=== PATIENT | female | born 1955 | race Caucasian/White ===

== ENCOUNTER → 2024-03-02 | Outpatient (CLI) | payer MEDICARE, BC, SELFPAY ==
--- NOTE | 2024-03-02 07:31 | US_ITS ---
STUDY: ABDOMINAL ULTRASOUND - RIGHT UPPER QUADRANT REASON FOR VISIT: Female, 68 years old elevated liver enzymes TECHNIQUE: Ultrasound evaluation of the right upper quadrant was performed with real-time and static marcus-scale imaging. TECHNICAL QUALITY: Adequate. COMPARISON: None. FINDINGS: Liver: The liver measures 13.8 cm. There is increased echogenicity consistent with fatty infiltration. The bile ducts are within normal limits. There is hepatic color flow. The direction of portal flow is hepatopetal. There is no demonstrated mass lesion. Gallbladder: Normal distended gallbladder. The gallbladder wall measures 3 mm. There is a negative sonographic Chavira''s sign. There is no pericholecystic fluid. There are no gallstones. Common Bile Duct (C.B.D.): The common bile duct measures 3 mm. Pancreas: Normal size of the head, body and tail of the pancreas. There is normal echogenicity of the pancreas. There is no demonstrated pancreatic mass or cyst. Right Kidney: Normal size of the right kidney. The right kidney measures 12 cm x 4.1 cm x 4.5 cm. Normal renal cortex. The right cortex measures 1.3 cm. There is no demonstrated renal mass or cyst. There is no right hydronephrosis. US/Liver IMPRESSION: Fatty infiltration of the liver. Electronically Signed: Rigo Lara MD at 10:12 EDT ,
[2024-03-02 08:54] LABS: Vitamin D,25 Hydroxy 75.2 ng/mL
[2024-03-02 09:04] LABS: ALB/GLOB Ratio 1.1 RATIO (0.9-2.4); AST(SGOT) 67 U/L (15-37); Alanine Aminotransfer ALT/SGPT 172 U/L (13-56); Albumin, Serum 3.8 g/dL (3.2-5.0); Alkaline Phosphatase 66 U/L (45-117); Anion Gap 0 (5-15); BUN 16 mg/dL (7-18); BUN/Creat Ratio 22.8 RATIO (10-20); Calcium,Total 9.1 mg/dL (8.5-10.1); Chloride 106 mmol/L (98-107); Cholesterol 256 mg/dL (200); EST Glomerular Filtration Rate 88 mL/min (>60); Est Glom Filt Rate - Afr Amer 107 mL/min (>60); Globulin 3.4 g/dL (2.2-4.2); Glucose 90 mg/dL (74-106); High Density Lipoprotein 77 mg/dL; Potassium 4.1 mmol/L (3.5-5.1); Protein, Total 7.2 g/dL (6.4-8.2); Sodium Level 139 mmol/L (136-145); Triglycerides 89 mg/dL; Very Low Density Lipoprotein 18 mg/dL (5-40)
[2024-03-03 14:09] LABS: Anti-Mitochondrial AB <20.0 Units (0.0-20.0)
== END | disposition home or self-care (01) ==
PROVIDERS: PCP Internal Medicine; Referring Provider Internal Medicine; Visit Provider Internal Medicine
DX: R74.8 Abnormal levels of other serum enzymes (principal); E78.2 Mixed hyperlipidemia; E55.9 Vitamin D deficiency, unspecified
CPT/HCPCS: 36415; 76705; 80053; 80061; 82306; 83516

== ENCOUNTER → 2024-04-22 | Outpatient (CLI) | payer MEDICARE, BC, SELFPAY ==
[2024-04-22 13:52] LABS: ALB/GLOB Ratio 1.1 RATIO (0.9-2.4); AST(SGOT) 36 U/L (15-37); Alanine Aminotransfer ALT/SGPT 65 U/L (13-56); Albumin, Serum 3.6 g/dL (3.2-5.0); Alkaline Phosphatase 70 U/L (45-117); Anion Gap 8 (5-15); BUN 15 mg/dL (7-18); BUN/Creat Ratio 23.1 RATIO (10-20); Calcium,Total 9.2 mg/dL (8.5-10.1); Chloride 107 mmol/L (98-107); Cholesterol 186 mg/dL (200); Creatinine, Serum 0.65 mg/dL (0.55-1.02); EST Glomerular Filtration Rate 97 mL/min (>60); Est Glom Filt Rate - Afr Amer 117 mL/min (>60); Globulin 3.2 g/dL (2.2-4.2); Glucose 90 mg/dL (74-106); High Density Lipoprotein 82 mg/dL; Potassium 3.9 mmol/L (3.5-5.1); Protein, Total 6.8 g/dL (6.4-8.2); Sodium Level 140 mmol/L (136-145); Triglycerides 103 mg/dL; Very Low Density Lipoprotein 21 mg/dL (5-40)
== END | disposition home or self-care (01) ==
LOC: BIMLAB 09:19
PROVIDERS: PCP Internal Medicine; Referring Provider Internal Medicine; Visit Provider Internal Medicine
DX: R74.8 Abnormal levels of other serum enzymes (principal); E78.2 Mixed hyperlipidemia
CPT/HCPCS: 36415; 80053; 80061

== ENCOUNTER → 2025-01-06 | Outpatient (CLI) | payer MEDICARE, SELFPAY ==
[2025-01-06 12:54] LABS: Cholesterol 172 mg/dL (200); High Density Lipoprotein 82 mg/dL; Triglycerides 81 mg/dL; Very Low Density Lipoprotein 16 mg/dL (5-40)
[2025-01-06 14:29] LABS: Vitamin D,25 Hydroxy 59.1 ng/mL
== END | disposition home or self-care (01) ==
LOC: BIMLAB 09:11
PROVIDERS: PCP Internal Medicine; Referring Provider Internal Medicine; Visit Provider Internal Medicine
DX: M85.80 Other specified disorders of bone density and structure, unspecified site (principal); E78.2 Mixed hyperlipidemia
CPT/HCPCS: 36415; 80061; 82306

== ENCOUNTER 2025-02-25 06:50 | Day surgery (SDC) | payer MEDICARE, SELFPAY ==
[2025-02-25] VITALS (8 sets, daily range): BP systolic 99–132; BP diastolic 60–79; PULSE 61–77; RESP 12–20; TEMP 35.9–37.3; O2SAT 96–98; BMI 29.9
--- NOTE | 2025-02-25 07:10 | PCM.PRE.AN2 ---
ASA Classification* ASA Classification ASA Classification: 2 Assessment & Plan Anesthesia* Anesthesia Assessment Anesthesia Assessment: Discussed sedation and/or anesthesia options, risks, benefits, and alternatives with patient/parents/legal guardian/POA. Questions invited. The patient/parents/legal guardian/POA seems to understand and agrees to proceed with anesthesia plan. Reviewed the physical assessment, medical history, allergy history and patient home medications list prior to surgery/procedure/anesthetic and documented any changes. Performed airway and anesthesia risk assessments. Anesthesia Type Anesthesia Type: MAC Anesthesia Focused Assessment* Airway Assessment Mouth opens: >3 cm Mallampati Score: II Focused Labs Anesthesia Preop lab: CBC WBC 4.5 k/mm3 (4.4-11.0) 04/05/13 09:50 04/05/13 RBC 4.57 M/mm3 (4.2-5.4) 04/05/13 09:50 04/05/13 Hgb 13.3 g/dl (12.0-15.0) 04/05/13 09:50 04/05/13 Hct 40.2 % (37-47) 04/05/13 09:50 04/05/13 Plt Count 278 K/mm3 (150-450) 04/05/13 09:50 04/05/13 CHEMISTRY Potassium 3.9 mmol/L (3.5-5.1) 04/22/24 09:21 04/22/24 Sodium 140 mmol/L (136-145) 04/22/24 09:21 04/22/24 BUN 15 mg/dL (7-18) 04/22/24 09:21 04/22/24 Creatinine 0.65 mg/dL (0.55-1.02) 04/22/24 09:21 04/22/24 Glucose 90 mg/dL (74-106) 04/22/24 09:21 04/22/24 COAG Pre-Assessment Diagnosis/Proposed Procedure Planned Operative Procedure(s): COLOSCOPY Anesthesia History 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 When Was Last Pacemaker Check QUESTION #4 FULL TEXT: You/Your Family Experience fever (hyperthermia) with Anesthesia Last Oral Intake Last Oral intake: Last Oral Intake NPO since Meds taken in AM with sips of water? 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 Has anyone observed you stop No 02/21/25 12:17 breathing during sleep? STOP Results Negative 02/21/25 12:17 QUESTION #5 FULL TEXT : Do you snore loudly (louder than talking or can be heard through closed doors)? 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 Specify any problems Hx of Preganancy in last 3 No 02/21/25 12:17 Months Nurse Filling Out Transfusion VCHRISTIN 02/21/25 12:17 & Questions: Date: 02/21/25 02/21/25 12:17 Time: 12:20 02/21/25 12:17 Patient unable to answer at this time (ie. 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: /Reproductive Hx- furnace and wash equipment operator Hx Now No 02/21/25 12:17 Gestational Age (in weeks): EDC: Hx Hx Para Hx Section SAB No 02/21/25 12:17 [facility] Medical History Wears glasses Post-menopausal History of steroid therapy Non-smoker High cholesterol Osteopenia Osteoarthritis Arthritis Home Medications ?Medication ?Instructions ?Recorded ?Last Taken ?Type cholecalciferol (vitamin D3) 50 50 mcg PO DAILY 10/22/23 02/23/25 History mcg (2,000 unit) capsule vitamin B complex (B 1 tab PO DAILY 10/22/23 02/23/25 History Complex-Vitamin B12 tablet) Turmeric Curcumin 1 tab PO DAILY 02/26/24 02/16/25 History atorvastatin 10 mg tablet (Lipitor) 10 mg PO QHS #90 tabs 11/17/24 02/23/25 Rx duloxetine 20 mg capsule,delayed 20 mg PO DAILY #90 caps 12/09/24 02/23/25 Rx release meloxicam 15 mg tablet 15 mg PO QDAY PRN joint pain #90 12/30/24 Unknown Rx tabs calcium carbonate 500 mg PO QDAY 01/06/25 02/23/25 History gabapentin 100 mg capsule 100 mg PO DAILY #30 caps 02/06/25 02/23/25 Rx ferrous sulfate 325 mg (65 mg 325 mg PO QDAY 02/14/25 02/20/25 History iron) tablet (FeroSul) benzonatate 100 mg capsule 100 mg PO PRN 02/21/25 Unknown History Allergy/AdvReac Type Severity Reaction Status Date / Time Sulfa (Sulfonamide AdvReac Mild Hives Verified 02/25/25 07:08 Antibiotics) Family History Father Heart disease, Onset Age: 70 Cancer lung Mother Arthritis Hypertension Cancer liposarcoma Brother AICD (automatic cardioverter/defibrillator) present Uncle Sudden cardiac arrest, Onset Age: 70 Surgical History Hx of dilation and curettage Hx of vein stripping Status post ablation of incompetent vein using laser H/O section Social History household members: spouse current occupational status: employed 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
--- NOTE | 2025-02-25 07:51 | PCM.HP.BLA ---
History and Physical Date of Admission: 02/25/25 Intake Vital Signs 01/06/2508:20 02/15/2508:27 Height 5 ft 4 in 5 ft 4 in Weight: 180 lb 6 oz 182 lb BMI 30.9 31.2 BP 138/82 H 131/86 H Blood Pressure Location Lt brachial Rt brachial Position Sitting Respiration 16 16 Pulse 67 Pulse Source Monitor Temp 97.3 F L Temp Source Temporal Pulse Oximetry (%) 96 Oxygen Delivery Method room air Intake Visit Reasons: POSITIVE COLOGUARD Chief Complaint: positive cologuard Unhairing Inspector Required: No Is patient in pain?: No Allergies Sulfa (Sulfonamide Antibiotics) Adverse Reaction (Mild, Verified 02/14/25 08:27) Hives Medications ?Medication ?Instructions ?Recorded ?Confirmed ?Type cholecalciferol (vitamin D3) 50 50 mcg PO DAILY 10/22/23 02/14/25 History mcg (2,000 unit) capsule vitamin B complex (B 1 tab PO DAILY 10/22/23 02/14/25 History Complex-Vitamin B12 tablet) Turmeric Curcumin PO 02/26/24 02/14/25 History atorvastatin 10 mg tablet (Lipitor) 10 mg PO QHS #90 tabs 11/17/24 02/14/25 Rx duloxetine 20 mg capsule,delayed 20 mg PO DAILY #90 caps 12/09/24 02/14/25 Rx release meloxicam 15 mg tablet 15 mg PO QDAY PRN joint pain #90 12/30/24 02/14/25 Rx tabs calcium carbonate 500 mg PO QDAY 01/06/25 02/14/25 History gabapentin 100 mg capsule 100 mg PO DAILY #30 caps 02/06/25 02/14/25 Rx ferrous sulfate 325 mg (65 mg 325 mg PO QDAY 02/14/25 02/14/25 History iron) tablet (FeroSul) Have you fallen in the past year?: No PFSH Medical History High cholesterol Osteopenia Osteoarthritis Arthritis Surgical History Status post ablation of incompetent vein using laser H/O section Family History Father Heart disease, Onset Age: 70 Cancer lungMother Arthritis Hypertension Cancer liposarcomaBrother AICD (automatic cardioverter/defibrillator) presentUncle Sudden cardiac arrest, Onset Age: 70 Social History household members: spouse current occupational status: employed 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 She reports she had a Cologuard a few years ago and it was negative. She has never had a colonoscopy. She denies any abdominal pain or blood in stool. She does not have family history of colon cancer. ROS General General: No weight change, appetite, fatigue, colon cancer, breast cancer or weakness HEENT HEENT: No difficulty swallowing, eye injury, eye surgery, swollen glands or hoarseness Endo Endocrine: No thyroid disease, diabetes mellitus, thyroid cancer, Hair loss, heat intolerance or cold intolerance Skin Skin: No rash or changing moles Breast Breast: No left breast lump, right breast lump, nipple discharge, breast pain, abnormal mammogram, abnormal US or breast enlargement Musc Musculoskeletal: Yes arthritis; No back problems, rheumatoid arthritis, gout or joint pain Cardio Cardiovascular: No murmur, pacemaker, heart disease, atrial fibrillation, high blood pressure, heart attack, heart stent, palpitations, shortness of breath with exertion or chest pain Psych Psychiatric: No depression, anxiety or hearing voices Resp Respiratory: No shortness of breath, No sleep apnea, No cough, No COPD, No asthma, No emphysema and No wheezing Gastro Gastrointestinal: No abdominal pain, No nausea or vomiting, No diarrhea, No constipation, No blood in stool, No acid reflux, No hemorrhoids, No ulcers, No gallbladder problem and No black,tarry stools Estuardo Hematologic: No blood thinners, No blood disorders, No bleeding, No anemia and No blood clots Neuro Neurologic: No system reviewed and no additional complaints, except as documented, No as per HPI, No abnormal gait, No abnormal hearing, No abnormal movements, No abnormal speech, No behavioral changes, No burning sensations, No confusion, No convulsions, No disequilibrium, No dizziness, No localized weakness, No frequent falls, No headache(s), No lack of coordination, No loss of vision, No memory loss, No numbness, No other visual disturbances, No radicular pain, No restless legs, No sensory deficit, No syncope, No tingling, No tremor(s), No weakness and No other Exam Const General: cooperative Orientation: alert and oriented x3 HENMT Head: normal to inspection Neck Neck: normal visual inspection and full ROM Chest Chest palpation & inspection: normal inspection of the chest Resp Effort & Inspection: normal respiratory effort Auscultation: clear to auscultation bilaterally Cardio Rate: regular rate Rhythm: regular rhythm GI Inspection: non-distended Palpation: soft and nontender Skin General: no rashes or lesions noted Neuro General: patient alert and patient oriented x3 Extrem General: full ROM Psych Appearance: grossly normal Mental Status: mental status grossly normal Assessment and Plan Assessment and Plan (1) Positive colorectal cancer screening using Cologuard test: Status: Acute Plan: I explained endoscopy in detail to the patient. I explained the risks including but not limited to stroke or heart attack with anesthesia, perforation of the GI tract, bleeding, infection. I explained that any of these could necessitate further emergency surgery. The patient understands and all questions were answered sufficiently. The patient wishes to proceed with procedure. Patient will hold her turmeric for 5 days Eris Oakley MD Pager: [facility] [address] [place] [address], [address] [place] [address] Office: I have examined the patient and the H&P has been reviewed. There are no clinical changes since date of exam.
--- NOTE | 2025-02-25 08:25 | OP.COLON_ITS ---
Patient Name: Veronica Alacntara Procedure Date: 02/25/2025 7:58 AM Date of : 1955 Age: 69 Procedure: Colonoscopy Indications: Positive Cologuard test Providers: Eris Oakley MD Referring MD: Paula Johnson Md Medicines: Propofol per Anesthesia Patient Profile: This is a 69 year old female. Refer to note in patient chart for documentation of history and physical. Last Colonoscopy: 10 years ago. Complications: No immediate complications. Procedure: Pre-Anesthesia Assessment: - Prior to the procedure, a History and Physical was performed, and patient medications and allergies were reviewed. The patient's tolerance of previous anesthesia was also reviewed. The risks and benefits of the procedure and the sedation options and risks were discussed with the patient. All questions were answered, and informed consent was obtained. Prior Anticoagulants: The patient has taken no anticoagulant or antiplatelet agents. After reviewing the risks and benefits, the patient was deemed in satisfactory condition to undergo the procedure. After I obtained informed consent, the scope was passed under direct vision. Throughout the procedure, the patient's blood pressure, pulse, and oxygen saturations were monitored continuously. The Colonoscope was introduced through the anus and advanced to the cecum, identified by appendiceal orifice and ileocecal valve. The colonoscopy was performed without difficulty. The patient tolerated the procedure well. The quality of the bowel preparation was good. The ileocecal valve, appendiceal orifice, and rectum were photographed. Scope In: 8:08:28 AM Scope Withdrawal Time 0 hours 5 minutes 47 seconds Scope Out: 8:21:47 AM Total Procedure Duration Time 0 hours 13 minutes 19 seconds Findings: The entire examined colon appeared normal on direct and retroflexion views. Impression: - The entire examined colon is normal on direct and retroflexion views. - No specimens collected. Recommendation: - Discharge patient to home. - Resume previous diet. - Continue present medications. - Repeat colonoscopy is not recommended due to current age (66 years or older) for screening purposes. Procedure Code(s): --- Professional --- 40580, Colonoscopy, flexible; diagnostic, including collection of specimen(s) by brushing or washing, when performed (separate procedure) Diagnosis Code(s): --- Professional --- R19.5, Other fecal abnormalities CPT copyright 2021 [employer]. All rights reserved. The codes documented in this report are preliminary and upon process technician review may be revised to meet current compliance requirements. Eris Oakley MD 02/25/2025 8:24:30 AM This report has been signed electronically. Number of Addenda: 0 Note Initiated On: 02/25/2025 7:58 AM
--- NOTE | 2025-02-25 08:25 | OP.CCLET_ITS ---
02/25/2025 Paula Johnson Md Re : Colonoscopy procedure for Veronica Alcantara Dear Elizabeth This procedure was performed on Tuesday, February 25, 2025. My impressions and recommendations are as follows: Impressions : - The entire examined colon is normal on direct and retroflexion views. - No specimens collected. Recommendations : - Discharge patient to home. - Resume previous diet. - Continue present medications. - Repeat colonoscopy is not recommended due to current age (66 years or older) for screening purposes. My findings are described in the full procedure note, which is enclosed. If I can be of further assistance, please feel free to contact me at Doctor phone number(s): , Work: . Sincerely, Eris Oakley MD 02/25/2025 8:24:30 AM This report has been signed electronically.
--- NOTE | 2025-02-25 08:29 | PCM.POST.ANE ---
Anesthesia: Postop Eval I Current Vital Signs Temperature: 97.1 F Pulse Rate: 61 Blood Pressure: 117/63 Respiratory Rate: 16 Pulse Ox: 97 Oxygen Delivery Method: Room Air Assessment Airway patent: Yes Spontaneous unlabored respirations: Yes Mental status: Asleep nausea: No Vomiting: No Anesthesia Complication: Yes Anesthesia Complication Comment:: vagal sensitive, tx with glyco, then ephedrine Fluid Hydration Crystalloid volume administer (ml): 40 Total IV fluid infused: 40 Progress Note Anesthesia document: Postop Eval 1 completed: Yes
--- NOTE | 2025-02-25 11:09 | PCM.POSTANE2 ---
Anesthesia Postop Eval I Sum Postop Eval Completion status Anesthesia document: Postop Eval 1 completed: Yes Anesthesia Postop Eval I Summary Anesthesia Postop Eval I Summary: Anesthesia Postop Eval I: Assessment Summary Airway patent Yes 02/25/25 08:31 [email or web address] Spontaneous unlabored Yes 02/25/25 08:31 [email or web address] respirations Mental status Asleep 02/25/25 08:31 [email or web address] nausea No 02/25/25 08:31 [email or web address] Vomiting No 02/25/25 08:31 [email or web address] Anesthesia Postop Eval I: Fluid Summary Crystalloid volume administer 40 02/25/25 08:31 [email or web address] (ml) Colloids volume administered ( ml) Blood Product volume administered (ml) Total IV fluid infused 40 02/25/25 08:31 [email or web address] Anesthesia Postop Eval I: Summary Notes Anesthesia Complication Yes 02/25/25 08:31 [email or web address] Anesthesia Complication vagal sensitive, 02/25/25 08:31 [email or web address] Comment: tx with glyco, then ephedrine Post-operative progress note Anesthesia: Postop Eval II Evaluation Mental status: Awake Pain Level: 0 nausea: No Vomiting: No
== END 2025-02-25 09:10 | disposition home or self-care (01) ==
LOC: EN 06:51 → AC 06:52
PROVIDERS: PCP Internal Medicine; Referring Provider Internal Medicine; Visit Provider Surgery
PROC: 0DJD8ZZ Inspection of Lower Intestinal Tract, Via Natural or Artificial Opening Endoscopic (ICD-10-PCS; CPT 45378; principal; 2025-02-25 07:55)
DX: R19.5 Other fecal abnormalities (principal); E78.00 Pure hypercholesterolemia, unspecified
CPT/HCPCS: 45378; A4216; J2405

== ENCOUNTER → 2025-05-25 | Outpatient (CLI) | payer MEDICARE, SELFPAY ==
[2025-05-25 12:13] LABS: Hematocrit 40.9 % (37-47); Hemoglobin 13.4 g/dL (12.0-15.0); Immature Granulocytes Count 0.010 X10^3/uL (0.0-0.0); Mean Corp Hgb Conc 32.8 g/dL (32-36); Mean Corpuscular Volume 91.9 fL (81-99); Mean Platelet Vol. 10.2 fl (6.2-12.0); NRBC Flagged by Analyzer 0 % (0-5); Platelet Count 248 K/mm3 (150-450); RBC Distribution Width CV 12.9 % (11.6-14.6); RBC Distribution Width SD 43.1 fl (35.1-43.9); Red Blood Count 4.45 M/mm3 (4.2-5.4); White Blood Count 4.6 K/mm3 (4.4-11.0)
[2025-05-25 12:33] LABS: AST(SGOT) 25 U/L (<=31); Alanine Aminotransfer ALT/SGPT 24 U/L (<=34); Albumin, Serum 4.0 g/dL (3.4-4.8); Alkaline Phosphatase 89 U/L (35-104); Anion Gap 11 (5-15); BUN 14 mg/dL (4-19); BUN/Creat Ratio 22.5 RATIO (10-20); CRP 10.90 mg/L (0.0-3.0); Calcium,Total 9.3 mg/dL (7.6-11.0); Carbon Dioxide 25.7 mmol/L (21.0-32.0); Chloride 104 mmol/L (98-108); Globulin 2.8 g/dL (2.2-4.2); Glucose 93 mg/dL (70-99); Potassium 4.1 mmol/L (3.3-5.1)
== END | disposition home or self-care (01) ==
LOC: LABSPEC 11:32 → PAVLAB 11:34
PROVIDERS: PCP Internal Medicine; Referring Provider Internal Medicine Rheumatology; Visit Provider Internal Medicine Rheumatology
DX: K76.0 Fatty (change of) liver, not elsewhere classified (principal); R06.89 Other abnormalities of breathing; M54.17 Radiculopathy, lumbosacral region; G56.02 Carpal tunnel syndrome, left upper limb; M46.1 Sacroiliitis, not elsewhere classified; M47.816 Spondylosis without myelopathy or radiculopathy, lumbar region; M19.041 Primary osteoarthritis, right hand; M19.042 Primary osteoarthritis, left hand; M19.071 Primary osteoarthritis, right ankle and foot; M19.072 Primary osteoarthritis, left ankle and foot; M48.062 Spinal stenosis, lumbar region with neurogenic claudication; M51.26 Other intervertebral disc displacement, lumbar region; Z79.1 Long term (current) use of non-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-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 (NSAID); Z87.2 Personal history of diseases of the skin and subcutaneous tissue; Z87.39 Personal history of other diseases of the musculoskeletal system and connective tissue
CPT/HCPCS: 36415; 80053; 85025; 85652; 86140

== ENCOUNTER → 2025-06-13 | Outpatient (CLI) | payer MEDICARE, SELFPAY ==
--- NOTE | 2025-06-13 13:00 | CT_ITS ---
PROCEDURE: CHEST WITHOUT CONTRAST 06/13/2025 REASON FOR EXAM: ENDOBRONCHIAL LESION IN RLL TECHNIQUE: Chest CT without contrast. Coronal and Sagittal reconstruction series were provided. One or more dose reduction techniques were used (e.g., Automated exposure control, adjustment of the mA and/or kV according to patient size, use of iterative reconstruction technique RADIATION DOSE SUMMARY: CTDlvol: 9.47 mGy DLP: 333.79 mGycm COMPARISON: 05/04/2025 FINDINGS: Lung windows show the lungs to be normally expanded. There is a noncalcified 4 mm nodule in the right middle lobe on axial image 50. There is a 3 mm noncalcified nodule in the left lower lobe on axial image 85. Chronic interstitial changes noted in the lower lung sotelo, no organized infiltrate or effusion. Soft tissue windows show a low-density nodules within the thyroid. Dedicated thyroid ultrasound may be of benefit for further evaluation. There are scattered subcentimeter in short axis dimension axillary and mediastinal lymph nodes likely reactive. The thoracic aorta tapers normally. No calcified coronary vessels are noted. Limited cuts of the upper abdomen do not show a suspicious abnormality Bony structures show degenerative change CT/Chest without Contrast IMPRESSION: Coronary artery calcification (CAC) is is absent No acute pulmonary process, there are subcentimeter noncalcified nodules in the right middle lobe and left lower lobe. Six-month follow-up recommended to assess stability Thyroid nodules, consider dedicated thyroid ultrasound for further evaluation Reading Location: [id number]
== END | disposition home or self-care (01) ==
LOC: CT 12:58
PROVIDERS: PCP Internal Medicine; Referring Provider Internal Medicine Critical Care Medicine; Visit Provider Internal Medicine Critical Care Medicine
DX: R91.8 Other nonspecific abnormal finding of lung field (principal)
CPT/HCPCS: 71250

== ENCOUNTER → 2025-06-22 | Outpatient (CLI) | payer MEDICARE, SELFPAY ==
[2025-06-22 09:20] LABS: Mucous, Urine 0 SEEN /hpf (<or=2+); Red Blood Cells-Urine 0 SEEN /hpf (0-5)
[2025-06-22 12:39] LABS: Color, Urine Yellow (Yellow); Glucose, Dipstick Normal (Normal); Ketone-Dipstick Negative (Negative); Leukocyte Esterase-Dipstick Negative /ul (Negative); Nitrite-Dipstick Negative (Negative); Occult Blood-Urine Negative /ul (Negative); Protein-Dipstick Negative (Negative); Specific Gravity, Urine 1.015 (1.002-1.030); Urine Bilirubin Dipstick Negative (Negative)
[2025-06-22 12:58] LABS: Squamous Epithelial Cells - UA 0-5 SEEN /hpf (5-10)
== END | disposition home or self-care (01) ==
LOC: LABSPEC 09:03
PROVIDERS: PCP Internal Medicine; Visit Provider Internal Medicine
DX: R33.9 Retention of urine, unspecified (principal)
CPT/HCPCS: 81001

== ENCOUNTER → 2025-06-27 | Outpatient (CLI) | payer MEDICARE, SELFPAY | END | disposition home or self-care (01) | PROVIDERS: PCP Internal Medicine; Referring Provider Internal Medicine; Visit Provider Internal Medicine | DX: E04.1 Nontoxic single thyroid nodule (principal); R33.9 Retention of urine, unspecified | CPT/HCPCS: 51798; 76536 ==

== ENCOUNTER → 2025-07-19 | Outpatient (CLI) | payer MEDICARE, SELFPAY ==
--- OUTSIDE RECORDS SUMMARY | 2025-07-19 18:22 | XMS RPT_ITS | CCD ---
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 Flavio Johnson Primary Care Provider Dr. Flavio Johnson Attending Provider [phone] Dr. Flavio Johnson Referring Provider JOSE LUIS HAYDEN Attending Unavailable ELIZABETH, FLAVIO MIKE Primary Care Unavailable JACKELYN, JOSE LUIS STANTON Referring Unavailable JOSE LUIS HAYDEN Admitting Unavailable ELIZABETH, FLAVIO MIKE Primary Care Unavailable JOSE LUIS HAYDEN Attending Unavailable ELIZABETH, FLAVIO MIKE Primary Care Unavailable ELIZABETH, FLAVIO MIKE Primary Care Unavailable JOSE LUIS HAYDEN Attending Unavailable ELIZABETH, FLAVIO MIKE Primary Care Unavailable JOSE LUIS HAYDEN Attending Unavailable ELIZABETH, FLAVIO MIKE Primary Care Unavailable JACKELYNJOSE LUIS Attending Unavailable ELIZABETH, FLAVIO MIKE Primary Care Unavailable JACKELYN, JOSE LUIS SABRY Referring Unavailable JACKELYN, JOSE LUIS SABRY Admitting Unavailable FLAVIO JOHNSON Primary Care Unavailable JACKELYN, JOSE LUIS SABRY Attending Unavailable JACKELYN, JOSE LUIS SANDERSRY Attending Unavailable FLAVIO JOHNSON Primary Care Unavailable Flavio Johnson MD Primary Care Provider [phone] Elizabeth BALLESTEROS, Flavio Mckeon Primary Care Provider JACKELYN, JOSE LUIS S Referring Unavailable BAMBI, ALFA Mock Primary Care Unavailable JACKELYN, JOSE LUIS S Referring Unavailable CANDELARIA, ALFA L Primary Care Unavailable JACKELYN, JOSE LUIS S Referring Unavailable CANDELARIA, ALFA L Primary Care Unavailable JACKELYN, JOSE LUIS S Referring Unavailable CANDELARIA, ALFA L Primary Care Unavailable JACKELYN, JOSE LUIS S Referring Unavailable CANDELARIA, ALFA L Primary Care Unavailable JACKELYN, JOSE LUIS S Referring Unavailable CANDELARIA, AFLA L Primary Care Unavailable JACKELYN, JOSE LUIS S Referring Unavailable BAMBI, ALFA Mock Primary Care Unavailable JACKELYN, JOSE LUIS S Referring Unavailable CANDELARIA, ALFA Mock Primary Care Unavailable JACKELYN, JOSE LUIS S Referring Unavailable CANDELARIA, ALFA Mock Primary Care Unavailable FLAVIO JOHNSON Primary Care Unavailable VINCE DÍAZ Attending Unavailable Elizabeth BALLESTEROS, Dr. Mitchell Primary Care Provider [phone] Elizabeth BALLESTEROS, Dr. Mitchell Attending Provider Dr. Flavio Johnson MD Referring Provider Dr. Eris Oakley MD Attending Provider Dr. Eris Oakley MD Other Provider [phone] ANKIT STANTON Attending Unavailvikas e FLAVIO JOHNSON Primary Care Unavailable ANKIT STANTON Attending Unavailvikas e SELF Referring Unavailable FLAVIO JOHNSON Primary Care Unavailable Dr. Flavio Johnson MD Primary Care Provider [phone] Dr. Flavio Johnson MD Referring Provider Dr. Flavio Johnson MD Attending Provider Dr. Alfa Holden MD Attending Provider Dr. Alfa Holden MD Referring Provider Dr. Schuyler Butler DO Attending Provider Dr. Alfa Holden MD Attending Provider Dr. Alfa Holden MD Referring Provider Elizabeth BALLESTEROS, Flavio Primary Care Provider [phone] SHELLEY VIRAMONTES JR, ALFA Attending Unavaila ble SELF, SELF Referring Unavailable ELIZABETH, FLAVIO Primary Care Unavailable STAINBROOK JR JR, ALFA Attending Unavaila ble SELF, SELF Referring Unavailable ELIZABETH, FLAVIO Primary Care Unavailable STAINBROOK JR , ALFA Attending Unavaila ble ELIZABETH, FLAVIO Primary Care Unavailable STAINBROOK JR , ALFA Referring Unavaila ble STAINBROOK JR JR, ALFA Attending Unavaila ble SELF, SELF Referring Unavailable ELIZABETH, FLAVIO Primary Care Unavailable Elizabeth BALLESTEROS, Dr. Mitchell Primary Care Provider [phone] Dr. Flavio Johnson MD Referring Provider Dr. Eris Oakley MD Attending Provider Dr. Schuyler Butler DO Referring Provider Dr. Flavio Johnson MD Primary Care Provider [phone] Dr. Flavio Johnson MD Referring Provider Elizabeth, Flavio Primary Care Unavailable Elizabeth, Flavio Referring Unavailable Eris Oakley Attending Unavailable Elizabeth, Flavio Referring Unavailable Slovan, Flavio Attending Unavailable Slovan, Flavio Primary Care Unavailable Elizabeth, Flavio Primary Care Unavailable Schuyler Butler Referring Unavailable Schuyler Butler Attending Unavailable Slovan, Flavio Attending Unavailable Elizabeth, Flavio Primary Care Unavailable Slovan, Flavio Referring Unavailable Slovan, Flavio Referring Unavailable Slovan, Flavio Primary Care Unavailable Eris Oakley Attending Unavailable Eris Oakley Consulting Unavailable Slovan, Flavio Referring Unavailable Elizabeth, Flavio Attending Unavailable Slovan, Flavio Primary Care Unavailable Elizabeth, Flavio Referring Unavailable Schuyler Butler Attending Unavailable Elizabeth, Flavio Primary Care Unavailable Slovan, Flavio Attending Unavailable Slovan, Flavio Referring Unavailable Slovan, Flavio Primary Care Unavailable Slovan, Flavio Referring Unavailable Schuyler Butler Attending Unavailable Elizabeth, Flavio Primary Care Unavailable Slovan, Flavio Attending Unavailable Slovan, Flavio Primary Care Unavailable Slovan, Flavio Referring Unavailable Slovan, Flavio Attending Unavailable Slovan, Flavio Primary Care Unavailable Slovan, Flavio Referring Unavailable Stainkarlene Viramontes., Alfa Zuniga Referring Unavaila ble Slovan, Flavio Primary Care Unavailable Shelley Viramontes., Alfa Zuniga Attending Unavaila ble Schuyler Butler Attending Unavailable Slovan, Flavio Primary Care Unavailable Brown, Schuyler Referring Unavailable Elizabeth, Flavio Attending Unavailable Elizabeth, Flavio Primary Care Unavailable Elizabeth, Flavio Referring Unavailable Elizabeth, Flavio Attending Unavailable Elizabeth, Flavio Primary Care Unavailable Elizabeth, Flavio Primary Care Unavailable Elizabeth, Flavio Referring Unavailable Eris Oakley Attending Unavailable Allergies Allergy Classification Reported Allergen(s) Allergy Type Date of Onset Reaction(s) Facility Sulfonamides (antibiotic) (8 sources) Sulfonamides (Antibiotic) Drug Allergy 7 [facility] (20 sources) Sulfonamides (Antibiotic); Translations: [SULFA (SULFONAMIDE ANTIBIOTICS)] Propensity to adverse reactions to drug 7 [facility] (5 sources) Sulfonamides (Antibiotic) Propensity to adverse reactions to drug 7 [facility] (5 sources) Sulfonamides (Antibiotic) Propensity to adverse reactions to drug 7 [facility] (1 source) ALLERGIES NOT ON FILE; Translations: [ALLERGIES NOT ON FILE] Propensity to adverse reactions (disorder) [facility] 2 Repository Medications Current Medications Medication Drug Class(es) Dates Sig (Normalized) Sig (Original) [id number] 200 actuat albuterol 0.09 mg/actuat metered dose inhaler (3 sources) beta2-Adrenergic Agonist Start: 06-22-2025 Albuterol Sulfate 90 mcg/actuation HFA aerosol inhaler Active 2 NMA INHALATION Q4H as needed for shortness of breath or wheezing 8.5 3 June 22, 2025 12:00am administer with spacer benzonatate 100 mg oral capsule (10 sources) Non-narcotic Antitussive Start: 02-18-2025 Benzonatate 100 mg capsule Active 100 mg PO NEEDED February 21, 2025 12:00am calcium carbonate 1250 mg oral tablet (16 sources) Start: 01-06-2025 take 1 tablet by mouth once daily Calcium Carbonate 500 mg calcium (1,250 mg) tablet Active 500 mg PO daily January 06, 2025 1:00am calcium carbonat e (CALCIUM 500 ORAL) Take by mouth . Active calcium carbonat e (CALCIUM 500 ORAL) Take by mouth . 0 Active cholecalciferol 0.05 mg oral capsule (20 sources) Vitamin D Start: 10-22-2023 take 1 capsule by mouth once daily Cholecalciferol (Vitamin D3) 50 mcg (2,000 unit) capsule Active 50 ug PO DAILY October 22, 2023 1:00am Elastic Bandages & Supports (Wrist Splint/Elastic Left XL) Misc (18 sources) Start: 02-23-2021 Elastic Bandag es & Supports (Wrist Splint/Elastic Left XL) Misc Indications: Dorsalgia , Paresthesias in left hand , Carpal tunnel syndrome of left wrist , Paresthesia of right foot , Disorder of bone and cartilage , Abnormal reflexes of lower extremity , Osteoarthritis of right sacroiliac joint , Lumbar degenerative disc disease , Osteoarthritis of lumbar spine, unspecified spinal osteoarthritis complication status , Bilateral wrist pain , Bilateral hand pain , Osteoarthritis of both hands, unspecified osteoarthritis type , Weakness of both hands , Osteoarthritis of both feet, unspecified osteoarthritis type , Psoriasis , Fatigue, unspecified type , [facility] current use of non-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-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 (NSAID) , History of osteoarthritis , History of psoriatic arthritis , History of psoriasis , Long-term use of high-risk medication , Long-term use of Plaquenil , History of fibromyalgia , Chronic bilateral low back pain with left-sided sciatica , Disc disorder , Spinal stenosis of lumbar region with neurogenic claudication , Lumbar radiculopathy , Spondylolisthesis of lumbar region , Psoriatic arthritis , Chronic midline low back pain with left-sided sciatica , Chronic bilateral low back pain with right-sided sciatica , Ankylosing spondylitis, unspecified site of spine , Chronic bilateral low back pain without sciatica Left wrist splint for CTS 1 Each 02/23/2021 Active Start: 02-23-2021 Elastic Bandag es & Supports (Wrist Splint/Elastic Left XL[place] [facility] [place]: Dorsalgia , Paresthesias in left hand , Carpal tunnel syndrome of left wrist , Paresthesia of right foot , Disorder of bone and cartilage , Abnormal reflexes of lower extremity , Osteoarthritis of right sacroiliac joint , Lumbar degenerative disc disease , Osteoarthritis of lumbar spine, unspecified spinal osteoarthritis complication status , Bilateral wrist pain , Bilateral hand pain , Osteoarthritis of both hands, unspecified osteoarthritis type , Weakness of both hands , Osteoarthritis of both feet, unspecified osteoarthritis type , Psoriasis , Fatigue, unspecified type , [facility] current use of non-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-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 (NSAID) , History of osteoarthritis , History of psoriatic arthritis , History of psoriasis , Long-term use of high-risk medication , Long-term use of Plaquenil , History of fibromyalgia , Chronic bilateral low back pain with left-sided sciatica , Disc disorder , Spinal stenosis of lumbar region with neurogenic claudication , Lumbar radiculopathy , Spondylolisthesis of lumbar region , Psoriatic arthritis , Chronic midline low back pain with left-sided sciatica , Chronic bilateral low back pain with right-sided sciatica , Ankylosing spondylitis, unspecified site of spine , Chronic bilateral low back pain without sciatica Le (more content not included)... ferrous sulfate 325 mg oral tablet (19 sources) Start: 02-14-2025 take 1 tablet by mouth once daily Ferrous Sulfate (Ferosul) 325 mg (65 mg iron) tablet Active 325 mg PO daily February 14, 2025 12:00am ibuprofen 200 mg oral capsule (4 sources) Nonsteroidal Anti-inflammatory Drug End: 02-23-2021 Ibuprofen 200 mg cap Take by mouth. Active Comment on above: Take by mouth. Turmeric Curcumin (10 sources) Start: 02-26-2024 Turmeric Curcumin Active 1 {tbl} PO DAILY February 26, 2024 12:00am Start: 02-26-2024 Turmeric Curcu min Active PO February 26, 2024 12:00am Vitamin B Complex (B Complex-Vitamin B12) tablet (10 sources) Start: 10-22-2023 Vitamin B Comp wilda (B Complex-Vitamin B12) tablet Active 1 {tbl} PO DAILY October 22, 2023 1:00am Start: 10-22-2023 take 1 tablet by low th once daily Vitamin B Complex (B Complex-Vitamin B12) tablet Active 1 TABLET PO DAILY October 22, 2023 1:00am vitamin b12 0.1 mg oral tabl et (10 sources) Vitamin B12 cyanocobalamin ( VITAMIN B-12) 100 mcg tab Take 100 mcg by mouth. Active Completed/Discontinued Medications Medication Drug Class(es) Dates Sig (Normalized) Sig (Original) atorvastatin 10 mg oral tablet (20 sources) HMG-CoA Reductase Inhibitor Start: 03-02-2024 End: 03-16-2025 take 1 tablet by mouth at bedtime Atorvastatin (Lipitor) 10 mg tablet Discontinued 10 mg PO AT BEDTIME 90 November 17, 2024 7:13pm March 16, 2025 2:06pm azithromycin 250 mg oral tablet (10 sources) Macrolide Antimicrobial Start: 02-21-2025 End: 02-25-2025 take 1 tablet by mouth once daily Azithromycin 250 mg tablet Discontinued 250 mg PO DAILY February 21, 2025 12:00am February 25, 2025 7:09am Start: 02-18-2025 azithromycin ( Zithromax Z-Jose G) 250 mg tablet Indications: Acute bronchitis, unspecified organism Take 2 tablets by mouth at once on day 1, then 1 tablet once a day on days 2-5. Take with a meal. 6 tablet 02/18/2025 Active Bupivacaine (2 sources) Amide Local Anesthetic Start: 10-20-2023 End: 10-20-2023 BUPivacaine HCl (MARCAINE) 0.5 % (5 mg/mL) injection 1 mL Collinsonia Root (10 sources) Start: 02-26-2024 End: 01-06-2025 Collinsonia Root Discontinued PO February 26, 2024 12:00am January 06, 2025 9:33am Start: 02-26-2024 Collinsonia Ro ot Active PO February 26, 2024 12:00am DULoxetine 20 mg delayed release oral capsule (20 sources) Serotonin and Norepinephrine Reuptake Inhibitor Start: 10-22-2023 End: 12-22-2023 take 1 mg by mouth once daily Duloxetine Discontinued MG PO DAILY December 22, 2023 9:32am December 22, 2023 1:21pm Start: 08-31-2020 End: 03-16-2025 take 1 capsule by mouth once daily Duloxetine 20 mg capsule,delayed release(DR/EC) Discontinued 20 mg PO DAILY 90 0 December 09, 2024 11:03am March 16, 2025 2:06pm gabapentin 100 mg oral capsule (20 sources) Anti-epileptic Agent Start: 10-22-2023 End: 10-22-2023 Gabapentin Discontinued MG PO October 22, 2023 1:00am October 22, 2023 3:04pm Start: 04-30-2021 End: 06-21-2025 take 1 capsule by mouth once daily Gabapentin 100 mg capsule Discontinued 100 mg PO DAILY 30 0 May 11, 2025 4:37pm June 21, 2025 1:34pm Gadobenate (1 source) Start: 04-11-2021 End: 04-11-2021 Gadobenate Dimeglumine (MULTIHANCE) 15 mL hydroxychloroquine sulfate 200 mg oral tablet (20 sources) Antimalarial, Antirheumatic Agent Start: 10-22-2023 End: 04-22-2024 Hydroxychloroquine 200 mg tablet Discontinued mg PO October 22, 2023 1:00am April 22, 2024 8:51am Start: 10-22-2023 Hydroxychloroq uine Active MG PO October 22, 2023 1:00am Start: 05-08-2018 End: 08-29-2023 hydroxychloroquine (PLAQUENI L) 200 mg tablet 05/08/2018 Active Start: 07-07-2015 End: 06-04-2024 take 1 tablet by mouth every other day hydroxychloroquine (PLAQUENIL) 200 mg tablet Take 200 mg by mouth every other day. 07/07/2015 Active Comment on above: Take 200 mg by mouth every other day. meloxicam 15 mg oral tablet (20 sources) Nonsteroidal Anti-inflammatory Drug Start: 10-22-2023 Meloxicam Active MG PO October 22, 2023 1:00am Start: 04-17-2018 End: 12-30-2024 take 1 tablet by mouth once daily as needed for pain Meloxicam 15 mg tablet Discontinued 15 mg PO daily as needed for joint pain 90 0 October 25, 2024 4:07pm December 30, 2024 1:53pm MELOXICAM ORAL T bart by mouth. Active MELOXICAM ORAL T bart by mouth. 0 Active End: 05-23-2021 MELOXICAM PO Indications: Do rsalgia , Paresthesias in left hand , Carpal tunnel syndrome of left wrist , Paresthesia of right foot , Disorder of bone and cartilage , Abnormal reflexes of lower extremity , Osteoarthritis of right sacroiliac joint , Lumbar degenerative disc disease , Osteoarthritis of lumbar spine, unspecified spinal osteoarthritis complication status , Bilateral wrist pain , Bilateral hand pain , Osteoarthritis of both hands, unspecified osteoarthritis type , Weakness of both hands , Osteoarthritis of both feet, unspecified osteoarthritis type , Psoriasis , Fatigue, unspecified type , [facility] current use of non-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-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 (NSAID) , History of osteoarthritis , History of psoriatic arthritis , History of psoriasis , Long-term use of high-risk medication , Long-term use of Plaquenil , History of fibromyalgia , Chronic bilateral low back pain with left-sided sciatica , Disc disorder , Spinal stenosis of lumbar region with neurogenic claudication , Lumbar radiculopathy , Spondylolisthesis of lumbar region , Psoriatic arthritis Take by mouth as needed. 0 05/23/2021 Discontinued MELOXICAM PO Ind ications: Dorsalgia , Paresthesias in left hand , Carpal tunnel syndrome of left wrist , Paresthesia of right foot , Disorder of bone and cartilage , Abnormal reflexes of lower extremity , Osteoarthritis of right sacroiliac joint , Lumbar degenerative disc disease , Osteoarthritis of lumbar spine, unspecified spinal osteoarthritis complication status , Bilateral wrist pain , Bilateral hand pain , Osteoarthritis of both hands, unspecified osteoarthritis type , Weakness of both hands , Osteoarthritis of both feet, unspecified osteoarthritis type , Psoriasis , Fatigue, unspecified type , 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 0 Active Comment on above: Take by mouth. predniSONE 10 mg oral tablet (19 sources) Start: 02-21-2025 End: 02-25-2025 Prednisone 10 mg tablet Discontinued 10 mg PO .DOSE PACK February 21, 2025 12:00am February 25, 2025 7:10am Start: 02-18-2025 take 6 tablets by mo uth once daily, then take 5 tablets by mouth once daily, then take 4 tablets by mouth once daily, then take 3 tablets by mouth once daily, then take 2 tablets by mouth once daily, then take 1 tablet by mouth once daily predniSONE (Deltasone) 10 mg tablet Indications: Acute bronchitis, unspecified organism Take 6 tabs PO daily x1 day, then take 5 tabs daily x1 day, then take 4 tabs daily x1 day, then take 3 tabs daily x1 day, then take 2 tabs daily x1 day, then take 1 tab daily x1 day. Take with a meal. 21 tablet 02/18/2025 Active Start: 09-06-2024 End: 01-06-2025 take 1 tablet by mouth once daily Prednisone 20 mg tablet Discontinued 20 mg PO daily 5 0 September 06, 2024 12:00am January 06, 2025 9:33am traMADol hydrochloride 50 mg oral tablet (17 sources) Opioid Agonist End: 12-08-2024 traMADol 50 MG tablet Indications: Dorsalgia , Paresthesias in left hand , Carpal tunnel syndrome of left wrist , Paresthesia of right foot , Disorder of bone and cartilage , Abnormal reflexes of lower extremity , Osteoarthritis of right sacroiliac joint , Lumbar degenerative disc disease , Osteoarthritis of lumbar spine, unspecified spinal osteoarthritis complication status , Bilateral wrist pain , Bilateral hand pain , Osteoarthritis of both hands, unspecified osteoarthritis type , Weakness of both hands , Osteoarthritis of both feet, unspecified osteoarthritis type , Psoriasis , Fatigue, unspecified type , [facility] current use of non-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-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 (NSAID) , History of osteoarthritis , History of psoriatic arthritis , History of psoriasis , Long-term use of high-risk medication , Long-term use of Plaquenil , History of fibromyalgia , Chronic bilateral low back pain with left-sided sciatica , Disc disorder , Spinal stenosis of lumbar region with neurogenic claudication , Lumbar radiculopathy , Spondylolisthesis of lumbar region , Psoriatic arthritis Take 1 tablet by mouth as needed. 12/08/2024 Discontinued 1 ml triamcinolone acetonide 40 mg/ml injection (2 sources) Corticosteroid Start: 10-20-2023 End: 10-20-2023 triamcinolone acetonide (KENALOG-40) injection 40 mg tropicamide 10 mg/ml ophthalmic solution (2 sources) Anticholinergic Start: 10-11-2024 End: 10-11-2024 tropicamide 1 % 1 Drop (MYDRIACYL) Start: 10-11-2024 End: 10-11-2024 1 Drop, BOTH EYES, ONCE, 1 d ose, On 10/11/24 at 1030, FOR THE EYE Problems Active Problems Problem Classification Problem Date Documented Date Episodic/Chronic Acute bronchitis (3 sources) Acute bronchitis; Translations: [Acute bronchitis, unspecified] Onset: 02-19-20 25 02-18-2025 Episodic Cataract (5 sources) Bilateral senile combined form cataracts of eyes; Translations: [Combined forms of age-related cataract, bilateral] Onset: 08-08-20 16 09-25-2023 Chronic Disorders of lipid metabolism (16 sources) Hypercholesterolemia; Translations: [Pure hypercholesterolemia, unspecified] Onset: 06-22-20 25 02-14-2025 Chronic Genitourinary symptoms and ill-defined conditions (7 sources) Genuine stress incontinence; Translations: [Stress incontinence (female) (male)] Onset: 06-22-20 25 01-06-2025 Chronic Genitourinary symptoms and ill-defined conditions (6 sources) Incomplete emptying of bladder; Translations: [Retention of urine, unspecified] Onset: 06-30-20 25 06-22-2025 Episodic Hepatitis (6 sources) Nonalcoholic steatohepatitis; Translations: [Nonalcoholic steatohepatitis (BHATIA)] Onset: 03-05-20 24 03-05-2024 Chronic Inflammation; infection of eye (except that caused by tuberculosis or sexually transmitteddisease) (3 sources) Keratoconjunctivitis sicca; Translations: [Keratoconjunctivitis sicca, not specified as Sjogren's, bilateral] Onset: 09-07-20 19 09-07-2019 Chronic Mycoses (12 sources) Onychomycosis; Translations: [Tinea unguium] 11-12-2023 Episodic Osteoarthritis (20 sources) Primary osteoarthritis, right ankle and foot; Translations: [Primary osteoarthritis, right hand] Onset: 02-24-20 21 02-23-2021 Chronic Osteoarthritis (2 sources) Osteoarthritis of right sacroiliac joint; Translations: [Osteoarthritis of right sacroiliac joint] Onset: 02-24-20 21 02-23-2021 Other acquired deformities (2 sources) Equinus contracture of the ankle; Translations: [Contracture, unspecified ankle] 06-15-2024 Chronic Other acquired deformities (2 sources) Contracture, unspecified ankle; Translations: [Contracture, unspecified ankle] Onset: 06-15-20 Chronic Other acquired deformities (9 sources) Lumbar spondylolisthesis; Translations: [Spondylolisthesis, lumbar region] Episodic Other acquired deformities (1 source) Lumbar spondylolisthesis; Translations: [Spondylolisthesis of lumbar region] Other aftercare (20 sources) Patient encounter status; Translations: [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 (current) use of non-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-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 (NSAID)] Onset: 02-24-20 Episodic Other aftercare (4 sources) 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-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-inflammatory drug; Translations: [[facility] (current) use of non-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-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 (NSAID)] Onset: 02-24-2012-08-2024 Episodic Other aftercare (8 sources) Post-discharge follow-up; Translations: [Encounter for follow-up examination after completed treatment for conditions other than malignant neoplasm] 05-11-2025 Episodic Other bone disease and musculoskeletal deformities (2 sources) Disorder of skeletal system; Translations: [Disorder of bone and cartilage] Onset: 02-24-2002-23-2021 Chronic Other bone disease and musculoskeletal deformities (6 sources) Osteopenia; Translations: [Other specified disorders of bone density and structure, unspecified site] 01-06-2025 Episodic Other bone disease and musculoskeletal deformities (1 source) Other specified disorders of bone density and structure, unspecified site; Translations: [Other specified disorders of bone density and structure, unspecified site] Onset: 06-22-20 Episodic Other connective tissue disease (20 sources) H/O: osteoarthritis; Translations: [Personal history of other diseases of the musculoskeletal system and connective tissue] Onset: 02-24-20 21 02-23-2021 Episodic Other connective tissue disease (20 sources) H/O: arthritis; Translations: [Personal history of diseases of the skin and subcutaneous tissue] Onset: 02-24-20 21 02-23-2021 Episodic Other connective tissue disease (20 sources) H/O: musculoskeletal disease; Translations: [Personal history of other diseases of the musculoskeletal system and connective tissue] Onset: 02-24-2002-23-2021 Episodic Other connective tissue disease (5 sources) Paresis of lower extremity; Translations: [Other musculoskeletal symptoms referable to limbs] Episodic Other connective tissue disease (2 sources) Pain in right foot; Translations: [Pain in right foot] 10-22-2023 Episodic Other connective tissue disease (3 sources) Heel pain; Translations: [Pain in right foot] 06-06-2024 Episodic Other connective tissue disease (2 sources) Plantar fasciitis of right foot; Translations: [Plantar fascial fibromatosis] 06-15-2024 Episodic Other connective tissue disease (2 sources) Pain of bilateral hands; Translations: [Bilateral hand pain] Onset: 02-24-2002-23-2021 Other connective tissue disease (2 sources) Bilateral hand weakness; Translations: [Weakness of both hands] Onset: 02-24-2002-23-2021 Other eye disorders (5 sources) Bilateral vitreous floaters; Translations: [Other vitreous opacities, bilateral] Onset: 08-26-2009-25-2023 Chronic Other eye disorders (1 source) Dry eyes; Translations: [Dry eye syndrome of bilateral lacrimal glands] 02-28-2025 Episodic Other gastrointestinal disorders (13 sources) Stool DNA-based colorectal cancer screening positive; Translations: [Other fecal abnormalities] 02-14-2025 Episodic Other gastrointestinal disorders (7 sources) Difficulty swallowing pills; Translations: [Dysphagia, unspecified] 05-11-2025 Episodic Other liver diseases (8 sources) Steatosis of liver; Translations: [Fatty (change of) liver, not elsewhere classified] Onset: 03-05-2003-05-2024 Chronic Other liver diseases (3 sources) Fatty (change of) liver, not elsewhere classified; Translations: [Fatty (change of) liver, not elsewhere classified] Onset: 03-05-20 Chronic Other lower respiratory disease (20 sources) Lung mass; Translations: [Other nonspecific abnormal finding of lung field] Episodic Other lower respiratory disease (1 source) Wheezing; Translations: [Wheezing] Onset: 07-10-20 Episodic Other lower respiratory disease (1 source) Other nonspecific abnormal finding of lung field; Translations: [Other nonspecific abnormal finding of lung field] Onset: 06-22-20 25 Episodic Other nervous system disorders (20 sources) Carpal tunnel syndrome of left wrist; Translations: [Carpal tunnel syndrome, left upper limb] Onset: 02-24-20 Chronic Other nervous system disorders (2 sources) Carpal tunnel syndrome, left upper limb; Translations: [Carpal tunnel syndrome, left upper limb] Onset: 02-24-20 Chronic Other nervous system disorders (2 sources) Carpal tunnel syndrome of left wrist; Translations: [Carpal tunnel syndrome of left wrist] Onset: 02-24-20 21 02-23-2021 Other non-traumatic joint disorders (7 sources) Bilateral hand joint stiffness; Translations: [Stiffness of joint, not elsewhere classified, other specified sites] Episodic Other non-traumatic joint disorders (2 sources) Bilateral wrist pain; Translations: [Bilateral wrist pain] Onset: 02-24-2002-23-2021 Other nutritional; endocrine; and metabolic disorders (14 sources) Obese class I; Translations: [Obesity, unspecified] Onset: 01-24-2001-23-2022 Chronic Other screening for suspected conditions (not mental disorders or infectious disease) (4 sources) CT of chest abnormal; Translations: [Abnormal findings on diagnostic imaging of other specified body structures] 06-22-2025 Chronic Rheumatoid arthritis and related disease (5 sources) Ankylosing spondylitis; Translations: [Ankylosing spondylitis of unspecified sites in spine] Chronic Spondylosis; intervertebral disc disorders; other back problems (20 sources) Degeneration of lumbar intervertebral disc; Translations: [Lumbar spondylosis] Onset: 02-24-2002-23-2021 Chronic Thyroid disorders (7 sources) Thyroid nodule; Translations: [Nontoxic single thyroid nodule] Onset: 06-23-20 25 06-22-2025 Chronic Unclassified (2 sources) H/O: high risk medication; Translations: [Long-term use of high-risk medication] Onset: 02-24-20 21 02-23-2021 Unclassified (2 sources) Drug therapy finding; Translations: [Long-term use of Plaquenil] Onset: 02-24-20 21 02-23-2021 Unclassified (2 sources) Patient encounter status; Translations: [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 (NSAID)] Onset: 02-24-20 21 02-23-2021 Unclassified (2 sources) Nail Care Onset: 05-24-20 24 Unclassified (15 sources) R91.8 - Other nonspecific abnormal finding of lung field Unclassified (1 source) Obesity, class 1; Translations: [Obesity, class 1] Onset: 06-22-20 25 Past or Other Problems Problem Classification Problem Date Documented Da te Episodic/Chronic Blindness and vision defects (12 sources) Bilateral hyperopia of eyes; Translations: [Hypermetropia, bilateral] Onset: 07-19-2015 09-25-2023 Episodic Malaise and fatigue (20 sources) Fatigue; Translations: [Other fatigue] Onset: 02-23-2021 02-23-2021 Episodic Other aftercare (20 sources) Drug therapy finding; Translations: [Other retirement (current) drug therapy] Onset: 08-08-2016 Resolved: 06-04-2024 Episodic Other aftercare (20 sources) H/O: high risk medication; Translations: [Other intermediate designer (current) drug therapy] Onset: 02-23-2021 Resolved: 06-04-2024 Episodic Other aftercare (2 sources) 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 (current) use of non-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-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 (NSAID); Translations: [MCFP (current) use of non-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-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 (nsaid)] Onset: 02-23-2021 Episodic Other bone disease and musculoskeletal deformities (20 sources) Disorder of skeletal system; Translations: [Disorder of bone, unspecified] Onset: 02-23-2021 Episodic Other connective tissue disease (20 sources) Bilateral hand weakness; Translations: [Other musculoskeletal symptoms referable to limbs] Onset: 02-23-2021 Episodic Other connective tissue disease (20 sources) Pain of bilateral hands; Translations: [Pain in right hand] Onset: 02-23-2021 Episodic Other connective tissue disease (4 sources) Plantar fascial fibromatosis; Translations: [Plantar fascial fibromatosis] Onset: 06-15-2024 Episodic Other connective tissue disease (2 sources) Pain in right foot; Translations: [Pain in right foot] Onset: 05-24-2024 Episodic Other connective tissue disease (1 source) Plantar fascial fibromatosis; Translations: [Plantar fascial fibromatosis] Onset: 06-24-2024 06-24-2024 Episodic Other connective tissue disease (2 sources) Personal history of other diseases of the musculoskeletal system and connective tissue; Translations: [Personal history of other diseases of the musculoskeletal system and connective tissue] Onset: 02-23-2021 Episodic Other eye disorders (2 sources) Conjunctival concretion; Translations: [Conjunctival concretions, left eye] Onset: 08-26-2017 Resolved: 09-01-2018 09-01-2018 Episodic Other gastrointestinal disorders (1 source) Other fecal abnormalities; Translations: [Other fecal abnormalities] Onset: 03-03-2025 Episodic Other inflammatory condition of skin (20 sources) Psoriatic arthritis; Translations: [Arthropathic psoriasis, unspecified] Onset: 02-23-2021 Resolved: 06-04-2024 02-23-2021 Chronic Other inflammatory condition of skin (20 sources) Psoriasis; Translations: [Psoriasis, unspecified] Onset: 02-23-2021 Resolved: 06-04-2024 02-23-2021 Chronic Other lower respiratory disease (9 sources) Hypercapnia; Translations: [Other abnormalities of breathing] Onset: 08-29-2023 Resolved: 06-06-2025 08-29-2023 Episodic Other lower respiratory disease (2 sources) Other abnormalities of breathing; Translations: [Other abnormalities of breathing] Onset: 08-29-2023 Episodic Other nervous system disorders (20 sources) Paresthesia of hand ; Translations: [Paresthesia of skin] Onset: 02-23-2021 02-23-2021 Episodic Other nervous system disorders (20 sources) Paresthesia of foot ; Translations: [Paresthesia of skin] Onset: 02-23-2021 02-23-2021 Episodic Other nervous system disorders (20 sources) Abnormal reflex; Translations: [Abnormal reflex] Onset: 02-23-2021 02-23-2021 Episodic Other non-traumatic joint disorders (20 sources) Bilateral wrist pain; Translations: [Pain in right wrist] Onset: 02-23-2021 Episodic Other screening for suspected conditions (not mental disorders or infectious disease) (20 sources) Elevated C-reactive protein; Translations: [Elevated C-reactive protein (CRP)] Onset: 09-24-2021 Resolved: 12-08-2024 Episodic Other skin disorders (20 sources) Personal history of diseases of the skin and subcutaneous tissue; Translations: [H/O: psoriasis] Onset: 02-23-2021 02-23-2021 Episodic Spondylosis; intervertebral disc disorders; other back problems (20 sources) Chronic low back pain; Translations: [Spinal stenosis of lumbar region] Onset: 02-23-2021 02-23-2021 Episodic Superficial injury; contusion (5 sources) Contusion of heel; Translations: [Contusion of right foot, initial encounter] Onset: 06-15-2024 06-06-2024 Episodic Unclassified (1 source) Onset: 06-24-2024 06-24-2024 Results Test Name Value Interpretation Reference Range Facility Post Void Residual Bladderon 06-27-2025 Post Void Residual Bladder [facility] Services [address] [place] [address] Post Void Residual Bladder MR#: [id number] Acct: [id number] Name: BOONE ESPINOZA Rep #: [id number] : 1955 F 70 From: Rigo fowler MD PCP: Dr. Flavio Johnson MD Status: REG CLI Study: Post Void Residual Bladder Date of Exam: 06/27 Exam# [id number] Ordering Dr: Flavio Johnson MD PROCEDURE: POST VOID RESIDUAL BLADDER 06/27/2025 REASON FOR EXAM: INCOMPLETE EMPTYING TECHNIQUE: POST VOID RESIDUAL BLADDER COMPARISON: None FINDINGS: Right ureteral jet: Visualized Left ureteral jet: Visualized Bladder prevoid: 95 mL Bladder empty: 21 mL Bladder wall thickness: 3 mm. No bladder mass or calculi seen. US/Post Void Residual Bladder IMPRESSION: Small postvoid residual. Reading Location: [facility] CC: Dr. Flavio Johnson MD Implementation Director: Signed Normal [facility] Thyroidon 06-27-2025 Thyroid [facility] Services [address] [place] [address] Thyroid MR#: [id number] Acct: [id number] Name: ALEXISBOONE SOTOE Rep #: [id number] : 1955 F 70 From: Rigo fowler MD PCP: Dr. Flavio Johnson MD Status: REG CLI Study: Thyroid Date of Exam: 06/27/25 Exam# [id number] Ordering Dr: Flavio Johnson MD PROCEDURE: THYROID 06/27/2025 REASON FOR EXAM: THYROID NODULE TECHNIQUE: THYROID COMPARISON: Prior CT scan of the chest dated May 04, 2025. FINDINGS: Right thyroid lobe size: 3.2 cm x 1.2 cm 1.4 cm Left thyroid lobe size: 3.5 cm x 2 cm x 1.9 cm Isthmus: 0.2 cm Background parenchymal echotexture is homogeneous. Nodules: . Lobe: Left, Location: Mid to lower, Size: 2.2 cm x 1.6 cm x1.2 cm, Stability: N/A Composition: Solid or almost completely solid (+2) Echogenicity: Hypoechoic (+2) Margin: Smooth (+0) Shape: Wider than tall (+0) Echogenic Foci: None (+0) TI-RADS: 4 US/Thyroid IMPRESSION: There is a dominant 2.2 cm x 1.6 cm 1.2 cm hypoechoic solid nodule in the mid lower aspect of the left lobe of the thyroid as described. Biopsy recommended. RECOMMENDATION: Based on most suspicious nodule. Nodule size = largest diameter Only evaluate nodule if =>5 mm. Growth > 20% in 2 dimensions = worsening. Follow up to 4 nodules. Recommend biopsy for no more than 2 nodules. Reading Location: [place] [address] CC: Dr. Flavio Johnson MD Implementation Director: Signed Normal [facility] Bilirubin Test strip Ql (U)O rdered By: Flavio Johnson on 06-22-2025 Bilirubin Ql (U) Negative Negative [facility] Ketones Test strip Ql (U)Ord ered By: Flavio Johnson on 06-22-2025 Ketones Ql (U) Negative Negative [facility] Microscopic analysis of urin e for red blood cells (RBC)Ordered By: Flavio Johnson on 06-22-2025 Microscopic analysis of urine for red blood cells (RBC) 0 SEEN /hpf 0-[address] [facility] Mucus LM Ql (Urine sed)Order ed By: Flavio Johnson on 06-22-2025 Mucus Ql (Urine sed) 0 SEEN /hpf [facility] Nitrite Test strip Ql (U)Ord ered By: Flavio Johnson on 06-22-2025 Nitrite Ql (U) Negative Negative [facility] Protein Test strip Ql (U)Ord ered By: Flavio Johnson on 06-22-2025 Protein Ql (U) Negative Negative [facility] Pulmonary Visit Reporton Pulmonary Visit Report [facility] [place] [address] [place] [address] OFFICE VISIT Date of Service: 06/22/25 MR#: [id number] Acct: [id number] Name: BOONE ESPINOZA Rep #: [id number] : 1955 Provider: Dr. Schuyler Butler DO Age/Sex: 70/F Location: [facility] Status: Signed Assessment and Plan Assessment and Plan (1) Abnormal chest CT: Status: Chronic Plan: The patient presented today for a follow-up regarding the CT imaging that was completed in April 2025 in [place] following an aspiration event which demonstrated a density in the right lower lobe bronchus, which could have certainly been a foreign body related to her pill aspiration event. Follow-up CT scan was then completed in May 2025 and demonstrated no such endobronchial density. The lungs are well-inflated without any atelectasis. There was incidental note made of 2 subcentimeter pulmonary nodules, the largest of which was approximately 4 mm in size. In light of the patient's risk profile, based upon Fleischner Society recommendations, no further imaging of the chest is recommended. The patient did report the presence of intermittent wheezing and cough today, which was not previously reported. I did offer to complete pulmonary function studies, which the patient currently declined. I am going to provide her with an albuterol rescue inhaler to be utilized as needed to gauge her symptom response. She was advised that if her symptoms persist she should contact our office for reevaluation, at which time we will proceed with obtaining PFTs. Medications: New albuterol sulfate 90 mcg/actuation administer with spacer 2 puffs inhalation Q4H PRN 8.5 grams 3RF shortness of breath or wheezing HPI HPI Comments Details: The patient is a 70-year-old female who presents to the clinic today for a routine scheduled follow- up office visit. If you recall, the patient was initially referred to our office in May 2025 for the evaluation of a possible endobronchial lesion. The patient reported that during a recent vacation in [place] in April 2025 she experienced an acute aspiration event while attempting to take her morning medications. She reported that she took a handful of pills as is her morning routine but felt as if they got stuck and subsequently developed an acute cough. The cough persisted and she was therefore evaluated in a local emergency department the following day. As part of her workup, CT imaging was obtained which revealed a radiopaque foreign body in the esophagus along with a density in the right lower lobe bronchus. The patient is a lifelong non-smoker. She has never experienced any previous aspiration events. The patient has never been diagnosed with any asthma or pulmonary related conditions. She ultimately underwent a repeat CT chest without contrast in May 2025 which demonstrated 2 subcentimeter pulmonary nodules, the largest of which was approximately 4 mm in the right middle lobe. There was no evidence of any endobronchial lesions. The lungs were well-inflated without atelectasis. Today, the patient reported the presence of an occasional cough and intermittent wheezing. This was never previously reported at her last office visit. She reported that her wheezing tends to be most pronounced with forceful exhalation when she is doing strenuous physical exertion. She does not utilize any inhalers at the present time. Intake Vital Signs 05/25/25 07:18 06/22/25 06:43 06/22/25 08:25 06/22/25 10:13 Height 5 ft 4 in 5 ft 4 in 5 ft 4 in 5 ft 3 in Weight: 178 lb BMI 31.5 BP 130/81 H Blood Pressure Location Lt femoral Position Sitting Respiration 18 Pulse 48 L Pulse Source Monitor Temp 98 F Temperature Source Temporal Artery Pulse Oximetry (%) 99 Oxygen Delivery Method room air Intake Visit Reasons: 1 M FU Communications Engineering Technician Required: No DME Vendor: N/a Accompanied by: Is patient in pain?: No Allergies Sulfa (Sulfonamide Antibiotics) Adverse Reaction (Mild, Verified 06/22/25 10:12) Hives Medications ???Medication ???Instructions ???Recorded ???Confirmed ???Type cholecalciferol (vitamin D3) 50 50 mcg PO DAILY 10/22/23 06/22/25 History mcg (2,000 unit) capsule vitamin B complex (B 1 tab PO DAILY 10/22/23 06/22/25 H istory Complex-Vitamin B12 tablet) Turmeric Curcumin 1 tab PO DAILY 02/26/24 06/22/25 H istory meloxicam 15 mg tablet 15 mg PO QDAY PRN joint pain #90 0 12/30/24 06/22/25 Rx tabs calcium carbonate 500 mg PO QDAY 01/06/25 06/22/25 H istory ferrous sulfate 325 mg (65 mg 325 mg PO QDAY 02/14/25 06/22/25 H istory iron) tablet (FeroSul) benzonatate 100 mg capsule 100 mg PO PRN 02/21/25 06/22/25 Hi story atorvastatin 10 mg tablet (Lipitor) 10 mg PO QHS #90 tabs 03/16/25 (more content not included)... Normal [facility] Squamous epithelial cells de tection in urine sediment by light microscopyOrdered By: Flavio Johnson on 06-22-2025 Epithelial cells.squamous LM Ql (Urine sed) 0-5 SEEN /hpf 5-[address] [facility] Urinalysis, Completeon 06-22 EPI,SQUAMOUS 0-5 SEEN Normal -[address] [facility] Comment on above: Order Comment: CHARLI CTOR TO SPECIFY Performed By: #### L [id number] #### [facility] [address] [place], [place], [id number] WBC 0-5 SEEN Normal 0-[address] [facility] Comment on above: Order Comment: CHARLI CTOR TO SPECIFY Performed By: #### L [id number] #### [facility] [address] [place], [address] BACTERIA 0 SEEN Normal None Seen [facility] Comment on above: Order Comment: CHARLI CTOR TO SPECIFY Performed By: #### L [id number] #### [facility] [address] [place], [address] Mucus Ql (Urine sed) 0 SEEN Normal [facility] Comment on above: Order Comment: CHARLI CTOR TO SPECIFY Performed By: #### L [id number] #### [facility] [address] [place], [address] RBC 0 SEEN Normal 0-[address] [facility] Comment on above: Order Comment: CHARLI CTOR TO SPECIFY Performed By: #### L [id number] #### [facility] [address] [place], [address] Urine clarityOrdered By: Stewart Johnson on 06-22-2025 Clarity (U) Clear Clear [facility] Urine color determinationOrd ered By: Flavio Johnson on 06-22-2025 Color (U) Yellow Yellow [facility] Urine glucose detectionOrder ed By: Flavio Johnson on 06-22-2025 Glucose Ql (U) Normal mg/dl Normal [facility] Urine leukocyte esterase det ection by dipstickOrdered By: Flavio Johnson on 06-22-2025 Leukocyte esterase Test strip Ql (U) Negative Negative [facility] Urine pHOrdered By: Flavio mcgrath on 06-22-2025 pH (U) 6.5 [pH] 5.0 - 8.[address] [facility] Urine sediment bacteria coun t by microscopy (number/high power field)Ordered By: Flavio Johnson on 06-22-2025 Bacteria LM.HPF (Urine sed) [#/Area] 0 /[HPF] None Seen [facility] Urine specific gravity measu rementOrdered By: Flavio Johnson on 06-22-2025 Specific gravity (U) [Rel density] 1.015 1.002-1.[address] [facility] Urine urobilinogen measureme ntOrdered By: Flavio Johnson on 06-22-2025 Urobilinogen Ql (U) Normal mg/dl Normal [facility] White blood cell countOrdere d By: Flavio Johnson on 08-06-2025 White blood cell count 0-5 SEEN /hpf 0-[address] [facility] Internal Medicine Office Vis iton 06-21-2025 Internal Medicine Office Visit [facility] [address] [place], [place] [address] OFFICE VISIT Date of Service: 06/22/25 MR#: [id number] Acct: [id number] Name: BOONE ESPINOZA Rep #: [id number] : 1955 Provider: Dr. Flavio daniels MD Age/Sex: 70/F Location: [facility] Status: Signed Intake Vital Signs 01/06/25 08:20 05/04/25 13:44 06/22/25 06:43 06/22/25 08:25 Height 5 ft 4 in 5 ft 4 in 5 ft 4 in 5 ft 4 in Weight: 179 lb 2 oz BMI 30.7 BP 132/78 H Blood Pressure Location Lt brachial Position Sitting Respiration 16 Pulse 69 Pulse Source Monitor Temp 97.1 F L Temp Source Temporal Pulse Oximetry (%) 95 Oxygen Delivery Method room air Intake Visit Reasons: 6 M FU Chief Complaint: fu Communications Engineering Technician Required: No Accompanied by: Self Is patient in pain?: No Allergies Sulfa (Sulfonamide Antibiotics) Adverse Reaction (Mild, Verified 06/22/25 08:19) Hives Medications ???Medication ???Instructions ???Recorded ???Confirmed ???Type cholecalciferol (vitamin D3) 50 50 mcg PO DAILY 10/22/23 06/22/25 History mcg (2,000 unit) capsule vitamin B complex (B 1 tab PO DAILY 10/22/23 06/22/25 H istory Complex-Vitamin B12 tablet) Turmeric Curcumin 1 tab PO DAILY 02/26/24 06/22/25 H istory meloxicam 15 mg tablet 15 mg PO QDAY PRN joint pain #90 0 12/30/24 06/22/25 Rx tabs calcium carbonate 500 mg PO QDAY 01/06/25 06/22/25 H istory ferrous sulfate 325 mg (65 mg 325 mg PO QDAY 02/14/25 06/22/25 H istory iron) tablet (FeroSul) benzonatate 100 mg capsule 100 mg PO PRN 02/21/25 06/22/25 Hi story atorvastatin 10 mg tablet (Lipitor) 10 mg PO QHS #90 tabs 03/16/25 06/22/25 Rx duloxetine 20 mg capsule,delayed 20 mg PO DAILY #90 caps 03/16/25 0 06/22/25 Rx release gabapentin 100 mg capsule 100 mg PO DAILY #30 caps 06/21/25 06/22/25 Rx Have you fallen in the past year?: No PFSH Medical History Positive colorectal cancer screening using Cologuard test Wears glasses Post-menopausal History of steroid therapy Non-smoker High cholesterol Osteopenia Osteoarthritis Arthritis Surgical History Hx of dilation and curettage Hx of vein stripping Status post ablation of incompetent vein using laser H/O section Family History Father Heart disease, Onset Age: 70 Cancer lung Mother Arthritis Hypertension Cancer liposarcoma Brother AICD (automatic cardioverter/defibrill ator) present Uncle Sudden cardiac arrest, Onset Age: 70 Sister Pulmonary hypertension Social History household members: spouse current occupational status: employed 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 She is up to date on her routine blood work and screening. She isn't due for any immunizations. She doesn't smoke and does not need refills. She is eating healthy and staying active. The patient follows with rheumatology for her arthritis. She was diagnosed with fibromyalgia and saw them in May. She will see them again in 3 months due to her elevated CRP levels. She has been on cymbalta, gabapentin and PRN meloxicam for her pain. She has also been following a chiropractor. She denies any pain currently. She does still wear her orthotics regularly for her feet. She still wears a wrist brace at night, which helps. She hasn't noticed any problems with the cholesterol medication and has been taking it as prescribed without problems. Since she was last seen, she did see pulmonology for the lung mass. A repeat scan was completed which showed some nodules without other findings. She reports that she has a follow up with him scheduled for later today to discuss the findings and next steps. She hasn't had any further problems with swallowing. She does continue to have a cough, which is unchanged. She reports she hasn't taken any more tessalon perles, however, stating she hasn't felt that she has needed them. She reports she is still having some trouble with urinary incontinence. She did try the kegel exercises, but admits that she hasn't done them very often. She would like to try increasing her frequency before trying something else. She was just recently treated for a UTI through [facility]. She reports she was having fatigue, but no specific urinary symptoms. Sh (more content not included)... Normal [facility] Chest without Contraston Chest without Contrast [facility] Imaging Services [address], [place] [address] Chest without Contrast MR#: [id number] Acct: [id number] Name: BOONE ESPINOZA Rep #: [id number] : [id number] F 70 From: Vincent Centeno MD PCP: Dr. Flavio Johnson MD Status: [facility] Study: Chest without Contrast Date of Exam: 06/13/25 Exam# [id number] Ordering Dr: Schuyler Butler DO PROCEDURE: CHEST WITHOUT CONTRAST 06/13/2025 REASON FOR EXAM: ENDOBRONCHIAL LESION IN RLL TECHNIQUE: Chest CT without contrast. Coronal and Sagittal reconstruction series were provided. One or more dose reduction techniques were used (e.g., Automated exposure control, adjustment of the mA and/or kV according to patient size, use of iterative reconstruction technique RADIATION DOSE SUMMARY: CTDlvol: 9.47 mGy DLP: 333.79 mGycm COMPARISON: 05/04/2025 FINDINGS: Lung windows show the lungs to be normally expanded. There is a noncalcified 4 mm nodule in the right middle lobe on axial image 50. There is a 3 mm noncalcified nodule in the left lower lobe on axial image 85. Chronic interstitial changes noted in the lower lung sotelo, no organized infiltrate or effusion. Soft tissue windows show a low-density nodules within the thyroid. Dedicated thyroid ultrasound may be of benefit for further evaluation. There are scattered subcentimeter in short axis dimension axillary and mediastinal lymph nodes likely reactive. The thoracic aorta tapers normally. No calcified coronary vessels are noted. Limited cuts of the upper abdomen do not show a suspicious abnormality Bony structures show degenerative change CT/Chest without Contrast IMPRESSION: Coronary artery calcification (CAC) is is absent No acute pulmonary process, there are subcentimeter noncalcified nodules in the right middle lobe and left lower lobe. Six-month follow-up recommended to assess stability Thyroid nodules, consider dedicated thyroid ultrasound for further evaluation Reading Location: [id number] CC: Dr. Flavio Johnson MD; Dr. Schuyler Butler DO Implementation Director: Signed Normal [facility] Absolute lymphocyte countOrd ered By: Alfa Holden on 05-25-2025 Lymphocytes Auto (Unsp spec) [#/Vol] 0.70 10*3/uL Low 0.83-4.[address] [facility] Absolute neutrophil countOrd ered By: Alfa Holden on 05-25-2025 Neutrophils (Bld) [#/Vol] 3.3 10*3/uL 2.0-7.[address] [facility] Anion gap in Serum or Plasma Ordered By: Alfa Holden on 05-25-2025 Anion gap [Moles/Vol] 11 mmol/L 5-15 [facility] Automated lymphocyte count a s percentage of total leukocytesOrdered By: Alfa Holden on 05-25-2025 Lymphocytes/100 WBC Auto (Unsp spec) 15.2 % Low 19-[address] [facility] BUN/creatinine ratioOrdered By: Alfa Holden on 05-25-2025 Urea nitrogen/Creatinine [Mass ratio] 22.5 mg/mg High 10-[address] [facility] Basophil percentageOrdered B y: Alfa Holden on 05-25-2025 Basophils/100 WBC (Bld) 0.4 % 0-1 [facility] Bilirubin, totalOrdered By: Alfa Holden on 05-25-2025 Bilirubin [Mass/Vol] 0.35 mg/dL 0.00-1.30 [facility] CBC W/Diff, Automatedon Absolute Lymph 0.70 X10 3/uL Low 0.83-4.[address] [facility] Comment on above: Performed By: #### L 501.6710, L100.0100, L500.4050, L101.9900 #### [facility] Laboratory [address] [place], [address] Absolute Neut 3.3 X10 3/uL Normal 2.0-7.[address] [facility] Comment on above: Performed By: #### L 501.6710, L100.0100, L500.4050, L101.9900 #### [facility] [address] [place], [address] Basophils/100 WBC (Bld) 0.4 % Normal 0-1 [facility] Comment on above: Performed By: #### L 501.6710, L100.0100, L500.4050, L101.9900 #### [facility] [address] [place], [address] Eosinophils/100 WBC (Bld) 2.6 % Normal 0-[address] [facility] Comment on above: Performed By: #### L 501.6710, L100.0100, L500.4050, L101.9900 #### [facility] [address] [place], [address] Erythrocyte distribution width (RBC) [Ratio] 12.9 % Normal 11.6-14.[address] [facility] Comment on above: Performed By: #### L 501.6710, L100.0100, L500.4050, L101.9900 #### [facility] [address] [place], [address] Hematocrit (Bld) [Volume fraction] 40.9 % Normal 37-[address] [facility] Comment on above: Performed By: #### L 501.6710, L100.0100, L500.4050, L101.9900 #### [facility] [address] [place], [address] Hemoglobin (Bld) [Mass/Vol] 13.4 g/dL Normal 12.0-15.[address] [facility] Comment on above: Performed By: #### L 501.6710, L100.0100, L500.4050, L101.9900 #### [facility] [address] [place], [address] IG% 0.200 Normal 0.0-0.[address] [facility] Comment on above: Result Comment: IG% - Immature Granulocytes (promyelocytes, myelocytes and metamyelocytes) > 1% indicates that a LEFT SHIFT is Present. Performed By: #### L 501.6710, L100.0100, L500.4050, L101.9900 #### [facility] [address] [place], [address] Lymphocytes/100 WBC (Bld) 15.2 % Low 19-[address] [facility] Comment on above: Performed By: #### L 501.6710, L100.0100, L500.4050, L101.9900 #### [facility] [address] [place], [address] MCH (RBC) [Entitic mass] 30.1 pg Normal 27.0-32.[address] [facility] Comment on above: Performed By: #### L 501.6710, L100.0100, L500.4050, L101.9900 #### [facility] [address] [place], [address] MCHC (RBC) [Mass/Vol] 32.8 g/dL Normal 32-36 [facility] Comment on above: Performed By: #### L 501.6710, L100.0100, L500.4050, L101.9900 #### [facility] [address] [place], [address] MCV (RBC) [Entitic vol] 91.9 fL Normal 81-99 [facility] Comment on above: Performed By: #### L 501.6710, L100.0100, L500.4050, L101.9900 #### [facility] [address] [place], [address] Monocytes/100 WBC (Bld) 11.0 % High 0-10 [facility] Comment on above: Performed By: #### L 501.6710, L100.0100, L500.4050, L101.9900 #### [facility] [address] [place], [address] Neutrophils/100 WBC (Bld) 70.6 % High 47-[address] [facility] Comment on above: Performed By: #### L 501.6710, L100.0100, L500.4050, L101.9900 #### [facility] [address] [place], [address] Nucleated RBC (Bld) [#/Vol] 0 10*3/uL Normal 0-[address] [facility] Comment on above: Performed By: #### L 501.6710, L100.0100, L500.4050, L101.9900 #### [facility] [address] [place], [address] Platelet mean volume (Bld) [Entitic vol] 10.2 fL Normal 6.2-12.[address] [facility] Comment on above: Performed By: #### L 501.6710, L100.0100, L500.4050, L101.9900 #### [facility] [address] [place], [address] Platelets (Bld) [#/Vol] 248 10*3/uL Normal 150-[address] [facility] Comment on above: Performed By: #### L 501.6710, L100.0100, L500.4050, L101.9900 #### [facility] [address] [place], [address] RBC (Bld) [#/Vol] 4.45 10*6/uL Normal 4.2-5.4 [facility] Comment on above: Performed By: #### L 501.6710, L100.0100, L500.4050, L101.9900 #### [facility] [address] [place], [address] RDW SD 43.1 fl Normal 35.1-43.[address] [facility] Comment on above: Performed By: #### L 501.6710, L100.0100, L500.4050, L101.9900 #### [facility] [address] [place], [address] WBC (Bld) [#/Vol] 4.6 10*3/uL Normal 4.4-11.0 [facility] Comment on above: Performed By: #### L 501.6710, L100.0100, L500.4050, L101.9900 #### [facility] [address] [place], [address] CRPon 05-25-2025 C-REACTIVE PROT 10.90 mg/L High 0.0-3.[address] [facility] Comment on above: Performed By: #### L 501.6710, L100.0100, L500.4050, L101.9900 #### [facility] [address] [place], [address] Carbon dioxide, total [Moles /volume] in Central venous bloodOrdered By: Alfa Holden on 05-25-2025 CO2 [Moles/Vol] 25.7 mmol/L 21.0-32.[address] [facility] Chloride assayOrdered By: Prem Holden on 05-25-2025 Chloride [Moles/Vol] 104 mmol/L 98-108 [facility] Metabolic Prof ilon 05-25-2025 Albumin [Mass/Vol] 4.0 g/dL Normal 3.4-4.8 [facility] Comment on above: Performed By: #### L 501.6710, L100.0100, L500.4050, L101.9900 #### [facility] [address] [place], [address] Albumin/Globulin [Mass ratio] 1.4 {ratio} Normal 0.9-2.[address] [facility] Comment on above: Performed By: #### L 501.6710, L100.0100, L500.4050, L101.9900 #### [facility] [address] [place], [address] ALK PHOS 89 U/L Normal 35-[address] [facility] Comment on above: Performed By: #### L 501.6710, L100.0100, L500.4050, L101.9900 #### [facility] [address] [place], [address] ALT [Catalytic activity/Vol] 24 U/L Normal <=[address] [facility] Comment on above: Performed By: #### L 501.6710, L100.0100, L500.4050, L101.9900 #### [facility] [address] [place], [address] AST [Catalytic activity/Vol] 25 U/L Normal <=[address] [facility] Comment on above: Performed By: #### L 501.6710, L100.0100, L500.4050, L101.9900 #### [facility] [address] [place], [address] Bilirubin [Mass/Vol] 0.35 mg/dL Normal 0.00-1.30 [facility] Comment on above: Performed By: #### L 501.6710, L100.0100, L500.4050, L101.9900 #### [facility] [address] [place], [address] BUN/CRE 22.5 RATIO High 10-[address] [facility] Comment on above: Performed By: #### L 501.6710, L100.0100, L500.4050, L101.9900 #### [facility] [address] [place], [address] Calcium [Mass/Vol] 9.3 mg/dL Normal 7.6-11.0 [facility] Comment on above: Performed By: #### L 501.6710, L100.0100, L500.4050, L101.9900 #### [facility] [address] [place], [address] Chloride [Moles/Vol] 104 mmol/L Normal 98-108 [facility] Comment on above: Performed By: #### L 501.6710, L100.0100, L500.4050, L101.9900 #### [facility] [address] [place], [address] CO2 [Moles/Vol] 25.7 mmol/L Normal 21.0-32.[address] [facility] Comment on above: Performed By: #### L 501.6710, L100.0100, L500.4050, L101.9900 #### [facility] [address] [place], [address] Creatinine [Mass/Vol] 0.64 mg/dL Low 0.70-1.20 [facility] Comment on above: Performed By: #### L 501.6710, L100.0100, L500.4050, L101.9900 #### [facility] [address] [place], [address] GAP 11 Normal 5-[address] [facility] Comment on above: Performed By: #### L 501.6710, L100.0100, L500.4050, L101.9900 #### [facility] [address] [place], [address] GFR/1.73 sq M.predicted among non-blacks MDRD (S/P/Bld) [Vol rate/Area] 96 mL/min/{1.73_m2} Normal >[address] [facility] Comment on above: Result Comment: mL/m in/1.73m2 CKD-EPI Creatinine Equation (2020) Performed By: #### L 501.6710, L100.0100, L500.4050, L101.9900 #### [facility] [address] [place], [address] Globulin (S) [Mass/Vol] 2.8 g/dL Normal 2.2-4.2 [facility] Comment on above: Performed By: #### L 501.6710, L100.0100, L500.4050, L101.9900 #### [facility] [address] [place], [address] Glucose [Mass/Vol] 93 mg/dL Normal 70-99 [facility] Comment on above: Performed By: #### L 501.6710, L100.0100, L500.4050, L101.9900 #### [facility] [address] [place], [address] Potassium [Moles/Vol] 4.1 mmol/L Normal 3.3-5.1 [facility] Comment on above: Performed By: #### L 501.6710, L100.0100, L500.4050, L101.9900 #### [facility] [address] [place], [address] Sodium [Moles/Vol] 141 mmol/L Normal 133-145 [facility] Comment on above: Performed By: #### L 501.6710, L100.0100, L500.4050, L101.9900 #### [facility] [address] [place], [address] T PROT 6.9 g/dL Normal 5.9-8.[address] [facility] Comment on above: Performed By: #### L 501.6710, L100.0100, L500.4050, L101.9900 #### [facility] [address] [place], [address] Urea nitrogen [Mass/Vol] 14 mg/dL Normal 4-[address] [facility] Comment on above: Performed By: #### L 501.6710, L100.0100, L500.4050, L101.9900 #### [facility] [address] [place], [address] Eosinophil percentageOrdered By: Alfa Holden on 05-25-2025 Eosinophils/100 WBC (Bld) 2.6 % 0-[address] [facility] Erythrocyte Sed Rateon 05-25 SED RATE 7 mm/hr Normal 0-[address] [facility] Comment on above: Performed By: #### L 501.6710, L100.0100, L500.4050, L101.9900 #### [facility] [address] [place], [address] Erythrocyte distribution wid th ratioOrdered By: Alfa Holden on 05-25-2025 Erythrocyte distribution width (RBC) [Ratio] 12.9 % 11.6-14.[address] [facility] Erythrocyte distribution wid th standard deviationOrdered By: Alfa Holden on 05-25-2025 Erythrocyte distribution width (RBC) [Ratio] 43.1 fl 35.1-43.[address] [facility] Erythrocyte sedimentation ra teOrdered By: Alfa Holden on 05-25-2025 ESR (Bld) [Velocity] 7 mm/h 0-30 [facility] Glomerular filtration rate ( GFR) estimation/1.73 sq m using serum, plasma, or whole bOrdered By: Alfa Holden on 05-25-2025 GFR/1.73 sq M.predicted among non-blacks MDRD (S/P/Bld) [Vol rate/Area] 96 mL/min/{1.73_m2} >[address] [facility] Comment on above: mL/min/1.73m2 CKD-EP I Creatinine Equation (2020) Hematocrit Auto (Bld) [Volum e fraction]Ordered By: Alfa Holden on 05-25-2025 Hematocrit (Bld) [Volume fraction] 40.9 % 37-[address] [facility] Hemoglobin measurementOrdere d By: Alfa Holden on 05-25-2025 Hemoglobin (Bld) [Mass/Vol] 13.4 g/dL 12.0-15.[address] [facility] Immature granulocytes/100 WB C Auto (Bld)Ordered By: Alfa Holden on 05-25-2025 Immature granulocytes/100 WBC (Bld) 0.200 % 0.0-0.[address] [facility] Comment on above: IG% - Immature Granu locytes (promyelocytes, myelocytes and metamyelocytes) > 1% indicates that a LEFT SHIFT is Present. Laboratory - Chemistry and C hemistry - challengeOrdered By: Alfa Holden on 05-25-2025 AST [Catalytic activity/Vol] 25 U/L <[address] [facility] MCV (mean corpuscular volume ) determinationOrdered By: Alfa Holden on 05-25-2025 MCV (RBC) [Entitic vol] 91.9 fL 81-99 [facility] Mean corpuscular hemoglobin (MCH) determinationOrdered By: Alfa Holden on 05-25-2025 MCH (RBC) [Entitic mass] 30.1 pg 27.0-32.[address] [facility] Mean corpuscular hemoglobin concentration (MCHC) determinationOrdered By: Alfa Holden on 05-25-2025 MCHC (RBC) [Mass/Vol] 32.8 g/dL 32-36 [facility] Mean platelet volume determi nationOrdered By: Alfa Holden on 05-25-2025 Platelet mean volume (Bld) [Entitic vol] 10.2 fL 6.2-12.[address] [facility] Monocyte percentageOrdered B y: Alfa Holden on 05-25-2025 Monocytes/100 WBC (Bld) 11.0 % High 0-10 [facility] Neutrophil percentageOrdered By: Alfa Holden on 05-25-2025 Neutrophils/100 WBC (Bld) 70.6 % High 47-[address] [facility] Nucleated red blood cell per centageOrdered By: Alfa Holden on 05-25-2025 Nucleated RBC/100 WBC (Bld) [Ratio] 0 % 0-[address] [facility] Platelet countOrdered By: Prem Holden on 05-25-2025 Platelets (Bld) [#/Vol] 248 10*3/uL 150-[address] [facility] Potassium measurement (mass/ volume)Ordered By: Alfa Holden on 05-25-2025 Potassium (Unsp spec) [Mass/Vol] 4.1 mmol/L 3.3-5.[address] [facility] Pulmonary Visit Reporton Pulmonary Visit Report [facility] [address] [place] [address] OFFICE VISIT Date of Service: 05/25/25 MR#: [id number] Acct: [id number] Name: BOONE ESPINOZA Rep #: [id number] : 1955 Provider: Dr. Schuyler Butler DO Age/Sex: 70/F Location: [facility] Status: Signed Assessment and Plan Assessment and Plan (1) Endobronchial mass: Status: Acute Plan: The patient was evaluated in a local emergency department while vacationing in [place] in April 2025 after experiencing an acute aspiration event while attempting to take her daily outpatient medications. CT imaging of the chest demonstrated a density in the right lower lobe bronchus, which based on the patient's history, could certainly be concerning for a retained pill fragment. The patient is currently asymptomatic from a respiratory perspective without any fevers or chills. At this time, I would recommend obtaining a follow-up noncontrasted chest CT to evaluate for resolution of this lesion. If the density persists, we will proceed with diagnostic bronchoscopy. The patient is in agreement. Orders: Orders Chest without Contrast Today R91.8 - Other nonspecific abnormal finding of lung field Plan Details Follow Up: 1 Month HPI HPI Comments Details: The patient is a 70-year-old female who presents to the clinic today in referral for the evaluation of a lung mass. The patient reported that during a recent vacation in [place] in April 2025 she experienced an acute aspiration event while attempting to take her morning medications. She reported that she took a handful of pills as is her morning routine but felt as if they got stuck and subsequently developed an acute cough. The cough persisted and she was therefore evaluated in a local emergency department the following day. As part of her workup, CT imaging was obtained which revealed a radiopaque foreign body in the esophagus along with a density in the right lower lobe bronchus. The patient is a lifelong non-smoker. She has never experienced any previous aspiration events. She denies any dysphagia or odynophagia. She currently denies any shortness of breath, chest tightness or wheezing. 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 She denies any fevers, chills or night sweats. Intake Vital Signs 05/11/25 08:02 05/25/25 07:18 Height 5 ft 4 in 5 ft 4 in Weight: 177 lb BMI 30.4 BP 131/83 H Blood Pressure Location Lt brachial Position Sitting Respiration 18 Pulse 73 Pulse Source Monitor Temp 97.7 F L Temperature Source Temporal Artery Pulse Oximetry (%) 97 Oxygen Delivery Method room air Intake Visit Reasons: Lung Mass Chief Complaint: positive cologuard Communications Engineering Technician Required: No Accompanied by: Allergies Sulfa (Sulfonamide Antibiotics) Adverse Reaction (Mild, Verified 05/25/25 11:00) Hives Medications ???Medication ???Instructions ???Recorded ???Confirmed ???Type cholecalciferol (vitamin D3) 50 50 mcg PO DAILY 10/22/23 05/25/25 History mcg (2,000 unit) capsule vitamin B complex (B 1 tab PO DAILY 10/22/23 05/25/25 H istory Complex-Vitamin B12 tablet) Turmeric Curcumin 1 tab PO DAILY 02/26/24 05/25/25 H istory meloxicam 15 mg tablet 15 mg PO QDAY PRN joint pain #90 0 12/30/24 05/25/25 Rx tabs calcium carbonate 500 mg PO QDAY 01/06/25 05/25/25 H istory ferrous sulfate 325 mg (65 mg 325 mg PO QDAY 02/14/25 05/25/25 H istory iron) tablet (FeroSul) benzonatate 100 mg capsule 100 mg PO PRN 02/21/25 05/25/25 Hi story atorvastatin 10 mg tablet (Lipitor) 10 mg PO QHS #90 tabs 03/16/25 05/25/25 Rx duloxetine 20 mg capsule,delayed 20 mg PO DAILY #90 caps 03/16/25 0 05/25/25 Rx release gabapentin 100 mg capsule 100 mg PO DAILY #30 caps 05/11/25 05/25/25 Rx Have you fallen in the past year?: Yes PFSH Medical History Positive colorectal cancer screening using Cologuard test Wears glasses Post-menopausal History of steroid therapy Non-smoker High cholesterol Osteopenia Osteoarthritis Arthritis Surgical History Hx of dilation and curettage Hx of vein stripping Status post ablation of incompetent vein using laser H/O section Family History Father Heart disease, Onset Age: 70 Cancer lung Mother Arthritis Hypertension Cancer liposarcoma Brother AICD (automatic cardioverter/defibrill ator) present Uncle Sudden cardiac arrest, Onset Age: 70 Sister Pulmonary hypertension Social History household members: spouse current occupationa (more content not included)... Normal [facility] RBC Auto (Bld) [#/Vol]Ordere d By: Alfa Holden on 05-25-2025 RBC (Bld) [#/Vol] 4.45 10*6/uL 4.2-5.4 [facility] Serum creatinine measurement (mass/volume)Ordered By: Alfa Holden on 05-25-2025 Creatinine [Mass/Vol] 0.64 mg/dL Low 0.70-1.20 [facility] Serum globulin measurementOr dered By: Alfa Holden on 05-25-2025 Globulin (S) [Mass/Vol] 2.8 g/dL 2.2-4.2 [facility] Serum glucose measurement (m ass/volume)Ordered By: Alfa Holden on 05-25-2025 Glucose [Mass/Vol] 93 mg/dL 70-99 [facility] Serum or plasma C reactive p rotein measurement (mass/volume)Ordered By: Alfa Holden on 05-25-2025 CRP [Mass/Vol] 10.90 mg/L High 0.0-3.[address] [facility] Serum or plasma alanine pisano otransferase (ALT) measurementOrdered By: Alfa Holden on 05-25-2025 ALT [Catalytic activity/Vol] 24 U/L <[address] [facility] Serum or plasma albumin teresita urement (mass/volume)Ordered By: Alfa Holden on 05-25-2025 Albumin [Mass/Vol] 4.0 g/dL 3.4-4.8 [facility] Serum or plasma albumin/glob ulin mass ratioOrdered By: Alfa Holden on 05-25-2025 Albumin/Globulin [Mass ratio] 1.4 {ratio} 0.9-2.[address] [facility] Serum or plasma alkaline fabiano sphatase measurementOrdered By: Alfa Holden on 05-25-2025 ALP [Catalytic activity/Vol] 89 U/L 35-[address] [facility] Serum or plasma calcium teresita urement (mass/volume)Ordered By: Alfa Holden on 05-25-2025 Calcium [Mass/Vol] 9.3 mg/dL 7.6-11.0 [facility] Serum or plasma urea nitroge n measurement (mass/volume)Ordered By: Alfa Holden on 05-25-2025 Urea nitrogen [Mass/Vol] 14 mg/dL 4-[address] [facility] Sodium levelOrdered By: Jad Holden on 05-25-2025 Sodium [Moles/Vol] 141 mmol/L 133-145 [facility] Total proteinOrdered By: Garrison Holden on 05-25-2025 Protein [Mass/Vol] 6.9 g/dL 5.9-8.4 [facility] White blood cell (WBC) count Ordered By: Alfa Holden on 05-25-2025 WBC (Bld) [#/Vol] 4.6 10*3/uL 4.4-11.0 [facility] Internal Medicine Office Vis anderson 05-10-2025 Internal Medicine Office Visit [facility] [address] [place] [address] OFFICE VISIT Date of Service: 05/11/25 MR#: [id number] Acct: [id number] Name: BOONE ESPINOZA Rep #: [id number] : 1955 Provider: Dr. Flavio daniels MD Age/Sex: 70/F Location: [facility] Status: Signed Intake Vital Signs 02/25/25 07:15 05/04/25 13:44 05/11/25 08:02 Height 5 ft 4 in 5 ft 4 in 5 ft 4 in Weight: 176 lb BMI 30.2 BP 122/78 H Blood Pressure Location Lt brachial Position Sitting Respiration 16 Pulse 69 Pulse Source Monitor Temp 987.2 F H Temp Source Temporal Pulse Oximetry (%) 96 Oxygen Delivery Method room air Intake Visit Reasons: HOSP FU-PT BRINGING RECORDS-PULMONOLOGY REFERRAL Communications Engineering Technician Required: No Accompanied by: Is patient in pain?: No Allergies Sulfa (Sulfonamide Antibiotics) Adverse Reaction (Mild, Verified 05/11/25 07:53) Hives Medications ???Medication ???Instructions ???Recorded ???Confirmed ???Type cholecalciferol (vitamin D3) 50 50 mcg PO DAILY 10/22/23 05/11/25 History mcg (2,000 unit) capsule vitamin B complex (B 1 tab PO DAILY 10/22/23 05/11/25 H istory Complex-Vitamin B12 tablet) Turmeric Curcumin 1 tab PO DAILY 02/26/24 05/11/25 H istory meloxicam 15 mg tablet 15 mg PO QDAY PRN joint pain #90 0 12/30/24 05/11/25 Rx tabs calcium carbonate 500 mg PO QDAY 01/06/25 05/11/25 H istory ferrous sulfate 325 mg (65 mg 325 mg PO QDAY 02/14/25 05/11/25 H istory iron) tablet (FeroSul) benzonatate 100 mg capsule 100 mg PO PRN 02/21/25 05/11/25 Hi story atorvastatin 10 mg tablet (Lipitor) 10 mg PO QHS #90 tabs 03/16/25 05/11/25 Rx duloxetine 20 mg capsule,delayed 20 mg PO DAILY #90 caps 03/16/25 0 05/11/25 Rx release gabapentin 100 mg capsule 100 mg PO DAILY #30 caps 04/19/25 05/11/25 Rx Have you fallen in the past year?: Yes (05/06/25 No injury, uneven ground.) Nurse's Note: Pt states on 05/03/25 while she was in [place], she took pills and felt like 1 got stuck and had been coughing went to an ER the following day on 05/04/25. Chest CT done and incidentally found a lung lesion in R lower lobe. No foregin body found, pt was sent home w/ benzonate and states that helps w/ the cough, she has always denied SOB,including today and denies the stuck feeling in throat. Was advised to f/u w/ pcp and pulmnology. Pt has records w/ her today. [facility] Medical History Positive colorectal cancer screening using Cologuard test Wears glasses Post-menopausal History of steroid therapy Non-smoker High cholesterol Osteopenia Osteoarthritis Arthritis Surgical History Hx of dilation and curettage Hx of vein stripping Status post ablation of incompetent vein using laser H/O section Family History Father Heart disease, Onset Age: 70 Cancer lung Mother Arthritis Hypertension Cancer liposarcoma Brother AICD (automatic cardioverter/defibrill ator) present Uncle Sudden cardiac arrest, Onset Age: 70 Social History household members: spouse current occupational status: employed 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 The patient reports she was down in [place] for vacation/her son's graduation. On 05/03, she was taking her medication (she takes them all at once) when it felt like they got stuck in her throat. She tried drinking some water which didn't help. She states she also developed a dry cough which was not calming down and was causing rib pain. She also reports it felt that she could taste her medication. She reports the following morning, since she still wasn't feeling better, she went to the ED. While in the ED, she underwent a CT neck which didn't show any obvious foreign body, however, it showed an incidental lung mass in her right lower lobe for which she was instructed to follow up as an outpatient. She reports she was prescribed tessalon perles for her cough which did seem to help. She has been home since Friday and states overall she is feeling better. Her cough has since resolved. She admits to feeling more tired recently, but questions if that is jet lag. She denies any appetite changes, shortness of breath, weight loss. ROS Const Constitutiona (more content not included)... Normal [facility] Colonoscopy Reporton 025 Colonoscopy Report [facility] Medical Records Department [address] [place] [address] Colonoscopy Report MR#: [id number] Acct: [id number] Name: BOONE ESPINOZA Rep #: [id number] : 1955 69 From: Eris Oakley MD PCP: Dr. Flavio Johnson MD Status:[facility] Patient Name: Boone Espinoza Procedure Date: 02/25/2025 7:58 AM Date of : 1955 Age: 69 Procedure: Colonoscopy Indications: Positive Cologuard test Providers: Eris Oakley MD Referring MD: Flavio Johnson Md Medicines: Propofol per Anesthesia Patient Profile: This is a 69 year old female. Refer to note in patient chart for documentation of history and physical. Last Colonoscopy: 10 years ago. Complications: No immediate complications. Procedure: Pre-Anesthesia Assessment: - Prior to the procedure, a History and Physical was performed, and patient medications and allergies were reviewed. The patient's tolerance of previous anesthesia was also reviewed. The risks and benefits of the procedure and the sedation options and risks were discussed with the patient. All questions were answered, and informed consent was obtained. Prior Anticoagulants: The patient has taken no anticoagulant or antiplatelet agents. After reviewing the risks and benefits, the patient was deemed in satisfactory condition to undergo the procedure. After I obtained informed consent, the scope was passed under direct vision. Throughout the procedure, the patient's blood pressure, pulse, and oxygen saturations were monitored continuously. The Colonoscope was introduced through the anus and advanced to the cecum, identified by appendiceal orifice and ileocecal valve. The colonoscopy was performed without difficulty. The patient tolerated the procedure well. The quality of the bowel preparation was good. The ileocecal valve, appendiceal orifice, and rectum were photographed. Scope In: 8:08:28 AM Scope Withdrawal Time 0 hours 5 minutes 47 seconds Scope Out: 8:21:47 AM Total Procedure Duration Time 0 hours 13 minutes 19 seconds Findings: The entire examined colon appeared normal on direct and retroflexion views. Impression: - The entire examined colon is normal on direct and retroflexion views. - No specimens collected. Recommendation: - Discharge patient to home. - Resume previous diet. - Continue present medications. - Repeat colonoscopy is not recommended due to current age (66 years or older) for screening purposes. Procedure Code(s): --- Professional --- 05629, Colonoscopy, flexible; diagnostic, including collection of specimen(s) by brushing or washing, when performed (separate procedure) Diagnosis Code(s): --- Professional --- R19.5, Other fecal abnormalities CPT copyright 2021 [employer]. All rights reserved. The codes documented in this report are preliminary and upon supervisor bottle machines review may be revised to meet current compliance requirements. Eris Oakley MD 02/25/2025 8:24:30 AM This report has been signed electronically. Number of Addenda: 0 Note Initiated On: 02/25/2025 7:58 AM 02/25/25 0824 Date Eris Oakley MD Cosigner Signature: Date (if indicated) CC: Dr. Flavio Johnson MD; Dr. Eris Oakley MD Date Dictated: 02/25/25 0758 Date Transcribed: Implementation Director: Signed [facility] MR/POSTOP.ANEon 02-25-2025 MR/POSTOP.[facility] Medical Records Department [address] [place] [address] Anesthesia Postop Eval I 02/25/2529 MR#: [id number] Acct: [id number] Name: BOONE ESPINOZA Rep #: [id number] : 1955 69 From: Mick Hicks PCP: Dr. Flavio Johnson MD Status:REG [facility] Y Race: C Location: [facility] Anesthesia: Postop Eval I Current Vital Signs Temperature: 97.1 F Pulse Rate: 61 Blood Pressure: 117/63 Respiratory Rate: 16 Pulse Ox: 97 Oxygen Delivery Method: Room Air Assessment Airway patent: Yes Spontaneous unlabored respirations: Yes Mental status: Asleep nausea: No Vomiting: No Anesthesia Complication: Yes Anesthesia Complication Comment:: vagal sensitive, tx with glyco, then ephedrine Fluid Hydration Crystalloid volume administer (ml): 40 Total IV fluid infused: 40 Progress Note Anesthesia document: Postop Eval 1 completed: Yes 02/25/25830 Date Mick Jane Signature: Date CC: Signed [facility] MR/[id number] 02-25-2025 MR/POSTOPAN2 [facility] Medical Records Department [address] [place] [address] Anesthesia Postop Eval II 02/25/25 1109 MR#: [id number] Acct: [id number] Name: BOONE ESPINOZA Rep #: [id number] : 1955 69 From: Leo Cruz MD PCP: Dr. Flavio Johnson MD Status:DEP [facility] Y Race: C Location: EN Anesthesia Postop Eval I Sum Postop Eval Completion status Anesthesia document: Postop Eval 1 completed: Yes Anesthesia Postop Eval I Summary Anesthesia Postop Eval I Summary: Anesthesia Postop Eval I: Assessment Summary Airway patent Yes 02/25/25 08:31 [email or web address] Spontaneous unlabored Yes 02/25/25 08:31 [email or web address] respirations Mental status Asleep 02/25/25 08:31 [email or web address] nausea No 02/25/25 08:31 [email or web address] Vomiting No 02/25/25 08:31 [email or web address] Anesthesia Postop Eval I: Fluid Summary Crystalloid volume administer 40 02/25/25 08:31 [email or web address] (ml) Colloids volume administered ( ml) Blood Product volume administered (ml) Total IV fluid infused 40 02/25/25 08:31 [email or web address] Anesthesia Postop Eval I: Summary Notes Anesthesia Complication Yes 02/25/25 08:31 [email or web address] Anesthesia Complication vagal sensitive, 02/25/25 08:31 [email or web address] Comment: tx with glyco, then ephedrine Post-operative progress note Anesthesia: Postop Eval II Evaluation Mental status: Awake Pain Level: 0 nausea: No Vomiting: No 02/25/25 1110 Date Leo Cruz MD Cosigner Signature: Date CC: Signed Normal [facility] Surgery Visit Reporton 02-14 Surgery Visit Report [facility] [place] [address] [address] [place] [address] OFFICE VISIT Date of Service: 02/14/25 MR#: [id number] Acct: [id number] Name: BOONE ESPINOZA Rep #: [id number] : 1955 Provider: Dr. Eris ashley MD Age/Sex: 69/F Location: [facility] Status: Signed Intake Vital Signs 01/06/25 08:20 02/14/25 08:27 Height 5 ft 4 in 5 ft 4 in Weight: 180 lb 6 oz 182 lb BMI 30.9 31.2 BP 138/82 H 131/86 H Blood Pressure Location Lt brachial Rt brachial Position Sitting Respiration 16 16 Pulse 67 Pulse Source Monitor Temp 97.3 F L Temp Source Temporal Pulse Oximetry (%) 96 Oxygen Delivery Method room air Intake Visit Reasons: POSITIVE COLOGUARD Chief Complaint: positive cologuard Communications Engineering Technician Required: No Is patient in pain?: No Allergies Sulfa (Sulfonamide Antibiotics) Adverse Reaction (Mild, Verified 02/14/25 08:27) Hives Medications ???Medication ???Instructions ???Recorded ???Confirmed ???Type cholecalciferol (vitamin D3) 50 50 mcg PO DAILY 10/22/23 02/14/25 History mcg (2,000 unit) capsule vitamin B complex (B 1 tab PO DAILY 10/22/23 02/14/25 H istory Complex-Vitamin B12 tablet) Turmeric Curcumin PO 02/26/24 02/14/25 History atorvastatin 10 mg tablet (Lipitor) 10 mg PO QHS #90 tabs 11/17/24 02/14/25 Rx duloxetine 20 mg capsule,delayed 20 mg PO DAILY #90 caps 12/09/24 0 02/14/25 Rx release meloxicam 15 mg tablet 15 mg PO QDAY PRN joint pain #90 0 12/30/24 02/14/25 Rx tabs calcium carbonate 500 mg PO QDAY 01/06/25 02/14/25 H istory gabapentin 100 mg capsule 100 mg PO DAILY #30 caps 02/06/25 02/14/25 Rx ferrous sulfate 325 mg (65 mg 325 mg PO QDAY 02/14/25 02/14/25 H istory iron) tablet (FeroSul) Have you fallen in the past year?: No PFSH Medical History High cholesterol Osteopenia Osteoarthritis Arthritis Surgical History Status post ablation of incompetent vein using laser H/O section Family History Father Heart disease, Onset Age: 70 Cancer lung Mother Arthritis Hypertension Cancer liposarcoma Brother AICD (automatic cardioverter/defibrill ator) present Uncle Sudden cardiac arrest, Onset Age: 70 Social History household members: spouse current occupational status: employed 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 She reports she had a Cologuard a few years ago and it was negative. She has never had a colonoscopy. She denies any abdominal pain or blood in stool. She does not have family history of colon cancer. ROS General General: No weight change, appetite, fatigue, colon cancer, breast cancer or weakness HEENT HEENT: No difficulty swallowing, eye injury, eye surgery, swollen glands or hoarseness Endo Endocrine: No thyroid disease, diabetes mellitus, thyroid cancer, Hair loss, heat intolerance or cold intolerance Skin Skin: No rash or changing moles Breast Breast: No left breast lump, right breast lump, nipple discharge, breast pain, abnormal mammogram, abnormal US or breast enlargement Musc Musculoskeletal: Yes arthritis; No back problems, rheumatoid arthritis, gout or joint pain Cardio Cardiovascular: No murmur, pacemaker, heart disease, atrial fibrillation, high blood pressure, heart attack, heart stent, palpitations, shortness of breath with exertion or chest pain Psych Psychiatric: No depression, anxiety or hearing voices Resp Respiratory: No shortness of breath, No sleep apnea, No cough, No COPD, No asthma, No emphysema and No wheezing Gastro Gastrointestinal: No abdominal pain, No nausea or vomiting, No diarrhea, No constipation, No blood in stool, No acid reflux, No hemorrhoids, No ulcers, No gallbladder problem and No black,tarry stools Estuardo Hematologic: No blood thinners, No blood disorders, No bleeding, No anemia and No blood clots Neuro Neurologic: No system reviewed and no additional complaints, except as documented, No as per HPI, No abnormal gait, No abnormal hearing, No abnormal movements, No abnormal speech, No behavioral changes, No burning sensations, No confusion, No convulsions, No disequilibrium, No dizziness, No localized weakness, No frequent falls, No headache(s), No lack of coordination, No loss of vision, No memory loss, No n (more content not included)... Normal [facility] [id number] DOrdered By: Marino Johnson on 01-06-2025 Vitamin D 25-Hydroxy 59.1 ng/mL [facility] Comment on above: Vitamin D 25(OH) Sta tus Range Deficiency <20 ng/mL (50nmol/L) Insufficiency 20 - 30 ng/mL (50 - 75 nmol/L) Sufficiency 30 - 100 ng/mL (75 - 250 nmol/L) Toxicity >100 ng/mL (>250 nmol/L) High density lipoprotein (HD L) measurementOrdered By: Flavio Johnson on 01-06-2025 Cholesterol in HDL [Mass/Vol] 82 mg/dL >[address] [facility] Comment on above: The drugs N-Acetylcy steine and Metamizole may falsely depress this assay. Reference Range HDL <40 mg/dL Low HDL Cholesterol HDL >or= 60 mg/dL High HDL Cholesterol Lipid Profileon 01-06-2025 Cholesterol [Mass/Vol] 172 mg/dL Normal 200 [facility] Comment on above: Result Comment: <200 mg/dL Desirable 200-240 mg/dL Borderline >240 mg/dL High Risk Performed By: #### L 506.1000, L500.4100 #### [facility] [address] [place], [place], [id number] Cholesterol in HDL [Mass/Vol] 82 mg/dL Normal [facility] Comment on above: Result Comment: The drugs N-Acetylcysteine and Metamizole may falsely depress this assay. Reference Range HDL <40 mg/dL Low HDL Cholesterol HDL >or= 60 mg/dL High HDL Cholesterol Performed By: #### L 506.1000, L500.4100 #### [facility] [address] [place], [address] Cholesterol in LDL [Mass/Vol] 74 mg/dL Normal 0-[address] [facility] Comment on above: Performed By: #### L 506.1000, L500.4100 #### [facility] [address] [place], [address] Cholesterol in VLDL [Mass/Vol] 16 mg/dL Normal 5-[address] [facility] Comment on above: Performed By: #### L 506.1000, L500.4100 #### [facility] [address] [place], [address] Triglyceride [Mass/Vol] 81 mg/dL Normal [facility] Comment on above: Result Comment: The drugs N-Acetylcysteine and Metamizole may falsely depress this assay. Serum Triglycerides Reference Interval Normal <150 mg/dL Borderline high 150 - 199 mg/dL High 200 - 499 mg/dL Very High > or = 500 mg/dL Performed By: #### L 506.1000, L500.4100 #### [facility] [address] [place], [address] Low density lipoprotein (LDL ) cholesterol measurementOrdered By: Flavio Johnson on 01-06-2025 Cholesterol in LDL [Mass/Vol] 74 mg/dL 0-[address] [facility] Serum or plasma cholesterol measurement (mass/volume)Ordered By: Flavio Johnson on 01-06-2025 Cholesterol [Mass/Vol] 172 mg/dL <200 [facility] Comment on above: <200 mg/dL Desirable 200-240 mg/dL Borderline >240 mg/dL High Risk Triglycerides measurementOrd ered By: Flavio Johnson on 01-06-2025 Triglyceride [Mass/Vol] 81 mg/dL <199 [facility] Comment on above: The drugs N-Acetylcy steine and Metamizole may falsely depress this assay.Serum Triglycerides Reference Interval Normal <150 mg/dL Borderline high 150 - 199 mg/dL High 200 - 499 mg/dL Very High > or = 500 mg/dL Very low density lipoprotein (VLDL) cholesterol measurementOrdered By: Flavio Johnson on 01-06-2025 VLDL Cholesterol 16 mg/dL 5-[address] [facility] Vitamin D,25 Hydroxyon 01-06 Vitamin D 25-OH 59.1 ng/mL Normal [facility] Comment on above: Result Comment: Jhoana min D 25(OH) Status Range Deficiency <20 ng/mL (50nmol/L) Insufficiency 20 - 30 ng/mL (50 - 75 nmol/L) Sufficiency 30 - 100 ng/mL (75 - 250 nmol/L) Toxicity >100 ng/mL (>250 nmol/L) Performed By: #### L 506.1000, L500.4100 #### [facility] [address] [place], [address] Internal Medicine Office Vis iton 01-05-2025 Internal Medicine Office Visit [facility] [address] [place] [address] [place] [address] OFFICE VISIT Date of Service: 01/06/25 MR#: [id number] Acct: [id number] Name: BOONE ESPINOZA Rep #: [id number] : 1955 Provider: Dr. Flavio daniels MD Age/Sex: 69/F Location: [facility] Status: Signed Intake Vital Signs 09/06/24 09:07 01/06/25 08:20 Height 5 ft 4 in 5 ft 4 in Weight: 180 lb 6 oz BMI 30.9 BP 138/82 H Blood Pressure Location Lt brachial Position Sitting Respiration 16 Pulse 67 Pulse Source Monitor Temp 97.3 F L Temp Source Temporal Pulse Oximetry (%) 96 Oxygen Delivery Method room air Intake Visit Reasons: medicare wellness Chief Complaint: wellness Communications Engineering Technician Required: No Accompanied by: Self Is patient in pain?: No Allergies Sulfa (Sulfonamide Antibiotics) Adverse Reaction (Mild, Verified 01/06/25 08:13) Hives Medications ???Medication ???Instructions ???Recorded ???Confirmed ???Type cholecalciferol (vitamin D3) 50 50 mcg PO DAILY 10/22/23 01/06/25 History mcg (2,000 unit) capsule vitamin B complex (B 1 tab PO DAILY 10/22/23 01/06/25 H istory Complex-Vitamin B12 tablet) Turmeric Curcumin PO 02/26/24 01/06/25 History atorvastatin 10 mg tablet (Lipitor) 10 mg PO QHS #90 tabs 11/17/24 01/06/25 Rx duloxetine 20 mg capsule,delayed 20 mg PO DAILY #90 caps 12/09/24 0 01/06/25 Rx release gabapentin 100 mg capsule 100 mg PO DAILY #30 caps 12/30/24 01/06/25 Rx meloxicam 15 mg tablet 15 mg PO QDAY PRN joint pain #90 0 12/30/24 01/06/25 Rx tabs calcium carbonate 500 mg PO QDAY 01/06/25 01/06/25 H istory Have you fallen in the past year?: No PFSH Medical History Osteopenia Osteoarthritis Arthritis Surgical History (Updated 01/06/25 @ 08:[address] Flavio Johnson MD) Status post ablation of incompetent vein using laser H/O section Family History (Updated 01/06/25 @ 08:[address] 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 She is due for a few routine labs. She is due for some screening. She has a mammogram ordered through her OBGYN. She isn't due for any immunizations. She doesn't smoke and does not need refills. The patient follows with rheumatology for her arthritis and sees them every 4-6 months. She was diagnosed with fibromyalgia. She has been on cymbalta, gabapentin and PRN meloxicam for her pain. She reports she takes the meloxicam once every 10 days on average. She has also been following a chiropractor. She reports she has been feeling great recently. She denies any pain currently. She also reports her feet and wrist have been doing better with seeing the chiropractor as well. She hasn't seen her natural resources extension educator recently and does still wear her orthotics regularly. She still wears a wrist brace at night. She hasn't noticed any problems with the cholesterol medication and has been taking it as prescribed without problems. Medications reviewed: Yes Boone likes to exercises by walking. She does try to use her treadmill most days. They watch their diet for sodium, low fat, and low cholesterol most of the time. List of current specialists seen: Rheumatology, Chiropractor End of life planning discussed including patient's advanced directive wishes: Discussed. I am willing to follow Boone's advanced directives PHQ-2/Depression screen They in the past two weeks denies having felt down, depressed, hopeless or with little interest or pleasure in doing things. Functional Ability/Safety Screen 1. Was the patient's time up and go test unsteady or longer than 30 seconds? No 2. Does the patient need help with the phone, transportation, shopping, prepared meals, housework, laundry, medications or managing money? No 3. Does your home have rugs in the hallway, lack of grab bars in the bathroom, lack of handrails on the stairs or have poor lighting? Yes, patient has rugs Hearing evaluation: Normal ROS Const Constitutional: No body ache, excessive sweating, fatigue, fever(s), frequent falls, (more content not included)... Normal [facility] C REACTIVE PROTEINon 025 CRP [Mass/Vol] mg/L Normal 0-10 [facility] Comment on above: Performed By: #### E SR, CREACT, CMPF, ACBC #### Testing performed at [facility] [facility] [address] [place] [address] CBCon 11-25-2024 ABSOLUTE BAS 0.0 10*3/uL Normal 0.0-0.2 [facility] Comment on above: Performed By: #### E SR, CREACT, CMPF, ACBC #### Testing performed at [address] [address] ABSOLUTE EOS 0.1 10*3/uL Normal 0.0-0.7 [facility] Comment on above: Performed By: #### E SR, CREACT, CMPF, ACBC #### Testing performed at [address] [address] ABSOLUTE NEUTROPHIL COUNT 3.8 10*3/uL Normal 1.4-6.5 [facility] Comment on above: Performed By: #### E SR, CREACT, CMPF, ACBC #### Testing performed at [address] [address] Basophils/100 WBC (Bld) 0.5 % Normal 0.0-2.0 [facility] [place] Comment on above: Performed By: #### E SR, CREACT, CMPF, ACBC #### Testing performed at [address] [place] [address] DTYPE AUTO DIFF Normal [facility] Comment on above: Performed By: #### E SR, CREACT, CMPF, ACBC #### Testing performed at [address] [address] Eosinophils/100 WBC (Bld) 1.4 % Normal 0.0-11.0 [facility] Comment on above: Performed By: #### E SR, CREACT, CMPF, ACBC #### Testing performed at [address] [address] Lymphocytes (Bld) [#/Vol] 1.3 10*3/uL Normal 1.2-3.4 [facility] Comment on above: Performed By: #### E SR, CREACT, CMPF, ACBC #### Testing performed at [address] [address] Lymphocytes/100 WBC (Bld) 22.9 % Normal 20.0-55.0 [facility] Comment on above: Performed By: #### E SR, CREACT, CMPF, ACBC #### Testing performed at [address] [address] Monocytes (Bld) [#/Vol] 0.6 10*3/uL Normal 0.0-0.7 [facility] Comment on above: Performed By: #### E SR, CREACT, CMPF, ACBC #### Testing performed at [address] [address] Monocytes/100 WBC (Bld) 9.7 % Normal 0.0-10.0 [facility] [place] Comment on above: Performed By: #### E SR, CREACT, CMPF, ACBC #### Testing performed at [address] [address] Neutrophils/100 WBC (Bld) 65.5 % Normal 37.0-75.0 [facility] Comment on above: Performed By: #### E SR, CREACT, CMPF, ACBC #### Testing performed at [address] [address] Erythrocyte distribution width (RBC) [Ratio] 13.5 % Normal 11.5-14.5 [facility] Comment on above: Performed By: #### E SR, CREACT, CMPF, ACBC #### Testing performed at [address] [address] Hematocrit (Bld) [Volume fraction] 44.8 % Normal 36.0-48.0 [facility] Comment on above: Performed By: #### E SR, CREACT, CMPF, ACBC #### Testing performed at [address] [address] Hemoglobin (Bld) [Mass/Vol] 14.6 g/dL Normal 12.0-16.0 [facility] Comment on above: Performed By: #### E SR, CREACT, CMPF, ACBC #### Testing performed at [address] [address] MCH (RBC) [Entitic mass] 29.7 pg Normal 26.0-35.0 [facility] Comment on above: Performed By: #### E SR, CREACT, CMPF, ACBC #### Testing performed at [address] [address] MCHC (RBC) [Mass/Vol] 32.7 g/dL Normal 27.0-37.0 [facility] Comment on above: Performed By: #### E SR, CREACT, CMPF, ACBC #### Testing performed at [address] [address] MCV (RBC) [Entitic vol] 90.9 fL Normal 80.0-100.0 [facility] Comment on above: Performed By: #### E SR, CREACT, CMPF, ACBC #### Testing performed at [address] [address] Platelet mean volume (Bld) [Entitic vol] 9.1 fL Normal 7.4-11.0 [facility] Comment on above: Performed By: #### E SR, CREACT, CMPF, ACBC #### Testing performed at [address] [address] Platelets (Bld) [#/Vol] 259 10*3/uL Normal 130-400 [facility] Comment on above: Performed By: #### E SR, CREACT, CMPF, ACBC #### Testing performed at [address] [address] RBC (Bld) [#/Vol] 4.92 10*6/uL Normal 4.0-5.4 [facility] Comment on above: Performed By: #### E SR, CREACT, CMPF, ACBC #### Testing performed at [address] [address] WBC (Bld) [#/Vol] 5.9 10*3/uL Normal 3.6-11.0 [facility] Comment on above: Performed By: #### E SR, CREACT, CMPF, ACBC #### Testing performed at [address] [address] CMP FASTINGon 11-25-2024 A:G RATIO 1.7 RATIO Normal [facility] Comment on above: Performed By: #### E SR, CREACT, CMPF, ACBC #### Testing performed at [address] [address] ALBUMIN 4.8 G/dl Normal 3.5-5.0 [facility] Comment on above: Performed By: #### E SR, CREACT, CMPF, ACBC #### Testing performed at [address] [address] ALP [Catalytic activity/Vol] 102 U/L Normal 38-126 [facility] Comment on above: Performed By: #### E SR, CREACT, CMPF, ACBC #### Testing performed at [address] [address] ALT [Catalytic activity/Vol] 28 U/L Normal <35 [facility] Comment on above: Performed By: #### E SR, CREACT, CMPF, ACBC #### Testing performed at [address] [address] AST [Catalytic activity/Vol] 32 U/L Normal 14-36 [facility] Comment on above: Performed By: #### E SR, CREACT, CMPF, ACBC #### Testing performed at [address] [address] Bilirubin [Mass/Vol] 0.7 mg/dL Normal 0.2-1.3 [facility] Comment on above: Performed By: #### E SR, CREACT, CMPF, ACBC #### Testing performed at [address] [address] Calcium [Mass/Vol] 9.7 mg/dL Normal 8.4-10.2 [facility] Comment on above: Performed By: #### E SR, CREACT, CMPF, ACBC #### Testing performed at [address] [address] Chloride [Moles/Vol] 99 mmol/L Normal 98-107 [facility] Comment on above: Result Comment: Beba knutson note: Triglyceride levels of 600mg/dL or higher may positively bias chloride results by approximately 2.1 mmol Performed By: #### E SR, CREACT, CMPF, ACBC #### Testing performed at [address] [address] CO2 [Moles/Vol] 33 mmol/L High 22-30 [facility] Comment on above: Performed By: #### E SR, CREACT, CMPF, ACBC #### Testing performed at [address] [address] Creatinine [Mass/Vol] 0.60 mg/dL Low 0.70-1.20 [facility] Comment on above: Performed By: #### E SR, CREACT, CMPF, ACBC #### Testing performed at [address] [address] EST. GFR, 128 ml/min/1.73sq.m [facility] Comment on above: Performed By: #### E SR, CREACT, CMPF, ACBC #### Testing performed at [address] [address] EST. GFR,Non 106 ml/min/1.73sq.m [facility] Comment on above: Performed By: #### E SR, CREACT, CMPF, ACBC #### Testing performed at [address] [address] GFR Information Average GFR for 60-6 9 years old = 85. Normal [facility] Comment on above: Result Comment: [employer] vanessa Kidney disease, GFR = <60. Kidney failure, GFR = <15. The GFR estimate is not adjusted for extreme body surface area or acute process, nor has it been validated for women or ethnic groups other than and . Performed By: #### E SR, CREACT, CMPF, ACBC #### Testing performed at [address] [address] Glucose [Mass/Vol] 70 mg/dL Normal 70-100 [facility] Comment on above: Result Comment: NORMAL <100 mg/dL PREDIABETES 101-126 mg/dL DIABETES 126 mg/dL or higher Performed By: #### E SR, CREACT, CMPF, ACBC #### Testing performed at [address] [address] Potassium [Moles/Vol] 4.1 mmol/L Normal 3.5-5.1 [facility] Comment on above: Performed By: #### E SR, CREACT, CMPF, ACBC #### Testing performed at [address] [address] Protein [Mass/Vol] 7.6 g/dL Normal 6.3-8.2 [facility] Comment on above: Performed By: #### E SR, CREACT, CMPF, ACBC #### Testing performed at [address] [address] Sodium [Moles/Vol] 141 mmol/L Normal 137-145 [facility] Comment on above: Performed By: #### E SR, CREACT, CMPF, ACBC #### Testing performed at [address] [address] Urea nitrogen [Mass/Vol] 17 mg/dL Normal 7-20 [facility] Comment on above: Performed By: #### E SR, CREACT, CMPF, ACBC #### Testing performed at [address] [address] ESRon 11-25-2024 ESR (Bld) [Velocity] 6 mm/h Normal 0-30 [facility] Comment on above: Performed By: #### E SR, CREACT, CMPF, ACBC #### Testing performed at [address] [address] OCT MACULA CIRRUS OU (BOTH E YES)on 10-11-2024 [facility] Radiology Study observation (narrative) [facility] VISUAL FIELD 10-2 OU (BOTH E YES)on 10-11-2024 [facility] Radiology Study observation (narrative) [facility] Internal Medicine Office Vis iton 09-02-2024 Internal Medicine Office Visit [facility] [address] [place] [id number] OFFICE VISIT Date of Service: 09/06/24 MR#: [id number] Acct: [id number] Name: BOONE ESPINOZA Rep #: [id number] : 1955 Provider: Dr. 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 Accompanied by: Self Is patient in pain?: No Allergies Sulfa (Sulfonamide Antibiotics) Adverse Reaction (Mild, Verified 09/06/24 09:04) Hives Medications ???Medication ???Instructions ???Recorded ???Confirmed ???Type cholecalciferol (vitamin D3) 50 50 mcg PO DAILY 10/22/23 09/06/24 History mcg (2,000 unit) capsule vitamin B complex (B 1 tab PO DAILY 10/22/23 09/06/24 History Complex-Vitamin B12 tablet) Collinsonia Root PO 02/26/24 09/06/24 History Turmeric Curcumin PO 02/26/24 09/06/24 History atorvastatin 10 mg tablet (Lipitor) 10 mg PO QHS #90 tabs 04/22/24 09/06/24 Rx gabapentin 100 mg capsule 100 mg PO DAILY #30 caps 08/13/24 09/06/24 Rx duloxetine 20 mg capsule,delayed 20 mg PO DAILY #90 caps 08/25/24 09/06/24 Rx release meloxicam 15 mg tablet mg PO PRN 09/06/24 09/06/24 History prednisone 20 mg tablet 20 mg PO QDAY #5 tabs 09/06/24 09/06/24 Rx Have you fallen in the past year?: No PFSH Medical History Osteopenia Osteoarthritis Arthritis Surgical History Status post ablation of incompetent vein using laser H/O section Family History Father Heart disease, Onset Age: 70 Mother Arthritis Hypertension Cancer liposarcoma Brother AICD (automatic cardioverter/defibrill ator) present Uncle Sudden cardiac arrest, Onset Age: 70 Social History household members: spouse current occupational status: employed 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 She is up to date on her routine blood work. She reports she will get her mammogram done in [place]. She does plan on getting her flu shot. She doesn't smoke and does not need refills. She reports she is eating healthy and staying active with walking. The patient follows with rheumatology for her arthritis and sees them every 4-6 months. She was diagnosed with fibromyalgia. She has been on cymbalta, gabapentin and PRN meloxicam for her pain. She reports she takes the meloxicam around once every 3-4 weeks. She reports since she was last seen, her plaquenil was stopped altogether. She reports she has been doing fine without it. She has a follow up in the next few months. She reports she has been feeling a little more achy recently. She rates her pain 3/10 currently. She reports her feet have been about the same. She does continue to follow with podiatry and uses her orthotics regularly. She hasn't noticed any problems with the cholesterol medication and has been taking it as prescribed without problems. The patient has concerns about left wrist pain. She reports it is always sore, but seems to be more tender than usual over the last few days. She reports she hasn't had any falls or injuries. She doesn't feel she has been doing any heavy lifting or anything to have irritated it. She hasn't noticed any swelling, bruising or redness. She reports her ROM is intact, but it hurts to move it side to side or twisting to open something. She denies any numbness/tingling into her hands. She does feel that her hand is a little more weak than usual and she does note trouble grasping things. She denies dropping anything, however. She hasn't tried taking or doing anything for her symptoms. She describes the pain as a dull/aching pain, rating it 5/10 currently. She reports the pain is constant, but certain activities make it feel worse. She does have a wrist brace which she wears every night. ROS Const Constitutional: Positive for fatigue; No body ache, chills, excessive sweating, fever(s), frequent falls, headach (more content not included)... Normal [facility] XR FOOT RIGHT 3+ VIEWS (ERLINDA CLARKE)on 05-24-2024 XR FOOT RIGHT 3+ VIEWS (STANDARD) No acute fracture dislocations noted. Joint spaces are within normal limits. Small posterior calcaneal enthesophyte noted Dictated by: JOSE LUIS HAYDEN on [place] Jun 06, 2024 4:59:45 PM EDT Transcribed by: JOSE LUIS HAYDEN on [place] Jun 06, 2024 4:59:45 PM EDT Finalized by: JOSE LUIS HAYDEN on [place] Jun 06, 2024 4:59:[address] [facility] Comment on above: Order Comment: Injur y/Trauma or Illness?:Illness/Other How long have you had these symptoms (acute/chronic)?:Chronic Reason for exam?:pain History of cancer?:u Surgeries, chemotherapy, or radiation?:u Type of Exam?:Initial Additional signs and symptoms?:no Basophil percentageOrdered B y: Flaviohira Johnson on 03-02-2024 Bilirubin [Mass/Vol] 0.50 mg/dL 0.20-1.00 [facility] Comment on above: For patients on eltr ombopag therapy, use of Dimension [place] TBIL is not recommended. Chloride [Moles/Vol] 106 mmol/L 98-107 [facility] Cholesterol [Mass/Vol] 256 mg/dL <200 [facility] Comment on above: <200 mg/dL Desirable 200-240 mg/dL Borderline >240 mg/dL High Risk Glucose [Mass/Vol] 90 mg/dL 74-106 [facility] Potassium [Moles/Vol] 4.1 mmol/L 3.5-5.1 [facility] Protein [Mass/Vol] 7.2 g/dL 6.4-8.2 [facility] Sodium [Moles/Vol] 139 mmol/L 136-145 [facility] Triglyceride [Mass/Vol] 89 mg/dL <199 [facility] Comment on above: The drugs N-Acetylcy steine and Metamizole may falsely depress this assay.Serum Triglycerides Reference Interval Normal <150 mg/dL Borderline high 150 - 199 mg/dL High 200 - 499 mg/dL Very High > or = 500 mg/dL Laboratory - Chemistry and C hemistry - challengeOrdered By: Flavio Johnson on 03-02-2024 Albumin/Globulin [Mass ratio] 1.1 {ratio} 0.9-2.[address] [facility] ALP [Catalytic activity/Vol] 66 U/L 45-[address] [facility] ALT [Catalytic activity/Vol] 172 U/L 13-[address] [facility] Cholesterol in HDL [Mass/Vol] 77 mg/dL >[address] [facility] Comment on above: The drugs N-Acetylcy steine and Metamizole may falsely depress this assay. Reference Range HDL <40 mg/dL Low HDL Cholesterol HDL >or= 60 mg/dL High HDL Cholesterol Cholesterol in LDL [Mass/Vol] 161 mg/dL 0-[address] [facility] CO2 [Moles/Vol] 33.0 mmol/L 21.0-32.[address] [facility] Globulin (S) [Mass/Vol] 3.4 g/dL 2.2-4.2 [facility] Urea nitrogen/Creatinine [Mass ratio] 22.8 mg/mg 10-[address] [facility] No Panel InformationOrdered By: Flavio Johnson on 03-02-2024 Estimated GFR (MDRD) Amer 107 mL/min >[address] [facility] Comment on above: GFR Calc Estimated GFR (MDRD) Non-Af Amer 88 mL/min >[address] [facility] Comment on above: Non- GFR Calc Vitamin D 25-Hydroxy 75.2 ng/mL [facility] Comment on above: Vitamin D 25(OH) Sta tus Range Deficiency <20 ng/mL (50nmol/L) Insufficiency 20 - 30 ng/mL (50 - 75 nmol/L) Sufficiency 30 - 100 ng/mL (75 - 250 nmol/L) Toxicity >100 ng/mL (>250 nmol/L) VLDL Cholesterol 18 mg/dL 5-[address] [facility] Serum mitochondria antibody detectionOrdered By: Flavio Johnson on 03-02-2024 Mitochondria Ab Ql (S) <20.0 Units 0.0-20.0 [facility] Comment on above: Negative 0.0 - 20.0 Equivocal 20.1 - 24.9 Positive >24.9Mitochondrial (M2) Antibodies are found in 90-96% ofpatients with primary biliary cirrhosis.Performed at: - [facility] [id number] [place], [place] [id number] Director: Sebastián Marroquin PhD, Phone: [phone] Serum or plasma calcium teresita urement (mass/volume)Ordered By: Flavio Johnson on 03-02-2024 Calcium [Mass/Vol] 9.1 mg/dL 8.5-10.1 [facility] Serum or plasma creatinine m easurement (mass/volume)Ordered By: Flavio Johnson on 03-02-2024 Creatinine [Mass/Vol] 0.70 mg/dL 0.55-1.02 [facility] Comment on above: The validity of the calculated GFR & GFRAA in patients over 70 years has not been determined. Clinical correlation is essential. Serum or plasma urea nitroge n measurement (mass/volume)Ordered By: Flavio Johnson on 03-02-2024 Urea nitrogen [Mass/Vol] 16 mg/dL 7-[address] [facility] Thin prep Papanicolaou smear with manual screeningOrdered By: Flavio Johnson on 03-02-2024 Thin prep Papanicolaou smear with manual screening 3.8 g/dL 3.2-5.[address] [facility] Thin prep Papanicolaou smear with manual screening 67 U/L 15-[address] [facility] Thin prep Papanicolaou smear with manual screening 0 5-[address] [facility] XR FOOT RIGHT 3+ VIEWS (ERLINDA DARAraceli)on 10-20-2023 XR FOOT RIGHT 3+ VIEWS (STANDARD) No acute fractures or dislocations noted. Degenerative arthritic changes across the midfoot joints especially at the third tarsometatarsal joint. Generalized osteopenia Dictated by: JOSE LUIS HAYDEN on FriOct 23, 2023 6:28:19 AM EST Transcribed by: JOSE LUIS HAYDEN on FriOct 23, 2023 6:28:19 AM EST Finalized by: JOSE LUIS HAYDEN on FriOct 23, 2023 6:28:[address] [facility] Comment on above: Order Comment: Injur y/Trauma or Illness?:Illness/Other How long have you had these symptoms (acute/chronic)?:Chronic Reason for exam?:pain History of cancer?:u Surgeries, chemotherapy, or radiation?:u Type of Exam?:Initial Additional signs and symptoms?:no PT Progress Noteon 1 PT Progress Note Therapy Diagnosis Assessed Weakness of both hips (729.89) (R29.898) Spondylolisthesis of lumbar region (738.4) (M43.16) Low back pain (724.2) (M54.5) Plan Goals: Goals set and discussed today. Pt will demo and report compliance with HEP in order to augment POC goals and progression toward independence with symptom management for better outcomes once D/C from POC. Pt will demo improved Lumbar AROM to WFL into all restricted ranges without pain for improved ease with functional activities, mobility, and transfers for progression toward independence with ADL?s AND IADL?s. , by week 2, goal partially met Activity Limitation: Pt will be able to tolerate sitting for work duties for full work shift with decreased c/o pain by >/= 50% for imrpoved tolerance to PLOF>, by week 6, goal met Motor Function/Control/Learn ing: Pt will demonstrate improved motor control with TrA and Hip ABD for improved proximal stability and proper body mechanics with all transfers and bed mobility to decrease flare ups., by week 6, goal met Strength: Pt will demo improved MMT by >/= 1 point on 0-5 point scale in BLE's for improved strength and stability, and improved ease with transfers, lifting/carrying, and proper mechanics with ADL?s AND IADL?s. , by week 6, goal met LOGAN, Pt will report subjective improvement with score on LOGAN improved by >/= 5 points for return to PLOF, improved QOL, and improved ease with ADL?s AND IADL?s. , by week 6, goal met Planned interventions include: aquatic therapy, cryotherapy, dry needling, education/instruction, electrical stimulation, gait training, home program, hot pack, kinesiotaping, manual therapy, neuromuscular re-education, self care/home management, therapeutic exercises, ultrasound and IASTMCUPPING . No Joint Mobs Lumbar spine. Frequency and duration: No further visits planned. 2xweek x 3 weeks then 1xweek x 3 weeks total of 10 visits POC. Potential to achieve rehab goals is good Pt being placed on hold for 30 days at this time and is going to attempt independence with HEP. If pt does not elect to resume PT within 30 days, this will serve as his D/C. Refer back in future if necessary. Progress with POC, as tolerated. Assessment Pt confirmed via and Full Name. Pt reassessed this date by supervising PT with improvements noted in Lumbar AROM as well as improved MMT in BLE's. Pt tolerated all manual therapy well this date with only minor myofascial restriction this date. Pt reported good understanding of all edu and updates to HEP made this date and is appropriate to attempt independence with HEP and symptom management at this time. Adult Risk Screening There are no spiritual/cultural practices/values/needs that are important to know Initial Fall Risk Screening: BOONE has not fallen in the last 6 months. BOONE does not have a fear of falling. She does not need assistance with sitting, standing or walking. Does not need assistance walking in her home. She does not need assistance in an unfamiliar setting. The patient is not using an assistive device. Fall Risk Screening: Patient is identified as a fall risk. Care Plan: Low Risk: Environmental for all patients and low risk patients: Offer assistance as needed or requested, keep environment free of obstacles, keep floor clean and dry, keep room lighting, wheelchair brakes on, bed/ stretcher locked and in low position if applicable, non-slip footwear if applicable, walker/cane available if needed, side rails up if applicable and pre-emptive toileting. Pain Scale: On a scale of 0 to 10, the patient rates the pain at 0. The pain makes it hard for the patient to do these things: walking. Insurance Insurance reviewed Visit number: 9 Authorization not required after evaluation POC: 07/29 Medicare/[place] [employer] (no prior PT 2020) Supervising PT: Noreen Ozuna PT, DPT, Cert DN PT Dx: M54.5; M43.16; R29.898 Onset Date: 2019 Medicare Certification Period: Beginnin2020 Endin2020 Subjective Patient reports:. Pt notes she has been able to sleep on her side better since her eval. Pt notes she has been mostly pain free. Pt notes she ordered a theracane and notes she has been using it some. Home program performing as directed: Yes. Precautions: Fall Risk: low OA. Objective Ortho LOGAN: 22%-->0% Lumbar AROM: no radicular symptoms initially Flex: 75% tightness -->90% Ext: 50% -->75% R Rotation: 90%-->100% L Rotation: 90% -->100% R Sidebend: 90%-->100% L Sidebend: 90% -->100% MMT: (RLE/LLE) Hip Flex: 4-/4- -->4+/4+ Hip Ext: grossly 3+/3+--> 4/4 Hip ABD: 4-/3+-->4/4 Knee Flex: 4/4-->5/5 Knee Ext: 4/4-->5/5 Ankle DF: 4/4-->5/5 Great Toe Ext: 4/4-->5/5 Palpation: restriction and tenderness in B/L hip flexors, Glutes, AND QL-->mild restriction throughout B/L QL, Glutes, IT band. Joint Mobility: deferred due to MRI finding CPA: R UPA: L UPA: . Treatment Time in clinic started at 09: (more content not included)... Normal [facility] Therapy Re-eval Noteon 07-16 Therapy Re-eval Note Therapy Diagnosis Assessed 1. Weakness of both hips (729.89) (R29.898) 2. Spondylolisthesis of lumbar region (738.4) (M43.16) 3. Low back pain (724.2) (M54.5) Plan Goals: Goals set and discussed today. Pt will demo and report compliance with HEP in order to augment POC goals and progression toward independence with symptom management for better outcomes once D/C from POC. Pt will demo improved Lumbar AROM to WFL into all restricted ranges without pain for improved ease with functional activities, mobility, and transfers for progression toward independence with ADL?s AND IADL?s. , by week 2, goal partially met Activity Limitation: Pt will be able to tolerate sitting for work duties for full work shift with decreased c/o pain by >/= 50% for imrpoved tolerance to PLOF>, by week 6, goal met Motor Function/Control/Learn ing: Pt will demonstrate improved motor control with TrA and Hip ABD for improved proximal stability and proper body mechanics with all transfers and bed mobility to decrease flare ups., by week 6, goal met Strength: Pt will demo improved MMT by >/= 1 point on 0-5 point scale in BLE's for improved strength and stability, and improved ease with transfers, lifting/carrying, and proper mechanics with ADL?s AND IADL?s. , by week 6, goal met LOGAN, Pt will report subjective improvement with score on LOGAN improved by >/= 5 points for return to PLOF, improved QOL, and improved ease with ADL?s AND IADL?s. , by week 6, goal met Planned interventions include: aquatic therapy, cryotherapy, dry needling, education/instruction, electrical stimulation, gait training, home program, hot pack, kinesiotaping, manual therapy, neuromuscular re-education, self care/home management, therapeutic exercises, ultrasound and IASTMCUPPING . No Joint Mobs Lumbar spine. Frequency and duration: No further visits planned. 2xweek x 3 weeks then 1xweek x 3 weeks total of 10 visits POC. Potential to achieve rehab goals is good Pt being placed on hold for 30 days at this time and is going to attempt independence with HEP. If pt does not elect to resume PT within 30 days, this will serve as his D/C. Refer back in future if necessary. Progress with POC, as tolerated. Assessment Pt confirmed via and Full Name. Pt reassessed this date by supervising PT with improvements noted in Lumbar AROM as well as improved MMT in BLE's. Pt tolerated all manual therapy well this date with only minor myofascial restriction this date. Pt reported good understanding of all edu and updates to HEP made this date and is appropriate to attempt independence with HEP and symptom management at this time. Adult Risk Screening There are no spiritual/cultural practices/values/needs that are important to know Initial Fall Risk Screening: BOONE has not fallen in the last 6 months. BOONE does not have a fear of falling. She does not need assistance with sitting, standing or walking. Does not need assistance walking in her home. She does not need assistance in an unfamiliar setting. The patient is not using an assistive device. Fall Risk Screening: Patient is identified as a fall risk. Care Plan: Low Risk: Environmental for all patients and low risk patients: Offer assistance as needed or requested, keep environment free of obstacles, keep floor clean and dry, keep room lighting, wheelchair brakes on, bed/ stretcher locked and in low position if applicable, non-slip footwear if applicable, walker/cane available if needed, side rails up if applicable and pre-emptive toileting. Pain Scale: On a scale of 0 to 10, the patient rates the pain at 0. The pain makes it hard for the patient to do these things: walking. Insurance Insurance reviewed Visit number: 9 Authorization not required after evaluation POC: 07/29 Medicare/[employer] (no prior PT 2020) Supervising PT: Noreen Ozuna PT, DPT, Cert DN PT Dx: M54.5; M43.16; R29.898 Onset Date: 2019 Medicare Certification Period: Beginnin2020 Endin2020 Subjective Patient reports:. Pt notes she has been able to sleep on her side better since her eval. Pt notes she has been mostly pain free. Pt notes she ordered a theracane and notes she has been using it some. Home program performing as directed: Yes. Precautions: Fall Risk: low OA. Objective Ortho LOGAN: 22%-->0% Lumbar AROM: no radicular symptoms initially Flex: 75% tightness -->90% Ext: 50% -->75% R Rotation: 90%-->100% L Rotation: 90% -->100% R Sidebend: 90%-->100% L Sidebend: 90% -->100% MMT: (RLE/LLE) Hip Flex: 4-/4- -->4+/4+ Hip Ext: grossly 3+/3+--> 4/4 Hip ABD: 4-/3+-->4/4 Knee Flex: /4-->5/5 Knee Ext: 4/4-->5/5 Ankle DF: /-->5/5 Great Toe Ext: /-->5/5 Palpation: restriction and tenderness in B/L hip flexors, Glutes, AND QL-->mild restriction throughout B/L QL, Glutes, IT band. Joint Mobility: deferred due to MRI finding CPA: R UPA: L UPA: . Treatment Time in clinic start (more content not included)... Normal [facility] PT Progress Noteon 1 PT Progress Note Therapy Diagnosis Assessed Low back pain (724.2) (M54.5) Spondylolisthesis of lumbar region (738.4) (M43.16) Weakness of both hips (729.89) (R29.898) Plan Goals: Goals set and discussed today. Pt will demo and report compliance with HEP in order to augment POC goals and progression toward independence with symptom management for better outcomes once D/C from POC. Pt will demo improved Lumbar AROM to WFL into all restricted ranges without pain for improved ease with functional activities, mobility, and transfers for progression toward independence with ADL?s AND IADL?s. , by week 2 Activity Limitation: Pt will be able to tolerate sitting for work duties for full work shift with decreased c/o pain by >/= 50% for imrpoved tolerance to PLOF>, by week 6 Motor Function/Control/Learn ing: Pt will demonstrate improved motor control with TrA and Hip ABD for improved proximal stability and proper body mechanics with all transfers and bed mobility to decrease flare ups., by week 6 Strength: Pt will demo improved MMT by >/= 1 point on 0-5 point scale in BLE's for improved strength and stability, and improved ease with transfers, lifting/carrying, and proper mechanics with ADL?s AND IADL?s. , by week 6 LOGAN, Pt will report subjective improvement with score on LOGAN improved by >/= 5 points for return to PLOF, improved QOL, and improved ease with ADL?s AND IADL?s. , by week 6 Planned interventions include: aquatic therapy, cryotherapy, dry needling, education/instruction, electrical stimulation, gait training, home program, hot pack, kinesiotaping, manual therapy, neuromuscular re-education, self care/home management, therapeutic exercises, ultrasound and IASTMCUPPING . No Joint Mobs Lumbar spine. Frequency and duration:. 2xweek x 3 weeks then 1xweek x 3 weeks total of 10 visits POC. Potential to achieve rehab goals is good Will have re-evaluation next visit with PT. Progress with POC, as tolerated. Assessment Patient was able to complete all PRE's/DLS this date with no increased pain. Cues for correct technique with with standing donkey kicks and fire hydrants. Improved ability to complete transfers with decreased overall guarding. Adult Risk Screening There are no spiritual/cultural practices/values/needs that are important to know Initial Fall Risk Screening: BOONE has not fallen in the last 6 months. BOONE does not have a fear of falling. She does not need assistance with sitting, standing or walking. Does not need assistance walking in her home. She does not need assistance in an unfamiliar setting. The patient is not using an assistive device. Fall Risk Screening: Patient is identified as a fall risk. Care Plan: Low Risk: Environmental for all patients and low risk patients: Offer assistance as needed or requested, keep environment free of obstacles, keep floor clean and dry, keep room lighting, wheelchair brakes on, bed/ stretcher locked and in low position if applicable, non-slip footwear if applicable, walker/cane available if needed, side rails up if applicable and pre-emptive toileting. Pain Scale: On a scale of 0 to 10, the patient rates the pain at 0. The pain makes it hard for the patient to do these things: walking. Insurance Insurance reviewed Visit number: 8 Authorization not required after evaluation POC: 05/28 Medicare/[employer] (no prior PT 2020) Supervising PT: Noreen Ozuna PT, DPT, Cert DN PT Dx: M54.5; M43.16; R29.898 Onset Date: 2019 Medicare Certification Period: Beginnin2020 Endin2020 Subjective Patient reports:. Patient reports that she is not having any pain currently 0/10. States that she was put on prednisone and just ended it d/t pain in her hands. States that she is not sure if that has contributed to her symptoms decreasing. States that she has been doing HEP. Patient identified by name and date of . Home program performing as directed: Yes. Precautions: Fall Risk: low OA. Treatment Time in clinic started at 09:15 Time in clinic ended at 09:57 Total time in clinic is 43 minutes. Total timed code time is 43 minutes. Therapeutic exercise (39847): timed minutes 41, units 3 . NuStep 5? Step ups x10 B 6? step Standing hip abd 2 x 10 Standing hip ext 2 x 10 (P) Standing hip flex 2 x 10 Squat with UE support 2 x 10 Standing fire hydrant 2 x10 (P reps) Standing donkey kick 2 x 10 (P reps) S/L clam shell green 2 x 10 S/L hip abd/flexext x10 (N) Hooklying january w/TrA and alt UE swings 2 x10 (P UE?s) Hooklying hip add w/TrA 2 x 10 5? hold Glute squeezes 2 x 10 Bridge /january 2 x 10 Not this date d/c to HEP LTR 2 x 10 (N) Seated HS stretch 10 x 10? (P to supine) QL stretch 3 x 30? B Glute Stretch 3 x 30? supine hip flex stretch 3 x 30? IT band stretch with strap 3 x 15? Hooklying hip abd w/TrA Red t-band 2 x 10 Theracane instruction for HEP Reviewed. Manual Therapy (36430):. STM to B/L hip flexors, Q (more content not included)... Normal [facility] PT Progress Noteon 1 PT Progress Note Therapy Diagnosis Assessed Low back pain (724.2) (M54.5) Spondylolisthesis of lumbar region (738.4) (M43.16) Weakness of both hips (729.89) (R29.898) Plan Goals: Goals set and discussed today. Pt will demo and report compliance with HEP in order to augment POC goals and progression toward independence with symptom management for better outcomes once D/C from POC. Pt will demo improved Lumbar AROM to WFL into all restricted ranges without pain for improved ease with functional activities, mobility, and transfers for progression toward independence with ADL?s AND IADL?s. , by week 2 Activity Limitation: Pt will be able to tolerate sitting for work duties for full work shift with decreased c/o pain by >/= 50% for imrpoved tolerance to PLOF>, by week 6 Motor Function/Control/Learn ing: Pt will demonstrate improved motor control with TrA and Hip ABD for improved proximal stability and proper body mechanics with all transfers and bed mobility to decrease flare ups., by week 6 Strength: Pt will demo improved MMT by >/= 1 point on 0-5 point scale in BLE's for improved strength and stability, and improved ease with transfers, lifting/carrying, and proper mechanics with ADL?s AND IADL?s. , by week 6 LOGAN, Pt will report subjective improvement with score on LOGAN improved by >/= 5 points for return to PLOF, improved QOL, and improved ease with ADL?s AND IADL?s. , by week 6 Planned interventions include: aquatic therapy, cryotherapy, dry needling, education/instruction, electrical stimulation, gait training, home program, hot pack, kinesiotaping, manual therapy, neuromuscular re-education, self care/home management, therapeutic exercises, ultrasound and IASTMCUPPING . No Joint Mobs Lumbar spine. Frequency and duration:. 2xweek x 3 weeks then 1xweek x 3 weeks total of 10 visits POC. Potential to achieve rehab goals is good Will continue to progress STW/strength and ROM as able. Progress with POC, as tolerated. Assessment Patient identified by name and date of . Patient was able to progress with core, glut, and hip strength with additional exercises, she required cues to maintain proper posture and TrA. She demonstrated tension in L glut that responded with minimal STW at end of session. Adult Risk Screening There are no spiritual/cultural practices/values/needs that are important to know Initial Fall Risk Screening: BOONE has not fallen in the last 6 months. BOONE does not have a fear of falling. She does not need assistance with sitting, standing or walking. Does not need assistance walking in her home. She does not need assistance in an unfamiliar setting. The patient is not using an assistive device. Fall Risk Screening: Patient is identified as a fall risk. Care Plan: Low Risk: Environmental for all patients and low risk patients: Offer assistance as needed or requested, keep environment free of obstacles, keep floor clean and dry, keep room lighting, wheelchair brakes on, bed/ stretcher locked and in low position if applicable, non-slip footwear if applicable, walker/cane available if needed, side rails up if applicable and pre-emptive toileting. Pain Scale: On a scale of 0 to 10, the patient rates the pain at 0. The pain makes it hard for the patient to do these things: walking. Insurance Insurance reviewed Visit number: 7 Authorization not required after evaluation POC: 05/28 Medicare/[employer] (no prior PT 2020) Supervising PT: Noreen Ozuna PT, DPT, Cert DN PT Dx: M54.5; M43.16; R29.898 Onset Date: 2019 Medicare Certification Period: Beginnin2020 Endin2020 Subjective Patient reports:. She reported she has been able to use her Theracane since last session on her LE's. She reported she could not remember the last time she experienced Sx, She stated I feel a lot better since I started coming to therapy. She reported she was able to tolerate riding in the car on vacation w/o increased Sx, she reported the year prior she could not tolerate riding. SHe reported 0/10 pain after treatment. Home program performing as directed: Yes. Precautions: Fall Risk: low OA. Treatment Time in clinic started at 09:15 Time in clinic ended at 10:02 Total time in clinic is 47 minutes. Total timed code time is 40 minutes. Therapeutic exercise (15794): timed minutes 40, units 2 . Theracane instruction for HEP Reviewed NuStep 5? Step ups x10 B 6? (N) Standing hip abd 2 x 10 (N) Standing hip ext x 10 (N) Standing hip flex 2 x 10 (N) Squat with UE support 2 x 10 (N) Standing fire hydrant x10 (N) Standing donkey kick x 10 (N) S/L clam shell green 2 x 10 (N) S/L hip abd/flexext x10 (N) Hooklying march w/TrA and alt UE swings 2 x10 (P UE?s) Hooklying hip add w/TrA 2 x 10 5? hold Glute squeezes 2 x 10 Bridge w/january 4 x 5 (P w/januarying) Not this date d/c to HEP LTR 2 x 10 (N) Seated HS stretch 10 x 10? (P to supine) QL stretch 3 x 30? B Glute Stretch 3 x (more content not included)... Normal [facility] PT Progress Note No report was sent [facility] PT Progress Noteon 1 PT Progress Note Therapy Diagnosis Assessed Low back pain (724.2) (M54.5) Spondylolisthesis of lumbar region (738.4) (M43.16) Weakness of both hips (729.89) (R29.898) Plan Goals: Goals set and discussed today. Pt will demo and report compliance with HEP in order to augment POC goals and progression toward independence with symptom management for better outcomes once D/C from POC. Pt will demo improved Lumbar AROM to WFL into all restricted ranges without pain for improved ease with functional activities, mobility, and transfers for progression toward independence with ADL?s AND IADL?s. , by week 2 Activity Limitation: Pt will be able to tolerate sitting for work duties for full work shift with decreased c/o pain by >/= 50% for imrpoved tolerance to PLOF>, by week 6 Motor Function/Control/Learn ing: Pt will demonstrate improved motor control with TrA and Hip ABD for improved proximal stability and proper body mechanics with all transfers and bed mobility to decrease flare ups., by week 6 Strength: Pt will demo improved MMT by >/= 1 point on 0-5 point scale in BLE's for improved strength and stability, and improved ease with transfers, lifting/carrying, and proper mechanics with ADL?s AND IADL?s. , by week 6 LOGAN, Pt will report subjective improvement with score on LOGAN improved by >/= 5 points for return to PLOF, improved QOL, and improved ease with ADL?s AND IADL?s. , by week 6 Planned interventions include: aquatic therapy, cryotherapy, dry needling, education/instruction, electrical stimulation, gait training, home program, hot pack, kinesiotaping, manual therapy, neuromuscular re-education, self care/home management, therapeutic exercises, ultrasound and IASTMCUPPING . No Joint Mobs Lumbar spine. Frequency and duration:. 2xweek x 3 weeks then 1xweek x 3 weeks total of 10 visits POC. Potential to achieve rehab goals is good Will continue to progress STW/strength and ROM as able. Progress with POC, as tolerated. Assessment Instructed patient on how to use the theracane since she has one at home now. Tightness continues in glutes and ITB with STW this date. Response to treatment: decreased pain. Adult Risk Screening There are no spiritual/cultural practices/values/needs that are important to know Initial Fall Risk Screening: BOONE has not fallen in the last 6 months. BOONE does not have a fear of falling. She does not need assistance with sitting, standing or walking. Does not need assistance walking in her home. She does not need assistance in an unfamiliar setting. The patient is not using an assistive device. Fall Risk Screening: Patient is identified as a fall risk. Care Plan: Low Risk: Environmental for all patients and low risk patients: Offer assistance as needed or requested, keep environment free of obstacles, keep floor clean and dry, keep room lighting, wheelchair brakes on, bed/ stretcher locked and in low position if applicable, non-slip footwear if applicable, walker/cane available if needed, side rails up if applicable and pre-emptive toileting. Pain Scale: On a scale of 0 to 10, the patient rates the pain at 0. Please identify location of pain: B lateral knee pain. Pain Quality: aching. The pain makes it hard for the patient to do these things: walking. Insurance Insurance reviewed Visit number: 6 Authorization not required after evaluation POC: 01/26 Medicare/[employer] [employer] (no prior PT 2020) Supervising PT: Noreen Ozuna PT, DPT, Cert DN PT Dx: M54.5; M43.16; R29.898 Onset Date: 2019 Medicare Certification Period: Beginnin2020 Endin2020 Subjective Patient reports:. Patient reports that hip and LB is 0/10. Has theracane at home but has questions on how to use it correctly. Patient identified by name and date of . Home program performing as directed: Yes. Precautions: Fall Risk: low OA. Treatment Time in clinic started at 5:00 Time in clinic ended at 5:41 Total time in clinic is 41 minutes. Total timed code time is 40 minutes. Therapeutic exercise (12897): timed minutes 30, units 2 . Theracane instruction for HEP (N) NuStep 5? LTR 2 x 10 (N) Seated HS stretch 10 x 10? (P to supine) QL stretch 3 x 30? B Glute Stretch 3 x 30? supine hip flex stretch 3 x 30? IT band stretch with strap 3 x 15? Hooklying march w/TrA 2 x10 Hooklying hip abd w/TrA Red t-band 2 x 10 Hooklying hip add w/TrA 2 x 10 3? hold Glute squeezes 2 x 10 (N) Bridge 2 x 10 . Manual Therapy (19408): timed minutes 10, units 1 . STM to B/L hip flexors, QL, and Glutes 10' Passive Hip Flexor Stretch 2 x 10 Cupping to IT band static and dynamic . Provided today: education . 06/06/21 HEP provided and reviewed [id number], she demonstrated good understanding. 'Scores and Scales' Signatures Electronically signed by : Tomasa Shields, [employer]; Jun 29 2021 5:50PM EST (Author) Electronically signed by : Noreen Ozuna, PT; Jul 02 2021 1:02PM EST Normal [facility] PT Progress Noteon PT Progress Note Therapy Diagnosis Assessed Low back pain (724.2) (M54.5) Spondylolisthesis of lumbar region (738.4) (M43.16) Weakness of both hips (729.89) (R29.898) Plan Goals: Goals set and discussed today. Pt will demo and report compliance with HEP in order to augment POC goals and progression toward independence with symptom management for better outcomes once D/C from POC. Pt will demo improved Lumbar AROM to WFL into all restricted ranges without pain for improved ease with functional activities, mobility, and transfers for progression toward independence with ADL?s AND IADL?s. , by week 2 Activity Limitation: Pt will be able to tolerate sitting for work duties for full work shift with decreased c/o pain by >/= 50% for imrpoved tolerance to PLOF>, by week 6 Motor Function/Control/Learn ing: Pt will demonstrate improved motor control with TrA and Hip ABD for improved proximal stability and proper body mechanics with all transfers and bed mobility to decrease flare ups., by week 6 Strength: Pt will demo improved MMT by >/= 1 point on 0-5 point scale in BLE's for improved strength and stability, and improved ease with transfers, lifting/carrying, and proper mechanics with ADL?s AND IADL?s. , by week 6 LOGAN, Pt will report subjective improvement with score on LOGAN improved by >/= 5 points for return to PLOF, improved QOL, and improved ease with ADL?s AND IADL?s. , by week 6 Planned interventions include: aquatic therapy, cryotherapy, dry needling, education/instruction, electrical stimulation, gait training, home program, hot pack, kinesiotaping, manual therapy, neuromuscular re-education, self care/home management, therapeutic exercises, ultrasound and IASTMCUPPING . No Joint Mobs Lumbar spine. Frequency and duration:. 2xweek x 3 weeks then 1xweek x 3 weeks total of 10 visits POC. Potential to achieve rehab goals is good Progress with ROM and strengthening with STW as needed for increased ease in stair ambulation. Progress with POC, as tolerated. Assessment Completed cupping this date avoiding bruises. Tightness with hip flexor stretches. Guards with transfers. Adult Risk Screening There are no spiritual/cultural practices/values/needs that are important to know Initial Fall Risk Screening: BOONE has not fallen in the last 6 months. BOONE does not have a fear of falling. She does not need assistance with sitting, standing or walking. Does not need assistance walking in her home. She does not need assistance in an unfamiliar setting. The patient is not using an assistive device. Fall Risk Screening: Patient is identified as a fall risk. Care Plan: Low Risk: Environmental for all patients and low risk patients: Offer assistance as needed or requested, keep environment free of obstacles, keep floor clean and dry, keep room lighting, wheelchair brakes on, bed/ stretcher locked and in low position if applicable, non-slip footwear if applicable, walker/cane available if needed, side rails up if applicable and pre-emptive toileting. Pain Scale: On a scale of 0 to 10, the patient rates the pain at 0. Please identify location of pain: B lateral knee pain. Pain Quality: aching. The pain makes it hard for the patient to do these things: walking. Insurance Insurance reviewed Visit number: 5 Authorization not required after evaluation POC: 01/26 Medicare/[employer] (no prior PT 2020) Supervising PT: Noreen Ozuna PT, DPT, Cert DN PT Dx: M54.5; M43.16; R29.898 Onset Date: 2019 Medicare Certification Period: Beginnin2020 Endin2020 Subjective Patient reports:. Patient reports that her legs are feeling better. States that she tried the rolling pin but it hurt her wrists and she ordered a theracane. Patient identified by name and date of . Home program performing as directed: Yes. Precautions: Fall Risk: low OA. Treatment Time in clinic started at 4:15 Time in clinic ended at 5:00 Total time in clinic is 45 minutes. Total timed code time is 42 minutes. Therapeutic exercise (12395): timed minutes 30, units 2 . NuStep 5? Seated HS stretch 10 x 10? (P to supine) QL stretch 3 x 30? B Glute Stretch 3 x 30? supine hip flex stretch 3 x 30? IT band stretch with strap 3 x 15? Hooklying march w/TrA 2 x10 (P reps) Hooklying hip abd w/TrA Red t-band 2 x 10 Hooklying hip add w/TrA 2 x 10 3? hold Bridge 2 x 10 . Manual Therapy (59309): timed minutes 12, units 1 . STM to B/L hip flexors, QL, and Glutes 10' Passive Hip Flexor Stretch 2 x 10 Cupping to IT band static and dynamic . Provided today: education . 06/06/21 HEP provided and reviewed TQNQWVEH, she demonstrated good understanding. 'Scores and Scales' Signatures Electronically signed by : Tomasa Shields ROLLED SEAT TRIMMER; Jun 18 2021 5:08PM EST (Author) Electronically signed by : Noreen Ozuna, PT; Jun 19 2021 6:31PM EST Normal [facility] PT Progress Noteon PT Progress Note Therapy Diagnosis Assessed Low back pain (724.2) (M54.5) Spondylolisthesis of lumbar region (738.4) (M43.16) Weakness of both hips (729.89) (R29.898) Plan Goals: Goals set and discussed today. Pt will demo and report compliance with HEP in order to augment POC goals and progression toward independence with symptom management for better outcomes once D/C from POC. Pt will demo improved Lumbar AROM to WFL into all restricted ranges without pain for improved ease with functional activities, mobility, and transfers for progression toward independence with ADL?s AND IADL?s. , by week 2 Activity Limitation: Pt will be able to tolerate sitting for work duties for full work shift with decreased c/o pain by >/= 50% for imrpoved tolerance to PLOF>, by week 6 Motor Function/Control/Learn ing: Pt will demonstrate improved motor control with TrA and Hip ABD for improved proximal stability and proper body mechanics with all transfers and bed mobility to decrease flare ups., by week 6 Strength: Pt will demo improved MMT by >/= 1 point on 0-5 point scale in BLE's for improved strength and stability, and improved ease with transfers, lifting/carrying, and proper mechanics with ADL?s AND IADL?s. , by week 6 LOGAN, Pt will report subjective improvement with score on LOGAN improved by >/= 5 points for return to PLOF, improved QOL, and improved ease with ADL?s AND IADL?s. , by week 6 Planned interventions include: aquatic therapy, cryotherapy, dry needling, education/instruction, electrical stimulation, gait training, home program, hot pack, kinesiotaping, manual therapy, neuromuscular re-education, self care/home management, therapeutic exercises, ultrasound and IASTMCUPPING . No Joint Mobs Lumbar spine. Frequency and duration:. 2xweek x 3 weeks then 1xweek x 3 weeks total of 10 visits POC. Potential to achieve rehab goals is good Progress with ROM and strengthening with STW as needed for increased ease in stair ambulation. Progress with POC, as tolerated. Assessment Did not use cups this date for cupping d/t bruises. Did complete gentle STW along lumbar/ITB/and piriformis regions. Tenderness along B piriformis. Adult Risk Screening There are no spiritual/cultural practices/values/needs that are important to know Initial Fall Risk Screening: BOONE has not fallen in the last 6 months. BOONE does not have a fear of falling. She does not need assistance with sitting, standing or walking. Does not need assistance walking in her home. She does not need assistance in an unfamiliar setting. The patient is not using an assistive device. Fall Risk Screening: Patient is identified as a fall risk. Care Plan: Low Risk: Environmental for all patients and low risk patients: Offer assistance as needed or requested, keep environment free of obstacles, keep floor clean and dry, keep room lighting, wheelchair brakes on, bed/ stretcher locked and in low position if applicable, non-slip footwear if applicable, walker/cane available if needed, side rails up if applicable and pre-emptive toileting. Pain Scale: On a scale of 0 to 10, the patient rates the pain at 0. Please identify location of pain: B lateral knee pain. Pain Quality: aching. The pain makes it hard for the patient to do these things: walking. Insurance Insurance reviewed Visit number: 4 Authorization not required after evaluation POC: 01/26 Medicare/[place] [employer] (no prior PT 2020) Supervising PT: Noreen Ozuna PT, DPT, Cert DN PT Dx: M54.5; M43.16; R29.898 Onset Date: 2019 Medicare Certification Period: Beginnin2020 Endin2020 Subjective Patient reports:. Patient reports that she is not having any pain currently. States that she will get pain along both hips and thighs. States that L is a little worse than the R. States that there was some bruising after cupping last visit. Patient identified by name and date of . Home program performing as directed: Yes. Precautions: Fall Risk: low OA. Treatment Time in clinic started at 8:30 Time in clinic ended at 9:15 Total time in clinic is 45 minutes. Total timed code time is 42 minutes. Therapeutic exercise (80674): timed minutes 30, units 2 . NuStep 5? Seated HS stretch 10 x 10? (P to supine) QL stretch 3 x 30? B Glute Stretch 3 x 30? supine hip flex stretch 3 x 30? IT band stretch with strap 3 x 15? (P time ) Hooklying march w/TrA 2 x10 (P reps) Hooklying hip abd w/TrA Red t-band 2 x 10 Hooklying hip add w/TrA 2 x 10 3? hold Bridge 2 x 10 . Manual Therapy (09833): timed minutes 12, units 1 . STM to B/L hip flexors, QL, and Glutes 10' Passive Hip Flexor Stretch 2 x 10 (N) Cupping to IT band static and dynamic (not this date d/t bruising) . Provided today: education . 06/06/21 HEP provided and reviewed TQNQWVEH, she demonstrated good understanding. 'Scores and Scales' Signatures Electronically signed by : Tomasa Shields PTA; Jun 15 2021 11:24AM EST (Auth (more content not included)... Normal [facility] PT Progress Noteon 1 PT Progress Note Therapy Diagnosis Assessed Low back pain (724.2) (M54.5) Spondylolisthesis of lumbar region (738.4) (M43.16) Weakness of both hips (729.89) (R29.898) Plan Goals: Goals set and discussed today. Pt will demo and report compliance with HEP in order to augment POC goals and progression toward independence with symptom management for better outcomes once D/C from POC. Pt will demo improved Lumbar AROM to WFL into all restricted ranges without pain for improved ease with functional activities, mobility, and transfers for progression toward independence with ADL?s AND IADL?s. , by week 2 Activity Limitation: Pt will be able to tolerate sitting for work duties for full work shift with decreased c/o pain by >/= 50% for imrpoved tolerance to PLOF>, by week 6 Motor Function/Control/Learn ing: Pt will demonstrate improved motor control with TrA and Hip ABD for improved proximal stability and proper body mechanics with all transfers and bed mobility to decrease flare ups., by week 6 Strength: Pt will demo improved MMT by >/= 1 point on 0-5 point scale in BLE's for improved strength and stability, and improved ease with transfers, lifting/carrying, and proper mechanics with ADL?s AND IADL?s. , by week 6 LOGAN, Pt will report subjective improvement with score on LOGAN improved by >/= 5 points for return to PLOF, improved QOL, and improved ease with ADL?s AND IADL?s. , by week 6 Planned interventions include: aquatic therapy, cryotherapy, dry needling, education/instruction, electrical stimulation, gait training, home program, hot pack, kinesiotaping, manual therapy, neuromuscular re-education, self care/home management, therapeutic exercises, ultrasound and IASTMCUPPING . No Joint Mobs Lumbar spine. Frequency and duration:. 2xweek x 3 weeks then 1xweek x 3 weeks total of 10 visits POC. Potential to achieve rehab goals is good Progress with ROM and strengthening with STW as needed for increased ease in stair ambulation. Progress with POC, as tolerated. Assessment Patient identified by name and date of . Patient was presented with palpable tensin in IT band added cupping this date, she demonstrated good tolerance. SHe was able to progress with core strengthening with verbal cues to maintain TrA. Adult Risk Screening There are no spiritual/cultural practices/values/needs that are important to know Initial Fall Risk Screening: BOONE has not fallen in the last 6 months. BOONE does not have a fear of falling. She does not need assistance with sitting, standing or walking. Does not need assistance walking in her home. She does not need assistance in an unfamiliar setting. The patient is not using an assistive device. Fall Risk Screening: Patient is identified as a fall risk. Care Plan: Low Risk: Environmental for all patients and low risk patients: Offer assistance as needed or requested, keep environment free of obstacles, keep floor clean and dry, keep room lighting, wheelchair brakes on, bed/ stretcher locked and in low position if applicable, non-slip footwear if applicable, walker/cane available if needed, side rails up if applicable and pre-emptive toileting. Pain Scale: On a scale of 0 to 10, the patient rates the pain at 0. Please identify location of pain: B lateral knee pain. Pain Quality: aching. The pain makes it hard for the patient to do these things: walking. Insurance Insurance reviewed Visit number: 3 Authorization not required after evaluation POC: 01/26 Medicare/[employer] [employer] (no prior PT 2020) Supervising PT: Noreen Ozuna PT, DPT, Terence DN PT Dx: M54.5; M43.16; R29.898 Onset Date: 2019 Medicare Certification Period: Beginnin2020 Endin2020 Subjective Patient reports:. She reported she has experienced increased knee pain thigh pain the past two days, she took pain meds the evening prior to treatment. Patient reported 0/10 pain after treatment. Home program performing as directed: Yes. Precautions: Fall Risk: low OA. Treatment Time in clinic started at 10:00 Time in clinic ended at 10:45 Total time in clinic is 45 minutes. Total timed code time is 42 minutes. Therapeutic exercise (23073): timed minutes 30, units 2 . NuStep 5? Seated HS stretch 10 x 10? QL stretch 3 x 30? B Glute Stretch 3 x 30? Hip flex stretch 3 x 30? (N) IT band stretch with strap 4 x 10? Hooklying march w/TrA x10 Hooklying hip abd w/TrA Red t-band 2 x 10 Hooklying hip add w/TrA 2 x 10 3? hold Bridge 2 x 10 (N) . Manual Therapy (16122): timed minutes 12, units 1 . STM to B/L hip flexors, QL, and Glutes Passive Hip Flexor Stretch (N). Cupping to IT band static and dynamic . Provided today: education . 06/06/21 HEP provided and reviewed TQNQWVEH, she demonstrated good understanding. 'Scores and Scales' Signatures Electronically signed by : Celena Khoury, ROLLED SEAT TRIMMER; Jun 13 2021 12:58PM EST (Author) Electronically signed by : Noreen Ozuna, PT; Jun 15 2021 9:40AM (more content not included)... Normal [facility] PT Progress Noteon PT Progress Note Therapy Diagnosis Assessed Low back pain (724.2) (M54.5) Spondylolisthesis of lumbar region (738.4) (M43.16) Weakness of both hips (729.89) (R29.898) Plan Goals: Goals set and discussed today. Pt will demo and report compliance with HEP in order to augment POC goals and progression toward independence with symptom management for better outcomes once D/C from POC. Pt will demo improved Lumbar AROM to WFL into all restricted ranges without pain for improved ease with functional activities, mobility, and transfers for progression toward independence with ADL?s AND IADL?s. , by week 2 Activity Limitation: Pt will be able to tolerate sitting for work duties for full work shift with decreased c/o pain by >/= 50% for imrpoved tolerance to PLOF>, by week 6 Motor Function/Control/Learn ing: Pt will demonstrate improved motor control with TrA and Hip ABD for improved proximal stability and proper body mechanics with all transfers and bed mobility to decrease flare ups., by week 6 Strength: Pt will demo improved MMT by >/= 1 point on 0-5 point scale in BLE's for improved strength and stability, and improved ease with transfers, lifting/carrying, and proper mechanics with ADL?s AND IADL?s. , by week 6 LOGAN, Pt will report subjective improvement with score on LOGAN improved by >/= 5 points for return to PLOF, improved QOL, and improved ease with ADL?s AND IADL?s. , by week 6 Planned interventions include: aquatic therapy, cryotherapy, dry needling, education/instruction, electrical stimulation, gait training, home program, hot pack, kinesiotaping, manual therapy, neuromuscular re-education, self care/home management, therapeutic exercises, ultrasound and IASTMCUPPING . No Joint Mobs Lumbar spine. Frequency and duration:. 2xweek x 3 weeks then 1xweek x 3 weeks total of 10 visits POC. Potential to achieve rehab goals is good Progress with ROM and strengthening with STW as needed for increased ease in stair ambulation. Progress with POC, as tolerated. Assessment Patient identified by name and date of . Patient presented with palpable tension and adhesions in gluts, hip flex and IT band. She demonstrated good tolerate to treatment with reduction of Sx after. She was able to obtain fair TrA with cues to decrease with breath holding. Adult Risk Screening There are no spiritual/cultural practices/values/needs that are important to know Initial Fall Risk Screening: BOONE has not fallen in the last 6 months. BOONE does not have a fear of falling. She does not need assistance with sitting, standing or walking. Does not need assistance walking in her home. She does not need assistance in an unfamiliar setting. The patient is not using an assistive device. Fall Risk Screening: Patient is identified as a fall risk. Care Plan: Low Risk: Environmental for all patients and low risk patients: Offer assistance as needed or requested, keep environment free of obstacles, keep floor clean and dry, keep room lighting, wheelchair brakes on, bed/ stretcher locked and in low position if applicable, non-slip footwear if applicable, walker/cane available if needed, side rails up if applicable and pre-emptive toileting. Pain Scale: On a scale of 0 to 10, the patient rates the pain at 0. Please identify location of pain: B lateral knee pain. Pain Quality: aching. The pain makes it hard for the patient to do these things: walking. Insurance Insurance reviewed Visit number: 2 Authorization not required after evaluation POC: 12/29 Medicare/[employer] (no prior PT 2020) Supervising PT: Noreen Ozuna PT, DPT, Cert DN PT Dx: M54.5; M43.16; R29.898 Onset Date: 2019 Medicare Certification Period: Beginnin2020 Endin2020 Subjective Patient reports:. She reported 0/10 pain after treatment. Home program performing as directed: Yes. Precautions: Fall Risk: low OA. Treatment Time in clinic started at 07:47 Time in clinic ended at 08:30 Total time in clinic is 43 minutes. Total timed code time is 41 minutes. Therapeutic exercise (95339): timed minutes . NuStep 5? (N) Seated HS stretch 10 x 10? (N) QL stretch 3 x 30? B (N) Glute Stretch 3 x 30? (N) IT band stretch with strap 10 x 10? (N) Hooklying hip abd w/TrA 2 x 10 (N) Hooklying hip add w/TrA 2 x 10 3? hold (N) . Manual Therapy (76381): timed minutes 12, units 1 . STM to B/L hip flexors, QL, and Glutes Passive Hip Flexor Stretch (N). Provided today: education . 06/06/21 HEP provided and reviewed TQNQWVEH, she demonstrated good understanding. 'Scores and Scales' Signatures Electronically signed by : Celena Khoury, ROLLED SEAT TRIMMER; Jun 06 2021 8:47AM EST (Author) Electronically signed by : Noreen Ozuna, PT; Jun 15 2021 9:39AM EST Normal Touchworks PT Initial Evaluationon 05-17 PT Initial Evaluation Therapy Diagnosis Assessed Low back pain (724.2) (M54.5) Spondylolisthesis of lumbar region (738.4) (M43.16) Weakness of both hips (729.89) (R29.898) Plan of Care Goals: Goals set and discussed today. Pt will demo and report compliance with HEP in order to augment POC goals and progression toward independence with symptom management for better outcomes once D/C from POC. Pt will demo improved Lumbar AROM to WFL into all restricted ranges without pain for improved ease with functional activities, mobility, and transfers for progression toward independence with ADL?s AND IADL?s. , by week 2 Activity Limitation: Pt will be able to tolerate sitting for work duties for full work shift with decreased c/o pain by >/= 50% for imrpoved tolerance to PLOF>, by week 6 Motor Function/Control/Learn ing: Pt will demonstrate improved motor control with TrA and Hip ABD for improved proximal stability and proper body mechanics with all transfers and bed mobility to decrease flare ups., by week 6 Strength: Pt will demo improved MMT by >/= 1 point on 0-5 point scale in BLE's for improved strength and stability, and improved ease with transfers, lifting/carrying, and proper mechanics with ADL?s AND IADL?s. , by week 6 LOGAN, Pt will report subjective improvement with score on LOGAN improved by >/= 5 points for return to PLOF, improved QOL, and improved ease with ADL?s AND IADL?s. , by week 6 Planned interventions include: aquatic therapy, cryotherapy, dry needling, education/instruction, electrical stimulation, gait training, home program, hot pack, kinesiotaping, manual therapy, neuromuscular re-education, self care/home management, therapeutic exercises, ultrasound and IASTMCUPPING . No Joint Mobs Lumbar spine. Frequency and duration:. 2xweek x 3 weeks then 1xweek x 3 weeks total of 10 visits POC. Potential to achieve rehab goals is good Plan of care was developed with input and agreement by the patient. Assessment Ms. ESPINOZA presents with signs and symptoms consistent with Spondylolisthesis of Lumbar region and Lumbago and demonstrates impairments/limitation s in lumbar AROM, decreased proximal stability with significant weakness at core and pelvis musculature causing significant functional weakness as well. Pt presents with myofascial restriction and trigger points throughout musculature as well, which responded well to brief STM performed this date and pt voicing good understanding to all edu including self-release techniques. HO given for HEP. They would benefit from skilled Physical Therapy with combination of manual therapy techniques to decrease myofascial and joint restrictions, as well as progression of exercises for ROM, flexibility, strength, core stabilization, and glute retraining, and body mechanics education throughout POC to progress towards independence with ADL?s/IADL?s and return to PLOF. Clinical Presentation: Evolving with changing characteristics. Level of Complexity: low Problem List: activity limitations, ADLs/IADLs/self care skills, balance, decreased functional level, fall risk, flexibility, gait/locomotion, motor function/control/tone, pain, participation restrictions, posture, range of motion/joint mobility, strength and transfers. Reason For Visit Initial Evaluation . Low Back Pain AND Spondylolithesis of Lumbar Region. Referred by: Sandoval Singh MD Adult Risk Screening There are no spiritual/cultural practices/values/needs that are important to know Initial Fall Risk Screening: BOONE has not fallen in the last 6 months. BOONE does not have a fear of falling. She does not need assistance with sitting, standing or walking. Does not need assistance walking in her home. She does not need assistance in an unfamiliar setting. The patient is not using an assistive device. Fall Risk Screening: Patient is identified as a fall risk. Care Plan: Low Risk: Environmental for all patients and low risk patients: Offer assistance as needed or requested, keep environment free of obstacles, keep floor clean and dry, keep room lighting, wheelchair brakes on, bed/ stretcher locked and in low position if applicable, non-slip footwear if applicable, walker/cane available if needed, side rails up if applicable and pre-emptive toileting. Pain Scale: On a scale of 0 to 10, the patient rates the pain at 0. Please identify location of pain: lower back. Pain Quality: aching, dull and tightness. The pain makes it hard for the patient to do these things: walking. Insurance Insurance reviewed Visit number: 1 Authorization not required after evaluation POC: 11/28 Medicare/[employer] [employer] (no prior PT 2020) Supervising PT: Noreen Ozuna PT, DPT, Cert DN PT Dx: M54.5; M43.16; R29.898 Onset Date: 2019 Medicare Certification Period: Beginnin2020 Endin2020 Subjective Current Episode of Functional Impairment and/or Pain Date of onset: May 2020 Mechanism of Injury:. Pt is a 66 year female presenting to (more content not included)... Normal [employer] XR SPINE LUMBAR W BENDINGOrd ered By: Sandoval Singh on 05-04-2021 IMPRESSION: 1. Grade 1 degenerative anterolisthesis L4 on L5. 2. Multilevel spinal degenerative changes. 3. No acute osseous abnormality. No convincing evidence of instability. [facility] EXAM: XR SPINE LUMBA R W BENDING HISTORY: Low Back Pain COMPARISON: No prior lumbar spine series. TECHNIQUE: 5 views of lumbar spine including upright lateral flexion and extension. FINDINGS: Hypertrophic facet osteoarthritis is present predominantly at L4/L5 and L5-S1. There is approximately 6 mm of grade 1 anterolisthesis L4 on L5 on the neutral projection. This also measures about 6 mm with flexion and extension. The vertebral bodies are otherwise normally aligned. There is moderate intervertebral space narrowing L4-L5. [id number]-[id number] narrowing L3-L4 and L5-S1. Mild degenerative endplate spondylosis. Pedicles are intact. No osseous destructive lesion is visible. [facility] User, Interfaces - 05/04/2021 1:53 PM EDT EXAM: XR SPINE LUMBAR W BENDING HISTORY: Low Back Pain COMPARISON: No prior lumbar spine series. TECHNIQUE: 5 views of lumbar spine including upright lateral flexion and extension. FINDINGS: Hypertrophic facet osteoarthritis is present predominantly at L4/L5 and L5-S1. There is approximately 6 mm of grade 1 anterolisthesis L4 on L5 on the neutral projection. This also measures about 6 mm with flexion and extension. The vertebral bodies are otherwise normally aligned. There is moderate intervertebral space narrowing L4-L5. [id number]-pt-[id number] narrowing L3-L4 and L5-S1. Mild degenerative endplate spondylosis. Pedicles are intact. No osseous destructive lesion is visible. IMPRESSION IMPRESSION: 1. Grade 1 degenerative anterolisthesis L4 on L5. 2. Multilevel spinal degenerative changes. 3. No acute osseous abnormality. No convincing evidence of instability. [facility] MRI SPINE LUMBAR WITH AND WI THOUT CONTRASTOrdered By: Alfa Holden on 04-12-2021 IMPRESSION: 1. Moderate degenerative disc disease. No significant central canal stenosis. 2. Grade 1 degenerative anterolisthesis at L4-L5 and L5-S1. Neural foraminal stenosis most pronounced on the right at L5-S1 (mild to moderate stenosis). 3. Small right paracentral protrusion at T12-L1 slightly narrows right lateral recess. 4. No compression fracture. No abnormal osseous or intraspinal enhancement identified. 2 [facility] EXAM: MRI SPINE LUMB AR WITH AND WITHOUT CONTRAST HISTORY: Low back pain. Pain radiates into the lower extremities, intermittently. COMPARISON: None. TECHNIQUE: Multiplanar multisequence of the lumbar spine was performed with and without contrast. This included sagittal T2, sagittal T1, sagittal STIR, axial T2 and axial T1 imaging. Additional postcontrast axial and sagittal T1 imaging. FINDINGS: No compression fracture is seen. Grade 1 degenerative anterolisthesis noted at L4-L5 and L5-S1, each measuring 4 mm. Moderate disc space narrowing and endplate spur most pronounced at L4-L5. Intraosseous hemangioma noted at T12 measuring 10 mm and at L3 measuring 12 mm. No suspicious marrow infiltrating mass identified. The imaged lower thoracic spinal cord and conus appear unremarkable. No abnormal intraspinal enhancement identified. Intra-abdominal soft tissues appear unremarkable. No paraspinal or presacral mass is identified. T12-L1: Right paracentral protrusion slightly narrows the right lateral recess. No significant central canal or neural foraminal stenosis. L1-L2: Minimal disc bulge and spondylitic ridging indents the anterior thecal sac without significant central canal stenosis. Mild bilateral neural foraminal stenosis. L2-L3: Minimal disc bulge is seen without significant central canal stenosis. Mild bilateral neural foraminal stenosis. Mild to moderate facet disease. L3-L4: Disc bulge indents the thecal sac without significant central canal stenosis. There is mild right and bezp-rn-xmggrwrh left neural foraminal stenosis. Moderate facet disease. L4-L5: Grade 1 degenerative anterolisthesis with spondylitic ridging indents the anterior thecal sac without significant central canal stenosis. There is mild bilateral neural foraminal stenosis. Advanced facet disease. L5-S1: Grade 1 degenerative anterolisthesis with uncovering of posterior disc margin associated bulge indents the anterior thecal sac without significant central canal stenosis. There is mild to moderate right and mild left neural foraminal stenosis. Advanced facet disease. [employer] User, Interfaces - 04/12/2021 8:19 AM EDT EXAM: MRI SPINE LUMBAR WITH AND WITHOUT CONTRAST HISTORY: Low back pain. Pain radiates into the lower extremities, intermittently. COMPARISON: None. TECHNIQUE: Multiplanar multisequence of the lumbar spine was performed with and without contrast. This included sagittal T2, sagittal T1, sagittal STIR, axial T2 and axial T1 imaging. Additional postcontrast axial and sagittal T1 imaging. FINDINGS: No compression fracture is seen. Grade 1 degenerative anterolisthesis noted at L4-L5 and L5-S1, each measuring 4 mm. Moderate disc space narrowing and endplate spur most pronounced at L4-L5. Intraosseous hemangioma noted at T12 measuring 10 mm and at L3 measuring 12 mm. No suspicious marrow infiltrating mass identified. The imaged lower thoracic spinal cord and conus appear unremarkable. No abnormal intraspinal enhancement identified. Intra-abdominal soft tissues appear unremarkable. No paraspinal or presacral mass is identified. T12-L1: Right paracentral protrusion slightly narrows the right lateral recess. No significant central canal or neural foraminal stenosis. L1-L2: Minimal disc bulge and spondylitic ridging indents the anterior thecal sac without significant central canal stenosis. Mild bilateral neural foraminal stenosis. L2-L3: Minimal disc bulge is seen without significant central canal stenosis. Mild bilateral neural foraminal stenosis. Mild to moderate facet disease. L3-L4: Disc bulge indents the thecal sac without significant central canal stenosis. There is mild right and fxfa-nc-wipiqlzb left neural foraminal stenosis. Moderate facet disease. L4-L5: Grade 1 degenerative anterolisthesis with spondylitic ridging indents the anterior thecal sac without significant central canal stenosis. There is mild bilateral neural foraminal stenosis. Advanced facet disease. L5-S1: Grade 1 degenerative anterolisthesis with uncovering of posterior disc margin associated bulge indents the anterior thecal sac without significant central canal stenosis. There is mild to moderate right and mild left neural foraminal stenosis. Advanced facet disease. IMPRESSION IMPRESSION: 1. Moderate degenerative disc disease. No significant central canal stenosis. 2. Grade 1 degenerative anterolisthesis at L4-L5 and L5-S1. Neural foraminal stenosis most pronounced on the right at L5-S1 (mild to moderate stenosis). 3. Small right paracentral protrusion at T12-L1 slightly narrows right lateral recess. 4. No compression fracture. No abnormal osseous or intraspinal enhancement identified. 2 [facility] OT Progress Noteon 1 OT Progress Note Therapy Diagnosis Assessed Stiffness of joints of both hands (719.58) (M25.641,M25.642) Weakness of both hands (729.89) (R29.898) Plan Goals: Goals set and discussed today. LTG: Pt will demonstrate improved functional independence at home by a decreased DASH score by 15% to decrease family burden. 04/12/21: MET 22% LTG: Pt will demo improved BUE yarn salvager strength by 10# for improved sustained grasp on objects during IADLS/ADLs/work tasks. 04/12/21: partially met L >13#, R >2# LTG: Pt will demo improved ZAMAN R D3 (PIP+DIP) by 15' for greater ability to make a full grasp on objects at home. 04/12/21: not met 88' ZAAMN (>2') STG: Pt will demonstrate good carryover of HEP for ROM, strengthening, coordination, AE, home office ergonomics/set up, and joint protection techniques in order to improve functional independence at home/work with decreased pain/stiffness. 04/12/21: MET good followthrough STG: Pt will demo improved AROM of R D3 DIP joint by 10' to improve ability to grasp smaller objects in her fist without dropping. 04/12/21: not met same as eval STG: Pt will demo improved R in-hand manipulation skills by ability to complete p<>f trans of 5 small objects with no more than 1 drop to improve FMC. 04/12/21: MET able to complete with 1 drop Motor Function/Control/Tone: Discharge patient:. Assessment Patient has attended 6/6 sessions in her POC and has made good progress towards her goals. See goals section for progress made towards specific goals. Patient has gained further functional independence at home with improving the DASH score by 14%, decreasing overall burden on family and friends. Patient has demonstrated good compliance with her HEP for strengthening to improve L yarn salvager by 13# and R yarn salvager by 2#. Pt was provided with increased putty resistance and ed to focus on R yarn salvager since that is her dominant hand for greater improvements in the future. Pt demo limited improvement with overall ROM progress in her fingers however she reports that they are not painful, just stiff especially in the monring and evening. SHe reports doing PROM in the AM/PM to decrease stiffness. SHe also reports using paraffin at home has helped decrease overall pain/stiffness. She is not expressing any other concerns as they relate to functional indep at home d/t hand pain/stiffness. She is agreeable and approrpaite for dc this date. Patient was able to complete today's treatment with some difficulty. Adult Risk Screening There are no spiritual/cultural practices/values/needs that are important to know Initial Fall Risk Screening: BOONE has not fallen in the last 6 months. BOONE does not have a fear of falling. She does not need assistance with sitting, standing or walking. Does not need assistance walking in her home. She does not need assistance in an unfamiliar setting. The patient is not using an assistive device. Pain Scale: On a scale of 0 to 10, the patient rates the pain at 0. Please identify location of pain: B hand stiffness. Insurance Insurance reviewed Visit number: 6 Medicare primary 04/22 POC 6 - INS Onset Date: 2020 Medicare Certification Period: Beginnin2020 Endin2020 Subjective Patient reports:. No pain reported today. She has been using her paraffin but it can get too hot. SHe reports compliance with putty and sponge x2/day. She is not reporting any issues with daily activities at home and feels that she can maintain her exercises at home and be dc from therapy. She is requesting increased putty resistance. Home program performing as directed: Yes. Fall Risk: none Treatment Time in clinic started at 0946 Time in clinic ended at 1545 Total time in clinic is 45 minutes. Total timed code time is 43 minutes. Modalities: timed minutes 5 . 7296-2409 Paraffin to B hands/wrists x 6 dips. Therapeutic exercise (29512): timed minutes 25 . 8915-3111 PROM to B hands/digits with paraffin donned R/L KEVIN R D2/3 PIP/DIP joint measurements for ZAMAN pt ed on continuation of putty exercises and provided with upgraded putty resistance to medium green pt ed to focus on strengthening of R hand vs L d/t less gains with dominant hand pt ed to continue to use paraffin with stretching and resistance as maintenance program to continue with indep at home. 'Scores and Scales' Signatures Electronically signed by : DENICE Merritt/Emili; Apr 12 2021 10:21AM EST (Author) [facility] [employer] Therapy Re-eval Noteon 04-12 Therapy Re-eval Note Therapy Diagnosis Assessed Stiffness of joints of both hands (719.58) (M25.641,M25.642) Weakness of both hands (729.89) (R29.898) Plan Goals: Goals set and discussed today. LTG: Pt will demonstrate improved functional independence at home by a decreased DASH score by 15% to decrease family burden. 04/12/21: MET 22% LTG: Pt will demo improved BUE yarn salvager strength by 10# for improved sustained grasp on objects during IADLS/ADLs/work tasks. 04/12/21: partially met L >13#, R >2# LTG: Pt will demo improved ZAMAN R D3 (PIP+DIP) by 15' for greater ability to make a full grasp on objects at home. 04/12/21: not met 88' ZAMAN (>2') STG: Pt will demonstrate good carryover of HEP for ROM, strengthening, coordination, AE, home office ergonomics/set up, and joint protection techniques in order to improve functional independence at home/work with decreased pain/stiffness. 04/12/21: MET good followthrough STG: Pt will demo improved AROM of R D3 DIP joint by 10' to improve ability to grasp smaller objects in her fist without dropping. 04/12/21: not met same as eval STG: Pt will demo improved R in-hand manipulation skills by ability to complete p<>f trans of 5 small objects with no more than 1 drop to improve FMC. 04/12/21: MET able to complete with 1 drop Motor Function/Control/Tone: Discharge patient:. Assessment Patient has attended 6/6 sessions in her POC and has made good progress towards her goals. See goals section for progress made towards specific goals. Patient has gained further functional independence at home with improving the DASH score by 14%, decreasing overall burden on family and friends. Patient has demonstrated good compliance with her HEP for strengthening to improve L yarn salvager by 13# and R yarn salvager by 2#. Pt was provided with increased putty resistance and ed to focus on R yarn salvager since that is her dominant hand for greater improvements in the future. Pt demo limited improvement with overall ROM progress in her fingers however she reports that they are not painful, just stiff especially in the monring and evening. SHe reports doing PROM in the AM/PM to decrease stiffness. SHe also reports using paraffin at home has helped decrease overall pain/stiffness. She is not expressing any other concerns as they relate to functional indep at home d/t hand pain/stiffness. She is agreeable and approrpaite for dc this date. Patient was able to complete today's treatment with some difficulty. Adult Risk Screening There are no spiritual/cultural practices/values/needs that are important to know Initial Fall Risk Screening: BOONE has not fallen in the last 6 months. BOONE does not have a fear of falling. She does not need assistance with sitting, standing or walking. Does not need assistance walking in her home. She does not need assistance in an unfamiliar setting. The patient is not using an assistive device. Pain Scale: On a scale of 0 to 10, the patient rates the pain at 0. Please identify location of pain: B hand stiffness. Insurance Insurance reviewed Visit number: 6 Medicare primary 04/22 POC 6 - INS Onset Date: 2020 Medicare Certification Period: Beginnin2020 Endin2020 Subjective Patient reports:. No pain reported today. She has been using her paraffin but it can get too hot. SHe reports compliance with putty and sponge x2/day. She is not reporting any issues with daily activities at home and feels that she can maintain her exercises at home and be dc from therapy. She is requesting increased putty resistance. Home program performing as directed: Yes. Fall Risk: none Treatment Time in clinic started at 0946 Time in clinic ended at 1545 Total time in clinic is 45 minutes. Total timed code time is 43 minutes. Modalities: timed minutes 5 . [id number] Paraffin to B hands/wrists x 6 dips. Therapeutic exercise (16826): timed minutes 25 . 0831-7607 PROM to B hands/digits with paraffin donned R/L KEVIN R D2/3 PIP/DIP joint measurements for ZAMAN pt ed on continuation of putty exercises and provided with upgraded putty resistance to medium green pt ed to focus on strengthening of R hand vs L d/t less gains with dominant hand pt ed to continue to use paraffin with stretching and resistance as maintenance program to continue with indep at home. 'Scores and Scales' Signatures Electronically signed by : Daphne Cabrera OTR/Emili; Apr 12 2021 10:21AM EST (Author) [facility] [employer] No Panel InformationOrdered By: Alfa Holden on 04-11-2021 IMPRESSION: Left wri st study demonstrates degenerative changes as described. Right wrist study demonstrates degenerative changes as noted. Left hand study demonstrates degenerative changes as described. Right hand study demonstrates degenerative changes as noted. Followup as needed. [employer] [facility] EXAM: XR WRIST LEFT 3 VIEWS, XR HAND RIGHT 3+ VIEWS, XR HAND LEFT 3+ VIEWS, XR WRIST RIGHT 3 VIEWS HISTORY: wrist pain Hand pain. COMPARISON: None. TECHNIQUE: 3 views of the left hand were obtained. FINDINGS: Mild radiocarpal joint space narrowing. Moderate degenerative change about the joint spaces between the navicular and trapezium and navicular and trapezoid. Moderate degenerative changes at the first metacarpocarpal joint. No definite acute fracture or dislocation. Soft tissues are grossly within normal limits. TECHNIQUE: 3 views of the right wrist were obtained. FINDINGS: Mild radiocarpal joint space narrowing. Mild degenerative change about the joint space between the navicular and trapezium. Mild to moderate degenerative changes at the first metacarpocarpal joint with degenerative subchondral cystic changes at the base of the first metacarpal. No definite acute fracture or dislocation. Soft tissues are grossly within normal limits. TECHNIQUE: 3 views of the left hand were obtained. FINDINGS: Moderate to marked degenerative changes about the PIP joint of the ring finger. Moderate degenerative changes about the PIP joints of the index and middle fingers. Mdhv-dt-yxixvhmp degenerative changes about the PIP joint of the little finger. Ijoc-gl-mczpdzns degenerative changes about the DIP joint of the index finger. Mild degenerative changes about the DIP joints of the middle through little fingers. Mild to moderate degenerative changes about the interphalangeal joint of the thumb. Icjy-ej-ttjbgbvz degenerative changes about the first metacarpophalangeal joint with mild changes about the remainder of the metacarpophalangeal joints. Moderate degenerative changes at the first metacarpocarpal joint. Moderate degenerative changes about the joint space between the navicular and trapezium and navicular and trapezoid. Mild soft tissue swelling about the fingers. TECHNIQUE: 3 views of the right hand were obtained. FINDINGS: Moderate to marked degenerative changes about the PIP joints of the middle and ring fingers with moderate changes at the PIP joint of the index finger. Xhcl-ac-xmgfbgxy degenerative changes about the DIP joints from the necks through little fingers. Moderate degenerative change about the interphalangeal joint of the thumb. Mild degenerative changes about the metacarpophalangeal joints. Mild to moderate degenerative changes about the first metacarpocarpal joint. Degenerative subchondral cystic changes at the base of the first metacarpal. No definite acute fracture or dislocation. Mild soft tissue swelling about the fingers. [employer] User, Interfaces - 04/11/2021 4:09 PM EDT EXAM: XR WRIST LEFT 3 VIEWS, XR HAND RIGHT 3+ VIEWS, XR HAND LEFT 3+ VIEWS, XR WRIST RIGHT 3 VIEWS HISTORY: wrist pain Hand pain. COMPARISON: None. TECHNIQUE: 3 views of the left hand were obtained. FINDINGS: Mild radiocarpal joint space narrowing. Moderate degenerative change about the joint spaces between the navicular and trapezium and navicular and trapezoid. Moderate degenerative changes at the first metacarpocarpal joint. No definite acute fracture or dislocation. Soft tissues are grossly within normal limits. TECHNIQUE: 3 views of the right wrist were obtained. FINDINGS: Mild radiocarpal joint space narrowing. Mild degenerative change about the joint space between the navicular and trapezium. Mild to moderate degenerative changes at the first metacarpocarpal joint with degenerative subchondral cystic changes at the base of the first metacarpal. No definite acute fracture or dislocation. Soft tissues are grossly within normal limits. TECHNIQUE: 3 views of the left hand were obtained. FINDINGS: Moderate to marked degenerative changes about the PIP joint of the ring finger. Moderate degenerative changes about the PIP joints of the index and middle fingers. Gllw-ac-ivlazavr degenerative changes about the PIP joint of the little finger. Eeol-dx-itjkuiua degenerative changes about the DIP joint of the index finger. Mild degenerative changes about the DIP joints of the middle through little fingers. Mild to moderate degenerative changes about the interphalangeal joint of the thumb. Vqni-co-umorquyb degenerative changes about the first metacarpophalangeal joint with mild changes about the remainder of the metacarpophalangeal joints. Moderate degenerative changes at the first metacarpocarpal joint. Moderate degenerative changes about the joint space between the navicular and trapezium and navicular and trapezoid. Mild soft tissue swelling about the fingers. TECHNIQUE: 3 views of the right hand were obtained. FINDINGS: Moderate to marked degenerative changes about the PIP joints of the middle and ring fingers with moderate changes at the PIP joint of the index finger. Qhov-jh-hpggjhgr degenerative changes about the DIP joints from the necks through little fingers. Moderate degenerative change about the interphalangeal joint of the thumb. Mild degenerative changes about the metacarpophalangeal joints. Mild to moderate degenerative changes about the first metacarpocarpal joint. Degenerative subchondral cystic changes at the base of the first metacarpal. No definite acute fracture or dislocation. Mild soft tissue swelling about the fingers. IMPRESSION IMPRESSION: Left wrist study demonstrates degenerative changes as described. Right wrist study demonstrates degenerative changes as noted. Left hand study demonstrates degenerative changes as described. Right hand study demonstrates degenerative changes as noted. Followup as needed. [facility] OT Progress Noteon 1 OT Progress Note Therapy Diagnosis Assessed Arthritis of both hands (716.94) (M19.041,M19.042) Plan Goals: Goals set and discussed today. LTG: Pt will demonstrate improved functional independence at home by a decreased DASH score by 15% to decrease family burden. 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 LTG: Pt will demo improved ZAMAN R D3 (PIP+DIP) by 15' for greater ability to make a full grasp on objects at home. STG: Pt will demonstrate good carryover of HEP for ROM, strengthening, coordination, AE, home office ergonomics/set up, and joint protection techniques in order to improve functional independence at home/work with decreased pain/stiffness. STG: Pt will demo improved AROM of R D3 DIP joint by 10' to improve ability to grasp smaller objects in her fist without dropping. STG: Pt will demo improved R in-hand manipulation skills by ability to complete p<>f trans of 5 small objects with no more than 1 drop to improve FMC. Motor Function/Control/Tone: Intervention plan include: paraffin , education/instruction , home program , IADLs, manual therapy , therapeutic activities and therapeutic exercises . PROM digits with paraffin donned pt ed on chair yoga, home office ergonomics, nutrition+arthritis, other necessary AE for arthritis. Frequency and duration: 2 time(s) a week, for 3 weeks, for 6 visits. Potential to achieve rehab goals is good. Assessment Patient completed most activities today with ease, states she felt really flexible after PROM in paraffin. During fiber picker sticks game patient dropped sticks several times d/t decreased FMC. Patient was able to complete today's treatment with some difficulty. Adult Risk Screening There are no spiritual/cultural practices/values/needs that are important to know Initial Fall Risk Screening: BOONE has not fallen in the last 6 months. BOONE does not have a fear of falling. She does not need assistance with sitting, standing or walking. Does not need assistance walking in her home. She does not need assistance in an unfamiliar setting. The patient is not using an assistive device. Pain Scale: On a scale of 0 to 10, the patient rates the pain at 0. Please identify location of pain: B hand stiffness. Insurance Insurance reviewed Visit number: 5 Medicare primary 5/ ins Onset Date: 2020 Medicare Certification Period: Beginnin2020 Endin2020 Subjective Patient reports:. No pain reported today, patient states she uses T-putty on her way to therapy to loosen up. Treatment Time in clinic started at 1500 Time in clinic ended at 1545 Total time in clinic is 45 minutes. Total timed code time is 43 minutes. Modalities: timed minutes 5 . [id number] Paraffin to B hands/wrists x 6 dips. Manual Therapy (06514): timed minutes 10 . 6035-8968 PROM R wrist flex/ext w/ paraffin donned STM to BUE. Therapeutic exercise (42823): timed minutes 28 . 2115-8262 -BUE cici twists 10# flexbar 2x10 hold for 5 seconds -BUE 10# flexbar U shape 2x10 hold for 5 seconds -BUE 10# flexbar [place] shape 2x10 hold for 5 seconds -BUE 10# flexbar RD/UD 2x10 hold for 5 seconds both directions -BUE fiber picker sticks game for FMC using D1/D2 -BUE using clothes pin to fiber picker mini pegs and place into<>remove from pegboard x20. 'Scores and Scales' Signatures Electronically signed by : KHUSHBOO Mari/Emili; Apr 10 2021 3:35PM EST (Author) Electronically signed by : DENICE Merritt/Emili; Apr 17 2021 10:22AM EST (Author) [facility] [employer] OT Progress Noteon 1 OT Progress Note No report was sent [facility] [employer] OT Progress Noteon 1 OT Progress Note Therapy Diagnosis Assessed Arthritis of both hands (716.94) (M19.041,M19.042) Plan Goals: Goals set and discussed today. LTG: Pt will demonstrate improved functional independence at home by a decreased DASH score by 15% to decrease family burden. 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 LTG: Pt will demo improved ZAMAN R D3 (PIP+DIP) by 15' for greater ability to make a full grasp on objects at home. STG: Pt will demonstrate good carryover of HEP for ROM, strengthening, coordination, AE, home office ergonomics/set up, and joint protection techniques in order to improve functional independence at home/work with decreased pain/stiffness. STG: Pt will demo improved AROM of R D3 DIP joint by 10' to improve ability to grasp smaller objects in her fist without dropping. STG: Pt will demo improved R in-hand manipulation skills by ability to complete p<>f trans of 5 small objects with no more than 1 drop to improve FMC. Motor Function/Control/Tone: Intervention plan include: paraffin , education/instruction , home program , IADLs, manual therapy , therapeutic activities and therapeutic exercises . PROM digits with paraffin donned pt ed on chair yoga, home office ergonomics, nutrition+arthritis, other necessary AE for arthritis. Frequency and duration: 2 time(s) a week, for 3 weeks, for 6 visits. Potential to achieve rehab goals is good. Assessment Patient did very well w/ all activity's today, stated she felt pretty good after the Paraffin and stretching. Received soft turquoise T-putty this date with handout educated on buying T-putty tools online for home use. Patient was able to complete today's treatment with some difficulty. Adult Risk Screening There are no spiritual/cultural practices/values/needs that are important to know Initial Fall Risk Screening: BOONE has not fallen in the last 6 months. BOONE does not have a fear of falling. She does not need assistance with sitting, standing or walking. Does not need assistance walking in her home. She does not need assistance in an unfamiliar setting. The patient is not using an assistive device. Pain Scale: On a scale of 0 to 10, the patient rates the pain at 0. Please identify location of pain: B hand stiffness. Insurance Insurance reviewed Visit number: 4 Medicare primary Onset Date: 2020 Medicare Certification Period: Beginnin2020 Endin2020 Subjective Patient reports:. Patient reports no pain today just stiffness in the left hand. Treatment Time in clinic started at 1430 Time in clinic ended at 1515 Total time in clinic is 43 minutes. Total timed code time is 42 minutes. Modalities: timed minutes 5 . 8199-9599 Paraffin to B hands/wrists x 6 dips. Manual Therapy (44376): timed minutes 10 . 0996-9475 PROM R wrist flex/ext w/ paraffin donned STM to BUE. Therapeutic exercise (44141): timed minutes 34 . 1277-1097 -BUE w/ 3# DB over wedge flex/ext 2x10 both directions -BUE mass grasp on power web 2x10 -BUE placing 11# Chip clips on lateral pinch vertical and tip pinch horizontal bar 2x5 -Education on T-putty exercises, tip pinch, putty squeezes, digit extension, using jar lid putty tool RD/UD BUE 2x5 each direction . 'Scores and Scales' Note Body R KEVIN: 34 L KEVIN: 23 R palmar: 5 L palmar: 5 R lateral: 7 L lateral: 7 R MMT: -wrist flexion: 5 -wrist extension: 5 -forearm supination: 4+ -forearm pronation: 4+ L MMT: -wrist flexion: 5 -wrist extension: 5 -forearm supination: 4+ -forearm pronation: 4+ R wrist AROM: -wrist flexion: 60 -wrist extension: 52 -forearm supination: WFL -forearm pronation: WFL -ulnar deviation: 30 -radial deviation: 25 L wrist AROM: -wrist flexion: 65 -wrist extension: 60 -forearm supination: WFL -forearm pronation: WFL -ulnar deviation: 25 -radial deviation: 20 R9HPT: 24 L9HPT: 25 p<>f trans: R hand multiple drops, compensations to avoid true translation and palmar pinch, slowed movements, increased fatigue R AROM PIP/DIP: D2: -, -16 D3: -3272, -4 D4: -34, - D5: -, -6 L AROM PIP/DIP: D2: -, -18 D3: -, -2 D4: -, 050 D5: -, - R ZAMAN: D2: 82 (-8) D3: 86 (-26) D4: 86 (-16) D5: 100 (-4) L ZAMAN: D2: 90 D3: 112 D4: 102 D5: 104 QuickDASH: 36% . Signatures Electronically signed by : KHUSHBOO Mari/Emili; Apr 03 2021 3:27PM EST (Author) Electronically signed by : DENICE Merritt/Emili; Apr 17 2021 10:19AM EST (Author) Normal Touchworks OT Progress Noteon OT Progress Note Therapy Diagnosis Assessed Arthritis of both hands (716.94) (M19.041,M19.042) Plan Goals: Goals set and discussed today. LTG: Pt will demonstrate improved functional independence at home by a decreased DASH score by 15% to decrease family burden. 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 LTG: Pt will demo improved ZAMAN R D3 (PIP+DIP) by 15' for greater ability to make a full grasp on objects at home. STG: Pt will demonstrate good carryover of HEP for ROM, strengthening, coordination, AE, home office ergonomics/set up, and joint protection techniques in order to improve functional independence at home/work with decreased pain/stiffness. STG: Pt will demo improved AROM of R D3 DIP joint by 10' to improve ability to grasp smaller objects in her fist without dropping. STG: Pt will demo improved R in-hand manipulation skills by ability to complete p<>f trans of 5 small objects with no more than 1 drop to improve FMC. Motor Function/Control/Tone: Intervention plan include: paraffin , education/instruction , home program , IADLs, manual therapy , therapeutic activities and therapeutic exercises . PROM digits with paraffin donned pt ed on chair yoga, home office ergonomics, nutrition+arthritis, other necessary AE for arthritis. Frequency and duration: 2 time(s) a week, for 3 weeks, for 6 visits. Potential to achieve rehab goals is good. Assessment Patient had difficulty w/ L hand when doing RD/UD d/t fatigue and needed to take several breaks. Patient has trouble keeping RD2 off of RD3 when grasping objects.Needed extended time when placing chip clips on vertical bar w/ LUE d/t fatigue. Patient educated on joint protection and foods for arthritis and received hand outs. Patient was able to complete today's treatment with some difficulty. Adult Risk Screening There are no spiritual/cultural practices/values/needs that are important to know Initial Fall Risk Screening: BOONE has not fallen in the last 6 months. BOONE does not have a fear of falling. She does not need assistance with sitting, standing or walking. Does not need assistance walking in her home. She does not need assistance in an unfamiliar setting. The patient is not using an assistive device. Pain Scale: On a scale of 0 to 10, the patient rates the pain at 0. Please identify location of pain: B hand stiffness. Insurance Insurance reviewed Visit number: 3 Medicare primary Onset Date: 2020 Medicare Certification Period: Beginnin2020 Endin2020 Subjective Patient reports:. 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 Treatment Time in clinic started at 1430 Time in clinic ended at 1515 Total time in clinic is 43 minutes. Total timed code time is 42 minutes. Modalities: timed minutes 5 . 9985-7272 Paraffin to B hands/wrists x 6 dips. Manual Therapy (27652): timed minutes 10 . 5918-7125 PROM R wrist flex/ext w/ paraffin donned STM to BUE. Therapeutic exercise (08668): timed minutes 25 . 4079-6057 -10 # flex bar U shape 2 x15 hold for 5 seconds -10# flex bar rainbow shape 2x15 hold for 5 seconds -10# fex bar RD/UD 2x15 hold for 5 seconds -BUE mass grasp on power web 2x10 -BUE FMC activity of picking up pennies at edge of table w/ composite fist grasp transferring martin from palm to D1/D2 to place in container to increase FMC and wrist extension x20 -BUE placing 8# Chip clips on lateral pinch vertical and tip pinch horizontal bar 2x5 . 'Scores and Scales' Note Body R KEVIN: 34 L KEVIN: 23 R palmar: 5 L palmar: 5 R lateral: 7 L lateral: 7 R MMT: -wrist flexion: 5 -wrist extension: 5 -forearm supination: 4+ -forearm pronation: 4+ L MMT: -wrist flexion: 5 -wrist extension: 5 -forearm supination: 4+ -forearm pronation: 4+ R wrist AROM: -wrist flexion: 60 -wrist extension: 52 -forearm supination: WFL -forearm pronation: WFL -ulnar deviation: 30 -radial deviation: 25 L wrist AROM: -wrist flexion: 65 -wrist extension: 60 -forearm supination: WFL -forearm pronation: WFL -ulnar deviation: 25 -radial deviation: 20 R9HPT: 24 L9HPT: 25 p<>f trans: R hand multiple drops, compensations to avoid true translation and palmar pinch, slowed movements, increased fatigue R AROM PIP/DIP: D2: -, - D3: -32, - D4: -, - D5: -, - L AROM PIP/DIP: D2: -, - D3: -, - D4: -, 050 D5: -, - R ZAMAN: D2: 82 (-8) D3: 86 (-26) D4: 86 (-16) D5: 100 (-4) L ZAMAN: D2: 90 D3: 112 D4: 102 D5: 104 QuickDASH: 36% . Signatures Electronically signed by : KHUSHBOO Mari/Emili; Mar 29 2021 3:03PM EST (Author) Electronically signed by : DENICE Merritt/Emili; Apr 02 2021 11:47AM EST (Auth (more content not included)... Normal [facility] OT Progress Noteon 1 OT Progress Note Therapy Diagnosis Assessed Arthritis of both hands (716.94) (M19.041,M19.042) Plan Goals: Goals set and discussed today. LTG: Pt will demonstrate improved functional independence at home by a decreased DASH score by 15% to decrease family burden. 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 LTG: Pt will demo improved ZAMAN R D3 (PIP+DIP) by 15' for greater ability to make a full grasp on objects at home. STG: Pt will demonstrate good carryover of HEP for ROM, strengthening, coordination, AE, home office ergonomics/set up, and joint protection techniques in order to improve functional independence at home/work with decreased pain/stiffness. STG: Pt will demo improved AROM of R D3 DIP joint by 10' to improve ability to grasp smaller objects in her fist without dropping. STG: Pt will demo improved R in-hand manipulation skills by ability to complete p<>f trans of 5 small objects with no more than 1 drop to improve FMC. Motor Function/Control/Tone: Intervention plan include: paraffin , education/instruction , home program , IADLs, manual therapy , therapeutic activities and therapeutic exercises . PROM digits with paraffin donned pt ed on chair yoga, home office ergonomics, nutrition+arthritis, other necessary AE for arthritis. Frequency and duration: 2 time(s) a week, for 3 weeks, for 6 visits. Potential to achieve rehab goals is good. Assessment Extended time needed when using hand helping w/ L hand to stack block towers stated her L hand gets tired quicker than the R. When transferring mini pegs from palm to D1/D2 patient dropped pegs 3/5 trials with R hand and dropped at least 1 peg 5/5 trials w/ L hand. sup/pro w/ wood dowel patient dropped dowel 2x w/ R Hand and 5x w/ L hand. Patient was able to complete today's treatment with some difficulty. Reason For Visit Initial Evaluation, Evaluation and Treatment. Adult Risk Screening There are no spiritual/cultural practices/values/needs that are important to know Initial Fall Risk Screening: BOONE has not fallen in the last 6 months. BOONE does not have a fear of falling. She does not need assistance with sitting, standing or walking. Does not need assistance walking in her home. She does not need assistance in an unfamiliar setting. The patient is not using an assistive device. Pain Scale: On a scale of 0 to 10, the patient rates the pain at 0. Please identify location of pain: B hand stiffness. Insurance Insurance reviewed Visit number: 2 Medicare primary Onset Date: 2020 Medicare Certification Period: Beginnin2020 Endin2020 Subjective Patient reports:. Patient states no pain today and feels that the paraffin has really helped and recently purchased her own unit for home. Treatment Time in clinic started at 1447 Time in clinic ended at 1530 Total time in clinic is 43 minutes. Total timed code time is 42 minutes. Modalities: timed minutes 5 . 2577-2304 Paraffin to B hands/wrists x 6 dips. Manual Therapy (49672): timed minutes 10 . 9596-2054 PROM R wrist flex/ext w/ paraffin donned STM to BUE. Therapeutic exercise (35246): timed minutes 27 . 1881-5340 -10 # flex bar U shape 2 x10 -10# flex bar rainbow shape 2x10 -10 # flex bar cici twists 2x10 -BUE over wedge flex/ext 3# DB 2x10 -Sup/Pro using short handle Neonatal Nurse Practitioner 10# resistance w/ large dowel harvinder x2 round trips B hands -Hand helper 15#?s to stack<>unstack 1inch blocks into tower x4 B hands -BUE picking up 5 mini pegs w/ D1/D2 one at a time, transferring to palm -and back to D1/D2 to place in mini peg board . 'Scores and Scales' Note Body R KEVIN: 34 L KEVIN: 23 R palmar: 5 L palmar: 5 R lateral: 7 L lateral: 7 R MMT: -wrist flexion: 5 -wrist extension: 5 -forearm supination: 4+ -forearm pronation: 4+ L MMT: -wrist flexion: 5 -wrist extension: 5 -forearm supination: 4+ -forearm pronation: 4+ R wrist AROM: -wrist flexion: 60 -wrist extension: 52 -forearm supination: WFL -forearm pronation: WFL -ulnar deviation: 30 -radial deviation: 25 L wrist AROM: -wrist flexion: 65 -wrist extension: 60 -forearm supination: WFL -forearm pronation: WFL -ulnar deviation: 25 -radial deviation: 20 R9HPT: 24 L9HPT: 25 p<>f trans: R hand multiple drops, compensations to avoid true translation and palmar pinch, slowed movements, increased fatigue R AROM PIP/DIP: D2: -, - D3: -32, - D4: -, - D5: -, - L AROM PIP/DIP: D2: -, - D3: -, - D4: -, 0 D5: -, -4/54 R ZAMAN: D2: 82 (-8) D3: 86 (-26) D4: 86 (-16) D5: 100 (-4) L ZAMAN: D2: 90 D3: 112 D4: 102 D5: 104 QuickDASH: 36% . Signatures Electronically signed by : KHUSHBOO Mari/Emili; Mar 27 2021 3:29PM EST (Author) Electronically signed by : DENICE Merritt/Emili; Apr 02 2021 11:4 (more content not included)... 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 LTG: Pt will demonstrate improved functional independence at home by a decreased DASH score by 15% to decrease family burden. 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 LTG: Pt will demo improved ZAMAN R D3 (PIP+DIP) by 15' for greater ability to make a full grasp on objects at home. STG: Pt will demonstrate good carryover of HEP for ROM, strengthening, coordination, AE, home office ergonomics/set up, and joint protection techniques in order to improve functional independence at home/work with decreased pain/stiffness. STG: Pt will demo improved AROM of R D3 DIP joint by 10' to improve ability to grasp smaller objects in her fist without dropping. STG: Pt will demo improved R in-hand manipulation skills by ability to complete p<>f trans of 5 small objects with no more than 1 drop to improve FMC. Motor Function/Control/Tone: Intervention plan include: paraffin , education/instruction , home program , IADLs, manual therapy , therapeutic activities and therapeutic exercises . PROM digits with paraffin donned pt ed on chair yoga, home office ergonomics, nutrition+arthritis, other necessary AE for arthritis. Frequency and duration: 2 time(s) a week, for 3 weeks, for 6 visits. Potential to achieve rehab goals is good. Plan of care was developed with input and agreement by the patient. Assessment Pt was evaluated today for B hand weakness and stiffness as a result of arthritis, primarily across PIP joints in B hands. She demo limited pain however severe stiffness that prevents her from making a full fist with B hands. 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 Pt has been provided with education on home paraffin unit following demonstrating in the clinic if she wishes to pursue this option for pain/stiffness management. She was ed on joint protection techniques as well as light hand strengthening to begin performing at home. Pt would benefit from regular outpatient OT x2/week for 3 weeks in order to improve AROM/PROM, strengthening, coordination, and activity tolerance to improve functional independence in ADLs/IADLs/work tasks. Level of Complexity: low Problems To Be Addressed: decreased IADL performance, decreased play/leisure performance, decreased work, decreased motor skills, decreased knowledge of HEP, pain, decreased ROM/joint mobility and decreased strength. Reason For Visit Initial Evaluation, Evaluation and Treatment. Orthotic Eval R KEVIN: 34 L KEVIN: 23 R palmar: 5 L palmar: 5 R lateral: 7 L lateral: 7 R MMT: -wrist flexion: 5 -wrist extension: 5 -forearm supination: 4+ -forearm pronation: 4+ L MMT: -wrist flexion: 5 -wrist extension: 5 -forearm supination: 4+ -forearm pronation: 4+ R wrist AROM: -wrist flexion: 60 -wrist extension: 52 -forearm supination: WFL -forearm pronation: WFL -ulnar deviation: 30 -radial deviation: 25 L wrist AROM: -wrist flexion: 65 -wrist extension: 60 -forearm supination: WFL -forearm pronation: WFL -ulnar deviation: 25 -radial deviation: 20 R9HPT: 24 L9HPT: 25 p<>f trans: R hand multiple drops, compensations to avoid true translation and palmar pinch, slowed movements, increased fatigue R AROM PIP/DIP: D2: -, - D3: -32, - D4: -34, - D5: -, - L AROM PIP/DIP: D2: -, - D3: -, - D4: -20, 0/50 D5: -, -4 R ZAMAN: D2: 82 (-8) D3: 86 (-26) D4: 86 (-16) D5: 100 (-4) L ZAMAN: D2: 90 D3: 112 D4: 102 D5: 104 QuickDASH: 36% . Adult Risk Screening There are no spiritual/cultural practices/values/needs that are important to know Initial Fall Risk Screening: BOONE has not fallen in the last 6 months. BOONE does not have a fear of falling. She does not need assistance with sitting, standing or walking. Does not need assistance walking in her home. She does not need assistance in an unfamiliar setting. The patient is not using an assistive device. Pain Scale: On a scale of 0 to 10, the patient rates the pain at 0. Please identify location of pain: B hand stiffness. Insurance Insurance reviewed Visit number: 1 Medicare primary Onset Date: 2020 Medicare Certification Period: Beginnin2020 Endin2020 Subjective Current Episode of Functional Impairment and Pain: Date of onset: 02/23/21 Patient reports: Pt presenting with arthritis in B hands also in back. Doesn't usually have pain, mostly stiffness across B PIP joints and occasionally in B thumbs. Very mild CTS in L wrist but nothing sarah (more content not included)... Normal [facility] CBC AND DIFFERENTIALon 10-24 Basophils (Bld) [#/Vol] 0.00 10*3/uL Normal 0.00 - 0.1 0 [facility] Comment on above: Performed By: #### C BCDF #### [address] [address] Basophils/100 WBC (Bld) 0.7 % Normal 0.0 - 2.0 [facility] Comment on above: Performed By: #### C BCDF #### [address] [address] Eosinophils (Bld) [#/Vol] 0.10 10*3/uL Normal 0.00 - 0.70 [facility] Comment on above: Performed By: #### C BCDF #### [address] [address] Eosinophils/100 WBC (Bld) 1.1 % Normal 0.0 - 6.0 [facility] Comment on above: Performed By: #### C BCDF #### [address] [address] Erythrocyte distribution width (RBC) [Ratio] 13.2 % Normal 11.5 - 14.5 [facility] Comment on above: Performed By: #### C BCDF #### [address] [address] Hematocrit (Bld) [Volume fraction] 42.7 % Normal 36.0 - 46.0 [facility] Comment on above: Performed By: #### C BCDF #### [address] [address] Hemoglobin (Bld) [Mass/Vol] 14.3 g/dL Normal 12.0 - 16.0 [facility] Comment on above: Performed By: #### C BCDF #### [address] [address] Lymphocytes (Bld) [#/Vol] 1.20 10*3/uL Normal 1.20 - 4.80 [facility] Comment on above: Performed By: #### C BCDF #### [address] [address] Lymphocytes/100 WBC (Bld) 24.6 % Normal 13.0 - 44.0 [facility] Comment on above: Performed By: #### C BCDF #### [address] [address] MCHC (RBC) [Mass/Vol] 33.5 g/dL Normal 32.0 - 36.0 [facility] Comment on above: Performed By: #### C BCDF #### [address] [address] MCV (RBC) [Entitic vol] 92 fL Normal 80 - 100 [facility] Comment on above: Performed By: #### C BCDF #### [address] [address] Monocytes (Bld) [#/Vol] 0.40 10*3/uL Normal 0.10 - 1.0 0 [facility] Comment on above: Performed By: #### C BCDF #### [address] [address] Monocytes/100 WBC (Bld) 8.8 % Normal 2.0 - 10.0 [facility] Comment on above: Performed By: #### C BCDF #### [address] [address] Neutrophils (Bld) [#/Vol] 3.20 10*3/uL Normal 1.20 - 7.70 [facility] Comment on above: Result Comment: Perc ent differential counts (%) should be interpreted in the context of the absolute cell counts (cells/L). Performed By: #### C BCDF #### [address] [address] Neutrophils/100 WBC (Bld) 64.8 % Normal 40.0 - 80.0 [facility] Comment on above: Performed By: #### C BCDF #### [address] [address] NUCLEATED RBC 0.2 /100 WBC Normal [facility] Comment on above: Performed By: #### C BCDF #### [address] [address] Platelets (Bld) [#/Vol] 244 10*3/uL Normal 150 - 450 [facility] Comment on above: Performed By: #### C BCDF #### [address] [address] RBC 4.64 x10E12/L Normal 4.00 - 5.20 [facility] Comment on above: Performed By: #### C BCDF #### [address] [address] WBC (Bld) [#/Vol] 4.9 10*3/uL Normal 4.4 - 11.3 [facility] Comment on above: Performed By: #### C BCDF #### [address] [address] COMPREHENSIVE PANELon 2019 Albumin [Mass/Vol] 4.2 g/dL Normal 3.4 - 5.0 [facility] Comment on above: Performed By: #### C MP #### [address] [address] ALP [Catalytic activity/Vol] 66 U/L Normal 33 - 136 [facility] Comment on above: Performed By: #### C MP #### [address] [address] ALT [Catalytic activity/Vol] 20 U/L Normal 7 - 45 [facility] Comment on above: Result Comment: Lauren ents treated with Sulfasalazine may generate falsely decreased results for ALT. Performed By: #### C MP #### [address] [address] Anion gap [Moles/Vol] 8 mmol/L Low 10 - 20 [facility] Comment on above: Performed By: #### C MP #### [address] [address] AST [Catalytic activity/Vol] 21 U/L Normal 9 - 39 [facility] Comment on above: Performed By: #### C MP #### [address] [address] Bilirubin [Mass/Vol] 0.6 mg/dL Normal 0.0 - 1.2 [facility] Comment on above: Performed By: #### C MP #### [address] [address] Calcium [Mass/Vol] 9.0 mg/dL Normal 8.6 - 10.3 [facility] Comment on above: Performed By: #### C MP #### [address] [address] Chloride [Moles/Vol] 103 mmol/L Normal 98 - 107 [facility] Comment on above: Performed By: #### C MP #### [address] [address] Creatinine [Mass/Vol] 0.67 mg/dL Normal 0.50 - 1.05 [facility] Comment on above: Performed By: #### C MP #### [address] [address] GFR- AM. >60 Normal >60 [facility] Comment on above: Result Comment: CALC ULATIONS OF ESTIMATED GFR ARE PERFORMED USING THE MDRD STUDY EQUATION FOR THE IDMS-TRACEABLE CREATININE METHODS. CLIN CHEM 2007;53:766-72 Performed By: #### C MP #### [address] [address] GFR-NON AM. >60 Normal >60 [facility] Comment on above: Performed By: #### C MP #### [address] [address] Glucose [Mass/Vol] 90 mg/dL Normal 74 - 99 [facility] Comment on above: Performed By: #### C MP #### [address] [address] HCO3 (Bld) [Moles/Vol] 32 mmol/L Normal 21 - 32 [facility] Comment on above: Performed By: #### C MP #### [address] [address] Potassium [Moles/Vol] 4.2 mmol/L Normal 3.5 - 5.3 [facility] Comment on above: Performed By: #### C MP #### [address] [address] Protein [Mass/Vol] 6.5 g/dL Normal 6.4 - 8.2 [facility] Comment on above: Performed By: #### C MP #### [address] [address] Sodium [Moles/Vol] 139 mmol/L Normal 136 - 145 [facility] Comment on above: Performed By: #### C MP #### [address] [address] Urea nitrogen [Mass/Vol] 16 mg/dL Normal 6 - 23 [facility] Comment on above: Performed By: #### C MP #### [address] [address] Auto Diffon 07-05-2019 Basophils (Bld) [#/Vol] 0.0 E3/mcL Normal 0.0-0.[address] [facility] Comment on above: Order Comment: Order Added by Discern Expert. Performed By: #### 2 [id number] #### SONAM RemHemo [address] [place] [address] Basophils/100 WBC (Bld) 0.6 % Normal 0.0-2.[address] [facility] Comment on above: Order Comment: Order Added by Discern Expert. Performed By: #### 2 [id number] #### SONAM RemHemo [address] [place] [address] Eos Absolute 0.1 E3/mcL Normal 0.0-0.7 [facility] Comment on above: Order Comment: Order Added by Discern Expert. Performed By: #### 2 [id number] #### SONAM RemHemo [address] [place] [address] Eosinophils/100 WBC (Bld) 1.7 % Normal 0.0-11.0 [facility] Comment on above: Order Comment: Order Added by Discern Expert. Performed By: #### 2 [id number] #### SONAM RemHemo [address] [place] [address] Lymphocytes (Bld) [#/Vol] 1.0 E3/mcL Low 1.2-3.4 [facility] Comment on above: Order Comment: Order Added by Discern Expert. Performed By: #### 2 [id number] #### SONAM RemHemo [address] [place] [address] Lymphocytes/100 WBC (Bld) 29.5 % Normal 20.0-55.0 [facility] Comment on above: Order Comment: Order Added by Discern Expert. Performed By: #### 2 [id number] #### SONAM RemHemo [address] [place] [address] [place] Absolute 0.3 E3/mcL Normal 0.0-0.7 [facility] Comment on above: Order Comment: Order Added by Discern Expert. Performed By: #### 2 [id number] #### SONAM RemHemo [address] [place] [address] Monocytes/100 WBC (Bld) 9.2 % Normal 0.0-10.[address] [facility] Comment on above: Order Comment: Order Added by Discern Expert. Performed By: #### 2 [id number] #### SONAM HernandezHemo [address] [place] [id number] Neutro Absolute 2.1 E3/mcL Normal 1.4-6.5 [facility] Comment on above: Order Comment: Order Added by Discern Expert. Performed By: #### 2 [id number] #### SONAM HernandezHemo [address] [address] [place], [place] [id number] Neutro Auto 59.0 % Normal 37.0-75.0 [facility] Comment on above: Order Comment: Order Added by Discern Expert. Performed By: #### 2 [id number] #### SONAM Lockwoodo [address] [place], [place] [id number] CBC w/ Auto Diffon 9 Erythrocyte distribution width (RBC) [Ratio] 13.3 % Normal 11.5-14.5 [facility] Comment on above: Performed By: #### 2 [id number] #### SONAM Lockwoodo [address] [place], [place] [id number] Hematocrit (Bld) [Volume fraction] 40.6 % Normal 36.0-48.0 [facility] Comment on above: Performed By: #### 2 [id number] #### SONAM Lockwoodo [address] [place] [address] Hemoglobin (Bld) [Mass/Vol] 13.5 g/dL Normal 12.0-16.0 [facility] Comment on above: Performed By: #### 2 [id number] #### SONAM HernandezHemo [employer] [place] [id number] MCH (RBC) [Entitic mass] 30.6 pg Normal 27.0-31.0 [facility] Comment on above: Performed By: #### 2 [id number] #### SONAM HernandezHemo [employer] [place] [id number] MCHC (RBC) [Mass/Vol] 33.4 g/dL Normal 33.0-37.0 [facility] Comment on above: Performed By: #### 2 [id number] #### SONAM HernandezHemo [address] [place], [place] [id number] MCV (RBC) [Entitic vol] 91.7 fL Normal 78.0-100.[address] [facility] Comment on above: Performed By: #### 2 [id number] #### SONAM HernandezHemo [address] [place] [address]146 Platelet mean volume (Bld) [Entitic vol] 8.9 fL Normal 7.4-11.0 [facility] Comment on above: Performed By: #### 2 [id number] #### SONAM HernandezHemo [address] [place] [address] Platelets (Bld) [#/Vol] 217 E3/mcL Normal 130-[address] [facility] Comment on above: Performed By: #### 2 [id number] #### [facility] [address] [place] [address]250 RBC (Bld) [#/Vol] 4.42 E6/mcL Normal 3.90-5.40 [facility] Comment on above: Performed By: #### 2 157703 #### SONAM HernandezHemo [address] [place] [address] 99774 WBC (Bld) [#/Vol] 3.5 E3/mcL Low 3.6-11.0 [facility] Comment on above: Performed By: #### 2 279429 #### SONAM HernandezHemo [address] [place] [address] 89184 CMPon 07-05-2019 Albumin [Mass/Vol] 4.1 g/dL Normal 3.4-5.0 [facility] Comment on above: Performed By: #### 2 [id number] #### SONAM DinnDinnlink [address] [place] [address]9465 Albumin/Globulin [Mass ratio] 1.9 {ratio} Normal 1.1-1.9 [facility] Comment on above: Performed By: #### 2 [id number] #### SONAM DinnDinn[address] [address] Alk Phos 54 Int._Unit/L Normal 33-136 [facility] Comment on above: Performed By: #### 2 [id number] #### SONAM DinnDinn[address] [address] ALT [Catalytic activity/Vol] 16 Int._Unit/L Normal 7-45 [facility] Comment on above: Performed By: #### 2 [id number] #### [facility] [employer] [address] [place] [address] Anion gap [Moles/Vol] 8 mmol/L Low 10-20 [facility] Comment on above: Performed By: #### 2 400000 #### [facility] [employer] [address] [place] [address] 87482 AST [Catalytic activity/Vol] 19 Int._Unit/L Normal 9-39 [facility] Comment on above: Performed By: #### 2 066837 #### [facility] [employer] [address] [place] [address] 16409 Bili Total 0.41 mg/dL Normal 0.00-1.20 [facility] Comment on above: Performed By: #### 2 844234 #### [facility] [employer] [address] [place] [address]95 Calcium [Mass/Vol] 9.2 mg/dL Normal 8.6-10.3 [facility] Comment on above: Performed By: #### 2 539841 #### [facility] [employer] [address] [place] [address]246 Chloride [Moles/Vol] 105 mmol/L Normal 98-107 [facility] Comment on above: Performed By: #### 2 531380 #### [facility] [employer] [address] [place] [address] 39525 CO2 [Moles/Vol] 31.0 mmol/L Normal 21.0-32.0 [facility] Comment on above: Performed By: #### 2 679787 #### SONAM [employer] [address] [place] [address]50 Creatinine [Mass/Vol] 0.8 mg/dL Normal 0.5-1.1 [facility] Comment on above: Performed By: #### 2 928434 #### SONAM [employer] [address] [place] [address] 80959 Globulin (S) [Mass/Vol] 2.0 g/dL Normal 2.0-4.[address] [facility] Comment on above: Performed By: #### 2 991820 #### SONAM [employer] [address] [place] [address] 58241 Glucose [Mass/Vol] 84 mg/dL Normal 70-99 [facility] Comment on above: Performed By: #### 2 459617 #### SONAM [employer] [address] [place] [address]120 Potassium [Moles/Vol] 4.1 mmol/L Normal 3.5-5.3 [facility] Comment on above: Performed By: #### 2 130478 #### SONAM [employer] [address] [place] [address] 25524 Protein [Mass/Vol] 6.3 g/dL Low 6.4-8.2 [facility] Comment on above: Performed By: #### 2 664149 #### SONAM [employer] [address] [place] [address]6585 Sodium [Moles/Vol] 140 mmol/L Normal 136-145 [facility] Comment on above: Performed By: #### 2 324350 #### SONAM [employer] [address] [place] [address] 24041 Urea nitrogen [Mass/Vol] 14 mg/dL Normal 6-23 [facility] Comment on above: Performed By: #### 2 307231 #### SONAM [employer] [address] [place] [address] 08337 Urea nitrogen/Creatinine [Mass ratio] 17.5 ratio Normal 5.4-30.0 [facility] Comment on above: Performed By: #### 2 792727 #### SONAM [employer] [address] [place] [address] eGFRon 07-05-2019 GFR/1.73 sq M predicted among non-blacks MDRD (S/P/Bld) [Vol rate/Area] mL/min/{1.73_m2} Normal [facility] Comment on above: Order Comment: Order added by Discern Expert. Performed By: #### 1 [id number] #### SONAM [employer] [address] [place] [address] 84367 Auto Diffon 12-21-2018 Basophils (Bld) [#/Vol] 0.0 E3/mcL Normal 0.0-0.[address] [facility] Comment on above: Order Comment: Order Added by Discern Expert. Performed By: #### 2 966316 #### SONAM RemHemo [address] [place] [address] Basophils/100 WBC (Bld) 0.4 % Normal 0.0-2.[address] [facility] Comment on above: Order Comment: Order Added by Discern Expert. Performed By: #### 2 [id number] #### SONAM HernandezHemo [address] [place] [address] Eos Absolute 0.1 E3/mcL Normal 0.0-0.7 [facility] Comment on above: Order Comment: Order Added by Discern Expert. Performed By: #### 2 095973 #### SONAM RemHemo [address] [place] [address] Eosinophils/100 WBC (Bld) 0.8 % Normal 0.0-11.0 [facility] Comment on above: Order Comment: Order Added by Discern Expert. Performed By: #### 2 966678 #### SONAM HernandezHemo [address] [place] [address]44 Lymphocytes (Bld) [#/Vol] 1.3 E3/mcL Normal 1.2-3.4 [facility] Comment on above: Order Comment: Order Added by Discern Expert. Performed By: #### 2 [id number] #### SONAM HernandezHemo [address] [place] [address] Lymphocytes/100 WBC (Bld) 15.8 % Low 20.0-55.0 [facility] Comment on above: Order Comment: Order Added by Discern Expert. Performed By: #### 2 941186 #### SONAM RemHemo [address] [place] [address] [place] Absolute 0.7 E3/mcL Normal 0.0-0.7 [facility] Comment on above: Order Comment: Order Added by Discern Expert. Performed By: #### 2 364301 #### SONAM RemHemo [address] [place] [address] Monocytes/100 WBC (Bld) 8.9 % Normal 0.0-10.[address] [facility] Comment on above: Order Comment: Order Added by Discern Expert. Performed By: #### 2 972561 #### SONAM RemHemo [address] [place] [address] Neutro Absolute 6.1 E3/mcL Normal 1.4-6.5 [facility] Comment on above: Order Comment: Order Added by Discern Expert. Performed By: #### 2 663135 #### SONAM RemHemo [address] [place] [address] Neutro Auto 74.1 % Normal 37.0-75.0 [facility] Comment on above: Order Comment: Order Added by Discern Expert. Performed By: #### 2 309475 #### SONAM RemHemo [address] [place] [address] CBC w/ Auto Diffon Erythrocyte distribution width (RBC) [Ratio] 13.4 % Normal 11.5-14.5 [facility] Comment on above: Performed By: #### 2 107223 #### SONAM HernandezHemo [address] [place] [address] Hematocrit (Bld) [Volume fraction] 41.6 % Normal 36.0-48.0 [facility] Comment on above: Performed By: #### 2 716563 #### SONAM RemHemo [address] [place] [address] Hemoglobin (Bld) [Mass/Vol] 13.7 g/dL Normal 12.0-16.0 [facility] Comment on above: Performed By: #### 2 642372 #### SONAM RemHemo [address] [place] [address] MCH (RBC) [Entitic mass] 30.1 pg Normal 27.0-31.0 [facility] Comment on above: Performed By: #### 2 805251 #### SONAM RemHemo [address] [place] [address] MCHC (RBC) [Mass/Vol] 32.9 g/dL Low 33.0-37.0 [facility] Comment on above: Performed By: #### 2 736500 #### SONAM RemHemo [address] [place] [address] MCV (RBC) [Entitic vol] 91.5 fL Normal 78.0-100.[address] [facility] Comment on above: Performed By: #### 2 129229 #### SONAM RemHemo [address] [place] [address] Platelet mean volume (Bld) [Entitic vol] 9.1 fL Normal 7.4-11.0 [facility] Comment on above: Performed By: #### 2 695930 #### SONAM RemHemo [address] [place] [address] Platelets (Bld) [#/Vol] 234 E3/mcL Normal 130-[address] [facility] Comment on above: Performed By: #### 2 471992 #### SONAM RemHemo [address] [place] [address] RBC (Bld) [#/Vol] 4.55 E6/mcL Normal 3.90-5.40 [facility] Comment on above: Performed By: #### 2 [id number] #### SONAM RemHemo [address] [place] [address] WBC (Bld) [#/Vol] 8.2 E3/mcL Normal 3.6-11.0 [facility] Comment on above: Performed By: #### 2 003056 #### SONAM RemHemo [address] [place] [address] CMPon 12-21-2018 Albumin [Mass/Vol] 4.2 g/dL Normal 3.4-5.0 [facility] Comment on above: Performed By: #### 2 958736 #### SONAM [employer] [address] [place] [address] Albumin/Globulin [Mass ratio] 1.9 {ratio} Normal 1.1-1.9 [facility] Comment on above: Performed By: #### 2 575104 #### SONAM [employer] [address] [place] [address] Alk Phos 72 Int._Unit/L Normal 33-136 [facility] Comment on above: Performed By: #### 2 073512 #### SONAM [employer] [address] [place] [address] ALT [Catalytic activity/Vol] 16 Int._Unit/L Normal 7-45 [facility] Comment on above: Performed By: #### 2 584345 #### SONAM [employer] [address] [place] [address] Anion gap [Moles/Vol] 10 mmol/L Normal 10-20 [facility] Comment on above: Performed By: #### 2 648314 #### SONAM [employer]Chem [address] [place] [address] AST [Catalytic activity/Vol] 18 Int._Unit/L Normal 9-39 [facility] Comment on above: Performed By: #### 2 507122 #### SONAM [employer]Chem [employer] [place] [address] Bili Total 0.46 mg/dL Normal 0.00-1.20 [facility] Comment on above: Performed By: #### 2 331242 #### SONAM [employer]Chem [employer] [place] [address] Calcium [Mass/Vol] 9.3 mg/dL Normal 8.6-10.3 [facility] Comment on above: Performed By: #### 2 796051 #### SONAM [employer]Chem [address] [place] [address] Chloride [Moles/Vol] 104 mmol/L Normal 98-107 [facility] Comment on above: Performed By: #### 2 494012 #### SONAMMarino HernandezLightspeed [address] [place] [address] CO2 [Moles/Vol] 32.0 mmol/L Normal 21.0-32.0 [facility] Comment on above: Performed By: #### 2 450138 #### SONAM [employer]Chem [address] [place] [address] Creatinine [Mass/Vol] 0.6 mg/dL Normal 0.5-1.1 [facility] Comment on above: Performed By: #### 2 087518 #### SONAM [employer] [address] [place] [address] Globulin (S) [Mass/Vol] 2.0 g/dL Normal 2.0-4.[address] [facility] Comment on above: Performed By: #### 2 914623 #### SONAMMarino HernandezLightspeed [address] [place] [address] Glucose [Mass/Vol] 91 mg/dL Normal 70-99 [facility] Comment on above: Performed By: #### 2 721561 #### SONAM [employer] [address] [place] [address] Potassium [Moles/Vol] 4.1 mmol/L Normal 3.5-5.3 [facility] Comment on above: Performed By: #### 2 692309 #### SONAM [employer] [address] [place] [address] Protein [Mass/Vol] 6.4 g/dL Normal 6.4-8.2 [facility] Comment on above: Performed By: #### 2 505974 #### SONAM [employer] [address] [place] [address] Sodium [Moles/Vol] 142 mmol/L Normal 136-145 [facility] Comment on above: Performed By: #### 2 965719 #### SONAM [employer] [address] [place] [address] Urea nitrogen [Mass/Vol] 15 mg/dL Normal 6-23 [facility] Comment on above: Performed By: #### 2 433694 #### SONAM [employer] [address] [place] [address] Urea nitrogen/Creatinine [Mass ratio] 25.0 ratio Normal 5.4-30.0 [facility] Comment on above: Performed By: #### 2 158072 #### SONAM [employer] [address] [place] [address] eGFRon 12-21-2018 GFR/1.73 sq M predicted among non-blacks MDRD (S/P/Bld) [Vol rate/Area] mL/min/{1.73_m2} Normal [facility] Comment on above: Order Comment: Order added by Discern Expert. Performed By: #### 1 [id number] #### SONAM [employer] [address] [place] [address] No Panel Information [facility] Vital Signs Date Time Vital Sign Value Performing Clinician Facility 06-22-2025 10: Body height 160.[address] Flavio Johnson MD Work Phone: [facility] 06-22-2025 10:13040 Body mass index (BMI) [Ratio] 31.5 kg/m2 Dr. Flavio Johnson MD Work Phone: [facility] 06-22-2025 10:13-0400 Body temperature 98 [degF] Dr. Flavio Johnson MD Work Phone: [facility] 06-22-2025 10:13-0400 Body weight 80.[address] Flavio Johnson MD Work Phone: [facility] 06-22-2025 10:13-0400 Diastolic blood pressure 81 mm[Hg] Dr. Flavio Johnson MD Work Phone: [facility] 06-22-2025 10:13-0400 Heart rate 48 /min Dr. Flavio Johnson MD Work Phone: [facility] 06-22-2025 10:13-0400 Respiratory rate 18 /min Dr. Flavio Johnson MD Work Phone: [facility] 06-22-2025 10:13-0400 SaO2% (BldA) [Mass fraction] 99 % Dr. Flavio Johnson MD Work Phone: [facility] 06-22-2025 10:13-0400 Systolic blood pressure 130 mm[Hg] Dr. Flavio Johnson MD Work Phone: [facility] 06-22-2025 08:25-0400 Body height 162.[address] Flavio Johnson MD Work Phone: [facility] 06-22-2025 08:25-0400 Body mass index (BMI) [Ratio] 30.7 kg/m2 Dr. Flavio Johnson MD Work Phone: [facility] 06-22-2025 08:25-0400 Body temperature 97.1 [degF] Dr. Flavio Johnson MD Work Phone: [facility] 06-22-2025 08:25-0400 Body weight 81.[address] Flavio Johnson MD Work Phone: [facility] 06-22-2025 08:25-0400 Diastolic blood pressure 78 mm[Hg] Dr. Flavio Johnson MD Work Phone: [facility] 06-22-2025 08:25-0400 Heart rate 69 /min Dr. Flavio Johnson MD Work Phone: [facility] 06-22-2025 08:25-0400 Respiratory rate 16 /min Dr. Flavio Johnson MD Work Phone: [facility] 06-22-2025 08:25-0400 SaO2% (BldA) [Mass fraction] 95 % Dr. Flavio Johnson MD Work Phone: [facility] 06-22-2025 08:25-0400 Systolic blood pressure 132 mm[Hg] Dr. Flavio Johnson MD Work Phone: [facility] 06-06-2025 08:41-0400 Body height 162.6 cm Alfa Holden Jr., DO Work Phone: [facility] 06-06-2025 08:41-0400 Body mass index (BMI) [Ratio] 30.55 kg/m2 Alfa Holden Jr., DO Work Phone: [facility] 06-06-2025 08:41-0400 Body weight 80.74 kg Alfa Holden Jr., DO Work Phone: [facility] 06-06-2025 08:41-0400 Diastolic blood pressure 78 mm[Hg] Alfa Holden Jr., DO Work Phone: [facility] 06-06-2025 08:41-0400 Systolic blood pressure 126 mm[Hg] Alfa Holden Jr., DO Work Phone: [facility] 05-25-2025 07:18-0400 Body mass index (BMI) [Ratio] 30.4 kg/m2 Dr. Flavio Johnson MD Work Phone: [facility] 05-25-2025 07:18-0400 Body temperature 97.7 [degF] Dr. Flavio Johnson MD Work Phone: [facility] 05-25-2025 07:18-0400 Body weight 80.[address] Flavio Johnson MD Work Phone: [facility] 05-25-2025 07:18-0400 Diastolic blood pressure 83 mm[Hg] Dr. Flavio Johnson MD Work Phone: [facility] 05-25-2025 07:18-0400 Heart rate 73 /min Dr. Flavio Johnson MD Work Phone: [facility] 05-25-2025 07:18-0400 Respiratory rate 18 /min Dr. Flavio Johnson MD Work Phone: [facility] 05-25-2025 07:18-0400 SaO2% (BldA) [Mass fraction] 97 % Dr. Flavio Johnson MD Work Phone: [facility] 05-25-2025 07:18-0400 Systolic blood pressure 131 mm[Hg] Dr. Flavio Johnson MD Work Phone: [facility] 05-11-2025 08:02-0400 Body height 162.[address] Flavio Johnson MD Work Phone: [facility] 05-11-2025 08:02-0400 Body mass index (BMI) [Ratio] 30.2 kg/m2 Dr. Flavio Johnson MD Work Phone: [facility] 05-11-2025 08:02-0400 Body temperature 987.2 [degF] Dr. Flavio Johnson MD Work Phone: [facility] 05-11-2025 08:02-0400 Body weight 79.[address] Flavio Johnson MD Work Phone: [facility] 05-11-2025 08:02-0400 Diastolic blood pressure 78 mm[Hg] Dr. Flavio Johnson MD Work Phone: [facility] 05-11-2025 08:02-0400 Heart rate 69 /min Dr. Flavio Johnson MD Work Phone: [facility] 05-11-2025 08:02-0400 Respiratory rate 16 /min Dr. Flavio Johnson MD Work Phone: [facility] 05-11-2025 08:02-0400 SaO2% (BldA) [Mass fraction] 96 % Dr. Flavio Johnson MD Work Phone: [facility] 05-11-2025 08:02-0400 Systolic blood pressure 122 mm[Hg] Dr. Flavio Johnson MD Work Phone: [facility] 02-25-2025 08:46-0400 Diastolic blood pressure 66 mm[Hg] Dr. Flavio Johnson MD Work Phone: [facility] 02-25-2025 08:46-0400 Heart rate 77 /min Dr. Flavio Johnson MD Work Phone: [facility] 02-25-2025 08:46-0400 Systolic blood pressure 108 mm[Hg] Dr. Flavio Johnson MD Work Phone: [facility] 02-25-2025 08:40-0400 Body temperature 97.4 [degF] Dr. Flavio Johnson MD Work Phone: [facility] 02-25-2025 08:40-0400 Respiratory rate 18 /min Dr. Flavio Johnson MD Work Phone: [facility] 02-25-2025 08:40-0400 SaO2% (BldA) [Mass fraction] 96 % Dr. Flavio Johnson MD Work Phone: [facility] 02-25-2025 07:15-0400 Body height 162.[address] Flavio Johnson MD Work Phone: [facility] 02-25-2025 07:15-0400 Body mass index (BMI) [Ratio] 29.9 kg/m2 Dr. Flavio Johnson MD Work Phone: [facility] 02-25-2025 07:15-0400 Body weight 79.[address] Flavio Johnson MD Work Phone: [facility] 02-18-2025 10:26-0400 Body temperature 98.91 [degF] Vince Esequiel ENAMEL CRACKER[employer]SECURITY REPRESENTATIVE Work Phone: [facility] 02-18-2025 10:26-0400 Body weight 82.56 kg Vince Esequiel ENAMEL CRACKER[employer]SECURITY REPRESENTATIVE Work Phone: [facility] 02-18-2025 10:26-0400 Diastolic blood pressure 80 mm[Hg] Vince Esequiel ENAMEL CRACKER[employer]SECURITY REPRESENTATIVE Work Phone: [facility] 02-18-2025 10:26-0400 Heart rate 70 /min Vince Esequiel ENAMEL CRACKER[employer]SECURITY REPRESENTATIVE Work Phone: [facility] 02-18-2025 10:26-0400 Respiratory rate 16 /min Vince Esequiel ENAMEL CRACKER[employer]SECURITY REPRESENTATIVE Work Phone: [facility] 02-18-2025 10:26-0400 SaO2% (BldA) [Mass fraction] 94 % Vince Esequiel ENAMEL CRACKER[employer]SECURITY REPRESENTATIVE Work Phone: [facility] 02-18-2025 10:26-0400 Systolic blood pressure 128 mm[Hg] Vince Esequiel ENAMEL CR[employer]ER[employer]SECURITY REPRESENTATIVE Work Phone: [facility] 02-14-2025 08:27-0400 Body mass index (BMI) [Ratio] 31.2 kg/m2 Dr. Flavio Johnson MD Work Phone: [facility] 02-14-2025 08:27-0400 Body weight 82.[address] Flavio Johnson MD Work Phone: [facility] 02-14-2025 08:27-0400 Diastolic blood pressure 86 mm[Hg] Dr. Flavio Johnson MD Work Phone: [facility] 02-14-2025 08:27-0400 Respiratory rate 16 /min Dr. Flavio Johnson MD Work Phone: [facility] 02-14-2025 08:27-0400 Systolic blood pressure 131 mm[Hg] Dr. Flavio Johnson MD Work Phone: [facility] 01-06-2025 08:20-0500 Body mass index (BMI) [Ratio] 30.9 kg/m2 Dr. Flavio Johnson MD Work Phone: [facility] 01-06-2025 08:20-0500 Body temperature 97.3 [degF] Dr. Flavio Johnson MD Work Phone: [facility] 01-06-2025 08:20-0500 Body weight 81.[address] Flavio Johnson MD Work Phone: [facility] 01-06-2025 08:20-0500 Diastolic blood pressure 82 mm[Hg] Dr. Flavio Johnson MD Work Phone: [facility] 01-06-2025 08:20-0500 Heart rate 67 /min Dr. Flavio Johnson MD Work Phone: [facility] 01-06-2025 08:20-0500 Respiratory rate 16 /min Dr. Flavio Johnson MD Work Phone: [facility] 01-06-2025 08:20-0500 SaO2% (BldA) [Mass fraction] 96 % Dr. Flavio Johnson MD Work Phone: [facility] 01-06-2025 08:20-0500 Systolic blood pressure 138 mm[Hg] Dr. Flavio Johnson MD Work Phone: [facility] 12-08-2024 08:51-0500 Body mass index (BMI) [Ratio] 31.58 kg/m2 Alfa Holden Jr., DO Work Phone: [facility] 12-08-2024 08:51-0500 Body weight 83.46 kg Alfa Banueloskarlene Roger, DO Work Phone: [facility] 12-08-2024 08:51-0500 Diastolic blood pressure 76 mm[Hg] Alfa Holden Jr., DO Work Phone: [facility] 12-08-2024 08:51-0500 Systolic blood pressure 128 mm[Hg] Alfa Holden Jr., DO Work Phone: [facility] 07-13-2024 09:56-0400 Diastolic blood pressure 85 mm[Hg] Jose Luis Jackelyn DPM Work Phone: [facility] 07-13-2024 09:56-0400 Heart rate 73 /min Jose Luis Jackelyn DPM Work Phone: [facility] 07-13-2024 09:56-0400 Systolic blood pressure 133 mm[Hg] Jose Luis Enochs DPM Work Phone: [facility] 07-13-2024 09:46-0400 Body temperature 97.9 [degF] Jose Luis Enochs DPM Work Phone: [facility] 06-15-2024 08:32-0400 Body temperature 98.1 [degF] Jose Luis Enochs DPM Work Phone: [facility] 06-15-2024 08:32-0400 Diastolic blood pressure 80 mm[Hg] Jose Luis Jackelyn DPM Work Phone: [facility] 06-15-2024 08:32-0400 Heart rate 67 /min Jose Luis Jackelyn DPM Work Phone: [facility] 06-15-2024 08:32-0400 Systolic blood pressure 131 mm[Hg] Jose Luis Enochs DPM Work Phone: [facility] 06-04-2024 10:55-0400 Body height 162.6 cm lAfa Holden Jr., DO Work Phone: [facility] 06-04-2024 10:55-0400 Body mass index (BMI) [Ratio] 30.9 kg/m2 Alfa Holden Jr., DO Work Phone: [facility] 06-04-2024 10:55-0400 Body weight 81.65 kg Alfa Holden Jr., DO Work Phone: [facility] 06-04-2024 10:55-0400 Diastolic blood pressure 78 mm[Hg] Alfa Holden Jr., DO Work Phone: [facility] 06-04-2024 10:55-0400 Heart rate 76 /min Alfa Holden Jr., DO Work Phone: [facility] 06-04-2024 10:55-0400 SaO2% (BldA) [Mass fraction] 94 % Alfa Holden Jr., DO Work Phone: [facility] 06-04-2024 10:55-0400 Systolic blood pressure 128 mm[Hg] Alfa Holden Jr., DO Work Phone: [facility] 05-24-2024 08:53-0400 Body temperature 97.3 [degF] Jose Luis Enochs DPM Work Phone: [facility] 05-24-2024 08:53-0400 Diastolic blood pressure 87 mm[Hg] Jose Luis Jackelyn DPM Work Phone: [facility] 05-24-2024 08:53-0400 Heart rate 62 /min Jose Luis Enochs DPM Work Phone: [facility] 05-24-2024 08:53-0400 Systolic blood pressure 133 mm[Hg] Jose Luis Jackelyn DPM Work Phone: [facility] 03-05-2024 07:34-0400 Body height 162.6 cm Alfa Holden Jr., DO Work Phone: [facility] 03-05-2024 07:34-0400 Body mass index (BMI) [Ratio] 30.9 kg/m2 Alfa Holden Jr., DO Work Phone: [facility] 03-05-2024 07:34-0400 Body temperature 97 [degF] Alfa Banueloskarlene , DO Work Phone: [facility] 03-05-2024 07:34-0400 Body weight 81.65 kg Alfa Holden Jr., DO Work Phone: [facility] 03-05-2024 07:34-0400 Diastolic blood pressure 68 mm[Hg] Alfa Vinkarlene , DO Work Phone: [facility] 03-05-2024 07:34-0400 Heart rate 61 /min Alfa Banueloskarlene Roger, DO Work Phone: [facility] 03-05-2024 07:34-0400 SaO2% (BldA) [Mass fraction] 98 % Alfa Banueloskarlene , DO Work Phone: [facility] 03-05-2024 07:34-0400 Systolic blood pressure 124 mm[Hg] Alfa Banueloskarlene Libertad, DO Work Phone: [facility] 02-26-2024 08:27-0400 Body height 162.[address] Flavio Johnson Work Phone: [facility] 02-26-2024 08:27-0400 Body mass index (BMI) [Ratio] 31.7 kg/m2 Dr. Flavio Johnson Work Phone: [facility] 02-26-2024 08:27-0400 Body temperature 98.2 [degF] Dr. Flavio Johnson Work Phone: [facility] 02-26-2024 08:27-0400 Body weight 83.[address] Flavio Johnson Work Phone: [facility] 02-26-2024 08:27-0400 Diastolic blood pressure 86 mm[Hg] Dr. Flavio Johnson Work Phone: [facility] 02-26-2024 08:27-0400 Heart rate 79 /min Dr. Flavio Johnson Work Phone: [facility] 02-26-2024 08:27-0400 Respiratory rate 18 /min Dr. Flavio Johnson Work Phone: [facility] 02-26-2024 08:27-0400 SaO2% (BldA) [Mass fraction] 95 % Dr. Flavio Johnson Work Phone: [facility] 02-26-2024 08:27-0400 Systolic blood pressure 142 mm[Hg] Dr. Flavio Johnson Work Phone: [facility] 11-11-2023 09:01-0500 Body temperature 98.6 [degF] Jose Luis Jackelyn DPM Work Phone: [facility] 11-11-2023 09:01-0500 Diastolic blood pressure 76 mm[Hg] Jose Luis Jackelyn DPM Work Phone: [facility] 11-11-2023 09:01-0500 Heart rate 71 /min Jose Luis Enochs DPM Work Phone: [facility] 11-11-2023 09:01-0500 Systolic blood pressure 118 mm[Hg] Jose Luis Enochs DPM Work Phone: [facility] 10-20-2023 09:59-0500 Diastolic blood pressure 85 mm[Hg] Jose Luis Enochs DPM Work Phone: [facility] 10-20-2023 09:59-0500 Heart rate 80 /min Jose Luis Jackelyn DPM Work Phone: [facility] 10-20-2023 09:59-0500 Systolic blood pressure 126 mm[Hg] Jose Luis Jackelyn DPM Work Phone: [facility] 10-20-2023 09:48-0500 Body temperature 97.9 [degF] Jose Luis Hayden DPM Work Phone: [facility] 08-29-2023 07:54-0400 Body height 162.6 cm Alfa Holden Jr., DO Work Phone: [facility] 08-29-2023 07:54-0400 Body mass index (BMI) [Ratio] 30.92 kg/m2 Alfa Holden Jr., DO Work Phone: 2(033)988-069703 [place] [address] 08-29-2023 07:54-0400 Body temperature 98.71 [degF] Alfa Holden Jr., DO Work Phone: 9(024)470-394403 [place] [address] 08-29-2023 07:54-0400 Body weight 81.7 kg Alfa Holden Jr., DO Work Phone: [facility] 08-29-2023 07:54-0400 Diastolic blood pressure 80 mm[Hg] Alfa Holden Jr., DO Work Phone: 4(222)672-875603 [place] [address] 08-29-2023 07:54-0400 Systolic blood pressure 130 mm[Hg] Alfa Holden Jr., DO Work Phone: [facility] 05-12-2023 09:00-0400 Body height 162.6 cm Alfa Holden Jr., DO Work Phone: [facility] 05-12-2023 09:00-0400 Body mass index (BMI) [Ratio] 30.93 kg/m2 Alfa Holden Jr., DO Work Phone: [facility] 05-12-2023 09:00-0400 Body temperature 98.71 [degF] Alfa Holden Jr., DO Work Phone: [facility] 05-12-2023 09:00-0400 Body weight 81.74 kg Alfa Holden Jr., DO Work Phone: [facility] 05-12-2023 09:00-0400 Diastolic blood pressure 72 mm[Hg] Alfa Banuelosconstancemarielena Roger, DO Work Phone: [facility] 05-12-2023 09:00-0400 Systolic blood pressure 118 mm[Hg] Alfa Holden Jr., DO Work Phone: 9(580)387-842503 [place] [address] 05-31-2022 07:30-0400 Body height 162.6 cm Alfa Banuelosconstancemarielena Roger, DO Work Phone: 7(572)171-987603 [place] [address] 05-31-2022 07:30-0400 Body mass index (BMI) [Ratio] 30.21 kg/m2 Alfa Banuelosconstancemarielena Roger, DO Work Phone: 8(573)489-758003 [place] [address] 05-31-2022 07:30-0400 Body temperature 98.01 [degF] Alfa Vinconstancemarielena Roger, DO Work Phone: 9(187)978-093357 [place] [address] 05-31-2022 07:30-0400 Body weight 79.83 kg Alfa Holden Jr., DO Work Phone: 5(493)186-577357 [place] [address] 05-31-2022 07:30-0400 Diastolic blood pressure 72 mm[Hg] Alfa Banuelosconstancemarielena Roger, DO Work Phone: 3(609)450-610703 [place] [address] 05-31-2022 07:30-0400 Heart rate 84 /min Alfa Banuelosconstancemarielena ViramontesLibertad, DO Work Phone: 3(406)109-010103 [place] [address] 05-31-2022 07:30-0400 SaO2% (BldA) [Mass fraction] 97 % Alfa Banuelosconstancemarielena ViramontesLibertad, DO Work Phone: 3(128)670-495803 [place] [address] 05-31-2022 07:30-0400 Systolic blood pressure 124 mm[Hg] Alfa Vinconstancemarielena Roger, DO Work Phone: 0(918)941-499703 [place] [address] 01-23-2022 13:36-0500 Body height 162.6 cm Alfa Vinconstancemarielena ViramontesLibertad, DO Work Phone: 6(083)236-804003 [place] [address] 01-23-2022 13:36-0500 Body mass index (BMI) [Ratio] 30.38 kg/m2 Alfa Holden Jr., DO Work Phone: [facility] 01-23-2022 13:36-0500 Body temperature 98.01 [degF] Alfa Holden Jr., DO Work Phone: [facility] 01-23-2022 13:36-0500 Body weight 80.29 kg Alfa Holden Jr., DO Work Phone: [facility] 01-23-2022 13:36-0500 Diastolic blood pressure 78 mm[Hg] Alfa Banuelosconstancemarielena Roger, DO Work Phone: [facility] 01-23-2022 13:36-0500 Heart rate 84 /min Alfa Holden Jr., DO Work Phone: [facility] 01-23-2022 13:36-0500 SaO2% (BldA) [Mass fraction] 96 % Alfa Banuelosconstancemarielena Roger, DO Work Phone: [facility] 01-23-2022 13:36-0500 Systolic blood pressure 116 mm[Hg] Alfa Banuelosconstancemarielena Roger, DO Work Phone: [facility] 09-24-2021 09:41-0500 Body height 162.6 cm Alfa Banuelosconstancemarielena Roger, DO Work Phone: [facility] 09-24-2021 09:41-0500 Body mass index (BMI) [Ratio] 29.18 kg/m2 Alfa Banuelosconstancemarielena Roger, DO Work Phone: [facility] 09-24-2021 09:41-0500 Body temperature 98.01 [degF] Alfa Holden , DO Work Phone: [facility] 09-24-2021 09:41-0500 Body weight 77.11 kg Alfa Holden , DO Work Phone: [facility] 09-24-2021 09:41-0500 Diastolic blood pressure 76 mm[Hg] Alfa Holden Jr., DO Work Phone: [facility] 09-24-2021 09:41-0500 Heart rate 75 /min Alfa Banuelosconstancemarielena Roger, DO Work Phone: [facility] 09-24-2021 09:41-0500 SaO2% (BldA) [Mass fraction] 95 % Alfa Banuelosconstancemarielena Roger, DO Work Phone: [facility] 09-24-2021 09:41-0500 Systolic blood pressure 134 mm[Hg] lAfa Hullmarielena Roger, DO Work Phone: [facility] 05-23-2021 08:11-0400 Body height 162.6 cm Alfa Banuelosconstancemarielena Roger, DO Work Phone: [facility] 05-23-2021 08:11-0400 Body mass index (BMI) [Ratio] 29.35 kg/m2 Alfa Holden , DO Work Phone: [facility] 05-23-2021 08:11-0400 Body temperature 98.01 [degF] Alfa Banuelosconstancemarielena Roger, DO Work Phone: [facility] 05-23-2021 08:11-0400 Body weight 77.56 kg Alfa Banuelosconstancemarielena Roger, DO Work Phone: [facility] 05-23-2021 08:11-0400 Diastolic blood pressure 82 mm[Hg] Alfa Holden , DO Work Phone: [facility] 05-23-2021 08:11-0400 Heart rate 62 /min Alfa Banuelosconstancemarielena Roger, DO Work Phone: [facility] 05-23-2021 08:11-0400 SaO2% (BldA) [Mass fraction] 97 % Alfa Vinkarlene , DO Work Phone: [facility] 05-23-2021 08:11-0400 Systolic blood pressure 138 mm[Hg] Alfa Holden Jr., DO Work Phone: [facility] 02-23-2021 07:08-0400 BMI (Body Mass Index) 29.52 kg/m2 [facility] 02-23-2021 07:08-0400 Body Temperature 98.1 [degF] [facility] 02-23-2021 07:08-0400 Body weight 78.02 kg [facility] 02-23-2021 07:08-0400 BP Diastolic 82 mm[Hg] [facility] 02-23-2021 07:08-0400 BP Systolic 126 mm[Hg] [facility] 02-23-2021 07:08-0400 Height 162.6 cm [facility] 02-23-2021 07:08-0400 Pulse (Heart Rate) 68 /min [facility] 02-23-2021 07:08-0400 Pulse Oximetry 98 % [facility] Encounters Encounter Date Encounter Type Care Provider Facility Start: 09-07-2025 ambulatory [facility] Start: 07-19-2025 ambulatory Flavio Mathewslay Facility :[facility] Start: 06-27-2025 End: 06-27-[address] Flavio Johnson MD Work Phone: -Ultrasound [facility] Start: 06-27-2025 End: 06-27-[address] Flavio Johnson MD -Ultrasound [facility] Work Phone: Start: 06-27-2025 End: 06-27-2025 ambulatory Flavio Johnson Facility:[facility] Start: 06-22-2025 End: 06-22-[address] Schuyler Butler DO -[facility] Work Phone: Start: 06-22-2025 End: 06-22-[address] Flavio Johnson MD Work Phone: -[facility] Start: 06-22-2025 End: 06-22-[address] Flavio Johnson MD -[facility] Work Phone: Start: 06-22-2025 End: 06-22-[address] Flavio Johnson MD Work Phone: -[facility] Start: 06-22-2025 End: 06-22-2025 ambulatory Flavio Johnson Facility:[facility] Start: 06-13-2025 End: 06-13-[address] Flavio Johnson MD Work Phone: -Cat Scan [facility] Start: 06-13-2025 End: 06-13-[address] Schuyler Butler DO -Cat Scan [facility] Work Phone: Start: 06-13-2025 End: 06-13-2025 ambulatory Schuyler Butler Facility:[facility] Start: 06-06-2025 End: 06-06-2025 Office outpatient visit 15 minutes Alfa Holden DO Work Phone: [facility] Comment on above: Fatty liver (Primary Dx); Lumbosacral radiculopathy at S1; Carpal tunnel syndrome of left wrist; Osteoarthritis of right sacroiliac joint; Osteoarthritis of lumbar spine, unspecified spinal osteoarthritis complication status; Osteoarthritis of both hands, unspecified osteoarthritis type; Osteoarthritis of both feet, unspecified osteoarthritis type; Spinal stenosis of lumbar region with neurogenic claudication; HNP (herniated nucleus pulposus), lumbar; 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 Schuyler Butler DO -[facility] Work Phone: Start: 05-25-2025 End: 05-25-[address] Flavio Johnson MD Work Phone: -[facility] Start: 05-25-2025 End: 05-25-2025 ambulatory Alfa Holden Jr. Facility:[facility] Start: 05-24-[address] Alfa Holden MD -Laboratory Specimen Work Phone: Start: 05-11-2025 End: 05-11-[address] Flavio Johnson MD -[facility] Work Phone: Start: 05-11-2025 End: 05-11-[address] Flavio Johnson MD Work Phone: [facility] Work Phone: Start: 02-28-2025 End: 02-28-2025 ambulatory ANKIT STANTON Facility:[facility] Start: 02-28-2025 End: 02-28-2025 Patient encounter procedure Ankit Templetonayaka OD Work Phone: Optometry Comment on above: Dry eyes, bilateral (Primary Dx) Start: 02-25-2025 ambulatory [facility] Facility :[facility] Start: 02-25-2025 Non-patient / Non-visit Dr. Muriel Oakley MD -[facility] Start: 02-25-2025 End: 02-25-2025 Admission to same day surgery center Dr. Eris Oakley MD -Endoscopy Work Phone: Start: 02-25-2025 End: 02-25-[address] Flavio Johnson MD Work Phone: [facility] Work Phone: Start: 02-18-2025 End: 02-18-2025 Patient encounter procedure Vince Díaz ENAMEL CRACKER-SECURITY REPRESENTATIVE Work Phone: [facility] Comment on above: Acute bronchitis, un specified organism (Primary Dx) Start: 02-18-2025 End: 02-18-2025 ambulatory [facility] Start: 02-14-2025 End: 02-14-[address] Eris Oakley MD -[facility] Work Phone: Start: 02-14-2025 End: 02-14-2025 ambulatory Flavio Slovan Facility:[facility] Start: 01-13-2025 Encounter for genera l adult medical examination without abnormal findings Flavio Elizabeth [facility] Start: 01-06-2025 End: 01-06-[address] Flavio Johnson MD -[facility] Work Phone: Start: 01-06-2025 End: 01-06-2025 ambulatory Flavio Slovan Facility:[facility] Start: 01-06-2025 End: 01-06-2025 ambulatory [facility] Facility:[facility] Start: 12-08-2024 End: 12-08-2024 Office outpatient visit 15 minutes Alfa Holden DO Work Phone: [facility] Comment on above: Fatty liver (Primary Dx); Hypercarbia; Lumbosacral radiculopathy at S1; Carpal tunnel syndrome of left wrist; Osteoarthritis of right sacroiliac joint; Osteoarthritis of lumbar spine, unspecified spinal osteoarthritis complication status; Osteoarthritis of both hands, unspecified osteoarthritis type; Osteoarthritis of both feet, unspecified osteoarthritis type; Spinal stenosis of lumbar region with neurogenic claudication; HNP (herniated nucleus pulposus), lumbar; 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 (NSAID); History of psoriatic arthritis; History of psoriasis; History of osteoarthritis; History of fibromyalgia Start: 12-08-2024 ambulatory ALFA TRAN JR [facility] Start: 11-25-2024 ambulatory ALFA TRAN JR [facility] Start: 10-11-2024 End: 10-11-2024 ambulatory ANKIT STANTON Facility:[facility] Start: 10-11-2024 End: 10-11-2024 Patient encounter procedure Ankit Stanton OD Work Phone: Optometry Comment on above: 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 Start: 07-21-2024 End: 07-21-[address] [facility] Start: 07-16-2024 End: 07-16-[address] [facility] Start: 07-13-2024 End: 07-13-2024 Office outpatient visit 15 minutes Jose Luis Hayden DPM Work Phone: [facility] Comment on above: Plantar fasciitis of right foot (Primary Dx); Equinus contracture of ankle Start: 07-13-2024 End: 07-13-2024 ambulatory FLAVIO MCKEON [facility] Start: 07-12-2024 End: 07-12-[address] [facility] Start: 07-09-2024 End: 07-09-[address] [facility] Start: 07-07-2024 End: 07-07-[address] [facility] Start: 07-02-2024 End: 07-02-[address] [facility] Start: 06-30-2024 End: 06-30-[address] [facility] Start: 06-24-2024 End: 06-24-[address] [facility] Start: 06-15-2024 End: 06-15-2024 Office outpatient visit 15 minutes Jose Luis Hayden DPM Work Phone: [facility] Comment on above: Plantar fasciitis of right foot (Primary Dx); Equinus contracture of ankle; Contusion of right heel, initial encounter; Intractable right heel pain Start: 06-15-2024 End: 06-15-2024 amb[address] MAXIMINO JACKELYN [facility] Start: 06-04-2024 End: 06-04-2024 Office outpatient visit 10 minutes Alfa Holden DO Work Phone: 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 (NSAID); Fatty liver; BHATIA (nonalcoholic steatohepatitis); Hypercarbia; Carpal tunnel syndrome of left wrist; Lumbosacral radiculopathy at S1; HNP (herniated nucleus pulposus), lumbar; Lumbar degenerative disc disease; Spinal stenosis of lumbar region with neurogenic claudication; Osteoarthritis of both feet, unspecified osteoarthritis type; Osteoarthritis of both hands, unspecified osteoarthritis type; Osteoarthritis of lumbar spine, unspecified spinal osteoarthritis complication status; Osteoarthritis of right sacroiliac joint; History of fibromyalgia; History of osteoarthritis; History of psoriasis Start: 05-24-2024 End: 05-24-2024 Office outpatient visit 15 minutes Jose Luis Hayden DPM Work Phone: [facility] Comment on above: Contusion of right h eel, initial encounter (Primary Dx); Intractable right heel pain; Onychomycosis; Pain due to onychomycosis of toenail of left foot; Pain due to onychomycosis of toenail of right foot Start: 05-24-2024 End: 05-28-2024 [address] STANTON JACKELYN [facility] Start: 03-05-2024 End: 03-05-2024 Office outpatient visit 15 minutes Alfa Holden DO Work Phone: [facility] Comment on above: Psoriatic arthritis (Primary Dx); Osteoarthritis of right sacroiliac joint; Osteoarthritis of lumbar spine, unspecified spinal osteoarthritis complication status; Osteoarthritis of both hands, unspecified osteoarthritis type; Osteoarthritis of both feet, unspecified osteoarthritis type; Spinal stenosis of lumbar region with neurogenic claudication; Lumbar degenerative disc disease; HNP (herniated nucleus pulposus), lumbar; Disorder of bone and cartilage; Psoriasis; Long-term use of Plaquenil; Long-term use of high-risk medication; MCFP current use of non-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-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 (NSAID); LFT elevation; History of psoriatic arthritis; History of psoriasis; History of osteoarthritis; History of fibromyalgia; BHATIA (nonalcoholic steatohepatitis); Fatty liver; Hypercarbia; Lumbosacral radiculopathy at S1; Carpal tunnel syndrome of left wrist Start: 03-02-2024 End: 03-02-[address] Flavio Johnson Work Phone: [facility] Work Phone: Start: 03-02-2024 End: 03-02-[address] Flavio Johnson Work Phone: [facility] Work Phone: Start: 02-26-2024 End: 02-26-[address] Flavio Johnson Work Phone: [facility] Work Phone: Start: 02-10-2024 End: 02-10-2024 Patient encounter procedure Jose Luis Hayden DPM Work Phone: [facility] Comment on above: Onychomycosis (Prima ry Dx); Pain due to onychomycosis of toenail of left foot; Pain due to onychomycosis of toenail of right foot Start: 02-10-2024 End: 02-10-[address] [facility] Start: 11-11-2023 End: 11-11-2023 Office outpatient visit 15 minutes Jose Luis Hayden DPM Work Phone: [facility] Comment on above: Onychomycosis (Prima ry Dx); Arthritis of midtarsal joint of right foot; Right foot pain; Pain due to onychomycosis of toenail of left foot; Pain due to onychomycosis of toenail of right foot Start: 11-11-2023 End: 11-11-[address] [facility] Start: 10-20-2023 End: 10-20-2023 Office outpatient new 30 minutes Jose Luis Hayden DPM Work Phone: [facility] Comment on above: Arthritis of midtars al joint of right foot (Primary Dx); Right foot pain Start: 10-20-2023 End: 10-24-[address] [facility] Start: 09-25-2023 End: 09-25-2023 Patient encounter procedure Wm Stanotn OD Work Phone: Optometry Comment on above: Long-term use of Sara quenil (Primary Dx); Combined form of senile cataract of both eyes; Vitreous floaters of both eyes; Hyperopia of both eyes; Regular astigmatism of both eyes; Presbyopia Start: 08-29-2023 End: 08-29-2023 Office outpatient visit 25 minutes Alfa Holden DO Work Phone: 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 (NSAID); Long-term use of high-risk medication; Long-term use of Plaquenil; Hypercarbia; Carpal tunnel syndrome of left wrist; Lumbosacral radiculopathy at S1; HNP (herniated nucleus pulposus), lumbar; Lumbar degenerative disc disease; Spinal stenosis of lumbar region with neurogenic claudication; Osteoarthritis of both feet, unspecified osteoarthritis type; Osteoarthritis of both hands, unspecified osteoarthritis type; Osteoarthritis of lumbar spine, unspecified spinal osteoarthritis complication status; Osteoarthritis of right sacroiliac joint Start: 05-12-2023 End: 05-12-2023 Office outpatient visit 15 minutes Alfa Holden DO Work Phone: [facility] Comment on above: Psoriatic arthritis (Primary Dx); Psoriasis; History of fibromyalgia; History of osteoarthritis; History of psoriasis; History of psoriatic arthritis; LFT elevation; 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 (NSAID); Long-term use of high-risk medication; Long-term use of Plaquenil; Carpal tunnel syndrome of left wrist; Lumbosacral radiculopathy at S1; HNP (herniated nucleus pulposus), lumbar; Lumbar degenerative disc disease; Spinal stenosis of lumbar region with neurogenic claudication; Osteoarthritis of both feet, unspecified osteoarthritis type; Osteoarthritis of both hands, unspecified osteoarthritis type; Osteoarthritis of lumbar spine, unspecified spinal osteoarthritis complication status Start: 05-31-2022 End: 05-31-2022 Office outpatient visit 15 minutes Alfa Holden [employer] Phone: [facility] Comment on above: Psoriatic arthritis (Primary Dx); Psoriasis; History of fibromyalgia; History of osteoarthritis; History of psoriasis; History of psoriatic arthritis; MCFP current use of non-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-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 (NSAID); Long-term use of high-risk medication; Long-term use of Plaquenil; Carpal tunnel syndrome of left wrist; Lumbosacral radiculopathy at S1; HNP (herniated nucleus pulposus), lumbar; Lumbar degenerative disc disease; Spinal stenosis of lumbar region with neurogenic claudication; Osteoarthritis of both feet, unspecified osteoarthritis type; Osteoarthritis of both hands, unspecified osteoarthritis type; Osteoarthritis of lumbar spine, unspecified spinal osteoarthritis complication status; Osteoarthritis of right sacroiliac joint Start: 01-23-2022 End: 01-23-2022 Office outpatient visit 15 minutes Alfa Holden [employer] Phone: [facility] Comment on above: Psoriatic arthritis (Primary Dx); History of fibromyalgia; History of osteoarthritis; History of psoriasis; History of psoriatic arthritis; MCFP current use of non-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-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 (NSAID); Long-term use of high-risk medication; Long-term use of Plaquenil; Carpal tunnel syndrome of left wrist; Lumbosacral radiculopathy at S1; HNP (herniated nucleus pulposus), lumbar; Lumbar degenerative disc disease; Spinal stenosis of lumbar region with neurogenic claudication; Osteoarthritis of both feet, unspecified osteoarthritis type; Osteoarthritis of both hands, unspecified osteoarthritis type; Osteoarthritis of lumbar spine, unspecified spinal osteoarthritis complication status; Osteoarthritis of right sacroiliac joint; Psoriasis Start: 09-24-2021 End: 09-24-2021 Office outpatient visit 15 minutes Alfa Holden [employer] Phone: [facility] Comment on above: Psoriatic arthritis (Primary Dx); Psoriasis; Long-term use of Plaquenil; Long-term use of high-risk medication; 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 (NSAID); History of psoriatic arthritis; History of psoriasis; History of osteoarthritis; History of fibromyalgia; CRP elevated; Lumbosacral radiculopathy at S1; Carpal tunnel syndrome of left wrist; Osteoarthritis of right sacroiliac joint; Osteoarthritis of lumbar spine, unspecified spinal osteoarthritis complication status; Osteoarthritis of both hands, unspecified osteoarthritis type; Osteoarthritis of both feet, unspecified osteoarthritis type; Spinal stenosis of lumbar region with neurogenic claudication; Lumbar degenerative disc disease; HNP (herniated nucleus pulposus), lumbar Start: 07-16-2021 Patient encounter procedure Noreen Ozuna PT Work Phone: [facility] Work Phone: Start: 07-11-2021 Patient encounter procedure Tomasa Shields [employer] Work Phone: [facility] Work Phone: Start: 06-18-2021 Patient encounter procedure Tomasa Shields [employer] Work Phone: [facility] Work Phone: Start: 06-15-2021 Patient encounter procedure Tomasa Shields [employer] Work Phone: [facility] Work Phone: Start: 06-15-2021 [email or web address], Provider : Tomasa Shields, Status: Pen, Time: 8:30 AM Celena Khoury [employer] Work Phone: [facility] Work Phone: Start: 06-13-2021 Patient encounter procedure Celena Khoury [employer] Work Phone: [facility] Work Phone: Start: 05-23-2021 End: 05-23-2021 Office outpatient visit 40 minutes Alfa Holden DO Work Phone: [facility] Comment on above: Psoriatic arthritis (Primary Dx); 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 (NSAID); History of osteoarthritis; History of psoriatic arthritis; History of psoriasis; Long-term use of high-risk medication; Long-term use of Plaquenil; History of fibromyalgia; Carpal tunnel syndrome of left wrist; Lumbosacral radiculopathy at S1; Osteoarthritis of right sacroiliac joint; Lumbar degenerative disc disease; Osteoarthritis of lumbar spine, unspecified spinal osteoarthritis complication status; Osteoarthritis of both hands, unspecified osteoarthritis type; Osteoarthritis of both feet, unspecified osteoarthritis type; HNP (herniated nucleus pulposus), lumbar; Spinal stenosis of lumbar region with neurogenic claudication; Psoriasis Start: 05-04-2021 End: 05-04-2021 Subsequent hospital visit by physician Alfa Holden DO Work Phone: [facility] Comment on above: Arrived Start: 04-12-2021 OTRECLUCILLET, Provider : Daphne Cabrera, Status: Pen, Time: 9:45 AM Anny GLASER Work Phone: [facility] Work Phone: Start: 04-11-2021 End: 04-11-2021 Subsequent hospital visit by physician Alfa Holden DO Work Phone: [facility] Comment on above: Arrived Start: 04-11-2021 End: 04-11-2021 Subsequent hospital visit by physician Alfa Holden DO Work Phone: [facility] Comment on above: Arrived Start: 04-10-2021 Patient encounter procedure Anny CUELLO/Emili Work Phone[facility] Work Phone: Start: 02-23-2021 End: 02-23-2021 Office outpatient new 60 minutes Alfa Holden Work Phone: [facility] Comment on above: Dorsalgia (Primary D x); Paresthesias in left hand; Carpal tunnel syndrome of left wrist; Paresthesia of right foot; Disorder of bone and cartilage; Abnormal reflexes of lower extremity; Osteoarthritis of right sacroiliac joint; Lumbar degenerative disc disease; Osteoarthritis of lumbar spine, unspecified spinal osteoarthritis complication status; Bilateral wrist pain; Bilateral hand pain; Osteoarthritis of both hands, unspecified osteoarthritis type; Weakness of both hands; Osteoarthritis of both feet, unspecified osteoarthritis type; Psoriasis; Fatigue, unspecified type; MCFP current use of non-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-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 (NSAID); History of osteoarthritis; History of psoriatic arthritis; History of psoriasis; Long-term use of high-risk medication; Long-term use of Plaquenil; History of fibromyalgia; Chronic bilateral low back pain with left-sided sciatica; Disc disorder; Spinal stenosis of lumbar region with neurogenic claudication; Lumbar radiculopathy; Spondylolisthesis of lumbar region; Psoriatic arthritis; Chronic midline low back pain with left-sided sciatica; Chronic bilateral low back pain with right-sided sciatica; Ankylosing spondylitis, unspecified site of spine; Chronic bilateral low back pain without sciatica Start: 01-18-2021 End: 01-18-2021 Orders Only Bina Davis Work Phone: [facility] Start: 12-21-2018 Patient encounter procedure Facility:[id number] Start: 06-22-2018 Patient encounter procedure Facility:[id number] Procedures Date Procedure Procedure Detail Performing Clinician Start: 06-27-2025 US scan of bladder Dr. Flavio Johnson MD Work Phone: Start: 06-27-2025 US scan of thyroid Dr. Flavio Johnson MD Work Phone: Start: 06-22-2025 Urnls dip stick/tabl et reagent auto microscopy Dr. Flavio Johnson MD Work Phone: Start: 06-13-2025 CT of chest without contrast Dr. Flavio Johnson MD Work Phone: Start: 02-25-[address] Flavio Johnson MD Work Phone: Start: 10-11-2024 End: 10-11-2024 Computerized ophthalmic imaging retina Ankit Villatoro Keri OD Work Phone: Start: 03-02-[address] Flavio Johnson Work Phone: Start: 09-25-2023 End: 09-25-2023 Computerized ophthalmic imaging retina Wm Stanton OD Work Phone: Start: 05-04-2021 Radex spine lumbscrl compl w/bending views min 6 Sandoval Singh MD Work Phone: Start: 04-11-2021 End: 04-11-2021 Radex hand minimum 3 views Alfa soler DO Work Phone: Start: 04-11-2021 Mri spinal canal lum bar w/o & w/contr matrl Alfa Holden DO Work Phone: Plan of Treatment Date Care Activity Detail Author Start: 04-04-20 31 RSV Vaccine (1 - 1-dose 75+ series) RSV Vaccine (1 - 1-dose 75+ series) [facility] Start: 01-26-20 28 Screening for malignant neoplasm of colon [facility] Start: 11-25-19 28 Diabetes Screening Diabetes Screening [facility] Start: 05-24-20 27 Diabetes Screening Diabetes Screening [facility] Start: 01-26-20 26 Screening for malignant neoplasm of colon COLORECTAL CANCER SCREENING [facility] Start: 09-14-20 25 OCT MACULA CIRRUS OU (BOTH EYES) OCT MACULA CIRRUS OU (BOTH EYES) OPHT Im aging Routine Long-term use of Plaquenil Expected: 09/14/2025 [facility] Work Phone: Comment on above: Expected: 09/14/2025 Start: 09-14-20 25 VISUAL FIELD 10-2 OU (BOTH EYES) VISUAL FIELD 10-2 OU (BOTH EYES) OPHT Im aging Routine Long-term use of Plaquenil Expected: 09/14/2025 [facility] Work Phone: Comment on above: Expected: 09/14/2025 Start: 09-07-20 25 End: 09-07-20 25 Patient encounter procedure 09/07/2025 8:30 AM EDT Office Visit [facility] [address] [place] [address] Shelley Roger, Alfa Zuniga, [address] [address] [facility] Start: 08-23-20 End: 06-06-20 C-reactive protein C REACTIVE PROTEIN Lab Routine Fatty rno er Lumbosacral radiculopathy at S1 Carpal tunnel syndrome of left wrist Osteoarthritis of right sacroiliac joint Osteoarthritis of lumbar spine, unspecified spinal osteoarthritis complication status Osteoarthritis of both hands, unspecified osteoarthritis type Osteoarthritis of both feet, unspecified osteoarthritis type Spinal stenosis of lumbar region with neurogenic claudication HNP (herniated nucleus pulposus), lumbar MCFP current use of non-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-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 (NSAID) History of psoriatic arthritis History of psoriasis History of osteoarthritis History of fibromyalgia Expected: 08/23/2025 (Approximate), Expires: 06/06/2026 [facility] Comment on above: Expected: 08/23/2025 (Approximate), Expi res: 06/06/2026 Start: 08-23-20 End: 06-06-20 Complete blood count with white cell differential, automated CBC, EDIF, PLATELET Lab Routine Fatty li luci Lumbosacral radiculopathy at S1 Carpal tunnel syndrome of left wrist Osteoarthritis of right sacroiliac joint Osteoarthritis of lumbar spine, unspecified spinal osteoarthritis complication status Osteoarthritis of both hands, unspecified osteoarthritis type Osteoarthritis of both feet, unspecified osteoarthritis type Spinal stenosis of lumbar region with neurogenic claudication HNP (herniated nucleus pulposus), lumbar 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 (NSAID) History of psoriatic arthritis History of psoriasis History of osteoarthritis History of fibromyalgia Expected: 08/23/2025 (Approximate), Expires: 06/06/2026 [facility] Comment on above: Expected: 08/23/2025 (Approximate), Expi res: 06/06/2026 Start: 08-23-20 End: 06-06-20 Comprehensive metabolic 2000 panel - Serum or Plasma COMPREHENSIVE METABOLIC PANEL Lab Routin e Fatty liver Lumbosacral radiculopathy at S1 Carpal tunnel syndrome of left wrist Osteoarthritis of right sacroiliac joint Osteoarthritis of lumbar spine, unspecified spinal osteoarthritis complication status Osteoarthritis of both hands, unspecified osteoarthritis type Osteoarthritis of both feet, unspecified osteoarthritis type Spinal stenosis of lumbar region with neurogenic claudication HNP (herniated nucleus pulposus), lumbar 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 (NSAID) History of psoriatic arthritis History of psoriasis History of osteoarthritis History of fibromyalgia Expected: 08/23/2025 (Approximate), Expires: 06/06/2026 [facility] Comment on above: Expected: 08/23/2025 (Approximate), Expi res: 06/06/2026 Start: 08-23-20 End: 06-06-20 26 SEDIMENTATION RATE, AUTOMATED SEDIMENTATION RATE, AUTOMATED Lab Routin e Fatty liver Lumbosacral radiculopathy at S1 Carpal tunnel syndrome of left wrist Osteoarthritis of right sacroiliac joint Osteoarthritis of lumbar spine, unspecified spinal osteoarthritis complication status Osteoarthritis of both hands, unspecified osteoarthritis type Osteoarthritis of both feet, unspecified osteoarthritis type Spinal stenosis of lumbar region with neurogenic claudication HNP (herniated nucleus pulposus), lumbar 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 Start: 06-06-20 25 End: 06-06-20 25 Patient encounter procedure 06/06/2025 9:00 AM EDT Office Visit [facility] [address] [place] [phone] Shelley Roger, Alfa Zuniga, [address] [address] [facility] Start: 05-24-20 25 End: 12-08-19 26 C-reactive protein C REACTIVE PROTEIN Lab Routine Fatty ron er Hypercarbia Lumbosacral radiculopathy at S1 Carpal tunnel syndrome of left wrist Osteoarthritis of right sacroiliac joint Osteoarthritis of lumbar spine, unspecified spinal osteoarthritis complication status Osteoarthritis of both hands, unspecified osteoarthritis type Osteoarthritis of both feet, unspecified osteoarthritis type Spinal stenosis of lumbar region with neurogenic claudication HNP (herniated nucleus pulposus), lumbar MCFP current use of non-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-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 (NSAID) History of psoriatic arthritis History of psoriasis History of osteoarthritis History of fibromyalgia Expected: 05/24/2025 (Approximate), Expires: 12/08/2025 [facility] Comment on above: Expected: 05/24/2025 (Approximate), Expi res: 12/08/2025 Start: 05-24-20 25 End: 12-08-19 26 Complete blood count with white cell differential, automated CBC, EDIF, PLATELET Lab Routine Fatty li luci Hypercarbia Lumbosacral radiculopathy at S1 Carpal tunnel syndrome of left wrist Osteoarthritis of right sacroiliac joint Osteoarthritis of lumbar spine, unspecified spinal osteoarthritis complication status Osteoarthritis of both hands, unspecified osteoarthritis type Osteoarthritis of both feet, unspecified osteoarthritis type Spinal stenosis of lumbar region with neurogenic claudication HNP (herniated nucleus pulposus), lumbar MCFP current use of non-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-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 (NSAID) History of psoriatic arthritis History of psoriasis History of osteoarthritis History of fibromyalgia Expected: 05/24/2025 (Approximate), Expires: 12/08/2025 [facility] Comment on above: Expected: 05/24/2025 (Approximate), Expi res: 12/08/2025 Start: 05-24-20 25 End: 12-08-19 26 Comprehensive metabolic 2000 panel - Serum or Plasma COMPREHENSIVE METABOLIC PANEL Lab Routin e Fatty liver Hypercarbia Lumbosacral radiculopathy at S1 Carpal tunnel syndrome of left wrist Osteoarthritis of right sacroiliac joint Osteoarthritis of lumbar spine, unspecified spinal osteoarthritis complication status Osteoarthritis of both hands, unspecified osteoarthritis type Osteoarthritis of both feet, unspecified osteoarthritis type Spinal stenosis of lumbar region with neurogenic claudication HNP (herniated nucleus pulposus), lumbar MCFP current use of non-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-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 (NSAID) History of psoriatic arthritis History of psoriasis History of osteoarthritis History of fibromyalgia Expected: 05/24/2025 (Approximate), Expires: 12/08/2025 [facility] Comment on above: Expected: 05/24/2025 (Approximate), Expi res: 12/08/2025 Start: 05-24-20 25 End: 12-08-19 26 SEDIMENTATION RATE, AUTOMATED SEDIMENTATION RATE, AUTOMATED Lab Routin e Fatty liver Hypercarbia Lumbosacral radiculopathy at S1 Carpal tunnel syndrome of left wrist Osteoarthritis of right sacroiliac joint Osteoarthritis of lumbar spine, unspecified spinal osteoarthritis complication status Osteoarthritis of both hands, unspecified osteoarthritis type Osteoarthritis of both feet, unspecified osteoarthritis type Spinal stenosis of lumbar region with neurogenic claudication HNP (herniated nucleus pulposus), lumbar 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 Start: 02-26-20 Patient discharge 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 (NSAID) Fatty liver BHATIA (nonalcoholic steatohepatitis) Hypercarbia Carpal tunnel syndrome of left wrist Lumbosacral radiculopathy at S1 HNP (herniated nucleus pulposus), lumbar Lumbar degenerative disc disease Spinal stenosis of lumbar region with neurogenic claudication Osteoarthritis of both feet, unspecified osteoarthritis type Osteoarthritis of both hands, unspecified osteoarthritis type Osteoarthritis of lumbar spine, unspecified spinal osteoarthritis complication status Osteoarthritis of right sacroiliac joint History of fibromyalgia History of osteoarthritis History of psoriasis Expected: 11/21/2024 (Approximate), Expires: [facility]04/[facility] Comment on above: Expected: 11/21/2024 (Approximate), Expi res: 06/04/2025 Start: 11-21-19 End: 06-04-20 Complete blood count with white cell differential, automated CBC, EDIF, PLATELET Lab Routine History of psoriatic arthritis LFT elevation MCFP current use of non-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-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 (NSAID) Fatty liver BHATIA (nonalcoholic steatohepatitis) Hypercarbia Carpal tunnel syndrome of left wrist Lumbosacral radiculopathy at S1 HNP (herniated nucleus pulposus), lumbar Lumbar degenerative disc disease Spinal stenosis of lumbar region with neurogenic claudication Osteoarthritis of both feet, unspecified osteoarthritis type Osteoarthritis of both hands, unspecified osteoarthritis type Osteoarthritis of lumbar spine, unspecified spinal osteoarthritis complication status Osteoarthritis of right sacroiliac joint History of fibromyalgia History of osteoarthritis History of psoriasis Expected: 11/21/2024 (Approximate), Expires: 06/04/2025 [facility] Comment on above: Expected: 11/21/2024 (Approximate), Expi res: 06/04/2025 Start: 11-21-19 End: 06-04-20 Comprehensive metabolic 2000 panel - Serum or Plasma COMPREHENSIVE METABOLIC PANEL Lab Routin e History of psoriatic arthritis LFT 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 (NSAID) Fatty liver BHATIA (nonalcoholic steatohepatitis) Hypercarbia Carpal tunnel syndrome of left wrist Lumbosacral radiculopathy at S1 HNP (herniated nucleus pulposus), lumbar Lumbar degenerative disc disease Spinal stenosis of lumbar region with neurogenic claudication Osteoarthritis of both feet, unspecified osteoarthritis type Osteoarthritis of both hands, unspecified osteoarthritis type Osteoarthritis of lumbar spine, unspecified spinal osteoarthritis complication status Osteoarthritis of right sacroiliac joint History of fibromyalgia History of osteoarthritis History of psoriasis Expected: 11/21/2024 (Approximate), Expires: 06/04/2025 [facility] Comment on above: Expected: 11/21/2024 (Approximate), Expi res: 06/04/2025 Start: 11-21-19 End: 06-04-20 SEDIMENTATION RATE, AUTOMATED SEDIMENTATION RATE, AUTOMATED Lab Routin e History of psoriatic arthritis LFT elevation MCFP current use of non-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-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 (NSAID) Fatty liver BHATIA (nonalcoholic steatohepatitis) Hypercarbia Carpal tunnel syndrome of left wrist Lumbosacral radiculopathy at S1 HNP (herniated nucleus pulposus), lumbar Lumbar degenerative disc disease Spinal stenosis of lumbar region with neurogenic claudication Osteoarthritis of both feet, unspecified osteoarthritis type Osteoarthritis of both hands, unspecified osteoarthritis type Osteoarthritis of lumbar spine, unspecified spinal osteoarthritis complication status Osteoarthritis of right sacroiliac joint History of fibromyalgia History of osteoarthritis History of psoriasis Expected: 11/21/2024 (Approximate), Expires: 06/04/2025 [facility] Comment on above: Expected: 11/21/2024 (Approximate), Expi res: 06/04/2025 Start: 11-17-19 Advance Directive Discussion Advance Directive Discussion [facility] Start: 07-18-20 24 Covid-19 Vaccine ( season) Covid-19 Vaccine ( season) [facility] Start: 07-18-20 Influenza vaccination INFLUENZA VACCINE (#1) [facility] Start: 07-13-20 End: 07-13-20 Patient encounter procedure 07/13/2024 9:45 AM EDT Office Visit [facility] [address] [place] [phone] Jose Luis Hayden DPM [address] [place] [address] [facility] Start: 06-15-20 End: 06-15-20 Patient encounter procedure 06/15/2024 8:30 AM EDT Office Visit [facility] [address] [place] [phone] Jose Luis Hayden DPM [address] [place] [address] [facility] Start: 06-04-20 End: 06-04-20 Patient encounter procedure 06/04/2024 11:00 AM EDT Office Visit [facility] [address] [place] [phone] Shelley Roger, Alfa Zuniga, DO [address] [place] [id number] [facility] Start: 05-22-20 Screening for malignant neoplasm of colon [facility] Start: 05-21-20 End: 03-05-20 25 C-reactive protein C REACTIVE PROTEIN Lab Routine Psoriatic arthritis Osteoarthritis of right sacroiliac joint Osteoarthritis of lumbar spine, unspecified spinal osteoarthritis complication status Osteoarthritis of both hands, unspecified osteoarthritis type Osteoarthritis of both feet, unspecified osteoarthritis type Spinal stenosis of lumbar region with neurogenic claudication Lumbar degenerative disc disease HNP (herniated nucleus pulposus), lumbar Disorder of bone and cartilage Psoriasis Long-term use of Plaquenil Long-term use of high-risk medication 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 (NSAID) LFT elevation History of psoriatic arthritis History of psoriasis History of osteoarthritis History of fibromyalgia BHATIA (nonalcoholic steatohepatitis) Fatty liver Hypercarbia Lumbosacral radiculopathy at S1 Carpal tunnel syndrome of left wrist Expected: 05/21/2024 (Approximate), Expires: 03/05/2025 [facility] Comment on above: Expected: 05/21/2024 (Approximate), Expi res: 03/05/2025 Start: 05-21-20 End: 03-05-20 Complete blood count with white cell differential, automated CBC, EDIF, PLATELET Lab Routine Psoriati c arthritis Osteoarthritis of right sacroiliac joint Osteoarthritis of lumbar spine, unspecified spinal osteoarthritis complication status Osteoarthritis of both hands, unspecified osteoarthritis type Osteoarthritis of both feet, unspecified osteoarthritis type Spinal stenosis of lumbar region with neurogenic claudication Lumbar degenerative disc disease HNP (herniated nucleus pulposus), lumbar Disorder of bone and cartilage Psoriasis Long-term use of Plaquenil Long-term use of high-risk medication [facility] current use of non-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-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 (NSAID) LFT elevation History of psoriatic arthritis History of psoriasis History of osteoarthritis History of fibromyalgia BHATIA (nonalcoholic steatohepatitis) Fatty liver Hypercarbia Lumbosacral radiculopathy at S1 Carpal tunnel syndrome of left wrist Expected: 05/21/2024 (Approximate), Expires: 03/05/2025 [facility] Comment on above: Expected: 05/21/2024 (Approximate), Expi res: 03/05/2025 Start: 05-21-20 24 End: 03-05-20 25 Comprehensive metabolic 2000 panel - Serum or Plasma COMPREHENSIVE METABOLIC PANEL Lab Routin e Psoriatic arthritis Osteoarthritis of right sacroiliac joint Osteoarthritis of lumbar spine, unspecified spinal osteoarthritis complication status Osteoarthritis of both hands, unspecified osteoarthritis type Osteoarthritis of both feet, unspecified osteoarthritis type Spinal stenosis of lumbar region with neurogenic claudication Lumbar degenerative disc disease HNP (herniated nucleus pulposus), lumbar Disorder of bone and cartilage Psoriasis Long-term use of Plaquenil Long-term use of high-risk medication 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 (NSAID) LFT elevation History of psoriatic arthritis History of psoriasis History of osteoarthritis History of fibromyalgia BHATIA (nonalcoholic steatohepatitis) Fatty liver Hypercarbia Lumbosacral radiculopathy at S1 Carpal tunnel syndrome of left wrist Expected: 05/21/2024 (Approximate), Expires: 03/05/2025 [facility] Comment on above: Expected: 05/21/2024 (Approximate), Expi res: 03/05/2025 Start: 05-21-20 End: 03-05-20 25 SEDIMENTATION RATE, AUTOMATED SEDIMENTATION RATE, AUTOMATED Lab Routin e Psoriatic arthritis Osteoarthritis of right sacroiliac joint Osteoarthritis of lumbar spine, unspecified spinal osteoarthritis complication status Osteoarthritis of both hands, unspecified osteoarthritis type Osteoarthritis of both feet, unspecified osteoarthritis type Spinal stenosis of lumbar region with neurogenic claudication Lumbar degenerative disc disease HNP (herniated nucleus pulposus), lumbar Disorder of bone and cartilage Psoriasis Long-term use of Plaquenil Long-term use of high-risk medication [facility]FP current use of non-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-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 (NSAID) LFT elevation History of psoriatic arthritis History of psoriasis History of osteoarthritis History of fibromyalgia BHATIA (nonalcoholic steatohepatitis) Fatty liver Hypercarbia Lumbosacral radiculopathy at S1 Carpal tunnel syndrome of left wrist Expected: 05/21/2024 (Approximate), Expires: 03/05/2025 [facility] Comment on above: Expected: 05/21/2024 (Approximate), Expi res: 03/05/2025 Start: 05-11-20 End: 05-11-20 Patient encounter procedure 05/11/2024 8:30 AM EDT Office Visit [facility] [address] [place] [id number] Jose Luis Hayden, DPM [address] [place] [address] [facility] Start: 04-29-20 Screening for osteoporosis DEXA SCAN DISCUSSION [facility] Start: 03-05-20 End: 03-05-20 Patient encounter procedure 03/05/2024 8:00 AM EDT Office Visit [facility] [address] [place] [address] Shelley Roger, Alfa Zuniga, [address] [place] [address] [facility] Start: 02-11-20 End: 08-29-20 C-reactive protein C REACTIVE PROTEIN Lab Routine Psoriatic arthritis Psoriasis History of fibromyalgia History of osteoarthritis History of psoriasis History of psoriatic arthritis [facility]FP current use of non-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-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 (NSAID) Long-term use of high-risk medication Long-term use of Plaquenil Hypercarbia Carpal tunnel syndrome of left wrist Lumbosacral radiculopathy at S1 HNP (herniated nucleus pulposus), lumbar Lumbar degenerative disc disease Spinal stenosis of lumbar region with neurogenic claudication Osteoarthritis of both feet, unspecified osteoarthritis type Osteoarthritis of both hands, unspecified osteoarthritis type Osteoarthritis of lumbar spine, unspecified spinal osteoarthritis complication status Osteoarthritis of right sacroiliac joint Expected: 02/11/2024 (Approximate), Expires: 08/29/2024 [facility] Comment on above: Expected: 02/11/2024 (Approximate), Expi res: 08/29/2024 Start: 02-11-20 End: 08-29-20 Complete blood count with white cell differential, automated CBC, EDIF, PLATELET Lab Routine Psoriati c arthritis Psoriasis History of fibromyalgia History of osteoarthritis History of psoriasis History of psoriatic arthritis MCFP current use of non-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-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 (NSAID) Long-term use of high-risk medication Long-term use of Plaquenil Hypercarbia Carpal tunnel syndrome of left wrist Lumbosacral radiculopathy at S1 HNP (herniated nucleus pulposus), lumbar Lumbar degenerative disc disease Spinal stenosis of lumbar region with neurogenic claudication Osteoarthritis of both feet, unspecified osteoarthritis type Osteoarthritis of both hands, unspecified osteoarthritis type Osteoarthritis of lumbar spine, unspecified spinal osteoarthritis complication status Osteoarthritis of right sacroiliac joint Expected: 02/11/2024 (Approximate), Expires: 08/29/2024 [facility] Comment on above: Expected: 02/11/2024 (Approximate), Expi res: 08/29/2024 Start: 02-11-20 End: 08-29-20 Comprehensive metabolic 2000 panel - Serum or Plasma COMPREHENSIVE METABOLIC PANEL Lab Routin e Psoriatic arthritis Psoriasis History of fibromyalgia History of osteoarthritis History of psoriasis History of psoriatic arthritis [facility]FP current use of non-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-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 (NSAID) Long-term use of high-risk medication Long-term use of Plaquenil Hypercarbia Carpal tunnel syndrome of left wrist Lumbosacral radiculopathy at S1 HNP (herniated nucleus pulposus), lumbar Lumbar degenerative disc disease Spinal stenosis of lumbar region with neurogenic claudication Osteoarthritis of both feet, unspecified osteoarthritis type Osteoarthritis of both hands, unspecified osteoarthritis type Osteoarthritis of lumbar spine, unspecified spinal osteoarthritis complication status Osteoarthritis of right sacroiliac joint Expected: 02/11/2024 (Approximate), Expires: 08/29/2024 [facility] Comment on above: Expected: 02/11/2024 (Approximate), Expi res: 08/29/2024 Start: 02-11-20 End: 08-29-20 SEDIMENTATION RATE, AUTOMATED SEDIMENTATION RATE, AUTOMATED Lab Routin e Psoriatic arthritis Psoriasis History of fibromyalgia History of osteoarthritis History of psoriasis History of psoriatic arthritis MCFP current use of non-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-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 (NSAID) Long-term use of high-risk medication Long-term use of Plaquenil Hypercarbia Carpal tunnel syndrome of left wrist Lumbosacral radiculopathy at S1 HNP (herniated nucleus pulposus), lumbar Lumbar degenerative disc disease Spinal stenosis of lumbar region with neurogenic claudication Osteoarthritis of both feet, unspecified osteoarthritis type Osteoarthritis of both hands, unspecified osteoarthritis type Osteoarthritis of lumbar spine, unspecified spinal osteoarthritis complication status Osteoarthritis of right sacroiliac joint Expected: 02/11/2024 (Approximate), Expires: 08/29/2024 [facility] Comment on above: Expected: 02/11/2024 (Approximate), Expi res: 08/29/2024 Start: 02-10-20 End: 02-10-20 Patient encounter procedure 02/10/2024 9:00 AM EDT Office Visit [facility] [address] [place] [address] Jose Luis Hayden, DPM [address] [place] [address] [facility] Start: 11-17-19 Advance Directive Discussion Advance Directive Discussion [facility] Start: 11-11-20 End: 11-11-20 Patient encounter procedure 11/11/2023 9:00 AM EST Office Visit [facility] [address] [place] [address] Jose Luis Hayden, DPM [address] [place] [address] [facility] Start: 08-29-20 End: 08-29-20 Patient encounter procedure 08/29/2023 8:00 AM EDT Office Visit [facility] [address] [place] [id number] Shelley Roger, Alfa Zuniga DO [address] [place] [id number] [facility] Start: 08-28-20 23 End: 05-12-20 24 C-reactive protein C REACTIVE PROTEIN Lab Routine Psoriatic arthritis Psoriasis History of fibromyalgia History of osteoarthritis History of psoriasis History of psoriatic arthritis LFT 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 (NSAID) Long-term use of high-risk medication Long-term use of Plaquenil Carpal tunnel syndrome of left wrist Lumbosacral radiculopathy at S1 HNP (herniated nucleus pulposus), lumbar Lumbar degenerative disc disease Spinal stenosis of lumbar region with neurogenic claudication Osteoarthritis of both feet, unspecified osteoarthritis type Osteoarthritis of both hands, unspecified osteoarthritis type Osteoarthritis of lumbar spine, unspecified spinal osteoarthritis complication status Expected: 08/28/2023 (Approximate), Expires: 05/12/2024 [facility] Comment on above: Expected: 08/28/2023 (Approximate), Expi res: 05/12/2024 Start: 08-28-20 23 End: 05-12-20 Complete blood count with white cell differential, automated CBC, EDIF, PLATELET Lab Routine Psoriati c arthritis Psoriasis History of fibromyalgia History of osteoarthritis History of psoriasis History of psoriatic arthritis LFT 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 (NSAID) Long-term use of high-risk medication Long-term use of Plaquenil Carpal tunnel syndrome of left wrist Lumbosacral radiculopathy at S1 HNP (herniated nucleus pulposus), lumbar Lumbar degenerative disc disease Spinal stenosis of lumbar region with neurogenic claudication Osteoarthritis of both feet, unspecified osteoarthritis type Osteoarthritis of both hands, unspecified osteoarthritis type Osteoarthritis of lumbar spine, unspecified spinal osteoarthritis complication status Expected: 08/28/2023 (Approximate), Expires: 05/12/2024 [facility] Comment on above: Expected: 08/28/2023 (Approximate), Expi res: 05/12/2024 Start: 08-28-20 End: 05-12-20 Comprehensive metabolic 2000 panel - Serum or Plasma COMPREHENSIVE METABOLIC PANEL Lab Routin e Psoriatic arthritis Psoriasis History of fibromyalgia History of osteoarthritis History of psoriasis History of psoriatic arthritis LFT 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 (NSAID) Long-term use of high-risk medication Long-term use of Plaquenil Carpal tunnel syndrome of left wrist Lumbosacral radiculopathy at S1 HNP (herniated nucleus pulposus), lumbar Lumbar degenerative disc disease Spinal stenosis of lumbar region with neurogenic claudication Osteoarthritis of both feet, unspecified osteoarthritis type Osteoarthritis of both hands, unspecified osteoarthritis type Osteoarthritis of lumbar spine, unspecified spinal osteoarthritis complication status Expected: 08/28/2023 (Approximate), Expires: 05/12/2024 [facility] [employer] Comment on above: Expected: 08/28/2023 (Approximate), Expi res: 05/12/2024 Start: 08-28-20 23 End: 05-12-20 24 SEDIMENTATION RATE, AUTOMATED SEDIMENTATION RATE, AUTOMATED Lab Routin e Psoriatic arthritis Psoriasis History of fibromyalgia History of osteoarthritis History of psoriasis History of psoriatic arthritis LFT 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 (NSAID) Long-term use of high-risk medication Long-term use of Plaquenil Carpal tunnel syndrome of left wrist Lumbosacral radiculopathy at S1 HNP (herniated nucleus pulposus), lumbar Lumbar degenerative disc disease Spinal stenosis of lumbar region with neurogenic claudication Osteoarthritis of both feet, unspecified osteoarthritis type Osteoarthritis of both hands, unspecified osteoarthritis type Osteoarthritis of lumbar spine, unspecified spinal osteoarthritis complication status Expected: 08/28/2023 (Approximate), Expires: 05/12/2024 [facility] Comment on above: Expected: 08/28/2023 (Approximate), Expi res: 05/12/2024 Start: 07-18-20 23 Covid-19 Vaccine ( season) Covid-19 Vaccine () [facility] Start: 07-18-20 23 Influenza vaccination [facility] Start: 05-28-20 23 End: 05-12-20 24 Alanine aminotransferase [Enzymatic activity/volume] in Serum or Plasma ALT Lab Routine Psoriatic arthritis Psor iasis History of fibromyalgia History of osteoarthritis History of psoriasis History of psoriatic arthritis LFT elevation [facility] current use of non-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-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 (NSAID) Long-term use of high-risk medication Long-term use of Plaquenil Carpal tunnel syndrome of left wrist Lumbosacral radiculopathy at S1 HNP (herniated nucleus pulposus), lumbar Lumbar degenerative disc disease Spinal stenosis of lumbar region with neurogenic claudication Osteoarthritis of both feet, unspecified osteoarthritis type Osteoarthritis of both hands, unspecified osteoarthritis type Osteoarthritis of lumbar spine, unspecified spinal osteoarthritis complication status Expected: 05/28/2023 (Approximate), Expires: 05/12/2024 [facility] Comment on above: Expected: 05/28/2023 (Approximate), Expi res: 05/12/2024 Start: 05-28-20 23 End: 05-12-20 24 Aspartate aminotransferase [Enzymatic activity/volume] in Serum or Plasma AST Lab Routine Psoriatic arthritis Psor iasis History of fibromyalgia History of osteoarthritis History of psoriasis History of psoriatic arthritis LFT 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 (NSAID) Long-term use of high-risk medication Long-term use of Plaquenil Carpal tunnel syndrome of left wrist Lumbosacral radiculopathy at S1 HNP (herniated nucleus pulposus), lumbar Lumbar degenerative disc disease Spinal stenosis of lumbar region with neurogenic claudication Osteoarthritis of both feet, unspecified osteoarthritis type Osteoarthritis of both hands, unspecified osteoarthritis type Osteoarthritis of lumbar spine, unspecified spinal osteoarthritis complication status Expected: 05/28/2023 (Approximate), Expires: 05/12/2024 [facility] Comment on above: Expected: 05/28/2023 (Approximate), Expi res: 05/12/2024 Start: 12-09-19 End: 12-09-19 Patient encounter procedure 12/09/2022 Office Visit Rheumatology Sergio alva Jr., Alfa Zuniga, DO [address] [place] [address] [facility] Start: 11-17-19 23 Advance Directive Discussion Advance Directive Discussion [facility] Start: 11-17-19 23 Depression Assessment Depression Assessment [facility] Start: 11-14-20 22 End: 05-31-20 23 Alanine aminotransferase [Enzymatic activity/volume] in Serum or Plasma ALT Lab Routine Psoriatic arthritis Psor iasis History of fibromyalgia History of osteoarthritis History of psoriasis History of psoriatic arthritis [facility]FP current use of non-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-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 (NSAID) Long-term use of high-risk medication Long-term use of Plaquenil Carpal tunnel syndrome of left wrist Lumbosacral radiculopathy at S1 HNP (herniated nucleus pulposus), lumbar Lumbar degenerative disc disease Spinal stenosis of lumbar region with neurogenic claudication Osteoarthritis of both feet, unspecified osteoarthritis type Osteoarthritis of both hands, unspecified osteoarthritis type Osteoarthritis of lumbar spine, unspecified spinal osteoarthritis complication status Osteoarthritis of right sacroiliac joint Expected: 11/14/2022 (Approximate), Expires: 05/31/2023 [facility] on above: Expected: 11/14/2022 (Approximate), Expi res: 05/31/2023 Start: 11-14-20 End: 05-31-20 23 Aspartate aminotransferase [Enzymatic activity/volume] in Serum or Plasma AST Lab Routine Psoriatic arthritis Psor iasis History of fibromyalgia History of osteoarthritis History of psoriasis History of psoriatic arthritis MCFP current use of non-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-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 (NSAID) Long-term use of high-risk medication Long-term use of Plaquenil Carpal tunnel syndrome of left wrist Lumbosacral radiculopathy at S1 HNP (herniated nucleus pulposus), lumbar Lumbar degenerative disc disease Spinal stenosis of lumbar region with neurogenic claudication Osteoarthritis of both feet, unspecified osteoarthritis type Osteoarthritis of both hands, unspecified osteoarthritis type Osteoarthritis of lumbar spine, unspecified spinal osteoarthritis complication status Osteoarthritis of right sacroiliac joint Expected: 11/14/2022 (Approximate), Expires: 05/31/2023 [facility] Comment on above: Expected: 11/14/2022 (Approximate), Expi res: 05/31/2023 Start: 11-14-20 22 End: 05-31-20 23 C-reactive protein C REACTIVE PROTEIN Lab Routine Psoriatic arthritis Psoriasis History of fibromyalgia History of osteoarthritis History of psoriasis History of psoriatic 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 (NSAID) Long-term use of high-risk medication Long-term use of Plaquenil Carpal tunnel syndrome of left wrist Lumbosacral radiculopathy at S1 HNP (herniated nucleus pulposus), lumbar Lumbar degenerative disc disease Spinal stenosis of lumbar region with neurogenic claudication Osteoarthritis of both feet, unspecified osteoarthritis type Osteoarthritis of both hands, unspecified osteoarthritis type Osteoarthritis of lumbar spine, unspecified spinal osteoarthritis complication status Osteoarthritis of right sacroiliac joint Expected: 11/14/2022 (Approximate), Expires: 05/31/2023 [facility] Comment on above: Expected: 11/14/2022 (Approximate), Expi res: 05/31/2023 Start: 11-14-20 22 End: 05-31-20 23 Complete blood count with white cell differential, automated CBC, EDIF, PLATELET Lab Routine Psoriati c arthritis Psoriasis History of fibromyalgia History of osteoarthritis History of psoriasis History of psoriatic 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 (NSAID) Long-term use of high-risk medication Long-term use of Plaquenil Carpal tunnel syndrome of left wrist Lumbosacral radiculopathy at S1 HNP (herniated nucleus pulposus), lumbar Lumbar degenerative disc disease Spinal stenosis of lumbar region with neurogenic claudication Osteoarthritis of both feet, unspecified osteoarthritis type Osteoarthritis of both hands, unspecified osteoarthritis type Osteoarthritis of lumbar spine, unspecified spinal osteoarthritis complication status Osteoarthritis of right sacroiliac joint Expected: 11/14/2022 (Approximate), Expires: 05/31/2023 [facility] Comment on above: Expected: 11/14/2022 (Approximate), Expi res: 05/31/2023 Start: 11-14-20 22 End: 05-31-20 23 Creatinine [Mass/volume] in Serum or Plasma CREATININE SERUM Lab Routine Psoriatic arthritis Psoriasis History of fibromyalgia History of osteoarthritis History of psoriasis History of psoriatic arthritis [facility]FP current use of non-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-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 (NSAID) Long-term use of high-risk medication Long-term use of Plaquenil Carpal tunnel syndrome of left wrist Lumbosacral radiculopathy at S1 HNP (herniated nucleus pulposus), lumbar Lumbar degenerative disc disease Spinal stenosis of lumbar region with neurogenic claudication Osteoarthritis of both feet, unspecified osteoarthritis type Osteoarthritis of both hands, unspecified osteoarthritis type Osteoarthritis of lumbar spine, unspecified spinal osteoarthritis complication status Osteoarthritis of right sacroiliac joint Expected: 11/14/2022 (Approximate), Expires: 05/31/2023 [facility] Comment on above: Expected: 11/14/2022 (Approximate), Expi res: 05/31/2023 Start: 11-14-20 22 End: 05-31-20 23 SEDIMENTATION RATE, AUTOMATED SEDIMENTATION RATE, AUTOMATED Lab Routin e Psoriatic arthritis Psoriasis History of fibromyalgia History of osteoarthritis History of psoriasis History of psoriatic 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 (NSAID) Long-term use of high-risk medication Long-term use of Plaquenil Carpal tunnel syndrome of left wrist Lumbosacral radiculopathy at S1 HNP (herniated nucleus pulposus), lumbar Lumbar degenerative disc disease Spinal stenosis of lumbar region with neurogenic claudication Osteoarthritis of both feet, unspecified osteoarthritis type Osteoarthritis of both hands, unspecified osteoarthritis type Osteoarthritis of lumbar spine, unspecified spinal osteoarthritis complication status Osteoarthritis of right sacroiliac joint Expected: 11/14/2022 (Approximate), Expires: 05/31/2023 [facility] Comment on above: Expected: 11/14/2022 (Approximate), Expi res: 05/31/2023 Start: 07-29-20 End: 07-29-20 Patient encounter procedure 07/29/2022 Office Visit Rheumatology Alfa Beaulieu Jr., DO [address] [place] [phone] [facility] Start: 07-18-20 Influenza vaccination INFLUENZA VACCINE (#1) [facility] Start: 05-31-20 22 End: 05-31-20 Patient encounter procedure 05/31/2022 Office Visit Rheumatology Alfa Beaulieu Jr., DO [address] [place] [phone] [facility] Start: 05-22-20 Screening for malignant neoplasm of colon COLORECTAL CANCER SCREENING DISCUSSION [facility] Start: 05-09-20 End: 01-24-20 23 Alanine aminotransferase [Enzymatic activity/volume] in Serum or Plasma ALT Lab Routine Psoriatic arthritis Hist ory of fibromyalgia History of osteoarthritis History of psoriasis History of psoriatic arthritis [facility]FP current use of non-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-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 (NSAID) Long-term use of high-risk medication Long-term use of Plaquenil Carpal tunnel syndrome of left wrist Lumbosacral radiculopathy at S1 HNP (herniated nucleus pulposus), lumbar Lumbar degenerative disc disease Spinal stenosis of lumbar region with neurogenic claudication Osteoarthritis of both feet, unspecified osteoarthritis type Osteoarthritis of both hands, unspecified osteoarthritis type Osteoarthritis of lumbar spine, unspecified spinal osteoarthritis complication status Osteoarthritis of right sacroiliac joint Psoriasis Expected: 05/09/2022 (Approximate), Expires: 01/23/2023 [facility] Comment on above: Expected: 05/09/2022 (Approximate), Expi res: 01/23/2023 Start: 05-09-20 End: 01-24-20 Aspartate aminotransferase [Enzymatic activity/volume] in Serum or Plasma AST Lab Routine Psoriatic arthritis Hist ory of fibromyalgia History of osteoarthritis History of psoriasis History of psoriatic 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 (NSAID) Long-term use of high-risk medication Long-term use of Plaquenil Carpal tunnel syndrome of left wrist Lumbosacral radiculopathy at S1 HNP (herniated nucleus pulposus), lumbar Lumbar degenerative disc disease Spinal stenosis of lumbar region with neurogenic claudication Osteoarthritis of both feet, unspecified osteoarthritis type Osteoarthritis of both hands, unspecified osteoarthritis type Osteoarthritis of lumbar spine, unspecified spinal osteoarthritis complication status Osteoarthritis of right sacroiliac joint Psoriasis Expected: 05/09/2022 (Approximate), Expires: 01/23/2023 [facility] Comment on above: Expected: 05/09/2022 (Approximate), Expi res: 01/23/2023 Start: 05-09-20 End: 01-24-20 C-reactive protein C REACTIVE PROTEIN Lab Routine Psoriatic arthritis History of fibromyalgia History of osteoarthritis History of psoriasis History of psoriatic 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 (NSAID) Long-term use of high-risk medication Long-term use of Plaquenil Carpal tunnel syndrome of left wrist Lumbosacral radiculopathy at S1 HNP (herniated nucleus pulposus), lumbar Lumbar degenerative disc disease Spinal stenosis of lumbar region with neurogenic claudication Osteoarthritis of both feet, unspecified osteoarthritis type Osteoarthritis of both hands, unspecified osteoarthritis type Osteoarthritis of lumbar spine, unspecified spinal osteoarthritis complication status Osteoarthritis of right sacroiliac joint Psoriasis Expected: 05/09/2022 (Approximate), Expires: [facility] Comment on above: Expected: 05/09/2022 (Approximate), Expi res: 01/23/2023 Start: 05-09-20 22 End: 01-24-20 Complete blood count with white cell differential, automated CBC, EDIF, PLATELET Lab Routine Psoriati c arthritis History of fibromyalgia History of osteoarthritis History of psoriasis History of psoriatic 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 (NSAID) Long-term use of high-risk medication Long-term use of Plaquenil Carpal tunnel syndrome of left wrist Lumbosacral radiculopathy at S1 HNP (herniated nucleus pulposus), lumbar Lumbar degenerative disc disease Spinal stenosis of lumbar region with neurogenic claudication Osteoarthritis of both feet, unspecified osteoarthritis type Osteoarthritis of both hands, unspecified osteoarthritis type Osteoarthritis of lumbar spine, unspecified spinal osteoarthritis complication status Osteoarthritis of right sacroiliac joint Psoriasis Expected: 05/09/2022 (Approximate), Expires: 01/23/2023 [facility] Comment on above: Expected: 05/09/2022 (Approximate), Expi res: 01/23/2023 Start: 05-09-20 22 End: 01-24-20 Creatinine [Mass/volume] in Serum or Plasma CREATININE SERUM Lab Routine Psoriatic arthritis History of fibromyalgia History of osteoarthritis History of psoriasis History of psoriatic 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 (NSAID) Long-term use of high-risk medication Long-term use of Plaquenil Carpal tunnel syndrome of left wrist Lumbosacral radiculopathy at S1 HNP (herniated nucleus pulposus), lumbar Lumbar degenerative disc disease Spinal stenosis of lumbar region with neurogenic claudication Osteoarthritis of both feet, unspecified osteoarthritis type Osteoarthritis of both hands, unspecified osteoarthritis type Osteoarthritis of lumbar spine, unspecified spinal osteoarthritis complication status Osteoarthritis of right sacroiliac joint Psoriasis Expected: 05/09/2022 (Approximate), Expires: 01/23/2023 [facility] Comment on above: Expected: 05/09/2022 (Approximate), Expi res: 01/23/2023 Start: 05-09-20 22 End: 01-24-20 SEDIMENTATION RATE, AUTOMATED SEDIMENTATION RATE, AUTOMATED Lab Routin e Psoriatic arthritis History of fibromyalgia History of osteoarthritis History of psoriasis History of psoriatic arthritis MCFP current use of non-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-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 (NSAID) Long-term use of high-risk medication Long-term use of Plaquenil Carpal tunnel syndrome of left wrist Lumbosacral radiculopathy at S1 HNP (herniated nucleus pulposus), lumbar Lumbar degenerative disc disease Spinal stenosis of lumbar region with neurogenic claudication Osteoarthritis of both feet, unspecified osteoarthritis type Osteoarthritis of both hands, unspecified osteoarthritis type Osteoarthritis of lumbar spine, unspecified spinal osteoarthritis complication status Osteoarthritis of right sacroiliac joint Psoriasis Expected: 05/09/2022 (Approximate), Expires: 01/23/2023 [facility] Comment on above: Expected: 05/09/2022 (Approximate), Expi res: 01/23/2023 Start: 01-24-20 End: 01-24-20 Patient encounter procedure 01/23/2022 Office Visit Rheumatology Sergio alva Jr., Alfa Zuniga, DO [address] [place] [id number] [facility] Rheumatology Start: 01-08-20 22 End: 09-24-20 Alanine aminotransferase [Enzymatic activity/volume] in Serum or Plasma ALT Lab Routine Psoriatic arthritis Psor iasis Long-term use of Plaquenil Long-term use of high-risk medication MCFP current use of non-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-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 (NSAID) History of psoriatic arthritis History of psoriasis History of osteoarthritis History of fibromyalgia CRP elevated Lumbosacral radiculopathy at S1 Carpal tunnel syndrome of left wrist Osteoarthritis of right sacroiliac joint Osteoarthritis of lumbar spine, unspecified spinal osteoarthritis complication status Osteoarthritis of both hands, unspecified osteoarthritis type Osteoarthritis of both feet, unspecified osteoarthritis type Spinal stenosis of lumbar region with neurogenic claudication Lumbar degenerative disc disease HNP (herniated nucleus pulposus), lumbar Expected: 01/08/2022 (Approximate), Expires: 09/24/2022 [facility] Comment on above: Expected: 01/08/2022 (Approximate), Expi res: 09/24/2022 Start: 01-08-20 22 End: 09-24-20 Aspartate aminotransferase [Enzymatic activity/volume] in Serum or Plasma AST Lab Routine Psoriatic arthritis Psor iasis Long-term use of Plaquenil Long-term use of high-risk medication 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 (NSAID) History of psoriatic arthritis History of psoriasis History of osteoarthritis History of fibromyalgia CRP elevated Lumbosacral radiculopathy at S1 Carpal tunnel syndrome of left wrist Osteoarthritis of right sacroiliac joint Osteoarthritis of lumbar spine, unspecified spinal osteoarthritis complication status Osteoarthritis of both hands, unspecified osteoarthritis type Osteoarthritis of both feet, unspecified osteoarthritis type Spinal stenosis of lumbar region with neurogenic claudication Lumbar degenerative disc disease HNP (herniated nucleus pulposus), lumbar Expected: 01/08/2022 (Approximate), Expires: 09/24/2022 [facility] Comment on above: Expected: 01/08/2022 (Approximate), Expi res: 09/24/2022 Start: 01-08-20 22 End: 09-24-20 C-reactive protein C REACTIVE PROTEIN Lab Routine Psoriatic arthritis Psoriasis Long-term use of Plaquenil Long-term use of high-risk medication 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 (NSAID) History of psoriatic arthritis History of psoriasis History of osteoarthritis History of fibromyalgia CRP elevated Lumbosacral radiculopathy at S1 Carpal tunnel syndrome of left wrist Osteoarthritis of right sacroiliac joint Osteoarthritis of lumbar spine, unspecified spinal osteoarthritis complication status Osteoarthritis of both hands, unspecified osteoarthritis type Osteoarthritis of both feet, unspecified osteoarthritis type Spinal stenosis of lumbar region with neurogenic claudication Lumbar degenerative disc disease HNP (herniated nucleus pulposus), lumbar Expected: 01/08/2022 (Approximate), Expires: 09/24/2022 [facility] Comment on above: Expected: 01/08/2022 (Approximate), Expi res: 09/24/2022 Start: 01-08-20 End: 09-24-20 Complete blood count with white cell differential, automated CBC, EDIF, PLATELET Lab Routine Psoriati c arthritis Psoriasis Long-term use of Plaquenil Long-term use of high-risk medication 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 (NSAID) History of psoriatic arthritis History of psoriasis History of osteoarthritis History of fibromyalgia CRP elevated Lumbosacral radiculopathy at S1 Carpal tunnel syndrome of left wrist Osteoarthritis of right sacroiliac joint Osteoarthritis of lumbar spine, unspecified spinal osteoarthritis complication status Osteoarthritis of both hands, unspecified osteoarthritis type Osteoarthritis of both feet, unspecified osteoarthritis type Spinal stenosis of lumbar region with neurogenic claudication Lumbar degenerative disc disease HNP (herniated nucleus pulposus), lumbar Expected: 01/08/2022 (Approximate), Expires: 09/24/2022 [facility] Comment on above: Expected: 01/08/2022 (Approximate), Expi res: 09/24/2022 Start: 01-08-20 22 End: 09-24-20 Creatinine [Mass/volume] in Serum or Plasma CREATININE SERUM Lab Routine Psoriatic arthritis Psoriasis Long-term use of Plaquenil Long-term use of high-risk medication MCFP current use of non-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-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 (NSAID) History of psoriatic arthritis History of psoriasis History of osteoarthritis History of fibromyalgia CRP elevated Lumbosacral radiculopathy at S1 Carpal tunnel syndrome of left wrist Osteoarthritis of right sacroiliac joint Osteoarthritis of lumbar spine, unspecified spinal osteoarthritis complication status Osteoarthritis of both hands, unspecified osteoarthritis type Osteoarthritis of both feet, unspecified osteoarthritis type Spinal stenosis of lumbar region with neurogenic claudication Lumbar degenerative disc disease HNP (herniated nucleus pulposus), lumbar Expected: 01/08/2022 (Approximate), Expires: 09/24/2022 [facility] Comment on above: Expected: 01/08/2022 (Approximate), Expi res: 09/24/2022 Start: 01-08-20 22 End: 09-24-20 SEDIMENTATION RATE, AUTOMATED SEDIMENTATION RATE, AUTOMATED Lab Routin e Psoriatic arthritis Psoriasis Long-term use of Plaquenil Long-term use of high-risk medication MCFP current use of non-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-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 (NSAID) History of psoriatic arthritis History of psoriasis History of osteoarthritis History of fibromyalgia CRP elevated Lumbosacral radiculopathy at S1 Carpal tunnel syndrome of left wrist Osteoarthritis of right sacroiliac joint Osteoarthritis of lumbar spine, unspecified spinal osteoarthritis complication status Osteoarthritis of both hands, unspecified osteoarthritis type Osteoarthritis of both feet, unspecified osteoarthritis type Spinal stenosis of lumbar region with neurogenic claudication Lumbar degenerative disc disease HNP (herniated nucleus pulposus), lumbar Expected: 01/08/2022 (Approximate), Expires: 09/24/2022 [facility] Comment on above: Expected: 01/08/2022 (Approximate), Expi res: 09/24/2022 Start: 10-19-20 COVID-19 VACCINE (3 - Booster for Moderna series) COVID-19 VACCINE (3 - Booster for Modern a series) [facility] Start: 09-24-20 End: 09-24-20 Patient encounter procedure 09/24/2021 Office Visit Rheumatology Sta artie Roger, Alfa Zuniga, DO [address] [id number] [facility] Start: 09-19-20 COVID-19 VACCINE (3 - Booster for Moderna series) COVID-19 VACCINE (3 - Booster for Modern a series) [facility] Start: 09-06-20 End: 05-23-20 Alanine aminotransferase [Enzymatic activity/volume] in Serum or Plasma ALT Lab Routine Psoriatic arthritis MCFP current use of non-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-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 (NSAID) History of osteoarthritis History of psoriatic arthritis History of psoriasis Long-term use of high-risk medication Long-term use of Plaquenil History of fibromyalgia Carpal tunnel syndrome of left wrist Lumbosacral radiculopathy at S1 Osteoarthritis of right sacroiliac joint Lumbar degenerative disc disease Osteoarthritis of lumbar spine, unspecified spinal osteoarthritis complication status Osteoarthritis of both hands, unspecified osteoarthritis type Osteoarthritis of both feet, unspecified osteoarthritis type HNP (herniated nucleus pulposus), lumbar Spinal stenosis of lumbar region with neurogenic claudication Psoriasis Expected: 09/06/2021 (Approximate), Expires: 05/23/2022 [facility] Comment on above: Expected: 09/06/2021 (Approximate), Expi res: 05/23/2022 Start: 09-06-20 End: 05-23-20 Aspartate aminotransferase [Enzymatic activity/volume] in Serum or Plasma AST Lab Routine Psoriatic arthritis MCFP current use of non-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-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 (NSAID) History of osteoarthritis History of psoriatic arthritis History of psoriasis Long-term use of high-risk medication Long-term use of Plaquenil History of fibromyalgia Carpal tunnel syndrome of left wrist Lumbosacral radiculopathy at S1 Osteoarthritis of right sacroiliac joint Lumbar degenerative disc disease Osteoarthritis of lumbar spine, unspecified spinal osteoarthritis complication status Osteoarthritis of both hands, unspecified osteoarthritis type Osteoarthritis of both feet, unspecified osteoarthritis type HNP (herniated nucleus pulposus), lumbar Spinal stenosis of lumbar region with neurogenic claudication Psoriasis Expected: 09/06/2021 (Approximate), Expires: 05/23/2022 [facility] Comment on above: Expected: 09/06/2021 (Approximate), Expi res: 05/23/2022 Start: 09-06-20 End: 05-23-20 C-reactive protein C REACTIVE PROTEIN Lab Routine Psoriatic arthritis MCFP current use of non-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-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 (NSAID) History of osteoarthritis History of psoriatic arthritis History of psoriasis Long-term use of high-risk medication Long-term use of Plaquenil History of fibromyalgia Carpal tunnel syndrome of left wrist Lumbosacral radiculopathy at S1 Osteoarthritis of right sacroiliac joint Lumbar degenerative disc disease Osteoarthritis of lumbar spine, unspecified spinal osteoarthritis complication status Osteoarthritis of both hands, unspecified osteoarthritis type Osteoarthritis of both feet, unspecified osteoarthritis type HNP (herniated nucleus pulposus), lumbar Spinal stenosis of lumbar region with neurogenic claudication Psoriasis Expected: 09/06/2021 (Approximate), Expires: 05/23/2022 [facility] [employer] Comment on above: Expected: 09/06/2021 (Approximate), Expi res: 05/23/2022 Start: 09-06-20 End: 05-23-20 Complete blood count with white cell differential, automated CBC, EDIF, PLATELET Lab Routine Psoriati c 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 (NSAID) History of osteoarthritis History of psoriatic arthritis History of psoriasis Long-term use of high-risk medication Long-term use of Plaquenil History of fibromyalgia Carpal tunnel syndrome of left wrist Lumbosacral radiculopathy at S1 Osteoarthritis of right sacroiliac joint Lumbar degenerative disc disease Osteoarthritis of lumbar spine, unspecified spinal osteoarthritis complication status Osteoarthritis of both hands, unspecified osteoarthritis type Osteoarthritis of both feet, unspecified osteoarthritis type HNP (herniated nucleus pulposus), lumbar Spinal stenosis of lumbar region with neurogenic claudication Psoriasis Expected: 09/06/2021 (Approximate), Expires: 05/23/2022 [facility] Comment on above: Expected: 09/06/2021 (Approximate), Expi res: 05/23/2022 Start: 09-06-20 End: 05-23-20 Creatinine [Mass/volume] in Serum or Plasma CREATININE SERUM Lab Routine Psoriatic 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 (NSAID) History of osteoarthritis History of psoriatic arthritis History of psoriasis Long-term use of high-risk medication Long-term use of Plaquenil History of fibromyalgia Carpal tunnel syndrome of left wrist Lumbosacral radiculopathy at S1 Osteoarthritis of right sacroiliac joint Lumbar degenerative disc disease Osteoarthritis of lumbar spine, unspecified spinal osteoarthritis complication status Osteoarthritis of both hands, unspecified osteoarthritis type Osteoarthritis of both feet, unspecified osteoarthritis type HNP (herniated nucleus pulposus), lumbar Spinal stenosis of lumbar region with neurogenic claudication Psoriasis Expected: 09/06/2021 (Approximate), Expires: 05/23/2022 [facility] Comment on above: Expected: 09/06/2021 (Approximate), Expi res: 05/23/2022 Start: 09-06-20 End: 05-23-20 22 SEDIMENTATION RATE, AUTOMATED SEDIMENTATION RATE, AUTOMATED Lab Routin e Psoriatic arthritis MCFP current use of non-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-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 (NSAID) History of osteoarthritis History of psoriatic arthritis History of psoriasis Long-term use of high-risk medication Long-term use of Plaquenil History of fibromyalgia Carpal tunnel syndrome of left wrist Lumbosacral radiculopathy at S1 Osteoarthritis of right sacroiliac joint Lumbar degenerative disc disease Osteoarthritis of lumbar spine, unspecified spinal osteoarthritis complication status Osteoarthritis of both hands, unspecified osteoarthritis type Osteoarthritis of both feet, unspecified osteoarthritis type HNP (herniated nucleus pulposus), lumbar Spinal stenosis of lumbar region with neurogenic claudication Psoriasis Expected: 09/06/2021 (Approximate), Expires: 05/23/2022 [facility] Comment on above: Expected: 09/06/2021 (Approximate), Expi res: 05/23/2022 Start: 07-18-20 Influenza vaccination [facility] Start: 07-16-20 JAKY, Provider: Noreen Ozuna, Status: Pen, Time: 7:30 AM JAKY, Provider: Noreen Ozuna S tatus: Pen, Time: 7:30 AM [facility] Work Phone: Start: 07-11-20 [email or web address], Provider: Tomasa Shields, Status: Pen, Time: 9:15 AM [email or web address], Provider: Cornelius,Tomasa, Sta tus: Pen, Time: 9:15 AM [facility] [place] Work Phone: Start: 07-04-20 21 [email or web address], Provider: Tomasa Shields, Status: Pen, Time: 9:15 AM [email or web address], Provider: Tomasa Shields Sta tus: Pen, Time: 9:15 AM [facility] [place] Work Phone: Start: 06-29-20 21 [email or web address], Provider: Tomasa Shields, Status: Pen, Time: 8:30 AM [email or web address], Provider: Tomasa Shields Sta tus: Pen, Time: 8:30 AM [facility] [place] Work Phone: Start: 06-18-20 21 [email or web address], Provider: Tomasa Shields, Status: Pen, Time: 4:15 PM [email or web address], Provider: Tomasa Shields Sta tus: Pen, Time: 4:15 PM [facility] [place] Work Phone: Start: 05-23-20 21 End: 05-23-20 21 Patient encounter procedure 05/23/2021 Office Visit Rheumatology Sergio alva Jr., Alfa Zuniga, DO [address] [place] [phone] [facility] Rheumatology Start: 04-18-20 21 COVID-19 VACCINE (2 - Moderna 2-dose series) COVID-19 VACCINE (2 - Moderna 2-dose series) [facility] Start: 04-04-20 21 Bone Density Screening Bone Density Screening [facility] Start: 04-04-20 21 Fall risk assessment Falls Risk Assessment [facility] Start: 04-04-20 21 Pneumococcal vaccination [facility] Start: 04-04-20 21 Screening for osteoporosis Bone Density Screening [facility] Start: 02-24-20 21 End: 02-24-20 22 Electromyography EMG & NERVE CONDUCTIONNeurologyRoutineDorsalgiaParesthesias in left handCarpal tunnel syndrome of left wristParesthesia of right footDisorder of bone and cartilageAbnormal reflexes of lower extremityOsteoarthritis of right sacroiliac jointLumbar degenerative disc diseaseOsteoarthritis of lumbar spine, unspecified spinal osteoarthritis complication statusBilateral wrist painBilateral hand painOsteoarthritis of both hands, unspecified osteoarthritis typeWeakness of both handsOsteoarthritis of both feet, unspecified osteoarthritis typePsoriasisFatigue, unspecified typeLong term current use of non-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-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 (NSAID)History of osteoarthritisHistory of psoriatic arthritisHistory of psoriasisLong-term use of high-risk medicationLong-term use of PlaquenilHistory of fibromyalgiaChronic bilateral low back pain with left-sided sciaticaDisc disorderSpinal stenosis of lumbar region with neurogenic claudicationLumbar radiculopathySpondylolisthesis of lumbar regionPsoriatic arthrit (more content not included)... [facility] Comment on above: Expected: 02/23/2021, Expires: Start: 02-24-20 21 End: 02-24-20 22 MRI of lumbar spine MRI SPINE LUMBAR WITH AND WITHOUT CONTRASTImagingRoutineDorsalgiaParesthesias in left handCarpal tunnel syndrome of left wristParesthesia of right footDisorder of bone and cartilageAbnormal reflexes of lower extremityOsteoarthritis of right sacroiliac jointLumbar degenerative disc diseaseOsteoarthritis of lumbar spine, unspecified spinal osteoarthritis complication statusBilateral wrist painBilateral hand painOsteoarthritis of both hands, unspecified osteoarthritis typeWeakness of both handsOsteoarthritis of both feet, unspecified osteoarthritis typePsoriasisFatigue, unspecified typeLong term current use of non-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-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 (NSAID)History of osteoarthritisHistory of psoriatic arthritisHistory of psoriasisLong-term use of high-risk medicationLong-term use of PlaquenilHistory of fibromyalgiaChronic bilateral low back pain with left-sided sciaticaDisc disorderSpinal stenosis of lumbar region with neurogenic claudicationLumbar radiculopathySpondylolisthesis of lumbar regio (more content not included)... [facility] Comment on above: Expected: 02/23/2021, Expires: 2 Start: 02-24-20 21 End: 02-24-20 22 Radiography of wrist [facility] Comment on above: Expected: 02/23/2021, Expires: 2 Start: 07-18-20 Influenza vaccination given Sequential Influenza Vaccine (#1) [facility] Start: 04-04-20 16 Hepatitis B vaccination HEP B VACCINE (1 of 3 - Risk 3-dose series) [facility] Start: 04-04-20 16 Hepatitis B Vaccines (1 of 3 - Risk 3-dose series) Hepatitis B Vaccines (1 of 3 - Risk 3-do se series) [facility] Start: 04-04-20 16 RSV High Risk: (Elderly (60+) or Population) (1 - Risk 60-74 years 1-dose series) RSV High Risk: (Elderly (60+) or [place] Population) (1 - Risk 60-74 years 1-dose series) [facility] Start: 04-04-20 16 RSV Vaccine (1 - 1-dose 60+ series) RSV Vaccine (1 - 1-dose 60+ series) [facility] Start: 04-04-20 16 RSV VACCINE (1 - Risk 60-74 years 1-dose series) RSV VACCINE (1 - Risk 60-74 years 1-dose series) [facility] Start: 04-04-20 06 Administration of herpes zoster vaccine Zoster Vaccines (1 of 2) [facility] Start: 04-04-20 06 Colonoscopy COLORECTAL CANCER SCREENING [facility] Start: 04-04-20 Screening for malignant neoplasm of colon [facility] Start: 04-04-20 06 Zoster vaccine hzv live for subcutaneous use ZOSTER (SHINGLES) VACCINE (1 of 2) [facility] Start: 04-04-20 Cologuard (FIT-DNA) Cologuard (FIT-DNA) [facility] Start: 04-04-20 Colonoscopy [facility] Start: 04-04-20 Colorectal Cancer Screening Colorectal Cancer Screening [facility] Start: 04-04-[address] Colonography [facility] Start: 04-04-20 Diabetes Screening Diabetes Screening [facility] Start: 04-04-20 Fecal Occult Blood Fecal Occult Blood [facility] Start: 04-04-20 Lipid 1996 panel - Serum or Plasma Lipid Screening [facility] Start: 04-04-20 Lipid panel Lipid Screening [facility] Start: 04-04-20 Screening for malignant neoplasm of colon [facility] Start: 04-04-20 Sigmoidoscopy Sigmoidoscopy [facility] Start: 04-04-19 96 Fasting lipid profile LIPID SCREENING [facility] Start: 04-04-19 96 Lipid panel LIPID SCREENING [facility] Start: 04-04-19 96 Mammography Mammogram Screening [facility] Start: 04-04-19 96 Screening for malignant neoplasm of breast [facility] Start: 04-04-19 96 Screening mammography MAMMOGRAM SCREENING DISCUSSION [facility] Start: 04-04-19 78 DTaP/Tdap/Td Vaccines (1 - Tdap) DTaP/Tdap/Td Vaccines (1 - Tdap) [facility] Start: 04-04-19 77 Screening for malignant neoplasm of cervix CERVICAL CANCER SCREENING DISCUSSION [facility] Start: 04-04-19 75 Hepatitis A Vaccines (1 of 2 - Risk 2-dose series) Hepatitis A Vaccines (1 of 2 - Risk 2-do se series) [facility] Start: 04-04-19 75 Third diphtheria, tetanus and acellular pertussis (DTaP) vaccination TDAP (ADULT) [facility] Start: 04-04-19 75 Urine microalbumin profile DTaP,Tdap,Td Vaccine (1 - Tdap) [facility] Start: 04-04-19 74 Anxiety Screening Anxiety Screening [facility] Start: 04-04-19 74 Depression Screening Depression Screening [facility] Start: 04-04-19 74 Hepatitis C antibody, confirmatory test Hepatitis C Screening [facility] Start: 04-04-19 74 Hepatitis C Screening Hepatitis C Screening [facility] Start: 04-04-19 74 Hepatitis C screening Hepatitis C Screening [facility] Start: 04-04-19 74 Tetanus vaccination TETANUS [facility] Start: 04-04-19 72 COVID-19 Vaccine (1 of 2) COVID-19 Vaccine (1 of 2) [facility] Start: 04-04-19 72 COVID-19 VACCINE (1) COVID-19 VACCINE (1) [facility] Start: 04-04-19 71 HIV screening [facility] Start: 04-04-19 69 Adolescent depression screening assessment Depression Screening (PHQ9) [facility] Start: 04-04-19 68 Depression screening using PHQ-9 (Patient Health Questionnaire 9) score [facility] Start: 04-04-19 59 History and physical examination, annual for health maintenance Wellness Visit [facility] Start: 04-04-19 59 Medicare Wellness Visit Medicare Wellness Visit [facility] Start: 10-05-19 56 COVID-19 VACCINE (#1) COVID-19 VACCINE (#1) [facility] Start: 04-04-19 56 Hepatitis C antibody, confirmatory test HEPATITIS C VIRUS SCREENING [facility] Start: 04-04-19 56 Hepatitis C screening HEPATITIS C VIRUS SCREENING [facility] Start: 04-04-19 56 Lipid panel Lipid Panel [facility] Start: 04-04-19 56 Medicare Annual Wellness Visit Medicare Annual Wellness Visit (AWV) [facility] Start: 04-04-19 56 Screening for malignant neoplasm of cervix Pap Smear [facility] Start: 04-04-19 Screening for malignant neoplasm of colon [facility] Start: 04-04-19 Screening for osteoporosis [facility] Start: 04-04-19 56 Screening mammography Mammogram [facility] Start: 04-04-19 56 Tetanus vaccination [facility] ULISSES MULTIPLEX SCRN WITH REFLEX ULISSES MULTIPLEX SCRN WITH REFLEXLabRoutineDorsalgiaParesthesias in left handCarpal tunnel syndrome of left wristParesthesia of right footDisorder of bone and cartilageAbnormal reflexes of lower extremityOsteoarthritis of right sacroiliac jointLumbar degenerative disc diseaseOsteoarthritis of lumbar spine, unspecified spinal osteoarthritis complication statusBilateral wrist painBilateral hand painOsteoarthritis of both hands, unspecified osteoarthritis typeWeakness of both handsOsteoarthritis of both feet, unspecified osteoarthritis typePsoriasisFatigue, unspecified typeLong term current use of non-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-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 (NSAID)History of osteoarthritisHistory of psoriatic arthritisHistory of psoriasisLong-term use of high-risk medicationLong-term use of PlaquenilHistory of fibromyalgiaChronic bilateral low back pain with left-sided sciaticaDisc disorderSpinal stenosis of lumbar region with neurogenic claudicationLumbar radiculopathySpondylolisthesis of lumbar regionPsoriatic arthr (more content not included)... [facility] Comment on above: Ordered: 02/23/2021 ANCA INIT SCRN (ANCA, PR3AB, MPO) ANCA INIT SCRN (ANCA, PR3AB, MPO)LabRoutineDorsalgiaParesthesias in left handCarpal tunnel syndrome of left wristParesthesia of right footDisorder of bone and cartilageAbnormal reflexes of lower extremityOsteoarthritis of right sacroiliac jointLumbar degenerative disc diseaseOsteoarthritis of lumbar spine, unspecified spinal osteoarthritis complication statusBilateral wrist painBilateral hand painOsteoarthritis of both hands, unspecified osteoarthritis typeWeakness of both handsOsteoarthritis of both feet, unspecified osteoarthritis typePsoriasisFatigue, unspecified typeLong term current use of non-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-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 (NSAID)History of osteoarthritisHistory of psoriatic arthritisHistory of psoriasisLong-term use of high-risk medicationLong-term use of PlaquenilHistory of fibromyalgiaChronic bilateral low back pain with left-sided sciaticaDisc disorderSpinal stenosis of lumbar region with neurogenic claudicationLumbar radiculopathySpondylolisthesis of lumbar regionPsoriatic ar (more content not included)... [facility] Comment on above: Ordered: 02/23/2021 Angiotensin converting enzyme [Catalytic activity/Vol] ANGIOTENSIN CONVERTING ENZYMELabRoutineDorsalgiaParesthesias in left handCarpal tunnel syndrome of left wristParesthesia of right footDisorder of bone and cartilageAbnormal reflexes of lower extremityOsteoarthritis of right sacroiliac jointLumbar degenerative disc diseaseOsteoarthritis of lumbar spine, unspecified spinal osteoarthritis complication statusBilateral wrist painBilateral hand painOsteoarthritis of both hands, unspecified osteoarthritis typeWeakness of both handsOsteoarthritis of both feet, unspecified osteoarthritis typePsoriasisFatigue, unspecified typeLong term current use of non-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-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 (NSAID)History of osteoarthritisHistory of psoriatic arthritisHistory of psoriasisLong-term use of high-risk medicationLong-term use of PlaquenilHistory of fibromyalgiaChronic bilateral low back pain with left-sided sciaticaDisc disorderSpinal stenosis of lumbar region with neurogenic claudicationLumbar radiculopathySpondylolisthesis of lumbar regionPsoriatic arthri (more content not included)... [facility] Comment on above: Ordered: 02/23/2021 Bilirubin measurement, urine [facility] CK CKLabRoutineDors algiaParesthesias in left handCarpal tunnel syndrome of left wristParesthesia of right footDisorder of bone and cartilageAbnormal reflexes of lower extremityOsteoarthritis of right sacroiliac jointLumbar degenerative disc diseaseOsteoarthritis of lumbar spine, unspecified spinal osteoarthritis complication statusBilateral wrist painBilateral hand painOsteoarthritis of both hands, unspecified osteoarthritis typeWeakness of both handsOsteoarthritis of both feet, unspecified osteoarthritis typePsoriasisFatigue, unspecified typeLong term current use of non-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-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 (NSAID)History of osteoarthritisHistory of psoriatic arthritisHistory of psoriasisLong-term use of high-risk medicationLong-term use of PlaquenilHistory of fibromyalgiaChronic bilateral low back pain with left-sided sciaticaDisc disorderSpinal stenosis of lumbar region with neurogenic claudicationLumbar radiculopathySpondylolisthesis of lumbar regionPsoriatic arthritisChronic midline low back (more content not included)... [facility] Comment on above: Ordered: 02/23/2021 Cobalamin (Vitamin B12) [Mass/Vol] VITAMIN [id number] as in left handCarpal tunnel syndrome of left wristParesthesia of right footDisorder of bone and cartilageAbnormal reflexes of lower extremityOsteoarthritis of right sacroiliac jointLumbar degenerative disc diseaseOsteoarthritis of lumbar spine, unspecified spinal osteoarthritis complication statusBilateral wrist painBilateral hand painOsteoarthritis of both hands, unspecified osteoarthritis typeWeakness of both handsOsteoarthritis of both feet, unspecified osteoarthritis typePsoriasisFatigue, unspecified typeLong term current use of non-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-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 (NSAID)History of osteoarthritisHistory of psoriatic arthritisHistory of psoriasisLong-term use of high-risk medicationLong-term use of PlaquenilHistory of fibromyalgiaChronic bilateral low back pain with left-sided sciaticaDisc disorderSpinal stenosis of lumbar region with neurogenic claudicationLumbar radiculopathySpondylolisthesis of lumbar regionPsoriatic arthritisChronic midline (more content not included)... [facility] Comment on above: Ordered: 02/23/[address] [facility] CRP [Mass/Vol] C REACTIVE PROTEINLabRoutineDorsalgiaParesthesias in left handCarpal tunnel syndrome of left wristParesthesia of right footDisorder of bone and cartilageAbnormal reflexes of lower extremityOsteoarthritis of right sacroiliac jointLumbar degenerative disc diseaseOsteoarthritis of lumbar spine, unspecified spinal osteoarthritis complication statusBilateral wrist painBilateral hand painOsteoarthritis of both hands, unspecified osteoarthritis typeWeakness of both handsOsteoarthritis of both feet, unspecified osteoarthritis typePsoriasisFatigue, unspecified typeLong term current use of non-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-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 (NSAID)History of osteoarthritisHistory of psoriatic arthritisHistory of psoriasisLong-term use of high-risk medicationLong-term use of PlaquenilHistory of fibromyalgiaChronic bilateral low back pain with left-sided sciaticaDisc disorderSpinal stenosis of lumbar region with neurogenic claudicationLumbar radiculopathySpondylolisthesis of lumbar regionPsoriatic arthritisChronic (more content not included)... [facility] Comment on above: Ordered: 02/23/2021 CT Chest WO contrast [facility] CYCLIC CITRULLINATE PEPTIDE AB CYCLIC CITRULLINATE PEPTIDE ABLabRoutineDorsalgiaParesthesias in left handCarpal tunnel syndrome of left wristParesthesia of right footDisorder of bone and cartilageAbnormal reflexes of lower extremityOsteoarthritis of right sacroiliac jointLumbar degenerative disc diseaseOsteoarthritis of lumbar spine, unspecified spinal osteoarthritis complication statusBilateral wrist painBilateral hand painOsteoarthritis of both hands, unspecified osteoarthritis typeWeakness of both handsOsteoarthritis of both feet, unspecified osteoarthritis typePsoriasisFatigue, unspecified typeLong term current use of non-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-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 (NSAID)History of osteoarthritisHistory of psoriatic arthritisHistory of psoriasisLong-term use of high-risk medicationLong-term use of PlaquenilHistory of fibromyalgiaChronic bilateral low back pain with left-sided sciaticaDisc disorderSpinal stenosis of lumbar region with neurogenic claudicationLumbar radiculopathySpondylolisthesis of lumbar regionPsoriatic arthr (more content not included)... [facility] Comment on above: Ordered: 02/23/2021 Hemoglobin [Presence] in Urine [facility] HLA-B27 [id number] eDorsalgiaParesthesias in left handCarpal tunnel syndrome of left wristParesthesia of right footDisorder of bone and cartilageAbnormal reflexes of lower extremityOsteoarthritis of right sacroiliac jointLumbar degenerative disc diseaseOsteoarthritis of lumbar spine, unspecified spinal osteoarthritis complication statusBilateral wrist painBilateral hand painOsteoarthritis of both hands, unspecified osteoarthritis typeWeakness of both handsOsteoarthritis of both feet, unspecified osteoarthritis typePsoriasisFatigue, unspecified typeLong term current use of non-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-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 (NSAID)History of osteoarthritisHistory of psoriatic arthritisHistory of psoriasisLong-term use of high-risk medicationLong-term use of PlaquenilHistory of fibromyalgiaChronic bilateral low back pain with left-sided sciaticaDisc disorderSpinal stenosis of lumbar region with neurogenic claudicationLumbar radiculopathySpondylolisthesis of lumbar regionPsoriatic arthritisChronic midline low (more content not included)... [facility] Comment on above: Ordered: 02/23/2021 TORI AND PE, SERUM TORI AND PE, SERUMLabRoutineDorsalgiaParesthesias in left handCarpal tunnel syndrome of left wristParesthesia of right footDisorder of bone and cartilageAbnormal reflexes of lower extremityOsteoarthritis of right sacroiliac jointLumbar degenerative disc diseaseOsteoarthritis of lumbar spine, unspecified spinal osteoarthritis complication statusBilateral wrist painBilateral hand painOsteoarthritis of both hands, unspecified osteoarthritis typeWeakness of both handsOsteoarthritis of both feet, unspecified osteoarthritis typePsoriasisFatigue, unspecified typeLong term current use of non-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-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 (NSAID)History of osteoarthritisHistory of psoriatic arthritisHistory of psoriasisLong-term use of high-risk medicationLong-term use of PlaquenilHistory of fibromyalgiaChronic bilateral low back pain with left-sided sciaticaDisc disorderSpinal stenosis of lumbar region with neurogenic claudicationLumbar radiculopathySpondylolisthesis of lumbar regionPsoriatic arthritisChronic m (more content not included)... [facility] Comment on above: Ordered: 02/23/2021 LYME AB REFLEX TO WESTERN BLOT LYME AB REFLEX TO WESTERN BLOTLabRoutineDorsalgiaParesthesias in left handCarpal tunnel syndrome of left wristParesthesia of right footDisorder of bone and cartilageAbnormal reflexes of lower extremityOsteoarthritis of right sacroiliac jointLumbar degenerative disc diseaseOsteoarthritis of lumbar spine, unspecified spinal osteoarthritis complication statusBilateral wrist painBilateral hand painOsteoarthritis of both hands, unspecified osteoarthritis typeWeakness of both handsOsteoarthritis of both feet, unspecified osteoarthritis typePsoriasisFatigue, unspecified typeLong term current use of non-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-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 (NSAID)History of osteoarthritisHistory of psoriatic arthritisHistory of psoriasisLong-term use of high-risk medicationLong-term use of PlaquenilHistory of fibromyalgiaChronic bilateral low back pain with left-sided sciaticaDisc disorderSpinal stenosis of lumbar region with neurogenic claudicationLumbar radiculopathySpondylolisthesis of lumbar regionPsoriatic arthr (more content not included)... [facility] Comment on above: Ordered: 02/23/2021 Magnesium [Mass/Vol] MAGNESIUMLabRoutineDorsalgiaParesthesias in left handCarpal tunnel syndrome of left wristParesthesia of right footDisorder of bone and cartilageAbnormal reflexes of lower extremityOsteoarthritis of right sacroiliac jointLumbar degenerative disc diseaseOsteoarthritis of lumbar spine, unspecified spinal osteoarthritis complication statusBilateral wrist painBilateral hand painOsteoarthritis of both hands, unspecified osteoarthritis typeWeakness of both handsOsteoarthritis of both feet, unspecified osteoarthritis typePsoriasisFatigue, unspecified typeLong term current use of non-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-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 (NSAID)History of osteoarthritisHistory of psoriatic arthritisHistory of psoriasisLong-term use of high-risk medicationLong-term use of PlaquenilHistory of fibromyalgiaChronic bilateral low back pain with left-sided sciaticaDisc disorderSpinal stenosis of lumbar region with neurogenic claudicationLumbar radiculopathySpondylolisthesis of lumbar regionPsoriatic arthritisChronic midline l (more content not included)... [facility] Comment on above: Ordered: 02/23/2021 Measurement of ketones in urine using dipstick [facility] Microscopic urinalysis [facility] Organism count, microscopic method [facility] Patient referral [facility] Work Phone: pH of Urine [facility] RED CELL FOLATE RED CELL FOLATEB lood BankRoutineDorsalgiaParesthesias in left handCarpal tunnel syndrome of left wristParesthesia of right footDisorder of bone and cartilageAbnormal reflexes of lower extremityOsteoarthritis of right sacroiliac jointLumbar degenerative disc diseaseOsteoarthritis of lumbar spine, unspecified spinal osteoarthritis complication statusBilateral wrist painBilateral hand painOsteoarthritis of both hands, unspecified osteoarthritis typeWeakness of both handsOsteoarthritis of both feet, unspecified osteoarthritis typePsoriasisFatigue, unspecified typeLong term current use of non-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-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 (NSAID)History of osteoarthritisHistory of psoriatic arthritisHistory of psoriasisLong-term use of high-risk medicationLong-term use of PlaquenilHistory of fibromyalgiaChronic bilateral low back pain with left-sided sciaticaDisc disorderSpinal stenosis of lumbar region with neurogenic claudicationLumbar radiculopathySpondylolisthesis of lumbar regionPsoriatic arthritisChro (more content not included)... [facility] Comment on above: Ordered: 02/23/2021 RHEUMATOID FACTOR RHEUMATOID FACTORLabRoutineDorsalgiaParesthesias in left handCarpal tunnel syndrome of left wristParesthesia of right footDisorder of bone and cartilageAbnormal reflexes of lower extremityOsteoarthritis of right sacroiliac jointLumbar degenerative disc diseaseOsteoarthritis of lumbar spine, unspecified spinal osteoarthritis complication statusBilateral wrist painBilateral hand painOsteoarthritis of both hands, unspecified osteoarthritis typeWeakness of both handsOsteoarthritis of both feet, unspecified osteoarthritis typePsoriasisFatigue, unspecified typeLong term current use of non-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-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 (NSAID)History of osteoarthritisHistory of psoriatic arthritisHistory of psoriasisLong-term use of high-risk medicationLong-term use of PlaquenilHistory of fibromyalgiaChronic bilateral low back pain with left-sided sciaticaDisc disorderSpinal stenosis of lumbar region with neurogenic claudicationLumbar radiculopathySpondylolisthesis of lumbar regionPsoriatic arthritisChronic m (more content not included)... [facility] Comment on above: Ordered: 02/23/2021 SEDIMENTATION RATE, AUTOMATED SEDIMENTATION RATE, AUTOMATEDLabRoutineDorsalgiaParesthesias in left handCarpal tunnel syndrome of left wristParesthesia of right footDisorder of bone and cartilageAbnormal reflexes of lower extremityOsteoarthritis of right sacroiliac jointLumbar degenerative disc diseaseOsteoarthritis of lumbar spine, unspecified spinal osteoarthritis complication statusBilateral wrist painBilateral hand painOsteoarthritis of both hands, unspecified osteoarthritis typeWeakness of both handsOsteoarthritis of both feet, unspecified osteoarthritis typePsoriasisFatigue, unspecified typeLong term current use of non-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-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 (NSAID)History of osteoarthritisHistory of psoriatic arthritisHistory of psoriasisLong-term use of high-risk medicationLong-term use of PlaquenilHistory of fibromyalgiaChronic bilateral low back pain with left-sided sciaticaDisc disorderSpinal stenosis of lumbar region with neurogenic claudicationLumbar radiculopathySpondylolisthesis of lumbar regionPsoriatic arthri (more content not included)... [facility] Comment on above: Ordered: 02/23/2021 Specific gravity of Urine [facility] T-TRANSGLUTAMINAS E IGA AB T-TRANSGLUTAMINASE IGA ABLabRoutineDorsalgiaParesthesias in left handCarpal tunnel syndrome of left wristParesthesia of right footDisorder of bone and cartilageAbnormal reflexes of lower extremityOsteoarthritis of right sacroiliac jointLumbar degenerative disc diseaseOsteoarthritis of lumbar spine, unspecified spinal osteoarthritis complication statusBilateral wrist painBilateral hand painOsteoarthritis of both hands, unspecified osteoarthritis typeWeakness of both handsOsteoarthritis of both feet, unspecified osteoarthritis typePsoriasisFatigue, unspecified typeLong term current use of non-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-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 (NSAID)History of osteoarthritisHistory of psoriatic arthritisHistory of psoriasisLong-term use of high-risk medicationLong-term use of PlaquenilHistory of fibromyalgiaChronic bilateral low back pain with left-sided sciaticaDisc disorderSpinal stenosis of lumbar region with neurogenic claudicationLumbar radiculopathySpondylolisthesis of lumbar regionPsoriatic arthritisC (more content not included)... [facility] Comment on above: Ordered: 02/23/2021 Urate [Mass/Vol] URIC ACIDLabRou tineDorsalgiaParesthesias in left handCarpal tunnel syndrome of left wristParesthesia of right footDisorder of bone and cartilageAbnormal reflexes of lower extremityOsteoarthritis of right sacroiliac jointLumbar degenerative disc diseaseOsteoarthritis of lumbar spine, unspecified spinal osteoarthritis complication statusBilateral wrist painBilateral hand painOsteoarthritis of both hands, unspecified osteoarthritis typeWeakness of both handsOsteoarthritis of both feet, unspecified osteoarthritis typePsoriasisFatigue, unspecified typeLong term current use of non-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-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 (NSAID)History of osteoarthritisHistory of psoriatic arthritisHistory of psoriasisLong-term use of high-risk medicationLong-term use of PlaquenilHistory of fibromyalgiaChronic bilateral low back pain with left-sided sciaticaDisc disorderSpinal stenosis of lumbar region with neurogenic claudicationLumbar radiculopathySpondylolisthesis of lumbar regionPsoriatic arthritisChronic midline l (more content not included)... [facility] Comment on above: Ordered: 02/23/2021 Urine dipstick for glucose [facility] Urine dipstick for leukocyte esterase [facility] Urine dipstick for nitrite [facility] Urine dipstick for protein [facility] Urine examination [facility] Urine microscopy: epithelial cells [facility] Urine microscopy: red cells [facility] Urobilinogen [Presence] in Urine [facility] US scan of bladder [facility] US Thyroid gland [facility] VITAMIN B1 VITAMIN [id number] tineDorsalgiaParesthesias in left handCarpal tunnel syndrome of left wristParesthesia of right footDisorder of bone and cartilageAbnormal reflexes of lower extremityOsteoarthritis of right sacroiliac jointLumbar degenerative disc diseaseOsteoarthritis of lumbar spine, unspecified spinal osteoarthritis complication statusBilateral wrist painBilateral hand painOsteoarthritis of both hands, unspecified osteoarthritis typeWeakness of both handsOsteoarthritis of both feet, unspecified osteoarthritis typePsoriasisFatigue, unspecified typeLong term current use of non-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-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 (NSAID)History of osteoarthritisHistory of psoriatic arthritisHistory of psoriasisLong-term use of high-risk medicationLong-term use of PlaquenilHistory of fibromyalgiaChronic bilateral low back pain with left-sided sciaticaDisc disorderSpinal stenosis of lumbar region with neurogenic claudicationLumbar radiculopathySpondylolisthesis of lumbar regionPsoriatic arthritisChronic midline (more content not included)... [facility] Comment on above: Ordered: 02/23/2021 VITAMIN B6 VITAMIN [id number] tineDorsalgiaParesthesias in left handCarpal tunnel syndrome of left wristParesthesia of right footDisorder of bone and cartilageAbnormal reflexes of lower extremityOsteoarthritis of right sacroiliac jointLumbar degenerative disc diseaseOsteoarthritis of lumbar spine, unspecified spinal osteoarthritis complication statusBilateral wrist painBilateral hand painOsteoarthritis of both hands, unspecified osteoarthritis typeWeakness of both handsOsteoarthritis of both feet, unspecified osteoarthritis typePsoriasisFatigue, unspecified typeLong term current use of non-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-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 (NSAID)History of osteoarthritisHistory of psoriatic arthritisHistory of psoriasisLong-term use of high-risk medicationLong-term use of PlaquenilHistory of fibromyalgiaChronic bilateral low back pain with left-sided sciaticaDisc disorderSpinal stenosis of lumbar region with neurogenic claudicationLumbar radiculopathySpondylolisthesis of lumbar regionPsoriatic arthritisChronic midline (more content not included)... [facility] Comment on above: Ordered: 02/23/2021 VITAMIN D (25-HYDROXY,TOTAL ) VITAMIN D (25-HYDROXY,TOTAL)LabRoutineDorsalgiaParesthesi as in left handCarpal tunnel syndrome of left wristParesthesia of right footDisorder of bone and cartilageAbnormal reflexes of lower extremityOsteoarthritis of right sacroiliac jointLumbar degenerative disc diseaseOsteoarthritis of lumbar spine, unspecified spinal osteoarthritis complication statusBilateral wrist painBilateral hand painOsteoarthritis of both hands, unspecified osteoarthritis typeWeakness of both handsOsteoarthritis of both feet, unspecified osteoarthritis typePsoriasisFatigue, unspecified typeLong term current use of non-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-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 (NSAID)History of osteoarthritisHistory of psoriatic arthritisHistory of psoriasisLong-term use of high-risk medicationLong-term use of PlaquenilHistory of fibromyalgiaChronic bilateral low back pain with left-sided sciaticaDisc disorderSpinal stenosis of lumbar region with neurogenic claudicationLumbar radiculopathySpondylolisthesis of lumbar regionPsoriatic arthrit (more content not included)... [facility] Comment on above: Ordered: 02/23/2021 VITAMIN D, (1,25 DIHYDROXY) VITAMIN D, (1,25 DIHYDROXY)LabRoutineDorsalgiaParesthesias in left handCarpal tunnel syndrome of left wristParesthesia of right footDisorder of bone and cartilageAbnormal reflexes of lower extremityOsteoarthritis of right sacroiliac jointLumbar degenerative disc diseaseOsteoarthritis of lumbar spine, unspecified spinal osteoarthritis complication statusBilateral wrist painBilateral hand painOsteoarthritis of both hands, unspecified osteoarthritis typeWeakness of both handsOsteoarthritis of both feet, unspecified osteoarthritis typePsoriasisFatigue, unspecified typeLong term current use of non-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-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 (NSAID)History of osteoarthritisHistory of psoriatic arthritisHistory of psoriasisLong-term use of high-risk medicationLong-term use of PlaquenilHistory of fibromyalgiaChronic bilateral low back pain with left-sided sciaticaDisc disorderSpinal stenosis of lumbar region with neurogenic claudicationLumbar radiculopathySpondylolisthesis of lumbar regionPsoriatic arthriti (more content not included)... Cono-C Comment on above: Ordered: 02/23/2021 White blood cell count [facility] Immunizations Immunization Date Immunization Notes Care Provider Kyler dutton 10-22-2023 influenza, injectabl e, quadrivalent, preservative free Dr. Flavio Johnson Work Phone: [facility] 10-22-2023 influenza virus vacc ine, unspecified formulation Alfa Holden Jr., DO Work Phone: [facility] 10-14-2022 Influenza High-Dose Quadrivalent Dr. Flavio Johnson Work Phone: [facility] 10-14-2022 pneumococcal polysaccharide vaccine, [address] Flavio Johnson Work Phone: [facility] 10-14-2022 influenza virus vacc ine, unspecified formulation Alfa Holden Jr., DO Work Phone: [facility] 12-06-[address] Flavio Johnson Work Phone: [facility] 11-22-2021 Covid (Moderna) Dr. Flavio mcgrath Work Phone: [facility] 09-18-[address] Flavio Johnson Work Phone: [facility] 08-15-2021 influenza, injectabl e, quadrivalent, preservative free Dr. Flavio Johnson Work Phone: [facility] 08-15-2021 pneumococcal conjuga te vaccine, [address] Flavio Johnson Work Phone: [facility] 08-15-2021 influenza virus vacc ine, unspecified formulation Alfa Holden Jr., DO Work Phone: [facility] 04-19-2021 Covid (Moderna) Dr. Flavio mcgrath Work Phone: [facility] 03-21-2021 Covid (Moderna) Dr. Flavio mcgrath Work Phone: [facility] 10-05-2009 novel influenza-H1N1 -09, preservative-free, injectable Dr. Flavio Johnson Work Phone: [facility] 10-05-2009 influenza virus vacc ine, unspecified formulation Alfa Holden Jr., DO Work Phone: [facility] 08-30-2009 influenza, injectabl e, quadrivalent, preservative free Dr. Flavio Johnson Work Phone: [facility] Payers Date Payer Category Payer Medicare (Managed Care) 1.2. [id number] 2024 Medicare [id number] 2024 Self-pay 2021 Medicare [id number] .[id number] 2021 Medicare [id number] 1.13.172.2 .[id number] 2021 Unknown 2021 Unknown [id number] 1.2.840.667702.1.13.172.2 .7.3.250841.315 2021 Medicare [id number] 2021 Unknown [id number] 2020 Unknown [facility] [id number] 2020-Present [id number] 1.2.840.744980.1.13.172.2 .7.3.646951.315 2017 Unknown VENKAT ROBERTSON/PREF/HMO/PPO [id number] 2017-Present [id number] 1.2.840.907866.1.13.385.2 .7.3.234483.315 2017 Unknown [id number] 1955 Unknown [id number] 2.16.840.1.771338.3.579.2 .356 1955 Unknown [id number] 2.16.840.1.874240.3.579.2 .356 1955 Unknown [id number] 2.16.840.1.666821.3.579.2 .1956 Unknown [id number] 2.16.840.1.370783.3.579.2 .1956 Unknown [id number] 2.16.840.1.410260.3.579.2 .1956 Unknown [id number] 2.16.840.1.679933.3.579.2 .1956 Unknown [id number] 2.16.840.1.646347.3.579.2 .1956 Unknown [id number] 2.16.840.1.659065.3.579.2 .1956 Unknown [id number] 2.16.840.1.808166.3.579.2 .1956 Unknown [id number] 2.16.840.1.243058.3.579.2 .1956 Unknown [id number] 2.16.840.1.232210.3.579.2 .1956 Unknown [id number] 2.16.840.1.964198.3.579.2 .1242 1956 Unknown [id number] 2.16.840.1.995310.3.579.2 .1242 1956 Unknown [id number] 2.16.840.1.735096.3.579.2 .1242 1956 Unknown [id number] 2.16.840.1.289553.3.579.2 .1242 1956 Unknown [id number] 2.16.840.1.207854.3.579.2 .1242 1956 Unknown [id number] 2.16.840.1.478583.3.579.2 .1242 1955 Unknown [id number] 2.16.840.1.759299.3.579.2 .1243 1956 Unknown [id number] 2.16.840.1.207707.3.579.2 .1242 1956 Unknown [id number] 2.16.840.1.436759.3.579.2 .1242 1956 Unknown [id number] 2.16.840.1.832101.3.579.2 .124 1955 Unknown [id number] 2.840.1.194120.3.579.2 .983 1955 Unknown [id number] 2.840.1.762468.3.579.2 .983 1955 Unknown [id number] 2.840.1.082072.3.579.2 .983 1955 Unknown [id number] 2.840.1.496578.3.579.2 .983 Private Health Insurance [id number] Private Health Insurance [id number] Unknown [id number] 2.840.1.595291.3.579.2 .462 Unknown [id number] 2.840.1.392653.3.579.2 .462 Unknown [id number] 2.840.1.761333.3.579.2 .462 Unknown [id number] 2.16840.1.691618.3.579.2 .462 Unknown [id number] 2.16840.1.251718.3.579.2 .462 Unknown [id number] 2.16840.1.256954.3.579.2 .462 Unknown [id number] 2.16840.1.554371.3.579.2 .462 Unknown [id number] 2.16840.1.445571.3.579.2 .462 Unknown [id number] 2.16.840.1.473397.3.579.2 .462 Unknown [id number] 2.16.840.1.963901.3.579.2 .462 Unknown [id number] 2.16.840.1.595143.3.579.2 .462 Unknown [id number] 2.16.840.1.434909.3.579.2 .462 Unknown [id number] 2.16.840.1.369791.3.579.2 .462 Unknown [id number] 2.16.840.1.736653.3.579.2 .462 Unknown [id number] 2.16.840.1.061704.3.579.2 .462 Unknown [id number] 2.16.840.1.112345.3.579.2 .462 Social History Date Type Detail Facility Start: 06-01-2018 End: 05-04-2025 Tobacco smoking status NHIS Never smoker [facility] Start: 07-19-2015 End: 06-01-2018 Tobacco use and exposure Never used [facility] Start: 06-01-2018 End: 02-28-2025 Alcohol intake Current non-drinker of alcohol (finding) [facility] Start: 1955 Sex Assigned At Not on file [facility] Start: 02-23-2021 End: 12-09-2022 Tobacco use and exposure Former user [facility] Start: 12-09-2022 End: 06-06-2025 History of Social function [facility] Start: 12-09-2022 End: 06-06-2025 Tobacco use panel [facility] National Score (1-100), lower number is lower risk 79 [facility] Start: 10-04-2023 Gender identity Identifies as female gender (finding) [facility] Start: 10-04-2023 Sexual orientation Heterosexual (fin ding) [facility] Start: 02-25-2024 Tobacco smoking status NHIS Unknown if ever smoked [facility] Start: 1955 Sex Assigned At Female [facility] Start: 02-08-2025 End: 02-18-2025 Exposure to SARS-CoV-2 (event) Not sure [facility] Start: 12-20-2012 End: 02-25-2025 Sex Female (finding) [facility] NEGATED: Highlighted row Not [facility] Goals Date Patient Goal Desired Activity /State Mental Status Date Assessment Result Facility 02-25-2025 Cognitive function Level Of Consciousness Sedated [facility] Work Phone: 02-25-2025 Cognitive function Voice/Name [facility] Work Phone: Clinical Notes 08-26-2017 to 06-28-2025 Alfa Holden Jr., DO - 06/06/2025 9:00 AM EDT Note Date & Type Note Facility 06-28-2025 Radiology Diagnostic study note [facility] Imaging Services [address] [place] [address] Thyroid MR#: [id number] Acct: [id number] Name: BOONE ESPINOZA Rep #: [id number] : 1955 F 70 From: Fermin Lara MD PCP: Dr. Flavio Johnson MD Status: REG CLI Study:Thyroid Date of Exam: 06/27/25 Exam# [id number] Ordering Dr: Flavio Johnson MD PROCEDURE: THYROID 06/27/2025 REASON FOR EXAM: THYROID NODULE TECHNIQUE: THYROID COMPARISON: Prior CT scan of the chest dated May 04, 2025. FINDINGS: Right thyroid lobe size: 3.2 cm x 1.2 cm 1.4 cm Left thyroid lobe size: 3.5 cm x 2 cm x 1.9 cm Isthmus: 0.2 cm Background parenchymal echotexture is homogeneous. Nodules: . Lobe: Left, Location: Mid to lower, Size: 2.2 cm x 1.6 cm x1.2 cm, Stability: N/A Composition: Solid or almost completely solid (+2) Echogenicity: Hypoechoic (+2) Margin: Smooth (+0) Shape: Wider than tall (+0) Echogenic Foci: None (+0) TI-RADS: 4 US/Thyroid IMPRESSION: There is a dominant 2.2 cm x 1.6 cm 1.2 cm hypoechoic solid nodule in the mid lower aspect of the left lobe of the thyroid as described. Biopsy recommended. RECOMMENDATION: Based on most suspicious nodule. Nodule size = largest diameter Only evaluate nodule if =>5 mm. Growth > 20% in 2 dimensions = worsening. Follow up to 4 nodules. Recommend biopsy for no more than 2 nodules. Reading Location: [facility]1 CC: Dr. Flavio Johnson MD ~ Implementation Director: Signed [facility] 06-27-2025 Radiology Diagnostic study note [facility] Imaging Services [address] [place] [address] Post Void Residual Bladder MR#: [id number] Acct: [id number] Name: BOONE ESPINOZA Rep #: [id number] : 1955 F 70 From: Fermin Lara MD PCP: Dr. Flavio Johnson MD Status: REG CLI Study:Post Void Residual Bladder Date of Exam : 06/27/25 Exam# [id number] Ordering Dr: Flavio Johnson MD PROCEDURE: POST VOID RESIDUAL BLADDER 06/27/2025 REASON FOR EXAM: INCOMPLETE EMPTYING TECHNIQUE: POST VOID RESIDUAL BLADDER COMPARISON: None FINDINGS: Right ureteral jet: Visualized Left ureteral jet: Visualized Bladder prevoid: 95 mL Bladder empty: 21 mL Bladder wall thickness: 3 mm. No bladder mass or calculi seen. US/Post Void Residual Bladder IMPRESSION: Small postvoid residual. Reading Location: [facility] CC: Dr. Flavio Johnson MD ~ Implementation Director: Signed [facility] 06-13-2025 Radiology Diagnostic study note [facility] Imaging Services [address] [place] [address] Chest without Contrast MR#: [id number] Acct: [id number] Name: BOONE ESPINOZA Rep #: [id number] : 1955 F 70 From: Lazaro Centeno MD PCP: Dr. Flavio Johnson MD Status: REG CLI Study:Chest without Contrast Date of Exam: 06/13/25 Exam# [id number] Ordering Dr: Valerio DO PROCEDURE: CHEST WITHOUT CONTRAST 06/13/2025 REASON FOR EXAM: ENDOBRONCHIAL LESION IN RLL TECHNIQUE: Chest CT without contrast. Coronal and Sagittal reconstruction series were provided. One or more dose reduction techniques were used (e.g., Automated exposure control, adjustment of the mA and/or kV according to patient size, use of iterative reconstruction technique RADIATION DOSE SUMMARY: CTDlvol: 9.47 mGy DLP: 333.79 mGycm COMPARISON: 05/04/2025 FINDINGS: Lung windows show the lungs to be normally expanded. There is a noncalcified 4 mm nodule in the right middle lobe on axial image 50. There is a 3 mm noncalcified nodule in the left lower lobe on axial image 85. Chronic interstitial changes noted in the lower lung sotelo, no organized infiltrate or effusion. Soft tissue windows show a low-density nodules within the thyroid. Dedicated thyroid ultrasound may be of benefit for further evaluation. There are scattered subcentimeter in short axis dimension axillary and mediastinal lymph nodes likely reactive. The thoracic aorta tapers normally. No calcified coronary vessels are noted. Limited cuts of the upper abdomen do not show a suspicious abnormality Bony structures show degenerative change CT/Chest without Contrast IMPRESSION: Coronary artery calcification (CAC) is is absent No acute pulmonary process, there are subcentimeter noncalcified nodules in the right middle lobe and left lower lobe. Six-month follow-up recommended to assess stability Thyroid nodules, consider dedicated thyroid ultrasound for further evaluation Reading Location: [id number] CC: Dr. Flavio Johnson MD; Dr. Schuyler Butler DO ~ Implementation Director: Signed [facility] 06-06-2025 History of Present illness Narrative Images from the original note were not included. History of Present Illness Presence of Pain: reports pain/discomfort Select Pain Scale: DVPRS (Defense and Veterans Pain Rating Scale) (Adult-Cognitively Intact) DVPRS: Rest: 3- mild pain Select Pain Scale: DVPRS (Defense and Veterans Pain Rating Scale) (Adult-Cognitively Intact). Total time spent in this encounter was 27 minutes. Psoriasis/Rash is better. Paresthesias feet. Joint pain is that she feels pretty good. Side of L knee, Patient is here for 6 month Follow-up. Patient states is doing pretty good overall. Has noticed soreness on the outside of left knee. Wrist splint are helping. Review of Systems Constitutional: HENT: Negative. Eyes: Negative. Respiratory: Mas in R lung under eval. Cough. Cardiovascular: Negative. Gastrointestinal: Negative. Endocrine: Negative. Genitourinary: Negative. Musculoskeletal: Joint pain Skin: Positive for psoriasis Onychodystrophy toes. Allergic/Immunologic: Negative. Neurological: Positive for numbness. Hematological: Negative. Psychiatric/Behavioral: Negative. Vitals: There were no vitals taken for this visit. Physical Exam Vitals and nursing note reviewed. Constitutional: Appearance: Normal appearance. HENT: Head: Normocephalic and atraumatic. Right Ear: External ear normal. Left Ear: External ear normal. Nose: Nose normal. Mouth/Throat: Comments: Eyes: Extraocular Movements: Extraocular movements intact. Conjunctiva/sclera: Conjunctivae normal. Pupils: Pupils are equal, round, and reactive to light. Comments: glasses Cardiovascular: Rate and Rhythm: Normal rate and regular rhythm. Pulses: Carotid pulses Radial pulses are 2+ on the right side and 2+ on the left side. Dorsalis pedis pulses Posterior tibial pulses. Heart sounds: Normal heart sounds. Comments: Pulmonary: Effort: Pulmonary effort is normal. Breath sounds: RLL wheeze and rhonchi Abdominal: General: Bowel sounds are normal. Palpations: Abdomen is soft. Musculoskeletal: Right shoulder: Left shoulder: Right upper arm: Normal. Left upper arm: Normal. Right elbow: Normal. Left elbow: Normal. Right forearm: Normal. Left forearm: Normal. Right wrist: crep and decreased ROM Left wrist: Decreased range of motion. With Crep. Pain Right hand: Deformity present. Decreased range of motion. Left hand: Deformity present. Decreased range of motion. Arms: Cervical back: Thoracic back Lumbar back Right hip: Left hip: Right upper leg: Normal. Left upper leg: Normal. Right knee: Decreased ROM Left knee: Decreased rOM with crep with tnederness Right lower leg: Left lower leg: Right ankle: Normal. Left ankle: Normal. Right foot: Left foot: Comments: Skin: General: Skin is warm and dry. Comments: Onychodystrophy toes Neurological: Mental Status: She is alert and oriented to person, place, and time. Cranial Nerves: Cranial nerves are intact. Sensory: Motor: Decreased yarn salvager strength R hand Gait: Gait is intact. Deep Tendon Reflexes: Reflex Scores: Comments: Paresthesias R foot. Positive Tinel's L wrist. Psychiatric: Mood and Affect: Mood normal. Behavior: Behavior normal. Thought Content: Thought content normal. Judgment: Judgment normal. Neurologic Exam Mental Status Oriented to person, place, and time. Cranial Nerves CN III, IV, Pupils are equal, round, and reactive to light. Gait, Coordination, and Reflexes Gait Gait: normal Assessment and Plan Encounter Diagnoses Name Primary? Fatty liver Yes Lumbosacral radiculopathy at S1 Carpal tunnel syndrome of left wrist Osteoarthritis of right sacroiliac joint Osteoarthritis of lumbar spine, unspecified spinal osteoarthritis complication status Osteoarthritis of both hands, unspecified osteoarthritis type Osteoarthritis of both feet, unspecified osteoarthritis type Spinal stenosis of lumbar region with neurogenic claudication HNP (herniated nucleus pulposus), lumbar MCFP current use of non-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-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 (NSAID) History of psoriatic arthritis History of psoriasis History of osteoarthritis History of fibromyalgia 1. Time was spent with the patient today in education in re: to all their medical conditions. A complete H&P&ROS was obtained and is either in this note or in the EHR. Please do not hesitate to contact me with any questions or concerns re: this patient. Past History Past medical, surgical, family, and social histories have been reviewed and updated with the patient today and are located elsewhere in the medical record. 2. Thank you for allowing me to participate in the care of your patient. With your permission I would like to F/U with your patient. 3. Neurosurgery F/U per dr. Singh 4. Patient declined referral to hand surgeon. 5. Rx given for PT/OT - patient has been and is doing HEP 6. ESR was normal at 6 and still is at 7 7. Monitor CBC/LFT/Renal func every 6-12 months as long as patient is on daily NSAID 8. CRP was negative at < 5.0 and is now elevated at 10.9: Lung ? 9. Repeat DEXA on or about 05/01/2025 10. Derm F/U per [facility] 11. Optho F/U per Dr. gaitan 12. Patient given educational material on fibromyalgia syndrome in the form of a pamphlet from the arthritis foundation. Patient told that generalized stretching and aerobic exercise would be the cornerstone of treatment. Patient would benefit from psych eval and treatment of any underlying depression and/or anxiety disorder. Patient would benefit from eval and F/U treatment by PMR and/or Chronic Pain Management 13. Otezla upset stomach 14. 90 day supply on medications 15., Degenerative changes pubic symphysis 16. Pulmonary Follow-up per Dr. Butler 17. CO2 was elevated at 33 and is now normal at 25.7 18. EMG/NCV LUE and RLE: Chronic mild R S1 radiculopathy 19. If CTS problems continue rec: surgical eval 20. Max dose of Gabapentin is 2400 mg a day and can be increased as indicated or tolerated. 21. Patient has stopped Plaquenil 22. Patient is taking Tessalon pearls PRN for cough 23. Patient declines increasing Gabapentin 24. Call if need Rx's 25. Lab on or about 08/23/2025 26. Follow-up with me in 3 months documented in this encounter [facility] 05-11-2025 Chief complaint+R michael for visit Narrative HOSP FU-PT BR[facility] RECORDS-PULMONOLOGY REFERRAL May 11, 2025 7:49am Lung Mass May 25, 2025 10:57 am Other nonspecific abnormal f inding of lung field June 13, 2025 12:58pm 6 M FU June 22, 2025 8:1 7am Reason for Visit Admit Date Pill dysphagia May 11, 2025 7:49 am Lung mass May 11, 2025 7:49 am Hospital discharge follow-up May 11, 2025 7:49am Endobronchial mass May 25, 2025 10:57 am Arthritis pain June 22, 2025 8:1 7am Thyroid nodule June 22, 2025 8:1 7am Incomplete emptying of bladder June 8:17am Mixed hyperlipidemia June 22, 2025 8: 17am Obesity (BMI 30.0-34.9) June 22, 2025 8:17am Osteopenia June 22, 2025 8:1 7am Lung mass June 22, 2025 8:1 7am Stress incontinence June 22, 2025 8:1 7am [place] [facility] Work Phone: 1(436) 382-292006-25-2025 Chief complaint+Reason for visit Narrative * Chief Complaint Admit Date HOSP FU-PT BRINGING RECORDS-PULMONOLOGY REFERRAL May 11, 2025 7:49am Lung Mass May 25, 2025 10:57 am Other nonspecific abnormal finding of ady ng field June 13, 2025 12:58pm 6 M FU June 22, 2025 8:1 7am 1 M FU June 22, 2025 10: 10am Reason for Visit Admit Date Pill dysphagia May 11, 2025 7:49 am Lung mass May 11, 2025 7:49 am Hospital discharge follow-up May 11, 2025 7:49am Endobronchial mass May 25, 2025 10:57 am Arthritis pain June 22, 2025 8:1 7am Thyroid nodule June 22, 2025 8:1 7am Incomplete emptying of bladder June 8:17am Mixed hyperlipidemia June 22, 2025 8: 17am Obesity (BMI 30.0-34.9) June 22, 2025 8:17am Osteopenia June 22, 2025 8:1 7am Lung mass June 22, 2025 8:1 7am Stress incontinence June 22, 2025 8:1 7am [facility] Work Phone: 1(729) 865-112006-25-2025 Chief complaint+Reason for visit Narrative * Chief Complaint Admit Date HOSP FU-PT BRINGING RECORDS-PULMONOLOGY REFERRAL May 11, 2025 7:49am Lung Mass May 25, 2025 10:57 am Other nonspecific abnormal finding of ady ng field June 13, 2025 12:58pm 6 M FU June 22, 2025 8:1 7am 1 M FU June 22, 2025 10: 10am Retention of urine, unspecified June 172024 9:58am Reason for Visit Admit Date Pill dysphagia May 11, 2025 7:49 am Lung mass May 11, 2025 7:49 am Hospital discharge follow-up May 11, 2025 7:49am Endobronchial mass May 25, 2025 10:57 am Arthritis pain June 22, 2025 8:1 7am Thyroid nodule June 22, 2025 8:1 7am Incomplete emptying of bladder June 8:17am Mixed hyperlipidemia June 22, 2025 8: 17am Obesity (BMI 30.0-34.9) June 22, 2025 8:17am Osteopenia June 22, 2025 8:1 7am Lung mass June 22, 2025 8:1 7am Stress incontinence June 22, 2025 8:[address] June 22, 2025 10: 10am [facility] Work Phone: 1(826) 789-524506-25-2025 Evaluation note* Diagnosis Onset Date Resolution Status Admit Date Pill dysphagia noneactive May 11, 2025 7:49am Lung mass noneactive May 11 7:49am Hospital discharge follow-up noneact ke May 11, 2025 7:49am Endobronchial mass acute May 252024 10:57am Arthritis pain noneactive June 8:17am Thyroid nodule noneactive June 8:17am Incomplete emptying of bladder nonea ctive June 22, 2025 8:17am Mixed hyperlipidemia noneactive Augu st 2024 8:17am Obesity (BMI 30.0-34.9) noneactive A ugust 2024 8:17am Osteopenia noneactive June 22 8:17am Lung mass noneactive June 22 8:17am Stress incontinence noneactive Augus 2024 8:17am [facility] Work Phone: 1(989) 714-250106-25-2025 Evaluation note* Diagnosis Onset Date Resolution Status Admit Date Pill dysphagia noneactive May 11, 2025 7:49am Lung mass noneactive May 11 7:49am Hospital discharge follow-up noneact ke May 11, 2025 7:49am Endobronchial mass acute May 252024 10:57am Arthritis pain noneactive June 8:17am Thyroid nodule noneactive June 8:17am Incomplete emptying of bladder nonea ctive June 22, 2025 8:17am Mixed hyperlipidemia noneactive Augu st 2024 8:17am Obesity (BMI 30.0-34.9) noneactive A ugust 2024 8:17am Osteopenia noneactive June 22 8:17am Lung mass noneactive June 22 8:17am Stress incontinence noneactive Augus t 2024 8:17am Abnormal chest CT chronic June 22, 2025 10:10am [facility] Work Phone: 1(231) 405-292204-14-2025 Instructions* Patient Instructions* Ankit Stanton OD - 02/28/2025 2:55 PM EDT ASSESSMENT/PLAN: 1. Dry eyes, bilateral - ICD9: 375.15, ICD10: H04.123 Recommended the use of artificial tears up to four times per day to maintain good vision and comfort. Discussed contacting the office if there is a change in comfort or vision. She is currently usingsome Preservative free artificial tears. Keep original recall [facility] NoteHNO ID: [id number] Author: ANKIT STANTON OD Service: ? Author Type: SOCIAL SCIENCE RESEARCH ASSISTANT Type: Progress Notes Filed: 02/28/2025 14:55 Note Text: ASSESSMENT/PLAN: 1. Dry eyes, bilateral - ICD9: 375.15, ICD10: H04.123 Recommended the use of artificial tears up to four times per day to maintain good vision and comfort. Discussed contacting the office if there is a change in comfort or vision. She is currently using some Preservative free artificial tears. Keep original recall Ankit Stanton OD I have confirmed and edited as necessary the relevant ophthalmic history, ROS, and the neuro exam findings as obtained by others. I have seen and examined this patient. I have discussed the case and the management of this patient's care with the Resident/Fellow, if applicable. I also have reviewed and agree with the assessment and plan as stated above and agree with all of its relevant components.[facility]04-14-[facility] History of Present illness Narrative* Ankit Stanton OD - 02/28/2025 2:52 PM EDT ASSESSMENT/PLAN: 1. Dry eyes, bilateral - ICD9: 375.15, ICD10: H04.123 Recommended the use of artificial tears up to four times per day to maintain good vision and comfort. Discussed contacting the office if there is a change in comfort or vision. She is currently usingsome Preservative free artificial tears. Keep original recall Ankit Stanton, OD I have confirmed and edited as necessary the relevant ophthalmic history, ROS, and the neuro exam findings as obtained by others. I have seen and examined this patient. I have discussed the case and the management of this patient's care with the Resident/Fellow, if applicable. I also have reviewed and agree with the assessment and plan as stated above and agree withall of its relevant components. [facility] Consult note Author Leo Cruz [facility] Note Date/Time February 25, 2025 7:1 1am [facility] Medical Records Department [address] [place] [address] Pre-Anesthesia Evaluation 02/25/25 0710 MR#: [id number] Acct: [id number] Name: BOONE ESPINOZA Rep #:[id number] : 1955 69 From: Leo Cruz MD PCP: Dr. Flavio Johnson MD Status:[facility] Y Race: C Location: [place] [address] ASA Classification* ASA Classification ASA Classification: 2 Assessment & Plan Anesthesia* Anesthesia Assessment Anesthesia Assessment: Discussed sedation and/or anesthesia options, risks, benefits, and alternatives with patient/parents/legal guardian/POA. Questions invited. The patient/parents/legal guardian/POA seems to understand and agrees to proceedwith anesthesia plan. Reviewed the physical assessment, medical history, allergy history and patient home medications list prior to surgery/procedure/anesthetic and documented any changes. Performed airway and anesthesia risk assessments. Anesthesia Type Anesthesia Type: MAC Anesthesia Focused Assessment* Airway Assessment Mouth opens: >3 cm Mallampati Score: II Focused Labs Anesthesia Preop lab: CBC WBC 4.5 k/mm3 (4.4-11.0) 04/05/13 09:50 04/05/13 RBC 4.57 M/mm3 (4.2-5.4) 04/05/13 09:50 04/05/13 Hgb 13.3 g/dl (12.0-15.0) 04/05/13 09:50 04/05/13 Hct 40.2 % (37-47) 04/05/13 09:50 04/05/13 Plt Count 278 K/mm3 (150-450) 04/05/13 09:50 04/05/13 CHEMISTRY Potassium 3.9 mmol/L (3.5-5.1) 04/22/24 09:21 04/22/24 Sodium 140 mmol/L (136-145) 04/22/24 09:21 04/22/24 BUN 15 mg/dL (7-18) 04/22/24 09:21 04/22/24 Creatinine 0.65 mg/dL (0.55-1.02) 04/22/24 09:21 04/22/24 Glucose 90 mg/dL (74-106) 04/22/24 09:21 04/22/24 COAG Pre-Assessment Diagnosis/Proposed Procedure Planned Operative Procedure(s): COLOSCOPY Anesthesia History Anesthesia History - engineering surveyor: Anesthesia History - engineering surveyor Hx Hospitalization No 02/21/25 12:17 Any Problems With Anesthesia Yes: W/ DENTIST TAKES MORE 02/21/25 12:17 MED THAN NORMAL, WEARS QUICKER Cholinesterase deficiency No 02/21/25 12:17 You/Your Family Experience fever (hyperthermia) with Relationship Recent Exposure to Contagious Disease Does patient have nerve No 02/21/25 12:17 stimulator Patient instructed to have device shut off --Does patient have Pacemaker or ICD? When Was Last Pacemaker Check QUESTION #4 FULL TEXT: You/Your Family Experience fever (hyperthermia) with Anesthesia Last Oral Intake Last Oral intake: Last Oral Intake NPO since Meds taken in AM with sips of water? Meds patient instructed to take am of surgery PONV PONV - engineering surveyor: PONV - engineering surveyor Female Yes 02/21/25 12:17 HX of Motion Sickness No 02/21/25 12:17 HX of N/V After Surgery No 02/21/25 12:17 Non-Smoker Yes 02/21/25 12:17 Duration of Surgery greater No 02/21/25 12:17 than 60 minutes Number of Risk Factors 2 02/21/25 12:17 PONV Score Moderate Risk 02/21/25 12:17 Height & Weight Height & Weight: Anesthesia: Height & Weight Height 5 ft 4 in 02/14/25 08:27 Respiratory Assessment Respiratory Assessment - engineering surveyor: Respiratory Tract Infection Hx - engineering surveyor Hx Respiratory Tract Infection Yes: 02/18/25 STARTED AB & 02/21/25 12:17 PREDNISONE FOR COLD/UPPER RESP INFECTION STOP Sleep Apnea STOP Sleep Apnea - engineering surveyor: STOP Sleep Apnea - engineering surveyor Hx Hypertension No 02/21/25 12:17 Hx Sleep Apnea No 02/21/25 12:17 CPAP BIPAP Do you snore loudly (louder No 02/21/25 12:17 than talking or can be heard Do you often feel tired/ No 02/21/25 12:17 fatigued/ sleepy during daytime? Has anyone observed you stop No 02/21/25 12:17 breathing during sleep? STOP Results Negative 02/21/25 12:17 QUESTION #5 FULL TEXT : Do you snore loudly (louder than talking or can be heard through closed doors)? Tobacco Use History Tobacco Use History - engineering surveyor: Tobacco Use History - engineering surveyor Tobacco Use Smoking Status Never smoker 02/21/25 12:17 Hx Tobacco Use No 02/21/25 12:17 Years Smoking Packs Smoked per Day Smoking Cessation Date was within the last 15 years Hx Smoking Cessation Date Hx Smoking Cessation Counseling Hematologic Medial History Hematologic Hx - engineering surveyor: Hematologic Medical Hx - soup person Hx of Blood Transfusion No 02/21/25 12:17 Hx of Transfusion in last 3 No 02/21/25 12:17 Months Date of Last Transfusion (if within last 3 months) Ever experience any problems No 02/21/25 12:17 with transfusion(s)? Specify any problems Hx of Preganancy in last 3 No 02/21/25 12:17 Months Nurse Filling Out Transfusion VCHRISTIN 02/21/25 12:17 & Questions: Date: 02/21/25 02/21/25 12:17 Time: 12:20 02/21/25 12:17 Patient unable to answer at this time (ie. confused, unrespo /Reproduction History /Reproductive History - engineering surveyor: /Reproductive Hx- engineering surveyor Hx Now No 02/21/25 12:17 Gestational Age (in weeks): EDC: Hx Hx Para Hx Section SAB No 02/21/25 12:17 [facility] Medical History Wears glasses Post-menopausal History of steroid therapy Non-smoker High cholesterol Osteopenia Osteoarthritis Arthritis Home Medications ?Medication ?Instructions ?Recorded ?Last Taken ?Type cholecalciferol (vitamin D3) 50 50 mcg PO DAILY 02/23/25 History mcg (2,000 unit) capsule vitamin B complex (B 1 tab PO DAILY 10/22/2308/11 History Complex-Vitamin B12 tablet) Turmeric Curcumin 1 tab PO DAILY 02/26/2401/11 History atorvastatin 10 mg tablet (Lipitor) 10 mg PO QHS #90 t abs 11/17/24 02/23/25 Rx duloxetine 20 mg capsule,delayed 20 mg PO DAILY #90 ca ps 12/09/24 02/23/25 Rx release meloxicam 15 mg tablet 15 mg PO QDAY PRN joint pain #90 12/30/24 Unknown Rx tabs calcium carbonate 500 mg PO QDAY 01/06/2508/11 History gabapentin 100 mg capsule 100 mg PO DAILY #30 caps 02/23/25 Rx ferrous sulfate 325 mg (65 mg 325 mg PO QDAY 02/14/25 02/20/25 History iron) tablet (FeroSul) benzonatate 100 mg capsule 100 mg PO PRN 02/21/25 Unkn own History Allergy/AdvReac Type Severity Reaction Status Date / Time Sulfa (Sulfonamide AdvReac Mild Hives Verified 02/25/25 07:08 Antibiotics) Family History Father Heart disease, Onset Age: 70 Cancer lung Mother Arthritis Hypertension Cancer liposarcoma Brother AICD (automatic cardioverter/defibrillator) present Uncle Sudden cardiac arrest, Onset Age: 70 Surgical History Hx of dilation and curettage Hx of vein stripping Status post ablation of incompetent vein using laser H/O section Social History household members: spouse current occupational status: employed 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 02/25/25710 <Electronically signed by Leo Cruz MD > Date _ Leo Cruz MD Cosigner Signature: Date CC: ~ Signed [facility] Work Phone: [phone]) 990-870304-11-2025 Consult note [facility] Medical Records Department [address] [place] [id number] Anesthesia Postop Eval I 02/25/25828 MR#: [id number] Acct: [id number] Name: BOONE ESPINOZA Rep #:[id number] : 1955 69 From: Mick Hicks PCP: Dr. Flavio Johnson MD Status:[facility] Y Race: C Location: [place] [address] Anesthesia: Postop Eval I Current Vital Signs Temperature: 97.1 F Pulse Rate: 61 Blood Pressure: 117/63 Respiratory Rate: 16 Pulse Ox: 97 Oxygen Delivery Method: Room Air Assessment Airway patent: Yes Spontaneous unlabored respirations: Yes Mental status: Asleep nausea: No Vomiting: No Anesthesia Complication: Yes Anesthesia Complication Comment:: vagal sensitive, tx with glyco, thenephedrine Fluid Hydration Crystalloid volume administer (ml): 40 Total IV fluid infused: 40 Progress Note Anesthesia document: Postop Eval 1 completed: Yes 02/25/2531 > Date _ Mick Jane Signature: Date CC: ~ Signed [facility]04-11-2025 Procedure note [facility] Medical Records Department [address] [place] [address] Colonoscopy Report MR#: [id number] Acct: [id number] Name: BOONE ESPINOZA Rep #:[id number] : 1955 69 From: Eris gama MD PCP: Dr. Flavio Johnson MD Status:[facility] Patient Name: Boone Espinoza Procedure Date: 02/25/2025 7:58 AM Date of : 1955 Age: 69 Procedure: Colonoscopy Indications: Positive Cologuard test Providers: Eris Oakley MD Referring MD: Flavio Johnson Md Medicines: Propofol per Anesthesia Patient Profile: This is a 69 year old female. Refer to note in patient chart for documentation of history and physical. Last Colonoscopy: 10 years ago. Complications: No immediate complications. Procedure: Pre-Anesthesia Assessment: - Prior to the procedure, a History and Physical was performed, and patient medications and allergies were reviewed. The patient's tolerance of previous anesthesia was also reviewed. The risks and benefits of the procedure and the sedation options and risks were discussed with the patient. All questions were answered, and informed consent was obtained. Prior Anticoagulants: The patient has taken no anticoagulant or antiplatelet agents. After reviewing the risks and benefits, the patient was deemed in satisfactory condition to undergo the procedure. After I obtained informed consent, the scope was passed under direct vision. Throughout the procedure, the patient's blood pressure, pulse, and oxygen saturations were monitored continuously. The Colonoscope was introduced through the anus and advanced to the cecum, identified by appendiceal orifice and ileocecal valve. The colonoscopy was performed without difficulty. The patient tolerated the procedure well. The quality of the bowel preparation was good. The ileocecal valve, appendiceal orifice, and rectum were photographed. Scope In: 8:08:28 AM Scope Withdrawal Time 0 hours 5 minutes 47 seconds Scope Out: 8:21:47 AM Total Procedure Duration Time 0 hours 13 minutes 19 seconds Findings: The entire examined colon appeared normal on direct and retroflexion views. Impression: - The entire examined colon is normal on direct and retroflexion views. - No specimens collected. Recommendation: - Discharge patient to home. - Resume previous diet. - Continue present medications. - Repeat colonoscopy is not recommended due to current age (66 years or older) for screening purposes. Procedure Code(s): --- Professional --- 86372, Colonoscopy, flexible; diagnostic, including collection of specimen(s) by brushing or washing, when performed (separate procedure) Diagnosis Code(s): --- Professional --- R19.5, Other fecal abnormalities CPT copyright 2021 [employer]. All rights reserved. The codes documented in this report are preliminary and upon supervisor bottle machines review may be revised to meet current compliance requirements. Eris Oakley MD 02/25/2025 8:24:30 AM This report has been signed electronically. Number of Addenda: 0 Note Initiated On: 02/25/2025 7:58 AM 02/25/25 0824 Date _ Eris Oakley MD Cosigner Signature: Date (if indicated) CC: Dr. Flavio Johnson MD; Dr. Eris Oakley MD ~ Date Dictated: 02/25/25 0758 Date Transcribed: Implementation Director: AC Signed [facility]04-11-2025 Procedure note [facility] Medical Records Department [address] [place] [address] Operative Report - CC Letter MR#: [id number] Acct: [id number] Name: BOONE ESPINOZA Rep #:[id number] : 1955 69 From: Eris gama MD PCP: Dr. Flavio Johnson MD Status:[facility] 02/25/2025 Flavio Johnson Md Re : Colonoscopy procedure for Boone Espinoza Dear Elizabeth This procedure was performed on Tuesday, February 25, 2025. My impressions and recommendations are as follows: Impressions : - The entire examined colon is normal on direct and retroflexion views. - No specimens collected. Recommendations : - Discharge patient to home. - Resume previous diet. - Continue present medications. - Repeat colonoscopy is not recommended due to current age (66 years or older) for screening purposes. My findings are described in the full procedure note, which is enclosed. If I can be of further assistance, please feel free to contact me at Doctor phone number(s): , Work: . Sincerely, Eris Oakley MD 02/25/2025 8:24:30 AM This report has been signed electronically. 02/25/25 0824 Date _ Eris Oakley MD Cosigner Signature: Date (if indicated) CC: Dr. Flavio Johnson MD; Dr. Eris Oakley MD ~ Date Dictated: 02/25/25757 Date Transcribed: Implementation Director: MARTINEZ Signed [facility]04-11-2025 History and physical note [facility] Medical Records Department [address] [place] [address] History & Physical Exam 02/25/25750 MR#: [id number] Acct: [id number] Name: BOONE ESPINOZA Rep #:[id number] : 1955 69 From: Eris gama MD PCP: Dr. Flavio Johnson MD Status:[facility] Location: [place] [address]- History and Physical Date of Admission: 02/25/25 Intake Vital Signs 01/06/2508:20 02/15/2508:27 Height 5 ft 4 in 5 ft 4 in Weight: 180 lb 6 oz 182 lb BMI 30.9 31.2 BP 138/82 H 131/86 H Blood Pressure Location Lt brachial Rt brachial Position Sitting Respiration 16 16 Pulse 67 Pulse Source Monitor Temp 97.3 F L Temp Source Temporal Pulse Oximetry (%) 96 Oxygen Delivery Method room air Intake Visit Reasons: POSITIVE COLOGUARD Chief Complaint: positive cologuard Communications Engineering Technician Required: No Is patient in pain?: No Allergies Sulfa (Sulfonamide Antibiotics) Adverse Reaction (Mild, Verified 02/14/25 08:27) Hives Medications ?Medication ?Instructions ?Recorded ?Confirmed ?Type cholecalciferol (vitamin D3) 50 50 mcg PO DAILY 10/22/23 02/14/25 Histor y mcg (2,000 unit) capsule vitamin B complex (B 1 tab PO DAILY 10/22/23 02/14/25 History Complex-Vitamin B12 tablet) Turmeric Curcumin PO 02/26/24 02/14/25 History atorvastatin 10 mg tablet (Lipitor) 10 mg PO QHS #90 tabs 11/17/24 02/14/25 Rx duloxetine 20 mg capsule,delayed 20 mg PO DAILY #90 caps 12/09/24 5 Rx release meloxicam 15 mg tablet 15 mg PO QDAY PRN joint pain #90 5 02/14/25 Rx tabs calcium carbonate 500 mg PO QDAY 01/06/25 02/14/25 History gabapentin 100 mg capsule 100 mg PO DAILY #30 caps 02/06/25 Rx ferrous sulfate 325 mg (65 mg 325 mg PO QDAY 02/14/25 02/14/25 History iron) tablet (FeroSul) Have you fallen in the past year?: No PFSH Medical History High cholesterol Osteopenia Osteoarthritis Arthritis Surgical History Status post ablation of incompetent vein using laser H/O section Family History Father Heart disease, Onset Age: 70 Cancer lungMother Arthritis Hypertension Cancer liposarcomaBrother AICD (automatic cardioverter/defibrillator) presentUncle Sudden cardiac arrest, Onset Age: 70 Social History household members: spouse current occupational status: employed 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 She reports she had a Cologuard a fewyears ago and it was negative. She has never had a colonoscopy. She denies any abdominal pain or blood in stool. She does not have family history of colon cancer. ROS General General: No weight change, appetite, fatigue, colon cancer, breast cancer or weakness HEENT HEENT: No difficulty swallowing, eye injury, eye surgery, swollen glands or hoarseness Endo Endocrine: No thyroid disease, diabetes mellitus, thyroid cancer, Hair loss, heat intolerance or cold intolerance Skin Skin: No rash or changing moles Breast Breast: No left breast lump, right breast lump, nipple discharge, breast pain, abnormal mammogram, abnormal US or breast enlargement Musc Musculoskeletal: Yes arthritis; No back problems, rheumatoid arthritis, gout or joint pain Cardio Cardiovascular: No murmur, pacemaker, heart disease, atrial fibrillation, high blood pressure, heart attack, heart stent, palpitations, shortness of breath with exertion or chest pain Psych Psychiatric: No depression, anxiety or hearing voices Resp Respiratory: No shortness of breath, No sleep apnea, No cough, No COPD, No asthma, No emphysema andNo wheezing Gastro Gastrointestinal: No abdominal pain, No nausea or vomiting, No diarrhea, No constipation, No blood in stool, No acid reflux, No hemorrhoids, No ulcers, No gallbladder problem and No black,tarry stools Estuardo Hematologic: No blood thinners, No blood disorders, No bleeding, No anemia and No blood clots Neuro Neurologic: No system reviewed and no additional complaints, except as documented, No as per HPI, No abnormal gait, No abnormal hearing, No abnormal movements, No abnormal speech, No behavioral changes, No burning sensations, No confusion, No convulsions, No disequilibrium, No dizziness, No localized weakness, No frequent falls, No headache(s), No lack of coordination, No loss ofvision, No memoryloss, No numbness, No other visual disturbances, No radicular pain, No restless legs, No sensory deficit, No syncope, No tingling, No tremor(s), No weakness and No other Exam Const General: cooperative Orientation: alert and oriented x3 HENMT Head: normal to inspection Neck Neck: normal visual inspection and full ROM Chest Chest palpation & inspection: normal inspection of the chest Resp Effort & Inspection: normal respiratory effort Auscultation: clear to auscultation bilaterally Cardio Rate: regular rate Rhythm: regular rhythm GI Inspection: non-distended Palpation: soft and nontender Skin General: no rashes or lesions noted Neuro General: patient alert and patient oriented x3 Extrem General: full ROM Psych Appearance: grossly normal Mental Status: mental status grossly normal Assessment and Plan Assessment and Plan (1) Positive colorectal cancer screening using Cologuard test: Status: Acute Plan: I explained endoscopy in detail to the patient. I explained the risks includingbut not limited to stroke or heart attack with anesthesia, perforation of the GItract, bleeding, infection. I explained that any of these could necessitate further emergency surgery. The patient understands and all questions were answered sufficiently. The patient wishes to proceed with procedure. Patient will hold her turmeric for 5 days Eris Oakley MD Pager: [facility] [address] [place] [address], [address] [place] [phone] Office: I have examined the patient and the H&P has been reviewed. There are no clinicalchanges since date of exam. 02/25/25750 Cosigner Signature (if applicable): CC: Dr. Flavio Johnson MD; Dr. Eris Oakley MD~ Signed [facility]04-11-2025 [facility] Medical Records Department [address] [place], [place] [id number] History Physical Exam 02/25/25750 MR#: [id number] Acct: [id number] Name: BOONE ESPINOZA Rep #: [id number] : 1955 69 From: Eris Oakley MD PCP: Dr. Flavio Johnson MD Status:[facility] Location: [place] [address] History and Physical Date of Admission: 02/25/25 Intake Vital Signs 01/06/2508:20 02/15/2508:27 Height 5 ft 4 in 5 ft 4 in Weight: 180 lb 6 oz 182 lb BMI 30.9 31.2 BP 138/82 H 131/86 H Blood Pressure Location Lt brachial Rt brachial Position Sitting Respiration 16 16 Pulse 67 Pulse Source Monitor Temp 97.3 F L Temp Source Temporal Pulse Oximetry (%) 96 Oxygen Delivery Method room air Intake Visit Reasons: POSITIVE COLOGUARD Chief Complaint: positive cologuard Communications Engineering Technician Required: No Is patient in pain?: No Allergies Sulfa (Sulfonamide Antibiotics) Adverse Reaction (Mild, Verified 02/14/25 08:27) Hives Medications ???Medication ???Instructions ???Recorded ???Confirmed ???Type cholecalciferol (vitamin D3) 50 50 mcg PO DAILY 10/22/23 02/14/25 History mcg (2,000 unit) capsule vitamin B complex (B 1 tab PO DAILY 10/22/23 02/14/25 History Complex-Vitamin B12 tablet) Turmeric Curcumin PO 02/26/24 02/14/25 History atorvastatin 10 mg tablet (Lipitor) 10 mg PO QHS #90 tabs 11/17/24 02/14/25 Rx duloxetine 20 mg capsule,delayed 20 mg PO DAILY #90 caps 12/09/24 02/14/25 Rx release meloxicam 15 mg tablet 15 mg PO QDAY PRN joint pain #90 12/30/24 02/14/25 Rx tabs calcium carbonate 500 mg PO QDAY 01/06/25 02/14/25 History gabapentin 100 mg capsule 100 mg PO DAILY #30 caps 02/06/25 02/14/25 Rx ferrous sulfate 325 mg (65 mg 325 mg PO QDAY 02/14/25 02/14/25 History iron) tablet (FeroSul) Have you fallen in the past year?: No PFSH Medical History High cholesterol Osteopenia Osteoarthritis Arthritis Surgical History Status post ablation of incompetent vein using laser H/O section Family History Father Heart disease, Onset Age: 70 Cancer lungMother Arthritis Hypertension Cancer liposarcomaBrother AICD (automatic cardioverter/defibrillator) presentUncle Sudden cardiac arrest, Onset Age: 70 Social History household members: spouse current occupational status: employed 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 She reports she had a Cologuard a few years ago and it was negative. She has never had a colonoscopy. She denies any abdominal pain or blood in stool. She does not have family history of colon cancer. ROS General General: No weight change, appetite, fatigue, colon cancer, breast cancer or weakness HEENT HEENT: No difficulty swallowing, eye injury, eye surgery, swollen glands or hoarseness Endo Endocrine: No thyroid disease, diabetes mellitus, thyroid cancer, Hair loss, heat intolerance or cold intolerance Skin Skin: No rash or changing moles Breast Breast: No left breast lump, right breast lump, nipple discharge, breast pain, abnormal mammogram, abnormal US or breast enlargement Musc Musculoskeletal: Yes arthritis; No back problems, rheumatoid arthritis, gout or joint pain Cardio Cardiovascular: No murmur, pacemaker, heart disease, atrial fibrillation, high blood pressure, heart attack, heart stent, palpitations, shortness of breath with exertion or chest pain Psych Psychiatric: No depression, anxiety or hearing voices Resp Respiratory: No shortness of breath, No sleep apnea, No cough, No COPD, No asthma, No emphysema and No wheezing Gastro Gastrointestinal: No abdominal pain, No nausea or vomiting, No diarrhea, No constipation, No blood in stool, No acid reflux, No hemorrhoids, No ulcers, No gallbladder problem and No black,tarry stools Estuardo Hematologic: No blood thinners, No blood disorders, No bleeding, No anemia and No blood clots Neuro Neurologic: No system reviewed and no additional complaints, except as documented, No as per HPI, No abnormal gait, No abnormal hearing, No abnormal movements, No abnormal speech, No behavioral changes, No burning sensations, No confusion, No convulsions, No disequilibrium, No dizziness, No localized weakness, No frequent falls, No headache(s), No lack of coordination, No loss of vision, No memory loss, No numbn (more content not included)...[facility]04-11-2025 Consult note [facility] Medical Records Department [address] [place] [address] Pre-Anesthesia Evaluation 02/25/25 0710 MR#: [id number] Acct: [id number] Name: BOONE ESPINOZA Rep #:[id number] : [id number] 69 From: Leo Cruz MD PCP: Dr. Flavio Johnson MD Status:REG SD Y Race: C Location: [place] [address] ASA Classification* ASA Classification ASA Classification: 2 Assessment & Plan Anesthesia* Anesthesia Assessment Anesthesia Assessment: Discussed sedation and/or anesthesia options, risks, benefits, and alternatives with patient/parents/legal guardian/POA. Questions invited. The patient/parents/legal guardian/POA seems to understand and agrees to proceedwith anesthesia plan. Reviewed the physical assessment, medical history, allergy history and patient home medications list prior to surgery/procedure/anesthetic and documented any changes. Performed airway and anesthesia risk assessments. Anesthesia Type Anesthesia Type: MAC Anesthesia Focused Assessment* Airway Assessment Mouth opens: >3 cm Mallampati Score: II Focused Labs Anesthesia Preop lab: CBC WBC 4.5 k/mm3 (4.4-11.0) 04/05/13 09:50 04/05/13 RBC 4.57 M/mm3 (4.2-5.4) 04/05/13 09:50 04/05/13 Hgb 13.3 g/dl (12.0-15.0) 04/05/13 09:50 04/05/13 Hct 40.2 % (37-47) 04/05/13 09:50 04/05/13 Plt Count 278 K/mm3 (150-450) 04/05/13 09:50 04/05/13 CHEMISTRY Potassium 3.9 mmol/L (3.5-5.1) 04/22/24 09:21 04/22/24 Sodium 140 mmol/L (136-145) 04/22/24 09:21 04/22/24 BUN 15 mg/dL (7-18) 04/22/24 09:21 04/22/24 Creatinine 0.65 mg/dL (0.55-1.02) 04/22/24 09:21 04/22/24 Glucose 90 mg/dL (74-106) 04/22/24 09:21 04/22/24 COAG Pre-Assessment Diagnosis/Proposed Procedure Planned Operative Procedure(s): COLOSCOPY Anesthesia History Anesthesia History - engineering surveyor: Anesthesia History - engineering surveyor Hx Hospitalization No 02/21/25 12:17 Any Problems With Anesthesia Yes: W/ DENTIST TAKES MORE 02/21/25 12:17 MED THAN NORMAL, WEARS QUICKER Cholinesterase deficiency No 02/21/25 12:17 You/Your Family Experience fever (hyperthermia) with Relationship Recent Exposure to Contagious Disease Does patient have nerve No 02/21/25 12:17 stimulator Patient instructed to have device shut off --Does patient have Pacemaker or ICD? When Was Last Pacemaker Check QUESTION #4 FULL TEXT: You/Your Family Experience fever (hyperthermia) with Anesthesia Last Oral Intake Last Oral intake: Last Oral Intake NPO since Meds taken in AM with sips of water? Meds patient instructed to take am of surgery PONV PONV - engineering surveyor: PONV - engineering surveyor Female Yes 02/21/25 12:17 HX of Motion Sickness No 02/21/25 12:17 HX of N/V After Surgery No 02/21/25 12:17 Non-Smoker Yes 02/21/25 12:17 Duration of Surgery greater No 02/21/25 12:17 than 60 minutes Number of Risk Factors 2 02/21/25 12:17 PONV Score Moderate Risk 02/21/25 12:17 Height & Weight Height & Weight: Anesthesia: Height & Weight Height 5 ft 4 in 02/14/25 08:27 Respiratory Assessment Respiratory Assessment - engineering surveyor: Respiratory Tract Infection Hx - engineering surveyor Hx Respiratory Tract Infection Yes: 02/18/25 STARTED AB & 02/21/25 12:17 PREDNISONE FOR COLD/UPPER RESP INFECTION STOP Sleep Apnea STOP Sleep Apnea - engineering surveyor: STOP Sleep Apnea - engineering surveyor Hx Hypertension No 02/21/25 12:17 Hx Sleep Apnea No 02/21/25 12:17 CPAP BIPAP Do you snore loudly (louder No 02/21/25 12:17 than talking or can be heard Do you often feel tired/ No 02/21/25 12:17 fatigued/ sleepy during daytime? Has anyone observed you stop No 02/21/25 12:17 breathing during sleep? STOP Results Negative 02/21/25 12:17 QUESTION #5 FULL TEXT : Do you snore loudly (louder than talking or can be heard through closeddoors)? Tobacco Use History Tobacco Use History - engineering surveyor: Tobacco Use History - engineering surveyor Tobacco Use Smoking Status Never smoker 02/21/25 12:17 Hx Tobacco Use No 02/21/25 12:17 Years Smoking Packs Smoked per Day Smoking Cessation Date was within the last 15 years Hx Smoking Cessation Date Hx Smoking Cessation Counseling Hematologic Medial History Hematologic Hx - engineering surveyor: Hematologic Medical Hx - soup person Hx of Blood Transfusion No 02/21/25 12:17 Hx of Transfusion in last 3 No 02/21/25 12:17 Months Date of Last Transfusion (if within last 3 months) Ever experience any problems No 02/21/25 12:17 with transfusion(s)? Specify any problems Hx of Preganancy in last 3 No 02/21/25 12:17 Months Nurse Filling Out Transfusion VCHRISTIN 02/21/25 12:17 & Questions: Date: 02/21/25 02/21/25 12:17 Time: 12:20 02/21/25 12:17 Patient unable to answer at this time (ie. confused, unrespo /Reproduction History /Reproductive History - engineering surveyor: /Reproductive Hx- engineering surveyor Hx Now No 02/21/25 12:17 Gestational Age (in weeks): EDC: Hx Hx Para Hx Section SAB No 02/21/25 12:17 PFSH Medical History Wears glasses Post-menopausal History of steroid therapy Non-smoker High cholesterol Osteopenia Osteoarthritis Arthritis Home Medications ?Medication ?Instructions ?Recorded ?Last Taken ?Type cholecalciferol (vitamin D3) 50 50 mcg PO DAILY 02/23/25 History mcg (2,000 unit) capsule vitamin B complex (B 1 tab PO DAILY 10/22/2308/11 History Complex-Vitamin B12 tablet) Turmeric Curcumin 1 tab PO DAILY 02/26/2401/11 History atorvastatin 10 mg tablet (Lipitor) 10 mg PO QHS #90 t abs 11/17/24 02/23/25 Rx duloxetine 20 mg capsule,delayed 20 mg PO DAILY #90 ca ps 12/09/24 02/23/25 Rx release meloxicam 15 mg tablet 15 mg PO QDAY PRN joint pain #90 12/30/24 Unknown Rx tabs calcium carbonate 500 mg PO QDAY 01/06/2508/11 History gabapentin 100 mg capsule 100 mg PO DAILY #30 caps 02/23/25 Rx ferrous sulfate 325 mg (65 mg 325 mg PO QDAY 02/14/25 02/20/25 History iron) tablet (FeroSul) benzonatate 100 mg capsule 100 mg PO PRN 02/21/25 Unkn own History Allergy/AdvReac Type Severity Reaction Status Date / Time Sulfa (Sulfonamide AdvReac Mild Hives Verified 02/25/25 07:08 Antibiotics) Family History Father Heart disease, Onset Age: 70 Cancer lung Mother Arthritis Hypertension Cancer liposarcoma Brother AICD (automatic cardioverter/defibrillator) present Uncle Sudden cardiac arrest, Onset Age: 70 Surgical History Hx of dilation and curettage Hx of vein stripping Status post ablation of incompetent vein using laser H/O section Social History household members: spouse current occupational status: employed 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 02/25/25710 > Date _ Leo Jane Signature: Date CC: ~ Signed [facility]2025 History of Present illness Narrative* TERRA Obregon - 02/18/2025 9:30 AM EDT [facility] TERRA Obregon Visit Note - 02/18/2025 11:08 AM This note was generated with voice recognition software and may contain errors including spelling, grammar, syntax, and misrecognization of what was dictated. Patient: Boone Espinoza, , 69 y.o., female PCP: Flavio Johnson MD ALLERGIES: Allergies Allergen Reactions Sulfa (Sulfonamide Antibiotics) Hives CURRENT MEDICATIONS: Current Outpatient Medications Medication Instructions atorvastatin (LIPITOR) 10 mg, Nightly azithromycin (Zithromax Z-Jose G) 250 mg tablet Take 2 tablets by mouth at once on day 1, then 1 tablet once a day on days 2-5. Take with a meal. benzonatate (TESSALON) 100-200 mg, oral, Every 8 hours PRN, Do not crush or chew. cholecalciferol (Vitamin D-3) 50 mcg (2,000 unit) capsule Take by mouth. cyanocobalamin (VITAMIN B-12) 100 mcg DULoxetine (Cymbalta) [address] capsule 1 capsule, Daily (629) ferrous sulfate 325 mg gabapentin (NEURONTIN) 100 mg, Daily meloxicam (Mobic) 15 mg tablet TAKE 1 Tablet BY MOUTH ONCE DAILY NEEDED FOR joint pain predniSONE (Deltasone) 10 mg tablet Take 6 tabs PO daily x1 day, then take 5 tabs daily x1 day, then take 4 tabs daily x1 day, then take 3 tabs daily x1 day, then take 2 tabs daily x1 day, then take 1 tab daily x1 day. Take with a meal. PAST MEDICAL HX: Patient Active Problem List Diagnosis Plantar fascial fibromatosis History of + cologuard test; has colonoscopy scheduled for next week. SURGICAL HX: History reviewed. No pertinent surgical history. FAMILY HX: No pertinent history. SOCIAL HX: Is not a smoker. [place] Has grandkids. CHIEF COMPLAINT: Chief Complaint Patient presents with URI Cough, chest congestion x 5 days HISTORY OF PRESENT ILLNESS: The history was obtained from patient. Boone is a 69 y.o. female, who presents with a chief complaint of a dry cough/chest congestion, wheezing, headaches, and ears feel full - sxs started on Friday. Denies any fever/chills, nasal congestion, sore throat, abdominal pain, chest pain, shortness of breath, rashes, urinary symptoms, nausea/vomiting, and diarrhea. Reportsher stomach and back are sore due to all the coughing. Denies any lightheadedness or dizziness; no changes in mental status. No swelling in legs. Appetite is decreased ; is able to eat and drink fluids without difficulty; denies loss of sense of taste or smell. Reports symptoms have gotten worse since onset. Has been taking Emergen-C without much relief; no other [id number] medications or home remedies for symptom management. Her grandkids have been ill recently with cold symptoms; no other known ill contacts. Has received the COVID vaccine x 2. Has received this season's influenza vaccine.. No known history of COVID infection. Is not a smoker. Reports had history of asthma as a child, but it has not been bothersome as an adult. No recent antibiotic use. REVIEW OF SYSTEMS: 10 systems reviewed negative with exception of history of present illness as listed above. TODAY'S VITALS: BP 128/80 (BP Location: Left arm, Patient Position: Sitting, BP Cuff Size: Large adult) Pulse 70 Temp 37.2 C (98.9 F) (Temporal) Resp 16 Wt 82.6 kg (182 lb) SpO2 94% SpO2 recheck: 95-97% PHYSICAL EXAMINATION: General: Mildly ill-appearing, well nourished female; alert and oriented; in no acute distress. Sitting comfortably on exam chair. Non-dyspneic. Eyes: Pupils equal, round and reactive to light. No conjunctival erythema; no scleral icterus. HENT: No sinus tenderness. Airway patent, Bilat TMs unremarkable, ear canals clear/unremarkable bilaterally. Nasal mucosa mildly injected and edematous. Oral mucosa moist. Posterior pharynx mildly injected but without vesicles or oropharyngeal exudate. Uvula is midline. Managing oral secretions without difficulty. Neck: Supple. Tender, mobile anterior cervical lymphadenopathy bilat. Trachea is midline. Respiratory: Respirations easy and unlabored, Breath sounds equal. Lungs with scattered rhonchi andfew wheezes that do not clear with cough; no rales. Has good air movement throughout. Harsh, non-productive cough noted. Non-dyspneic with ambulation; able to maintain SpO2. Cardiovascular: Normal rate, Regular rhythm. Normal S1S2. No m/r/g. No peripheral edema. Gastrointestinal: Soft, non-tender, non-distended; no palpable masses or organomegaly. Bowel soundsnormoactive. Musculoskeletal: Grossly normal; appropriate for age. Integumentary: [place], warm, dry, and intact. No rashes or skin discoloration appreciated. Good skin turgor. Neurologic: Alert and oriented, no gross deficits. Cognition and Speech: Oriented, Speech clear and coherent. Psychiatric: Cooperative, Appropriate mood & affect. Medical Decision Making LABORATORY or RADIOLOGICAL IMAGING ORDERS/RESULTS: None IMPRESSION/PLAN: Course: Worsening; stable 1. Acute bronchitis, unspecified organism (Primary) - predniSONE (Deltasone) 10 mg tablet; Take 6 tabs PO daily x1 day, then take 5 tabs daily x1 day, then take 4 tabs daily x1 day, then take 3 tabs daily x1 day, then take 2 tabs daily x1 day, then take 1 tab daily x1 day. Take with a meal. Dispense: 21 tablet; Refill: 0 - azithromycin (Zithromax Z-Jose G) 250 mg tablet; Take 2 tablets by mouth at once on day 1, then 1 tablet once a day on days 2-5. Take with a meal. Dispense: 6 tablet; Refill: 0 - benzonatate (Tessalon) 100 mg capsule; Take 1-2 capsules (100-200 mg) by mouth every 8 hours if needed for cough. Do not crush or chew. Dispense: 60 capsule; Refill: 0 No red flags on exam today. Discussed obtaining CXR today, but patient ultimately deferred -requesting to attempt treatment, first, and agrees to seek care if worsening, or if no improvement over thenext 48 hours. Symptoms consistent with acute bronchitis/possible pneumonia, but reviewed other pote ntial etiologies. Due to severity and duration of symptoms, will begin treatment with Zpak and prednisone taper today; will also start cough medication (Benzonatate) for PRN use. She understands to stop Mobic while taking Prednisone. Instructed to push fluids, rest, and to use appropriate over the c ounter medications as needed for management of symptoms - plain Mucinex may be helpful. Reviewed instructions for self-isolation and continued monitoring. Reviewed red flags to monitor for, counseledon potential adverse reactions of treatments, expectations for improvement in sxs, and advised to follow-up with primary care provider in 24-48 hours if symptoms persist, or to seek care sooner if worsening or if any additional concerns/red flags develop. Patient agreed with plan of care; questionswere encouraged and answered. TERRA Obregon Advanced Practice Provider [facility] documented in this [facility] Work Phone: 1(548) 473-854203-31-2025 Evaluation note* Diagnosis Onset Date Resolution Status Admit Date Positive colorectal cancer screening using Cologuard test inactive February 14, 2025 8:12am Lung mass noneactive May 11 7:49am Hospital discharge follow-up noneact ke May 11, 2025 7:49am [facility] Work Phone: 1(752) 506-885403-31-2025 Evaluation note* Diagnosis Onset Date Resolution Status Admit Date Positive colorectal cancer screening using Cologuard test inactive M arch 2024 8:12am Pill dysphagia noneactive May 11, 2025 7:49am Lung mass noneactive May 11 7:49am Hospital discharge follow-up noneact ke May 11, 2025 7:49am Endobronchial mass acute May 252024 10:57am [facility] Work Phone: 1(469) 265-790002-20-2025 Evaluation note* Diagnosis Onset Date Resolution Status Admit Date Arthritis pain noneactive December 192024 8:15am Medicare annual wellness visit, subsequent noneactive January 06, 2025 8:15am Screening for colon cancer noneactiv e January 06, 2025 8:15am Mixed hyperlipidemia noneactive Febr uary 2024 8:15am Obesity (BMI 30.0-34.9) noneactive F ebruary 2024 8:15am Osteopenia noneactive January 06, 2025 8:15am Stress incontinence noneactive Febru mir2024 8:15am Screening for breast cancer noneacti ve January 06, 2025 8:15am Positive colorectal cancer screening using Cologuard test acute February 14, 2025 8:12am [facility] Work Phone: 1([phone]) 356-749801-22-2025 History of Present illness Narrative* Alfa Holden Jr., DO - 12/08/2024 9:00 AM EST Images from the original note were not included. History of Present Illness Presence of Pain: denies pain/discomfort. Total time spent in this encounter was 22 minutes. B/L wrist splints are helping. Rash/Psoriasis is a little on lateral R dudley. Paresthesias are still in feet. Patient is here for 6 month Follow-up. Patient states is doing good overall. States has been having pain in thumbs that is not constant. Review of Systems Constitutional: HENT: Negative. Eyes: Negative. Respiratory: Negative. Cardiovascular: Negative. Gastrointestinal: Negative. Endocrine: Negative. Genitourinary: Negative. Musculoskeletal: Skin: Positive for psoriasis Onychodystrophy toes. Allergic/Immunologic: Negative. Neurological: Positive for numbness. Hematological: Negative. Psychiatric/Behavioral: Negative. Vitals: There were no vitals taken for this visit. Physical Exam Vitals and nursing note reviewed. Constitutional: Appearance: Normal appearance. HENT: Head: Normocephalic and atraumatic. Right Ear: External ear normal. Left Ear: External ear normal. Nose: Nose normal. Mouth/Throat: Comments: Eyes: Extraocular Movements: Extraocular movements intact. Conjunctiva/sclera: Conjunctivae normal. Pupils: Pupils are equal, round, and reactive to light. Comments: glasses Cardiovascular: Rate and Rhythm: Normal rate and regular rhythm. Pulses: Carotid pulses Radial pulses are 2+ on the right side and 2+ on the left side. Dorsalis pedis pulses Posterior tibial pulses. Heart sounds: Normal heart sounds. Comments: Pulmonary: Effort: Pulmonary effort is normal. Breath sounds: Normal breath sounds. Abdominal: General: Bowel sounds are normal. Palpations: Abdomen is soft. Musculoskeletal: Right shoulder: decreased ROM Left shoulder: decreased ROM Right upper arm: Normal. Left upper arm: Normal. Right elbow: Normal. Left elbow: Normal. Right forearm: Normal. Left forearm: Normal. Right wrist: crep and decreased ROM Left wrist: Decreased range of motion. With Crep. Pain Right hand: Deformity present. Decreased range of motion. Left hand: Deformity present. Decreased range of motion. Arms: Cervical back: Thoracic back Lumbar back Right hip: Left hip: Right upper leg: Normal. Left upper leg: Normal. Right knee: Decreased ROM Left knee: Decreased rOM with crep Right lower leg: +1 edema Left lower leg: +1 edema Right ankle: Normal. Left ankle: Normal. Right foot: Left foot: Comments: Skin: General: Skin is warm and dry. Comments: Onychodystrophy toes Neurological: Mental Status: She is alert and oriented to person, place, and time. Cranial Nerves: Cranial nerves are intact. Sensory: Motor: Decreased yarn salvager strength R hand Gait: Gait is intact. Deep Tendon Reflexes: Reflex Scores: Comments: Paresthesias R foot. Positive Tinel's L wrist. Psychiatric: Mood and Affect: Mood normal. Behavior: Behavior normal. Thought Content: Thought content normal. Judgment: Judgment normal. Neurologic Exam Mental Status Oriented to person, place, and time. Cranial Nerves CN III, IV, Pupils are equal, round, and reactive to light. Gait, Coordination, and Reflexes Gait Gait: normal Assessment and Plan There appears to be non need to start high dose steroid or immune modulating therapy There appears to be no evidence of active CTD/CVD/Inflammatory arthritis/Psoriatic Arthritis Encounter Diagnoses Name Primary? 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 Time was spent with the patient today in education in re: to all their medical conditions. A complete H&P&ROS was obtained and is either in this note or in the EHR. Please do not hesitate to contact me with any questions or concerns re: this patient. Past History Past medical, surgical, family, and social histories have been reviewed and updated with the patient today and are located elsewhere in the medical record. 2. Thank you for allowing me to participate in the care of your patient. With your permission I would like to F/U with your patient. 3. Neurosurgery F/U per dr. Singh 4. Patient declines referral to hand surgeon. 5. Rx given for PT/OT - patient has been and is doing HEP 6. ESR was normal at 7 and still is at 6 7. Monitor CBC/LFT/Renal func every 6-12 months as long as patient is on daily NSAID 8. CRP was negative at < 5.0 and still is at < 5.0 9. Repeat DEXA on or about 05/01/2025 10. Derm F/U per [facility] 11. Optho F/U per Dr. gaitan 12. Patient given educational material on fibromyalgia syndrome in the form of a pamphlet from the arthritis foundation. Patient told that generalized stretching and aerobic exercise would be the cornerstone of treatment. Patient would benefit from psych eval and treatment of any underlying depression and/or anxiety disorder. Patient would benefit from eval and F/U treatment by PMR and/or ChronicPain Management 13. Otezla upset stomach 14. 90 day supply on medications 15., Degenerative changes pubic symphysis 16. AST was elevated at 42 and is now normal at 32 17. CO2 was elevated at 31 and still is at 33 18. EMG/NCV LUE and RLE: Chronic mild R S1 radiculopathy 19. If CTS problems continue rec: surgical eval 20. Max dose of Gabapentin is 2400 mg a day and can be increased as indicated or tolerated. 21. Patient has stopped Plaquenil 22. ALT was elevated at 49 and is now normal at 28 23. Patient declines increasing Gabapentin 24. There appears to be non need to start high dose steroid or immune modulating therapy 25. There appears to be no evidence of active CTD/CVD/Inflammatory arthritis/Psoriatic Arthritis 26. Lab on or about 05/24/2025 27. At patient's request will Follow-up with me in 6 months 28. Call if need Rx's [facility]* Patient Instructions* Ankit Stanton, OD - 10/11/2024 10:30 AM EST ASSESSMENT/PLAN: 1. Combined form of senile cataract of both eyes - ICD9: 366.19, ICD10: H25.813 (primary diagnosis) Mild to moderate cataract in both eyes. Well tolerated at this time. Discussed possible future affect on daily activities to watch for. Monitor as instructed. 2. Long-term use of Plaquenil - ICD9: V58.69, ICD10: Z79.899 No longer taking at this time. 3. Vitreous floaters of both eyes - ICD9: 379.24, ICD10: H43.393 Vitreal floaters stable both eyes. Retinas flat and intact with no apparent retinal tear or traction. Discussed symptoms of retinal tear/detachment and if seen patient will return to clinic without delay. Recommended yearly exams. [facility] NoteHNO ID: [id number] Author: ANKIT STANTON OD Service: ? Author Type: SOCIAL SCIENCE RESEARCH ASSISTANT Type: Progress Notes Filed: 10/11/2024 10:31 Note Text: ASSESSMENT/PLAN: 1. Combined form of senile cataract of both eyes - ICD9: 366.19, ICD10: H25.813 (primary diagnosis) Mild to moderate cataract in both eyes. Well tolerated at this time. Discussed possible future affect on daily activities to watch for. Monitor as instructed. 2. Long-term use of Plaquenil - ICD9: V58.69, ICD10: Z79.899 No longer taking at this time. 3. Vitreous floaters of both eyes - ICD9: 379.24, ICD10: H43.393 Vitreal floaters stable both eyes. Retinas flat and intact with no apparent retinal tear or traction. Discussed symptoms of retinal tear/detachment and if seen patient will return to clinic without delay. Recommended yearly exams. Ankit Stanton, OD I have confirmed and edited as necessary the relevant ophthalmic history, ROS, and the neuro exam findings as obtained by others.[facility] 10[facility]11-[facility] History of Present illness Narrative* Ankit Stanton, OD - 10/11/2024 10:29 AM EST ASSESSMENT/PLAN: 1. Combined form of senile cataract of both eyes - ICD9: 366.19, ICD10: H25.813 (primary diagnosis) Mild to moderate cataract in both eyes. Well tolerated at this time. Discussed possible future affect on daily activities to watch for. Monitor as instructed. 2. Long-term use of Plaquenil - ICD9: V58.69, ICD10: Z79.899 No longer taking at this time. 3. Vitreous floaters of both eyes - ICD9: 379.24, ICD10: H43.393 Vitreal floaters stable both eyes. Retinas flat and intact with no apparent retinal tear or traction. Discussed symptoms of retinal tear/detachment and if seen patient will return to clinic without delay. Recommended yearly exams. Ankit Stanton, OD I have confirmed and edited as necessary the relevant ophthalmic history, ROS, and the neuro exam findings as obtained by others. [facility] NoteDate of Procedure 10/11/2024. In School Suspension Coordinator Information Mine Technician: stephenie. Start time: 9:46 AM. Reliability Right Eye Good. Left Eye Good. Interpretation Right Eye Normal. Left Eye Normal. Interval Change Right Eye Stable. Left Eye Stable.[id number] NoteDate of Procedure 10/11/2024. In School Suspension Coordinator Information Mine Technician: stephenie. Start time: 9:46 AM. Interpretation Right Eye Normal foveal contour. Left Eye Normal foveal contour. Interval Change Right Eye Stable. Left Eye Stable.[id number] NoteEstablished Patient Visit Jose Luis Hayden DPM Patient Name: Boone Espinoza. . Date of : 1955, 69 y.o.. Gender: female. Subjective: Patient is a pleasant 69-year-old female who presents to clinic for follow-up evaluation regarding her right heel pain. Patient states that she has been working with physical therapy for 4 weeks and reports significant improvement to her right heel pain. States that she only has minimal pain at times when waking up in the morning but she has not had any pain today. States that she stopped taking meloxicam. No other pedal complaint at this time. Denies fevers, chills, nausea, vomiting, chest pain, shortness of breath, or any other constitutional symptoms. Past Medical History: Diagnosis Date Arthritis Osteoporosis Past Surgical History: Procedure Laterality Date SECTION, CLASSIC Physical Examination: BP 133/85 (BP Location: Right arm, Patient Position: Sitting, BP Cuff Size: Adult) Pulse 73 Temp 97.9 degrees F (36.6 degrees C) (Temporal) General Appearance: Alert, cooperative, no distress, appears stated age. Podiatric Exam Vascular: DP and PT pulses are palpable. Capillary refill time is less than 3 seconds to distal digits. Skin temperature is warm to warm from proximal tibial tuberosity to distal digit. Neurological: Gross sensation is intact. Protective sensation is intact. Dermatologic: No open wounds or ulcerations. Interdigital spaces are clean dry and intact. Musculoskeletal: No pain on palpation to the medial calcaneal tubercle, right heel. No pain along the medial band of plantar fascia. Ankle joint dorsiflexion is reduced with the knee extended and full with knee flexion, improved. Ankle joint range of motion is intact. Muscle strength is 5/5 to dorsiflexors, plantar flexors, inverters and everters. Compartments soft and compressible. No calf pain Diagnoses: 1. Plantar fasciitis of right foot 2. Equinus contracture of ankle Assessment/Plan: Patient was seen and evaluated. Discussed all clinical findings Patient is doing very well and her right foot plantar fasciitis pain has improved and almost resolved. Discussed with patient that she does not need to take any additional meloxicam. However, recommended that she refilled her meloxicam if she continues to have pain and discomfort with ambulation. Patient is encouraged to continue and complete her physical therapy course. Thereafter, patient is to continue stretching and icing at home daily as part of a lifestyle routine. No plans for steroid injection or surgical intervention at this time. All questions were answered to patient satisfaction. Patient understands to call with any questions or concerns. Follow-up as needed. This note was partially created using voice recognition software and is inherently subject to errors including those of syntax and sound-alike substitutions which may escape proofreading. In such instances, original meaning may be extrapolated by contextual derivation. Jose Luis Hayden DPM, MS Podiatric Physician & Surgeon AUTHENTICATED BY JOSE LUIS HAYDEN, ON 07/13/2024 12:31:20[facility] History of Present illness Narrative* Jose Luis Hayden DPM - 07/13/2024 12:29 PM EDT Images from the original note were not included. Established Patient Visit Jose Luis Hayden DPM Patient Name: Boone Espinoza. . Date of : 1955, 69 y.o.. Gender: female. Subjective: Patient is a pleasant 69-year-old female who presents to clinic for follow-up evaluation regarding her right heel pain. Patient states that she has been working with physical therapy for 4 weeks and reports significant improvement to her right heel pain. States that she only has minimal pain at times when waking up in the morning but she has not had any pain today. States that she stopped taking meloxicam. No other pedal complaint at this time. Denies fevers, chills, nausea, vomiting, chest pain, shortness of breath, or any other constitutional symptoms. Past Medical History: Diagnosis Date Arthritis Osteoporosis Past Surgical History: Procedure Laterality Date SECTION, CLASSIC Physical Examination: BP 133/85 (BP Location: Right arm, Patient Position: Sitting, BP Cuff Size: Adult) Pulse 73 Temp 97.9 F (36.6 C) (Temporal) General Appearance: Alert, cooperative, no distress, appears stated age. Podiatric Exam Vascular: DP and PT pulses are palpable. Capillary refill time is less than 3 seconds to distal digits. Skin temperature is warm to warm from proximal tibial tuberosity to distal digit. Neurological: Gross sensation is intact. Protective sensation is intact. Dermatologic: No open wounds or ulcerations. Interdigital spaces are clean dry and intact. Musculoskeletal: No pain on palpation to the medial calcaneal tubercle, right heel. No pain along the medial band of plantar fascia. Ankle joint dorsiflexion is reduced with the knee extended and full with knee flexion, improved. Ankle joint range of motion is intact. Muscle strength is 5/5 to dorsiflexors, plantar flexors, inverters and everters. Compartments soft and compressible. No calf pain Diagnoses: 1. Plantar fasciitis of right foot 2. Equinus contracture of ankle Assessment/Plan: Patient was seen and evaluated. Discussed all clinical findings Patient is doing very well and her right foot plantar fasciitis pain has improved and almost resolved. Discussed with patient that she does not need to take any additional meloxicam. However, recommended that she refilled her meloxicam if she continues to have pain and discomfort with ambulation. Patient is encouraged to continue and complete her physical therapy course. Thereafter, patient is to continue stretching and icing at home daily as part of a lifestyle routine. No plans for steroid injection or surgical intervention at this time. All questions were answered to patient satisfaction. Patient understands to call with any questionsor concerns. Follow-up as needed. This note was partially created using voice recognition software and is inherently subject to errors including those of syntax and sound-alike substitutions which may escape proofreading. In such instances, original meaning may be extrapolated by contextual derivation. Jose Luis Hayden DPM, MS Podiatric Physician & Surgeon documented in this [id number] NoteEstablished Patient Visit Jose Luis Hayden DPM Patient Name: Boone Espinoza. . Date of : 1955, 69 y.o.. Gender: female. Subjective: Patient is a pleasant 69-year-old female who presents to clinic for follow-up evaluation regarding her right heel pain/contusion. States she has been taking meloxicam and icing and the pain has improved. However, she does continue to have some pain especially when she steps out of bed in the morning and takes a few steps. No other pedal complaint at this time. Denies fevers, chills, nausea, vomiting, chest pain, shortness of breath, or any other constitutional symptoms. Past Medical History: Diagnosis Date Arthritis Osteoporosis Past Surgical History: Procedure Laterality Date SECTION, CLASSIC Physical Examination: BP 131/80 (BP Location: Left arm, Patient Position: Sitting, BP Cuff Size: Adult) Pulse 67 Temp 98.1 degrees F (36.7 degrees C) (Infrared) General Appearance: Alert, cooperative, no distress, appears stated age. Podiatric Exam Vascular: DP and PT pulses are palpable. Capillary refill time is less than 3 seconds to distal digits. Skin temperature is warm to warm from proximal tibial tuberosity to distal digit. Neurological: Gross sensation is intact. Protective sensation is intact. Dermatologic: No open wounds or ulcerations. Interdigital spaces are clean dry and intact. Musculoskeletal: Pain on palpation to the medial calcaneal tubercle, right heel. No pain along the medial band of plantar fascia. Ankle joint dorsiflexion is reduced with the knee extended and full with knee flexion ankle joint range of motion is intact. Muscle strength is 5/5 to dorsiflexors, plantar flexors, inverters and everters. Compartments soft and compressible. No calf pain Diagnoses: 1. Plantar fasciitis of right foot Ambulatory Ref to [facility] (PT/OT/ST) 2. Equinus contracture of ankle 3. Contusion of right heel, initial encounter 4. Intractable right heel pain Assessment/Plan: Patient was seen and evaluated. Discussed all clinical findings Patient has painful plantar fasciitis of the right heel. Discussed conservative treatment options for plantar fasciitis including stretching, icing, anti-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, and good supportive shoes. I illustrated proper stretching techniques in the office. Advised on proper supporting shoes. Patient is to continue taking meloxicam once daily. An order for physical therapy was placed. This is medical necessary to regain proper function of plantar fascia. Physical therapy sessions are 2-3 times per week and up to 4 weeks. Follow-up in 4 weeks for reevaluation. This note was partially created using voice recognition software and is inherently subject to errors including those of syntax and sound-alike substitutions which may escape proofreading. In such instances, original meaning may be extrapolated by contextual derivation. Jose Luis Hayden DPM, MS Podiatric Physician & Surgeon AUTHENTICATED BY JOSE LUIS HAYDEN, ON 06/15/2024 08:45:11[facility] History of Present illness Narrative* Jose Luis Hayden DPM - 06/15/2024 8:43 AM EDT Images from the original note were not included. Established Patient Visit Jose Luis Hayden DPM Patient Name: Boone Espinoza. . Date of : 1955, 69 y.o.. Gender: female. Subjective: Patient is a pleasant 69-year-old female who presents to clinic for follow-up evaluation regarding her right heel pain/contusion. States she has been taking meloxicam and icing and the pain has improved. However, she does continue to have some pain especially when she steps out of bed in the morning and takes a few steps. No other pedal complaint at this time. Denies fevers, chills, nausea, vomiting, chest pain, shortness of breath, or any other constitutional symptoms. Past Medical History: Diagnosis Date Arthritis Osteoporosis Past Surgical History: Procedure Laterality Date SECTION, CLASSIC Physical Examination: BP 131/80 (BP Location: Left arm, Patient Position: Sitting, BP Cuff Size: Adult) Pulse 67 Temp98.1 F (36.7 C) (Infrared) General Appearance: Alert, cooperative, no distress, appears stated age. Podiatric Exam Vascular: DP and PT pulses are palpable. Capillary refill time is less than 3 seconds to distal digits. Skin temperature is warm to warm from proximal tibial tuberosity to distal digit. Neurological: Gross sensation is intact. Protective sensation is intact. Dermatologic: No open wounds or ulcerations. Interdigital spaces are clean dry and intact. Musculoskeletal: Pain on palpation to the medial calcaneal tubercle, right heel. No pain along the medial band of plantar fascia. Ankle joint dorsiflexion is reduced with the knee extended and full with knee flexion ankle joint range of motion is intact. Muscle strength is 5/5 to dorsiflexors, plantar flexors, inverters and everters. Compartments soft and compressible. No calf pain Diagnoses: 1. Plantar fasciitis of right foot Ambulatory Ref to [facility] (PT/OT/ST) 2. Equinus contracture of ankle 3. Contusion of right heel, initial encounter 4. Intractable right heel pain Assessment/Plan: Patient was seen and evaluated. Discussed all clinical findings Patient has painful plantar fasciitis of the right heel. Discussed conservative treatment options for plantar fasciitis including stretching, icing, anti-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, and good supportive shoes. I illustrated proper stretching techniques in the office. Advised on proper supporting shoes. Patient is to continue taking meloxicam once daily. An order for physical therapy was placed. This is medical necessary to regain proper function of plantar fascia. Physical therapy sessions are 2-3 times per week and up to 4 weeks. Follow-up in 4 weeks for reevaluation. This note was partially created using voice recognition software and is inherently subject to errors including those of syntax and sound-alike substitutions which may escape proofreading. In such instances, original meaning may be extrapolated by contextual derivation. Jose Luis Hayden DPM, MS Podiatric Physician & Surgeon documented in this [id number] NoteEstablished Patient Visit Jose Luis Hayden DPM Patient Name: Boone Espinoza. . Date of : 1955, 69 y.o.. Gender: female. Subjective: Patient is a pleasant 69-year-old female who presents to clinic for her fungal nail care debridement appointment. However, patient states that on 1 month ago, she missed a step descending down the stairs and she injured the back of her right heel. States that she continues to have pain and discomfort with ambulation to the right heel. No other pedal complaints at this time. Denies fevers, chills, nausea, vomiting, chest pain, shortness of breath, or any other constitutional symptoms. Physical Examination: BP 133/87 (BP Location: Left arm, Patient Position: Sitting, BP Cuff Size: Adult) Pulse 62 Temp 97.3 degrees F (36.3 degrees C) (Temporal) General Appearance: Alert, cooperative, no distress, appears stated age. Podiatric Exam Vascular: DP and PT pulses are palpable 2/4. Capillary refill time is 3 seconds to distal digits. Skin temperature is warm to warm from proximal tibial tuberosity to distal digit. Neurological: Gross sensation is intact. Protective sensation is intact. Dermatologic: Nails x 10 are elongated, thickened, dystrophic and mycotic with fungal debris. Interdigital spaces are clean dry and intact. Musculoskeletal: Pain on palpation to dorsal aspect of all toenails. Pain on palpation to the right heel at the medial calcaneal tubercle. No pain with heel squeeze. Patient is able to wiggle digits. Ankle joint range of motion is intact. Muscle strength is 5/5 to dorsiflexors, plantar flexors, inverters and everters. Compartments soft and compressible. No calf pain Diagnoses: 1. Contusion of right heel, initial encounter 2. Intractable right heel pain 3. Onychomycosis 4. Pain due to onychomycosis of toenail of left foot 5. Pain due to onychomycosis of toenail of right foot Imaging: Right foot 3 views weightbearing radiographs were ordered and interpreted as follows: No acute fracture dislocations noted. Joint spaces are within normal limits. Small posterior calcaneal enthesophyte noted Assessment/Plan: Patient was seen and evaluated. Discussed all clinical findings Patient has sustained a contusion to the right heel from an injury causing her pain and discomfort with ambulation. I ordered, interpreted, and discussed right foot radiographic findings with patient as noted above. Discussed conservative treatment option consisting of offloading in extra-depth good supportive shoe gear, anti-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, icing, etc. Moreover, patient has onychomycosis of nails x 10 which require mechanical debridement. Consent was obtained prior to debridement of all toenails on the right and left foot using podiatric nail nippers down to appropriate thickness and length. Patient expressed pain relief following the procedure. All questions were answered to patient satisfaction. Patient understands to call with any questions or concerns. Follow-up in 4 weeks for reevaluation. This note was partially created using voice recognition software and is inherently subject to errors including those of syntax and sound-alike substitutions which may escape proofreading. In such instances, original meaning may be extrapolated by contextual derivation. Jose Luis Hayden DPM, MS Podiatric Physician & Surgeon AUTHENTICATED BY JOSE LUIS HAYDEN, ON 06/06/2024 17:00:34[facility] 06-06-2024 History of Present illness Narrative* Jose Luis Hayden DPM - 06/06/2024 4:55 PM EDT Images from the original note were not included. Established Patient Visit Jose Luis Hayden DPM Patient Name: Boone Espinoza. . Date of : 1955, 69 y.o.. Gender: female. Subjective: Patient is a pleasant 69-year-old female who presents to clinic for her fungal nail care debridement appointment. However, patient states that on 1 month ago, she missed a step descending down the stairs and she injured the back of her right heel. States that she continues to have pain and discomfort with ambulation to the right heel. No other pedal complaints at this time. Denies fevers, chills,nausea, vomiting, chest pain, shortness of breath, or any other constitutional symptoms. Physical Examination: BP 133/87 (BP Location: Left arm, Patient Position: Sitting, BP Cuff Size: Adult) Pulse 62 Temp97.3 F (36.3 C) (Temporal) General Appearance: Alert, cooperative, no distress, appears stated age. Podiatric Exam Vascular: DP and PT pulses are palpable 2/4. Capillary refill time is 3 seconds to distal digits. Skin temperature is warm to warm from proximal tibial tuberosity to distal digit. Neurological: Gross sensation is intact. Protective sensation is intact. Dermatologic: Nails x 10 are elongated, thickened, dystrophic and mycotic with fungal debris. Interdigital spaces are clean dry and intact. Musculoskeletal: Pain on palpation to dorsal aspect of all toenails. Pain on palpation to the rightheel at the medial calcaneal tubercle. No pain with heel squeeze. Patient is able to wiggle digits.Ankle joint range of motion is intact. Muscle strength is 5/5 to dorsiflexors, plantar flexors, inverters and everters. Compartments soft and compressible. No calf pain Diagnoses: 1. Contusion of right heel, initial encounter 2. Intractable right heel pain 3. Onychomycosis 4. Pain due to onychomycosis of toenail of left foot 5. Pain due to onychomycosis of toenail of right foot Imaging: Right foot 3 views weightbearing radiographs were ordered and interpreted as follows: No acute fracture dislocations noted. Joint spaces are within normal limits. Small posterior calcaneal enthesophyte noted Assessment/Plan: Patient was seen and evaluated. Discussed all clinical findings Patient has sustained a contusion to the right heel from an injury causing her pain and discomfort with ambulation. I ordered, interpreted, and discussed right foot radiographic findings with patient as noted above. Discussed conservative treatment option consisting of offloading in extra-depth good supportive shoe gear, anti-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, icing, etc. Moreover, patient has onychomycosis of nails x 10 which require mechanical debridement. Consent was obtained prior to debridement of all toenails on the right and left foot using podiatric nail nippers down to appropriate thickness and length. Patient expressed pain relief following theprocedure. All questions were answered to patient satisfaction. Patient understands to call with any questionsor concerns. Follow-up in 4 weeks for reevaluation. This note was partially created using voice recognition software and is inherently subject to errors including those of syntax and sound-alike substitutions which may escape proofreading. In such instances, original meaning may be extrapolated by contextual derivation. Jose Luis Hayden DPM, MS Podiatric Physician & Surgeon documented in this [id number] History of Present illness Narrative* Alfa Holden Jr., DO - 06/04/2024 11:00 AM EDT Images from the original note were not included. History of Present Illness Presence of Pain: denies pain/discomfort. Total time spent in this encounter was 18 minutes. Energylevel seems to be pretty good. Joint pain is no. Meloixcam from foot doctor for tendonitis. Leg cramps are better. Psoriasis is better. Paresthesias feet. schuyler is here for 3 month follow up. Reports she is doing well since last appointment. Has stopped the hydroxychlorquine and reports no issues since stopping medicine. B/L wrist splints are helping. I have been told that Tramadol is a high risk medication. Review of Systems Constitutional: HENT: Negative. Eyes: Negative. Respiratory: Negative. Cardiovascular: Negative. Gastrointestinal: Negative. Endocrine: Negative. Genitourinary: Negative. Musculoskeletal: Skin: Positive for psoriasis Onychodystrophy toes. Allergic/Immunologic: Negative. Neurological: Positive for numbness. Hematological: Negative. Psychiatric/Behavioral: Negative. Vitals: There were no vitals taken for this visit. Physical Exam Vitals and nursing note reviewed. Constitutional: Appearance: Normal appearance. HENT: Head: Normocephalic and atraumatic. Right Ear: External ear normal. Left Ear: External ear normal. Nose: Nose normal. Mouth/Throat: Comments: Eyes: Extraocular Movements: Extraocular movements intact. Conjunctiva/sclera: Conjunctivae normal. Pupils: Pupils are equal, round, and reactive to light. Comments: glasses Cardiovascular: Rate and Rhythm: Normal rate and regular rhythm. Pulses: Carotid pulses Radial pulses are 2+ on the right side and 2+ on the left side. Dorsalis pedis pulses Posterior tibial pulses. Heart sounds: Normal heart sounds. Comments: Pulmonary: Effort: Pulmonary effort is normal. Breath sounds: Normal breath sounds. Abdominal: General: Bowel sounds are normal. Palpations: Abdomen is soft. Musculoskeletal: Right shoulder: decreased ROM Left shoulder: decreased ROM Right upper arm: Normal. Left upper arm: Normal. Right elbow: Normal. Left elbow: Normal. Right forearm: Normal. Left forearm: Normal. Right wrist: crep and decreased ROM Left wrist: Decreased range of motion. With Crep Right hand: Deformity present. Decreased range of motion. Left hand: Deformity present. Decreased range of motion. Arms: Cervical back: Thoracic back Lumbar back Right hip: Left hip: Right upper leg: Normal. Left upper leg: Normal. Right knee: Decreased ROM Left knee: Decreased rOM with crep Right lower leg: +1 edema Left lower leg: +1 edema Right ankle: Normal. Left ankle: Normal. Right foot: Left foot: Comments: Skin: General: Skin is warm and dry. Comments: Onychodystrophy toes Neurological: Mental Status: She is alert and oriented to person, place, and time. Cranial Nerves: Cranial nerves are intact. Sensory: Motor: Decreased yarn salvager strength R hand Gait: Gait is intact. Deep Tendon Reflexes: Reflex Scores: Comments: Paresthesias R foot. Positive Tinel's L wrist. Psychiatric: Mood and Affect: Mood normal. Behavior: Behavior normal. Thought Content: Thought content normal. Judgment: Judgment normal. Neurologic Exam Mental Status Oriented to person, place, and time. Cranial Nerves CN III, IV, Pupils are equal, round, and reactive to light. Gait, Coordination, and Reflexes Gait Gait: normal Assessment and Plan Encounter Diagnoses Primary? There appears to be non need to start high dose steroid or immune modulating therapy There appears to be no evidence of active CTD/CVD/Inflammatory arthritis/Psoriatic Arthritis Encounter Diagnoses Name Primary? 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 (NSAID) Fatty liver BHATIA (nonalcoholic steatohepatitis) Hypercarbia Carpal tunnel syndrome of left wrist Lumbosacral radiculopathy at S1 HNP (herniated nucleus pulposus), lumbar Lumbar degenerative disc disease Spinal stenosis of lumbar region with neurogenic claudication Osteoarthritis of both feet, unspecified osteoarthritis type Osteoarthritis of both hands, unspecified osteoarthritis type Osteoarthritis of lumbar spine, unspecified spinal osteoarthritis complication status Osteoarthritis of right sacroiliac joint History of fibromyalgia History of osteoarthritis History of psoriasis 1. Time was spent with the patient today in education in re: to all their medical conditions. A complete H&P&ROS was obtained and is either in this note or in the EHR. Please do not hesitate to contact me with any questions or concerns re: this patient. Past History Past medical, surgical, family, and social histories have been reviewed and updated with the patient today and are located elsewhere in the medical record. 2. Thank you for allowing me to participate in the care of your patient. With your permission I would like to F/U with your patient. 3. Neurosurgery F/U per dr. Singh 4. Patient declines referral to hand surgeon. 5. Rx given for PT/OT - patient has been and is doing HEP 6. ESR was normal at 3 and still is at 7 7. Monitor CBC/LFT/Renal func every 6-12 months as long as patient is on daily NSAID 8. CRP was negative at < 5.0 and still is at < 5.0 9. Repeat DEXA on or about 05/01/2025 10. Derm F/U per Felicit[facility] 11. Optho F/U per Dr. gaitan 12. Patient given educational material on fibromyalgia syndrome in the form of a pamphlet from the arthritis foundation. Patient told that generalized stretching and aerobic exercise would be the cornerstone of treatment. Patient would benefit from psych eval and treatment of any underlying depression and/or anxiety disorder. Patient would benefit from eval and F/U treatment by PMR and/or ChronicPain Management 13. Otezla upset stomach 14. 90 day supply on medications 15., Degenerative changes pubic symphysis 16. AST was elevated at 52 and still is at 42 17. CO2 was elevated at 33 and still is at 31 18. EMG/NCV LUE and RLE: Chronic mild R S1 radiculopathy 19. If CTS problems continue rec: surgical eval 20. Max dose of Gabapentin is 2400 mg a day and can be increased as indicated or tolerated. 21. Patient has stopped Plaquenil 22. ALT was elevated at 98 and still is at 49 23. Patient declines increasing Gabapentin 24. There appears to be non need to start high dose steroid or immune modulating therapy 25. There appears to be no evidence of active CTD/CVD/Inflammatory arthritis/Psoriatic Arthritis 26. Call if need Rx' 27. Lab on or about 11/21/2024 28. At patient's request will Follow-up with me in 6 months [facility] [id number] History of Present illness Narrative* Alfa Holden Jr., - 03/05/2024 8:00 AM EDT Images from the original note were not included. History of Present Illness Presence of Pain: denies pain/discomfort. Total time spent in this encounter was 27 minutes. Energylevel seems to be Ok. Sometimes she gets extra tired but she tries to go to bed at a good time. Joint pain is no. Psoriasis/Rash in better. Paresthesias just her feet and long standing. Patient is here today for her 6 Month Follow-up. Patient states she is doing good since her last appointment. Patient states she is doing okay if the decrease of Plaquenil. B/L wrist splints are helping. I have been told that Tramadol is a high risk medication. Review of Systems Constitutional: fatigue. HENT: Negative. Eyes: Negative. Respiratory: Negative. Cardiovascular: Negative. Gastrointestinal: Negative. Endocrine: Negative. Genitourinary: Negative. Musculoskeletal: joint pain and leg cramps at night Skin: Positive for psoriasis Onychodystrophy toes. Allergic/Immunologic: Negative. Neurological: Positive for numbness. Hematological: Negative. Psychiatric/Behavioral: Negative. Vitals: There were no vitals taken for this visit. Physical Exam Vitals and nursing note reviewed. Constitutional: Appearance: Normal appearance. HENT: Head: Normocephalic and atraumatic. Right Ear: External ear normal. Left Ear: External ear normal. Nose: Nose normal. Mouth/Throat: Comments: Eyes: Extraocular Movements: Extraocular movements intact. Conjunctiva/sclera: Conjunctivae normal. Pupils: Pupils are equal, round, and reactive to light. Comments: glasses Cardiovascular: Rate and Rhythm: Normal rate and regular rhythm. Pulses: Carotid pulses Radial pulses are 2+ on the right side and 2+ on the left side. Dorsalis pedis pulses Posterior tibial pulses. Heart sounds: Normal heart sounds. Comments: Pulmonary: Effort: Pulmonary effort is normal. Breath sounds: Normal breath sounds. Abdominal: General: Bowel sounds are normal. Palpations: Abdomen is soft. Musculoskeletal: Right shoulder: decreased ROM Left shoulder: decreased ROM Right upper arm: Normal. Left upper arm: Normal. Right elbow: Normal. Left elbow: Normal. Right forearm: Normal. Left forearm: Normal. Right wrist: crep and decreased ROM Left wrist: Decreased range of motion. With Crep Right hand: Deformity present. Decreased range of motion. Left hand: Deformity present. Decreased range of motion. Arms: Cervical back: Thoracic back Lumbar back Right hip: Left hip: Right upper leg: Normal. Left upper leg: Normal. Right knee: Decreased ROM Left knee: Decreased rOM with crep Right lower leg: +1 edema Left lower leg: +1 edema Right ankle: Normal. Left ankle: Normal. Right foot: Left foot: Comments: Skin: General: Skin is warm and dry. Comments: Onychodystrophy toes Neurological: Mental Status: She is alert and oriented to person, place, and time. Cranial Nerves: Cranial nerves are intact. Sensory: Motor: Gait: Gait is intact. Deep Tendon Reflexes: Reflex Scores: Comments: Paresthesias R foot. Positive Tinel's L wrist. Psychiatric: Mood and Affect: Mood normal. Behavior: Behavior normal. Thought Content: Thought content normal. Judgment: Judgment normal. Neurologic Exam Mental Status Oriented to person, place, and time. Cranial Nerves CN III, IV, Pupils are equal, round, and reactive to light. Gait, Coordination, and Reflexes Gait Gait: normal Assessment and Plan Encounter Diagnoses Primary? Encounter Diagnoses Name Primary? Psoriatic arthritis Yes Osteoarthritis of right sacroiliac joint Osteoarthritis of lumbar spine, unspecified spinal osteoarthritis complication status Osteoarthritis of both hands, unspecified osteoarthritis type Osteoarthritis of both feet, unspecified osteoarthritis type Spinal stenosis of lumbar region with neurogenic claudication Lumbar degenerative disc disease HNP (herniated nucleus pulposus), lumbar Disorder of bone and cartilage Psoriasis Long-term use of Plaquenil Long-term use of high-risk medication 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 (NSAID) LFT elevation History of psoriatic arthritis History of psoriasis History of osteoarthritis History of fibromyalgia BHATIA (nonalcoholic steatohepatitis) Fatty liver Hypercarbia Lumbosacral radiculopathy at S1 Carpal tunnel syndrome of left wrist 1. Time was spent with the patient today in education in re: to all their medical conditions. A complete H&P&ROS was obtained and is either in this note or in the EHR. Please do not hesitate to contact me with any questions or concerns re: this patient. Past History Past medical, surgical, family, and social histories have been reviewed and updated with the patient today and are located elsewhere in the medical record. 2. Thank you for allowing me to participate in the care of your patient. With your permission I would like to F/U with your patient. 3. Neurosurgery F/U per dr. Singh 4. Patient declines referral to hand surgeon. 5. Rx given for PT/OT - patient has been and is doing HEP 6. ESR was normal at 3 and still is at 3 7. Monitor CBC/LFT/Renal func every 6-12 months as long as patient is on daily NSAID 8. CRP was negative at < 5.0 and still is at < 5.0 9. Repeat DEXA on or about 05/01/2025 10. Derm F/U per [facility] 11. Optho F/U per Dr. gaitan 12. Patient given educational material on fibromyalgia syndrome in the form of a pamphlet from the arthritis foundation. Patient told that generalized stretching and aerobic exercise would be the cornerstone of treatment. Patient would benefit from psych eval and treatment of any underlying depression and/or anxiety disorder. Patient would benefit from eval and F/U treatment by PMR and/or ChronicPain Management 13. Otezla upset stomach 14. 90 day supply on medications 15., Degenerative changes pubic symphysis 16. AST is elevated at 52 17. CO2 was elevated at 31 and still is at 33 18. EMG/NCV LUE and RLE: Chronic mild R S1 radiculopathy 19. If CTS problems continue rec: surgical eval 20. Max dose of Gabapentin is 2400 mg a day and can be increased as indicated or tolerated. 21. Patient should have an eye exam prior to starting Plaquenil and every 6-12 months as long as taking Plaquenil 22. ALT is elevated at 98 23. Stop Plaquenil 24. Lab on or bout 05/21/2024 25. Follow-up with me in 3 months 26. Call if need Rx's 27. Patient declines increasing Gabapentin documented in this [facility]03-26-2024 History of Present illness Narrative* Jose Luis Hayden DPM - 02/10/2024 9:33 AM EDT Images from the original note were not included. Established Patient Visit Jose Luis Hayden DPM Patient Name: Boone Espinoza. . Date of : 1955, 68 y.o.. Gender: female. Subjective: Patient is a pleasant 68-year-old female who presents to clinic complaining of elongated and thickened toenails that she has difficulty cutting on her own. No other pedal complaints at this time. Denies fevers, chills, nausea, vomiting, chest pain, shortness of breath, or any other constitutional symptoms. Physical Examination: BP (P) 128/83 (BP Location: Right arm, Patient Position: Sitting, BP Cuff Size: X-large Adult) Pulse (P) 79 Temp (P) 97 F (36.1 C) (Infrared) General Appearance: Alert, cooperative, no distress, appears stated age. Podiatric Exam Vascular: DP and PT pulses are palpable 2/4. Capillary refill time is 3 seconds to distal digits. Skin temperature is warm to warm from proximal tibial tuberosity to distal digit. Neurological: Gross sensation is intact. Protective sensation is intact. Dermatologic: Nails x 10 are elongated, thickened, dystrophic and mycotic with fungal debris. Interdigital spaces are clean dry and intact. Musculoskeletal: Pain on palpation to dorsal aspect of all toenails. Patient is able to wiggle digits. Ankle joint range of motion is intact. Muscle strength is 5/5 to dorsiflexors, plantar flexors, inverters and everters. Compartments soft and compressible. No calf pain Diagnoses: 1. Onychomycosis 2. Pain due to onychomycosis of toenail of left foot 3. Pain due to onychomycosis of toenail of right foot Assessment/Plan: Patient was seen and evaluated. Discussed all clinical findings Patient has onychomycosis of nails x 10 which require mechanical debridement. Consent was obtained prior to debridement of all toenails on the right and left foot using podiatric nail nippers down to appropriate thickness and length. Patient expressed pain relief following theprocedure. All questions were answered to patient satisfaction. Patient understands to call with any questionsor concerns. Follow-up as needed. This note was partially created using voice recognition software and is inherently subject to errors including those of syntax and sound-alike substitutions which may escape proofreading. In such instances, original meaning may be extrapolated by contextual derivation. Jose Luis Hayden DPM, MS Podiatric Physician & Surgeon documented in this [id number] History of Present illness Narrative* Sukh Haydena DEANDRA Stanton - 11/12/2023 1:40 AM EST Images from the original note were not included. Established Patient Visit Jose Luismarino Stanton DEANDRA Hayden Patient Name: Boone Espinoza. . Date of : 1955, 68 y.o.. Gender: female. Subjective: Patient is a pleasant 68-year-old female who presents to clinic for follow-up evaluation of her peripheral arthritic pain. Patient states that the steroid injection has helped her significantly, withmore than 90% improvement. Patient is here today complaining of elongated and thickened toenails that she has difficulty cutting on her own. No other pedal complaints at this time. Denies fevers, chills, nausea, vomiting, chest pain, shortness of breath, or any other constitutional symptoms. Physical Examination: BP 118/76 (BP Location: Right arm, Patient Position: Sitting, BP Cuff Size: Adult) Pulse 71 Temp 98.6 F (37 C) (Infrared) General Appearance: Alert, cooperative, no distress, appears stated age. Podiatric Exam Vascular: DP and PT pulses are palpable 2/4. Capillary refill time is 3 seconds to distal digits. Skin temperature is warm to warm from proximal tibial tuberosity to distal digit. Neurological: Gross sensation is intact. Protective sensation is intact. Dermatologic: Nails x 10 are elongated, thickened, dystrophic and mycotic with fungal debris. Interdigital spaces are clean dry and intact. Musculoskeletal: Pain on palpation to dorsal aspect of all toenails. Patient is able to wiggle digits. Ankle joint range of motion is intact. Muscle strength is 5/5 to dorsiflexors, plantar flexors, inverters and everters. Compartments soft and compressible. No calf pain Diagnoses: 1. Onychomycosis 2. 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 Right foot pain 4. Pain due to onychomycosis of toenail of left foot 5. Pain due to onychomycosis of toenail of right foot Assessment/Plan: Patient was seen and evaluated. Discussed all clinical findings Patient's right foot injection has helped her significantly. No need for repeat injection. Patient is to continue wearing good supportive shoes. Patient can hold off on taking meloxicam at this time. Patient has onychomycosis of nails x 10 which require mechanical debridement. Consent was obtained prior to debridement of all toenails on the right and left foot using podiatric nail nippers down to appropriate thickness and length. Patient expressed pain relief following theprocedure. All questions were answered to patient satisfaction. Patient understands to call with any questionsor concerns. Follow-up as needed. This note was partially created using voice recognition software and is inherently subject to errors including those of syntax and sound-alike substitutions which may escape proofreading. In such instances, original meaning may be extrapolated by contextual derivation. Jose Luis Hayden DPM, MS Podiatric Physician & Surgeon documented in this [id number] History of Present illness Narrative* Jose Luis Hayden DPM - 10/22/2023 9:56 AM EST Images from the original note were not included. NEW Patient Visit Jose Luis Hayden DPM Patient Name: Boone Espinoza. . Date of : 1955, 68 y.o.. Gender: female. Subjective: Patient is a pleasant 68-year-old female who presents to clinic complaining of right foot pain thathas been ongoing for 2 years. Patient states that the pain is on the top of the foot on the lateralside. She denies any trauma or injury. Describes the pain as aching/sharp in nature at times. No other pedal complaints at this time. Denies fevers, chills, nausea, vomiting, chest pain, shortness of breath, or any other constitutional symptoms. Past Medical History: Diagnosis Date Arthritis Osteoporosis Past Surgical History: Procedure Laterality Date SECTION, CLASSIC Social History Socioeconomic History Marital status: Tobacco Use Smoking status: Never Smokeless tobacco: Never Substance and Sexual Activity Alcohol use: No Physical Examination: BP 126/85 (BP Location: Right arm, Patient Position: Sitting, BP Cuff Size: X- large Adult) Pulse 80 Temp 97.9 F (36.6 C) (Infrared) General Appearance: Alert, cooperative, no distress, appears stated age. Podiatric Exam Vascular: DP and PT pulses are palpable 2/4. Capillary refill time is less than 3 secs to distal digits. Skin temperature is warm to warm from proximal tibial tuberosity to distal digit. No appreciable edema noted. Neurological: Gross sensation is intact. Protective sensation is intact. Dermatologic: No open wounds or ulcerations. Interdigital spaces are clean dry and intact. Musculoskeletal: Severe pain on palpation at the tarsometatarsal joint, right foot. Ankle joint range of motion is intact. Muscle strength is 5/5 to dorsiflexors, plantar flexors, inverters and everters. Compartments soft and compressible. No calf pain Diagnoses: 1. 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 Right foot pain Imaging: Right foot 3 views weightbearing radiographs were ordered and interpreted as follows: No acute fractures or dislocations noted. Degenerative arthritic changes across the midfoot joints especially at the third tarsometatarsal joint. Generalized osteopenia Assessment/Plan: Patient was seen and evaluated. Discussed all clinical findings. I ordered, interpreted, and discussed right foot radiographic findings with patient as noted above. Patient has generative arthritic changes noted across the midfoot joints of the right foot especially at the third tarsometatarsal joint. Discussed conservative option consisting of offloading with supportive stiff shoes, anti-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, steroid injection, etc. Recommended a steroid injection to the dorsal right foot to help alleviate pain and discomfort. Patient agreed to proceed with this. See procedure below. PROCEDURE: The injection site was prepped with alcohol . Following, a 2 cc of 1: 1 mix of Kenalog 40 mg and 0.5% Marcaine plain was injected into the dorsal third tarsometatarsal joint of the right foot. Patient tolerated the injection well. A Band-Aid was applied at the injection site. All questions were answered to patient satisfaction. Patient understands to call with any questionsor concerns. Follow-up in 3 weeks for reevaluation. This note was partially created using voice recognition software and is inherently subject to errors including those of syntax and sound-alike substitutions which may escape proofreading. In such instances, original meaning may be extrapolated by contextual derivation. Jose Luis Hayden DPM, MS Podiatric Physician & Surgeon documented in this [id number] Instructions* Patient Instructions* Wm Stanton II, OD - 09/25/2023 10:53 AM EST Assessment and Plan Z79.899 Long-term use of Plaquenil (primary encounter diagnosis) Comment: Lower dose 200mg eod providing good results per patient. No ocular complications found secondary to use of Plaquenil. Continue regularly scheduled observation as instructed. Discussed need for early detection of ocular complications as they can continue to progress for a period of time even after medication is discontinued. H25.813 Combined form of senile cataract of both eyes Comment: Mild cataract in both eyes. Well tolerated at this time. Discussed possible future affect on daily activities to watch for. Monitor as instructed. 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 Retinas flat and intact with no apparent retinal tear or traction. Monitor yearly. H52.03 Hyperopia of both eyes H52.223 Regular astigmatism of both eyes H52.4 Presbyopia Comment: Shift in glasses power. Update glasses as desired to maximize visual performance. I have confirmed and edited as necessary the relevant ophthalmic history, ROS, and the neuro exam findings as obtained by others. I have seen and examined Boone Espinoza. I have discussed the case and the management of this patient's care with the Resident/Fellow, if applicable. I also have reviewed and agree with the assessment and plan as stated above and agree withall of its relevant components. Wm Stanton II, OD [facility] History of Present illness Narrative* Wm Stanton II, OD - 09/25/2023 10:51 AM EST Assessment and Plan Z79.899 Long-term use of Plaquenil (primary encounter diagnosis) Comment: Lower dose 200mg eod providing good results per patient. No ocular complications found secondary to use of Plaquenil. Continue regularly scheduled observation as instructed. Discussed need for early detection of ocular complications as they can continue to progress for a period of time even after medication is discontinued. H25.813 Combined form of senile cataract of both eyes Comment: Mild cataract in both eyes. Well tolerated at this time. Discussed possible future affect on daily activities to watch for. Monitor as instructed. 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 Retinas flat and intact with no apparent retinal tear or traction. Monitor yearly. H52.03 Hyperopia of both eyes H52.223 Regular astigmatism of both eyes H52.4 Presbyopia Comment: Shift in glasses power. Update glasses as desired to maximize visual performance. I have confirmed and edited as necessary the relevant ophthalmic history, ROS, and the neuro exam findings as obtained by others. I have seen and examined Boone Espinoza. I have discussed the case and the management of this patient's care with the Resident/Fellow, if applicable. I also have reviewed and agree with the assessment and plan as stated above and agree withall of its relevant components. Wm Stanton II, OD [facility] History of Present illness Narrative* Alfa Holden Jr., DO - 08/29/2023 8:00 AM EDT Images from the original note were not included. History of Present Illness Presence of Pain: denies pain/discomfort. Total time spent in this encounter was 33 minutes. Energylevel is that she seems like she does not have the energy she did as she gets older and she is moretired. Joint pain is that she notices her wrists are better lately. No. She feels good. Psoriasis/Rash is the same. Paresthesias is just her feet. Patient is here for 4 month F/U. Patient states thatshe feels pretty good. Patient is wearing wrist splints and she thinks they ar helping. I have beentold that Tramadol is a high risk medication. Review of Systems Constitutional: fatigue. HENT: Negative. Eyes: Negative. Respiratory: Negative. Cardiovascular: Negative. Gastrointestinal: Negative. Endocrine: Negative. Genitourinary: Negative. Musculoskeletal: joint pain Skin: Positive for psoriasis Onychodystrophy toes. Allergic/Immunologic: Negative. Neurological: Positive for numbness. Hematological: Negative. Psychiatric/Behavioral: Negative. Vitals: There were no vitals taken for this visit. Physical Exam Vitals and nursing note reviewed. Constitutional: Appearance: Normal appearance. HENT: Head: Normocephalic and atraumatic. Right Ear: External ear normal. Left Ear: External ear normal. Nose: Nose normal. Mouth/Throat: Comments: Eyes: Extraocular Movements: Extraocular movements intact. Conjunctiva/sclera: Conjunctivae normal. Pupils: Pupils are equal, round, and reactive to light. Comments: glasses Cardiovascular: Rate and Rhythm: Normal rate and regular rhythm. Pulses: Carotid pulses Radial pulses are 2+ on the right side and 2+ on the left side. Dorsalis pedis pulses Posterior tibial pulses. Heart sounds: Normal heart sounds. Comments: Pulmonary: Effort: Pulmonary effort is normal. Breath sounds: Normal breath sounds. Abdominal: General: Bowel sounds are normal. Palpations: Abdomen is soft. Musculoskeletal: Right shoulder: decreased ROM Left shoulder: decreased ROM Right upper arm: Normal. Left upper arm: Normal. Right elbow: Normal. Left elbow: Normal. Right forearm: Normal. Left forearm: Normal. Right wrist: crep and decreased ROM Left wrist: Decreased range of motion. With Crep Right hand: Deformity present. Decreased range of motion. Decreased yarn salvager strength Left hand: Deformity present. Decreased range of motion. Decreased yarn salvager strength Arms: Cervical back: Thoracic back Lumbar back Right hip: Left hip: Right upper leg: Normal. Left upper leg: Normal. Right knee: Decreased ROM Left knee: Decreased rOM with crep Right lower leg: Normal. Left lower leg: Normal. Right ankle: Normal. Left ankle: Normal. Right foot: Left foot: Comments: Skin: General: Skin is warm and dry. Comments: Onychodystrophy toes Neurological: Mental Status: She is alert and oriented to person, place, and time. Cranial Nerves: Cranial nerves are intact. Sensory: Motor: Decreased yarn salvager strength hands Gait: Gait is intact. Deep Tendon Reflexes: Reflex Scores: Comments: Paresthesias R foot. Positive Tinel's L wrist. Psychiatric: Mood and Affect: Mood normal. Behavior: Behavior normal. Thought Content: Thought content normal. Judgment: Judgment normal. Neurologic Exam Mental Status Oriented to person, place, and time. Cranial Nerves CN III, IV, Pupils are equal, round, and reactive to light. Gait, Coordination, and Reflexes Gait Gait: normal Assessment and Plan Encounter Diagnoses Primary? Encounter Diagnoses Name Primary? Psoriatic arthritis Yes Psoriasis History of fibromyalgia History of osteoarthritis History of psoriasis History of psoriatic arthritis [facility] current use of non-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-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 (NSAID) Long-term use of high-risk medication Long-term use of Plaquenil Hypercarbia Carpal tunnel syndrome of left wrist Lumbosacral radiculopathy at S1 HNP (herniated nucleus pulposus), lumbar Lumbar degenerative disc disease Spinal stenosis of lumbar region with neurogenic claudication Osteoarthritis of both feet, unspecified osteoarthritis type Osteoarthritis of both hands, unspecified osteoarthritis type Osteoarthritis of lumbar spine, unspecified spinal osteoarthritis complication status Osteoarthritis of right sacroiliac joint 1. Time was spent with the patient today in education in re: to all their medical conditions. A complete H&P&ROS was obtained and is either in this note or in the EHR. Please do not hesitate to contact me with any questions or concerns re: this patient. Past History Past medical, surgical, family, and social histories have been reviewed and updated with the patient today and are located elsewhere in the medical record. 2. Thank you for allowing me to participate in the care of your patient. With your permission I would like to F/U with your patient. 3. Neurosurgery F/U per dr. Singh 4. Patient declines referral to hand surgeon. 5. Rx given for PT/OT - patient has been and is doing HEP 6. ESR was normal at 4 and still is at 3 7. Monitor CBC/LFT/Renal func every 6-12 months as long as patient is on daily NSAID 8. CRP was negative at < 5.0 and still is at < 5.0 9. Repeat DEXA on or about 05/01/2025 10. Derm F/U per [facility] 11. Optho F/U per Dr. gaitan 12. Patient given educational material on fibromyalgia syndrome in the form of a pamphlet from the arthritis foundation. Patient told that generalized stretching and aerobic exercise would be the cornerstone of treatment. Patient would benefit from psych eval and treatment of any underlying depression and/or anxiety disorder. Patient would benefit from eval and F/U treatment by PMR and/or ChronicPain Management 13. Otezla upset stomach 14. 90 day supply on medications 15., Degenerative changes pubic symphysis 16. AST was elevated at 51 and is now normal at 32 17. CO2 is elevated at 31. 18. EMG/NCV LUE and RLE: Chronic mild R S1 radiculopathy 19. If CTS problems continue rec: surgical eval 20. Max dose of Gabapentin is 2400 mg a day and can be increased as indicated or tolerated. 21. Patient should have an eye exam prior to starting Plaquenil and every 6-12 months as long as taking Plaquenil 22. Rx given for Plaquenil 200 mg 1 pill every other day 23. Lab on or about 02/11/2024 24. F/U with me in 6 months 25. Rx given for Meloxicam 15 mg 1 pill a day [facility] History of Present illness Narrative* Alfa Holden Jr., - 05/12/2023 9:15 AM EDT Images from the original note were not included. History of Present Illness Presence of Pain: denies pain/discomfort. Total time spent in this encounter was 26 minutes. Energylevel is not real good. Seems like she is tried a lot. Joint pain is L wrist. Back pain is good. Psoriasis/Rash is about the same. Onychodystrophy is probably a little better. Paresthesias feet. Patient is here for 4 month F/U. Patient states she has not been feeling too bad. Is having issues with left wrist complaining of not having the strength in it. States she still notices tingling in feet. States she seems to be feeing really tired lately. States fingers feel a little stiffer. Wrist splint helps PRN. I have been told that Tramadol is a high risk medication. Review of Systems Constitutional: fatigue. HENT: Negative. Eyes: Negative. Respiratory: Negative. Cardiovascular: Negative. Gastrointestinal: Negative. Endocrine: Negative. Genitourinary: Negative. Musculoskeletal: joint pain Skin: Positive for psoriasis Onychodystrophy toes. Allergic/Immunologic: Negative. Neurological: Positive for numbness. Hematological: Negative. Psychiatric/Behavioral: Negative. Vitals: There were no vitals taken for this visit. Physical Exam Vitals and nursing note reviewed. Constitutional: Appearance: Normal appearance. HENT: Head: Normocephalic and atraumatic. Right Ear: External ear normal. Left Ear: External ear normal. Nose: Nose normal. Mouth/Throat: Comments: Eyes: Extraocular Movements: Extraocular movements intact. Conjunctiva/sclera: Conjunctivae normal. Pupils: Pupils are equal, round, and reactive to light. Comments: glasses Cardiovascular: Rate and Rhythm: Normal rate and regular rhythm. Pulses: Carotid pulses Radial pulses are 2+ on the right side and 2+ on the left side. Dorsalis pedis pulses Posterior tibial pulses. Heart sounds: Normal heart sounds. Comments: Pulmonary: Effort: Pulmonary effort is normal. Breath sounds: Normal breath sounds. Abdominal: General: Bowel sounds are normal. Palpations: Abdomen is soft. Musculoskeletal: Right shoulder: normal Left shoulder: Normal Right upper arm: Normal. Left upper arm: Normal. Right elbow: Normal. Left elbow: Normal. Right forearm: Normal. Left forearm: Normal. Right wrist: crep and decreased ROM Left wrist: Decreased range of motion. With Crep Right hand: Deformity present. Decreased range of motion. Decreased yarn salvager strength Left hand: Deformity present. Decreased range of motion. Decreased yarn salvager strength Arms: Cervical back: Thoracic back Lumbar back Right hip: Left hip: Right upper leg: Normal. Left upper leg: Normal. Right knee: Decreased ROM Left knee: Decreased rOM with crep Right lower leg: Normal. Left lower leg: Normal. Right ankle: Normal. Left ankle: Normal. Right foot: Left foot: Comments: Skin: General: Skin is warm and dry. Comments: Onychodystrophy toes Neurological: Mental Status: She is alert and oriented to person, place, and time. Cranial Nerves: Cranial nerves are intact. Sensory: Sensory deficit present. Motor: Decreased yarn salvager strength hands Gait: Gait is intact. Deep Tendon Reflexes: Reflex Scores: Comments: Paresthesias R foot. Positive Tinel's L wrist. Psychiatric: Mood and Affect: Mood normal. Behavior: Behavior normal. Thought Content: Thought content normal. Judgment: Judgment normal. Neurologic Exam Mental Status Oriented to person, place, and time. Cranial Nerves CN III, IV, Pupils are equal, round, and reactive to light. Gait, Coordination, and Reflexes Gait Gait: normal Assessment and Plan Encounter Diagnoses Primary? Encounter Diagnoses Name Primary? Psoriatic arthritis Yes Psoriasis History of fibromyalgia History of osteoarthritis History of psoriasis History of psoriatic arthritis LFT elevation [facility] current use of non-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-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 (NSAID) Long-term use of high-risk medication Long-term use of Plaquenil Carpal tunnel syndrome of left wrist Lumbosacral radiculopathy at S1 HNP (herniated nucleus pulposus), lumbar Lumbar degenerative disc disease Spinal stenosis of lumbar region with neurogenic claudication Osteoarthritis of both feet, unspecified osteoarthritis type Osteoarthritis of both hands, unspecified osteoarthritis type Osteoarthritis of lumbar spine, unspecified spinal osteoarthritis complication status 1. Time was spent with the patient today in education in re: to all their medical conditions. A complete H&P&ROS was obtained and is either in this note or in the EHR. Please do not hesitate to contact me with any questions or concerns re: this patient. Past History Past medical, surgical, family, and social histories have been reviewed and updated with the patient today and are located elsewhere in the medical record. 2. Thank you for allowing me to participate in the care of your patient. With your permission I would like to F/U with your patient. 3. Neurosurgery F/U per dr. Singh 4. Patient declines referral to hand surgeon. 5. Rx given for PT/OT - patient has been and is doing HEP 6. ESR was normal at 6 and still is at 4 7. Monitor CBC/LFT/Renal func every 6-12 months as long as patient is on daily NSAID 8. CRP was negative at < 7.9 and still is at < 5.0 9. Repeat DEXA on or about 05/01/2025 10. Derm F/U per [facility] 11. Optho F/U per Dr. gaitan 12. Patient given educational material on fibromyalgia syndrome in the form of a pamphlet from the arthritis foundation. Patient told that generalized stretching and aerobic exercise would be the cornerstone of treatment. Patient would benefit from psych eval and treatment of any underlying depression and/or anxiety disorder. Patient would benefit from eval and F/U treatment by PMR and/or ChronicPain Management 13. Otezla upset stomach 14. 90 day supply on medications 15., Degenerative changes pubic symphysis 16. AST is elevated at 51 and patient is going to F/U with PCP 17. Call if need Rx's 18. EMG/NCV LUE and RLE: Chronic mild R S1 radiculopathy 19. If CTS problems continue rec: surgical eval 20. Max dose of Gabapentin is 2400 mg a day and can be increased as indicated or tolerated. 21. Patient should have an eye exam prior to starting Plaquenil and every 6-12 months as long as taking Plaquenil 22. Lab on or about 05/28/2023 with copy to PCP to recheck LFT 23. Lab on or about 08/28/2023 24. F/U with me in 4 months documented in this encounter[facility] History of Present illness Narrative* Alfa Holden Jr., - 05/31/2022 7:45 AM EDT Images from the original note were not included. History of Present Illness Presence of Pain: denies pain/discomfort. Total time spent in this encounter was 25 minutes. Energylevel is that she gets tired quicker than she used to. Psoriasis/rash is that she has not noticed anything. Paresthesias B/L toes. Joint pain is no. Patient is here today for her 4 MOnth F/U. Patientstates she is doing good and she is not having joint pain. Patient has not needed wrist splint. I have been told that Tramadol is a high risk medication. Review of Systems Constitutional: fatigue. HENT: Negative. Eyes: Negative. Respiratory: Negative. Cardiovascular: Negative. Gastrointestinal: Negative. Endocrine: Negative. Genitourinary: Negative. Musculoskeletal: negative Skin: Positive for psoriasis Onychodystrophy toes. Allergic/Immunologic: Negative. Neurological: Positive for numbness. Hematological: Negative. Psychiatric/Behavioral: Negative. Vitals: There were no vitals taken for this visit. Physical Exam Vitals and nursing note reviewed. Constitutional: Appearance: Normal appearance. HENT: Head: Normocephalic and atraumatic. Right Ear: External ear normal. Left Ear: External ear normal. Nose: Nose normal. Mouth/Throat: Comments: mask Eyes: Extraocular Movements: Extraocular movements intact. Conjunctiva/sclera: Conjunctivae normal. Pupils: Pupils are equal, round, and reactive to light. Comments: glasses Cardiovascular: Rate and Rhythm: Normal rate and regular rhythm. Pulses: Carotid pulses Radial pulses are 2+ on the right side and 2+ on the left side. Dorsalis pedis pulses Posterior tibial pulses. Heart sounds: Normal heart sounds. Comments: Pulmonary: Effort: Pulmonary effort is normal. Breath sounds: Normal breath sounds. Abdominal: General: Bowel sounds are normal. Palpations: Abdomen is soft. Musculoskeletal: Right shoulder: Decreased ROM Left shoulder: Decreased ROM Right upper arm: Normal. Left upper arm: Normal. Right elbow: Normal. Left elbow: Normal. Right forearm: Normal. Left forearm: Normal. Right wrist: Decreased range of motion with crep Left wrist: Decreased range of motion. With CRP Right hand: Deformity present. Decreased range of motion. Decreased yarn salvager strength Left hand: Deformity present. Decreased range of motion. Decreased yarn salvager strength Arms: Cervical back: Thoracic back Lumbar back Right hip: Left hip: Right upper leg: Normal. Left upper leg: Normal. Right knee: Decreased ROM Left knee: Decreased rOM Right lower leg: Normal. Left lower leg: Normal. Right ankle: Normal. Left ankle: Normal. Right foot: Left foot: Comments: Skin: General: Skin is warm and dry. Comments: Onychodystrophy toes Neurological: Mental Status: She is alert and oriented to person, place, and time. Cranial Nerves: Cranial nerves are intact. Sensory: Sensory deficit present. Motor: Decreased yarn salvager strength hands Gait: Gait is intact. Deep Tendon Reflexes: Reflex Scores: Comments: Paresthesias R foot. Positive Tinel's L wrist. Psychiatric: Mood and Affect: Mood normal. Behavior: Behavior normal. Thought Content: Thought content normal. Judgment: Judgment normal. Neurologic Exam Mental Status Oriented to person, place, and time. Cranial Nerves CN III, IV, Pupils are equal, round, and reactive to light. Gait, Coordination, and Reflexes Gait Gait: normal Assessment and Plan Encounter Diagnoses Primary? Encounter Diagnoses Name Primary? 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 Time was spent with the patient today in education in re: to all their medical conditions. A complete H&P&ROS was obtained and is either in this note or in the EHR. Please do not hesitate to contact me with any questions or concerns re: this patient. Past History Past medical, surgical, family, and social histories have been reviewed and updated with the patient today and are located elsewhere in the medical record. 2. Thank you for allowing me to participate in the care of your patient. With your permission I would like to F/U with your patient. 3. Neurosurgery F/U per dr. Singh 4. Patient declines referral to hand surgeon. 5. Rx given for PT/OT - patient has been and is doing HEP 6. ESR was normal at 5 and still is at 18 7. Monitor CBC/LFT/Renal func every 6-12 months as long as patient is on daily NSAID 8. CRP was negative at 6.1 and still is at < 7.9 9. Call if need Rx's 10. Derm F/U per [facility] 11. Optho F/U per Dr. gaitan 12. Patient given educational material on fibromyalgia syndrome in the form of a pamphlet from the arthritis foundation. Patient told that generalized stretching and aerobic exercise would be the cornerstone of treatment. Patient would benefit from psych eval and treatment of any underlying depression and/or anxiety disorder. Patient would benefit from eval and F/U treatment by PMR and/or ChronicPain Management 13. Otezla upset stomach 14. 90 day supply on medications 15., Degenerative changes pubic symphysis 16. Next time see if can decrease Plaquenil 17. Lab on or about 11/14/2022 18. EMG/NCV LUE and RLE: Chronic mild R S1 radiculopathy 19. If CTS problems continue rec: surgical eval 20. Max dose of Gabapentin is 2400 mg a day and can be increased as indicated or tolerated. 21. Patient should have an eye exam prior to starting Plaquenil and every 6-12 months as long as taking Plaquenil 22. F/u with me in 6 months documented in this encounterProm[facility] History of Present illness Narrative* Alfa Holden Jr., - 01/23/2022 1:45 PM EST Images from the original note were not included. History of Present Illness Presence of Pain: denies pain/discomfort. Total time spent in this encounter was 20 minutes. Psoriasis/Rash is none. Paresthesias a little bit R foot but not bad. Joint pain is no. Patient is here today for her 4 Month F/U. Patient states she has been feeling pretty good since her last appointment.Patient states she has been going to the Chiropractor seems to help. Patient has not need B/L wrist splints. I have been told that Tramadol is a high risk medication. Review of Systems Constitutional: fatigue. HENT: Negative. Eyes: Negative. Respiratory: Negative. Cardiovascular: Negative. Gastrointestinal: Negative. Endocrine: Negative. Genitourinary: Negative. Musculoskeletal: negative Skin: Positive for psoriasis Onychodystrophy toes. Allergic/Immunologic: Negative. Neurological: Positive for numbness. Hematological: Negative. Psychiatric/Behavioral: Negative. Vitals: There were no vitals taken for this visit. Physical Exam Vitals and nursing note reviewed. Constitutional: Appearance: Normal appearance. HENT: Head: Normocephalic and atraumatic. Right Ear: External ear normal. Left Ear: External ear normal. Nose: Nose normal. Mouth/Throat: Comments: mask Eyes: Extraocular Movements: Extraocular movements intact. Conjunctiva/sclera: Conjunctivae normal. Pupils: Pupils are equal, round, and reactive to light. Comments: glasses Cardiovascular: Rate and Rhythm: Normal rate and regular rhythm. Pulses: Carotid pulses Radial pulses are 2+ on the right side and 2+ on the left side. Dorsalis pedis pulses Posterior tibial pulses. Heart sounds: Normal heart sounds. Comments: Pulmonary: Effort: Pulmonary effort is normal. Breath sounds: Normal breath sounds. Abdominal: General: Bowel sounds are normal. Palpations: Abdomen is soft. Musculoskeletal: Right shoulder: Decreased ROM Left shoulder: Decreased ROM Right upper arm: Normal. Left upper arm: Normal. Right elbow: Normal. Left elbow: Normal. Right forearm: Normal. Left forearm: Normal. Right wrist: Decreased range of motion with crep Left wrist: Decreased range of motion. With CRP Right hand: Deformity present. Decreased range of motion. Left hand: Deformity present. Decreased range of motion. Arms: Cervical back: Thoracic back Lumbar back Right hip: Left hip: Right upper leg: Normal. Left upper leg: Normal. Right knee: Decreased ROM Left knee: Decreased rOM Right lower leg: Normal. Left lower leg: Normal. Right ankle: Normal. Left ankle: Normal. Right foot: Left foot: Comments: Skin: General: Skin is warm and dry. Comments: Onychodystrophy toes Neurological: Mental Status: She is alert and oriented to person, place, and time. Cranial Nerves: Cranial nerves are intact. Sensory: Sensory deficit present. Motor: No weakness Gait: Gait is intact. Deep Tendon Reflexes: Reflex Scores: Comments: Paresthesias R foot. Positive Tinel's L wrist. Psychiatric: Mood and Affect: Mood normal. Behavior: Behavior normal. Thought Content: Thought content normal. Judgment: Judgment normal. Neurologic Exam Mental Status Oriented to person, place, and time. Cranial Nerves CN III, IV, Pupils are equal, round, and reactive to light. Gait, Coordination, and Reflexes Gait Gait: normal Assessment and Plan Encounter Diagnoses Primary? Encounter Diagnoses Name Primary? Psoriatic arthritis Yes History of fibromyalgia History of osteoarthritis History of psoriasis History of psoriatic arthritis [facility] current use of non-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-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 (NSAID) Long-term use of high-risk medication Long-term use of Plaquenil Carpal tunnel syndrome of left wrist Lumbosacral radiculopathy at S1 HNP (herniated nucleus pulposus), lumbar Lumbar degenerative disc disease Spinal stenosis of lumbar region with neurogenic claudication Osteoarthritis of both feet, unspecified osteoarthritis type Osteoarthritis of both hands, unspecified osteoarthritis type Osteoarthritis of lumbar spine, unspecified spinal osteoarthritis complication status Osteoarthritis of right sacroiliac joint Psoriasis 1. Time was spent with the patient today in education in re: to all their medical conditions. A complete H&P&ROS was obtained and is either in this note or in the EHR. Please do not hesitate to contact me with any questions or concerns re: this patient. Past History Past medical, surgical, family, and social histories have been reviewed and updated with the patient today and are located elsewhere in the medical record. 2. Thank you for allowing me to participate in the care of your patient. With your permission I would like to F/U with your patient. 3. Neurosurgery F/U per dr. Singh 4. Patient declines referral to hand surgeon. 5. Rx given for PT/OT - patient has been and is doing HEP 6. ESR was normal at 8 and still is at 5 7. Monitor CBC/LFT/Renal func every 6-12 months as long as patient is on daily NSAID 8. CRP was elevated at 11.14 and is now negative at 6.1 9. Call if need Rx's 10. Derm F/U per [facility] 11. Optho F/U per Dr. gaitan 12. Patient given educational material on fibromyalgia syndrome in the form of a pamphlet from the arthritis foundation. Patient told that generalized stretching and aerobic exercise would be the cornerstone of treatment. Patient would benefit from psych eval and treatment of any underlying depression and/or anxiety disorder. Patient would benefit from eval and F/U treatment by PMR and/or ChronicPain Management 13. Otezla upset stomach 14. 90 day supply on medications 15., Degenerative changes pubic symphysis 16. Lab on or about 05/09/2022 17. F/U with me in 4 months 18. EMG/NCV LUE and RLE: Chronic mild R S1 radiculopathy 19. If CTS problems continue rec: surgical eval 20. Max dose of Gabapentin is 2400 mg a day and can be increased as indicated or tolerated. 21. Patient should have an eye exam prior to starting Plaquenil and every 6-12 months as long as taking Plaquenil documented in this encounterProm[facility] History of Present illness Narrative* Alfa Holden Jr., - 09/24/2021 10:00 AM EST Images from the original note were not included. History of Present Illness Presence of Pain: denies pain/discomfort. Total time spent in this encounter was 22 minutes. Joint pain is no - not today. Psoriasis/Rash - No. Paresthesias B/L toes and that is long standing. Patient is here today for her 4 Month F/U. Patient states she has been doing good since her last appointment. Patient states Physical Therapy and Chiropractor has helped a lot with her joint pain. Patient states she decreased the Meloxicam to 1 tab QD and she has been doing good. Patient has not needed wrist splint lately. Review of Systems Constitutional: fatigue. HENT: Negative. Eyes: Negative. Respiratory: Negative. Cardiovascular: Negative. Gastrointestinal: Negative. Endocrine: Negative. Genitourinary: Negative. Musculoskeletal: negative Skin: Positive for psoriasis Onychodystrophy toes. Allergic/Immunologic: Negative. Neurological: Positive for numbness. Hematological: Negative. Psychiatric/Behavioral: Negative. Vitals: There were no vitals taken for this visit. Physical Exam Vitals and nursing note reviewed. Constitutional: Appearance: Normal appearance. HENT: Head: Normocephalic and atraumatic. Right Ear: External ear normal. Left Ear: External ear normal. Nose: Nose normal. Mouth/Throat: Comments: mask Eyes: Extraocular Movements: Extraocular movements intact. Conjunctiva/sclera: Conjunctivae normal. Pupils: Pupils are equal, round, and reactive to light. Comments: glasses Cardiovascular: Rate and Rhythm: Normal rate and regular rhythm. Pulses: Carotid pulses Radial pulses are 2+ on the right side and 2+ on the left side. Dorsalis pedis pulses Posterior tibial pulses. Heart sounds: Normal heart sounds. Comments: Pulmonary: Effort: Pulmonary effort is normal. Breath sounds: Normal breath sounds. Abdominal: General: Bowel sounds are normal. Palpations: Abdomen is soft. Musculoskeletal: Right shoulder: Normal. Left shoulder: Normal. Right upper arm: Normal. Left upper arm: Normal. Right elbow: Normal. Left elbow: Normal. Right forearm: Normal. Left forearm: Normal. Right wrist: Decreased range of motion. Left wrist: Decreased range of motion. Right hand: Deformity present. Decreased range of motion. Left hand: Deformity present. Decreased range of motion. Arms: Cervical back: Thoracic back Lumbar back Right hip: Left hip: Right upper leg: Normal. Left upper leg: Normal. Right knee: Decreased ROM Left knee: Decreased rOM Right lower leg: Normal. Left lower leg: Normal. Right ankle: Normal. Left ankle: Normal. Right foot: Left foot: Comments: Skin: General: Skin is warm and dry. Comments: Onychodystrophy toes Neurological: Mental Status: She is alert and oriented to person, place, and time. Cranial Nerves: Cranial nerves are intact. Sensory: Sensory deficit present. Motor: Weakness present. Gait: Gait is intact. Deep Tendon Reflexes: Reflex Scores: Comments: Paresthesias R foot. Positive Tinel's L wrist. 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 Behavior: Behavior normal. Thought Content: Thought content normal. Judgment: Judgment normal. Neurologic Exam Mental Status Oriented to person, place, and time. Cranial Nerves CN III, IV, Pupils are equal, round, and reactive to light. Gait, Coordination, and Reflexes Gait Gait: normal Assessment and Plan Encounter Diagnoses Primary? Encounter Diagnoses Name Primary? Psoriatic arthritis Yes Psoriasis Long-term use of Plaquenil Long-term use of high-risk medication [facility] current use of non-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-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 (NSAID) History of psoriatic arthritis History of psoriasis History of osteoarthritis History of fibromyalgia CRP elevated Lumbosacral radiculopathy at S1 Carpal tunnel syndrome of left wrist Osteoarthritis of right sacroiliac joint Osteoarthritis of lumbar spine, unspecified spinal osteoarthritis complication status Osteoarthritis of both hands, unspecified osteoarthritis type Osteoarthritis of both feet, unspecified osteoarthritis type Spinal stenosis of lumbar region with neurogenic claudication Lumbar degenerative disc disease HNP (herniated nucleus pulposus), lumbar 1. Time was spent with the patient today in education in re: to all their medical conditions. A complete H&P&ROS was obtained and is either in this note or in the EHR. Please do not hesitate to contact me with any questions or concerns re: this patient. Past History Past medical, surgical, family, and social histories have been reviewed and updated with the patient today and are located elsewhere in the medical record. 2. Thank you for allowing me to participate in the care of your patient. With your permission I would like to F/U with your patient. 3. Neurosurgery F/U per dr. Singh 4. Patient declines referral to hand surgeon. 5. Rx given for PT/OT - patient has been and is doing HEP 6. ESR is normal at 8 7. Monitor CBC/LFT/Renal func every 6-12 months as long as patient is on daily NSAID 8. CRP is elevated at 11.14 - cold 9. Rx given for Plaquenil 200 mg to increase to 1 1/2 pills a day 10. Derm F/U per Felicitas 11. Optho F/U per Dr. gaitan 12. Patient given educational material on fibromyalgia syndrome in the form of a pamphlet from the arthritis foundation. Patient told that generalized stretching and aerobic exercise would be the cornerstone of treatment. Patient would benefit from psych eval and treatment of any underlying depression and/or anxiety disorder. Patient would benefit from eval and F/U treatment by PMR and/or ChronicPain Management 13. Otezla upset stomach 14. 90 day supply on medications 15., Degenerative changes pubic symphysis 16. Lab on or about 01/08/2022 17. F/U with me in 4 months 18. EMG/NCV LUE and RLE: Chronic mild R S1 radiculopathy 19. If CTS problems continue rec: surgical eval 20. Max dose of Gabapentin is 2400 mg a day and can be increased as indicated or tolerated. 21. Patient should have an eye exam prior to starting Plaquenil and every 6-12 months as long as taking Plaqu[facility]il [facility] of Present illness Narrative* Alfa Holden Jr., - 05/23/2021 8:00 AM EDT Images from the original note were not included. History of Present Illness Presence of Pain: denies pain/discomfort. Total time spent in this encounter was 43 minutes. Energylevel is seems to be some better. Joint pain is fingers. Back pain is no. Psoriasis/Rash is she does not notice any. Weakness is no. Paresthesias is feet. Patient is here today for a follow up after MRI. Patient states she is feeling better since her last appointment. Patient states she is not having joint pain today. Wrist splint helps when she uses it. I have been told that Tramadol is a high risk medication. Patient has not needed Tramadol. Hydroxychloroquine is 1 1/2 pills a day. Review of Systems Constitutional: Negative. HENT: Negative. Eyes: Negative. Respiratory: Negative. Cardiovascular: Negative. Gastrointestinal: Negative. Endocrine: Negative. Genitourinary: Negative. Musculoskeletal: Positive for arthralgias Skin: Positive for psoriasis Onychodystrophy toes. Allergic/Immunologic: Negative. Neurological: Positive for numbness. Hematological: Negative. Psychiatric/Behavioral: Negative. Vitals: There were no vitals taken for this visit. Physical Exam Vitals and nursing note reviewed. Constitutional: Appearance: Normal appearance. HENT: Head: Normocephalic and atraumatic. Right Ear: External ear normal. Left Ear: External ear normal. Nose: Nose normal. Mouth/Throat: Comments: mask Eyes: Extraocular Movements: Extraocular movements intact. Conjunctiva/sclera: Conjunctivae normal. Pupils: Pupils are equal, round, and reactive to light. Comments: glasses Cardiovascular: Rate and Rhythm: Normal rate and regular rhythm. Pulses: Carotid pulses Radial pulses are 2+ on the right side and 2+ on the left side. Dorsalis pedis pulses Posterior tibial pulses. Heart sounds: Normal heart sounds. Comments: Pulmonary: Effort: Pulmonary effort is normal. Breath sounds: Normal breath sounds. Abdominal: General: Bowel sounds are normal. Palpations: Abdomen is soft. Musculoskeletal: Right shoulder: Normal. Left shoulder: Normal. Right upper arm: Normal. Left upper arm: Normal. Right elbow: Normal. Left elbow: Normal. Right forearm: Normal. Left forearm: Normal. Right wrist: Tenderness present. Decreased range of motion. Left wrist: Tenderness present. Decreased range of motion. Right hand: Deformity and tenderness present. Decreased range of motion. Left hand: Deformity and tenderness present. Decreased range of motion. Arms: Cervical back: Thoracic back Lumbar back Right hip: Left hip: Right upper leg: Normal. Left upper leg: Normal. Right knee: Normal. Left knee: Normal. Right lower leg: Normal. Left lower leg: Normal. Right ankle: Normal. Left ankle: Normal. Right foot: Left foot: Comments: Skin: General: Skin is warm and dry. Comments: Onychodystrophy toes Neurological: Mental Status: She is alert and oriented to person, place, and time. Cranial Nerves: Cranial nerves are intact. Sensory: Sensory deficit present. Motor: Weakness present. Gait: Gait is intact. Deep Tendon Reflexes: Reflex Scores: Comments: Paresthesias R foot. Positive Tinel's L wrist. 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 Behavior: Behavior normal. Thought Content: Thought content normal. Judgment: Judgment normal. Neurologic Exam Mental Status Oriented to person, place, and time. Cranial Nerves CN III, IV, Pupils are equal, round, and reactive to light. Gait, Coordination, and Reflexes Gait Gait: normal Assessment and Plan Encounter Diagnoses Primary? Encounter Diagnoses Name Primary? 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 (NSAID) History of osteoarthritis History of psoriatic arthritis History of psoriasis Long-term use of high-risk medication Long-term use of Plaquenil History of fibromyalgia Carpal tunnel syndrome of left wrist Lumbosacral radiculopathy at S1 Osteoarthritis of right sacroiliac joint Lumbar degenerative disc disease Osteoarthritis of lumbar spine, unspecified spinal osteoarthritis complication status Osteoarthritis of both hands, unspecified osteoarthritis type Osteoarthritis of both feet, unspecified osteoarthritis type HNP (herniated nucleus pulposus), lumbar Spinal stenosis of lumbar region with neurogenic claudication Psoriasis 1. Time was spent with the patient today in education in re: to all their medical conditions. A complete H&P&ROS was obtained and is either in this note or in the EHR. Please do not hesitate to contact me with any questions or concerns re: this patient. Past History Past medical, surgical, family, and social histories have been reviewed and updated with the patient today and are located elsewhere in the medical record. 2. Thank you for allowing me to participate in the care of your patient. With your permission I would like to F/U with your patient. 3. Neurosurgery F/U per dr. Singh 4. Patient declines referral to hand surgeon. 5. Rx given for PT/OT - patient has been and is doing HEP 6. If wrist and hand problems continue rec: ortho eval 7. Monitor CBC/LFT/Renal func every 6-12 months as long as patient is on daily NSAID 8. Rx given for Meloxicam 15 mg 1 pill a day as needed 9. Rx given for Plaquenil to decrease to 1 pill a day 10. Derm F/U per Felicitas 11. Optho F/U per Dr. gaitan 12. Patient given educational material on fibromyalgia syndrome in the form of a pamphlet from the arthritis foundation. Patient told that generalized stretching and aerobic exercise would be the cornerstone of treatment. Patient would benefit from psych eval and treatment of any underlying depression and/or anxiety disorder. Patient would benefit from eval and F/U treatment by PMR and/or ChronicPain Management 13. Otezla upset stomach 14. 90 day supply on medications 15., Degenerative changes pubic symphysis 16. If patient continues to have trouble with back pain would rec: eval by spinal surgery and/or chronic pain management 17. Lab on or about 09/06/2021 18. EMG/NCV LUE and RLE: Chronic mild R S1 radiculopathy 19. F/U with me in 4 months 20. If CTS problems continue rec: surgical eval 21. Max dose of Gabapentin is 2400 mg a day and can be increased as indicated or tolerated. 22. Patient should have an eye exam prior to starting Plaquenil and every 6-12 months as long as taking Plaquenil documented in this [facility]05-27-2021 NoteTherapy Diagnosis Assessed Stiffness of joints of both hands (719.58) (M25.641,M25.642) Weakness of both hands (729.89) (R29.898) Plan Goals: Goals set and discussed today. LTG: Pt will demonstrate improved functional independence at home by a decreased DASH score by 15% to decrease family burden. 04/12/21: MET 22% LTG: Pt will demo improved BUE yarn salvager strength by 10# for improved sustained grasp on objects during IADLS/ADLs/work tasks. 04/12/21: partially met L >13#, R >2# LTG: Pt will demo improved ZAMAN R D3 (PIP+DIP) by 15' for greater ability to make a full grasp on objects at home. 04/12/21: not met 88' ZAMAN (>2') STG: Pt will demonstrate good carryover of HEP for ROM, strengthening, coordination, AE, home office ergonomics/set up, and joint protection techniques in order to improve functional independence at home/work with decreased pain/stiffness. 04/12/21: MET good followthrough STG: Pt will demo improved AROM of R D3 DIP joint by 10' to improve ability to grasp smaller objects in her fist without dropping. 04/12/21: not met same as [employer] STG: Pt will demo improved R in-hand manipulation skills by ability to complete p<>f trans of5 small objects with no more than 1 drop to improve FMC. 04/12/21: MET able to complete with 1 drop Motor Function/Control/Tone: Discharge patient:. Assessment Patient has attended 6/6 sessions in her POC and has made good progress towards her goals. See goals section for progress made towards specific goals. Patient has gained further functional independence at home with improving the DASH score by 14%, decreasing overall burden on family and friends. Patient has demonstrated good compliance with her HEP for strengthening to improve L yarn salvager by 13# and Rgrip by 2#. Pt was provided with increased putty resistance and ed to focus on R yarn salvager since that isher dominant hand for greater improvements in the future. Pt demo limited improvement with overall ROM progress in her fingers however she reports that they are not painful, just stiff especially in the monring and evening. SHe reports doing PROM in the AM/PM to decrease stiffness. SHe also reportsusing paraffin at home has helped decrease overall pain/stiffness. She is not expressing any other concerns as they relate to functional indep at home d/t hand pain/stiffness. She is agreeable and abebe rorpaite for dc this date. Patient was able to complete today's treatment with some difficulty. Adult Risk Screening There are no spiritual/cultural practices/values/needs that are important to know Initial Fall Risk Screening: BOONE has not fallen in the last 6 months. BOONE does not have a fear of falling. She does not need assistance with sitting, standing or walking. Does not need assistance walking in her home. She does not need assistance in an unfamiliar setting. The patient is not using an assistive device. Pain Scale: On a scale of 0 to 10, the patient rates the pain at 0. Please identify location of pain: B hand stiffness. Insurance Insurance reviewed Visit number: 6 Medicare primary 04/22 POC 6 - INS Onset Date: 2020 Medicare Certification Period: Beginnin2020 Endin2020 Subjective Patient reports:. No pain reported today. She has been using her paraffin but it can get too hot. SHe reports compliance with putty and sponge x2/day. She is not reporting any issues with daily activities at home and feels that she can maintain her exercises at home and be dc from therapy. She is requesting increased putty resistance. Home program performing as directed: Yes. Fall Risk: none Treatment Time in clinic started at 0946 Time in clinic ended at 1545 Total time in clinic is 45 minutes. Total timed code time is 43 minutes. Modalities: timed minutes 5 . [id number] Paraffin to B hands/wrists x 6 dips. Therapeutic exercise (47774): timed minutes 25 . [id number] PROM to B hands/digits with paraffin donned R/L KEVIN R D2/3 PIP/DIP joint measurements for ZAMAN pt ed on continuation of putty exercises and provided with upgraded putty resistance to medium green pt ed to focus on strengthening of R hand vs L d/t less gains with dominant hand pt ed to continue to use paraffin with stretching and resistance as maintenance program to continuewith indep at home. 'Scores and Scales' Signatures Electronically signed by : Daphne Cabrera OTR/Emili; Apr 12 2021 10:21AM EST (Author) [id number] History of Past illness Narrative* Problem Noted Date Diagnosed Date Resolved Date Conjunctival concretions of left eye 08/26/2017 09/01/2018 documented as of this encounter (statuses as of 09/25/2023) [facility] Note Date/Time February 25, 2025 8:3 1am [facility] Medical Records Department [address] [place] [address] Anesthesia Postop Eval I 02/25/25 0829 MR#: [id number] Acct: [id number] Name: BOONE ESPINOZA Rep #:[id number] : [id number] 69 From: Mick Hicks PCP: Dr. Flavio Johnson MD Status:REG SDC Y Race: C Location: [place] [address] Anesthesia: Postop Eval I Current Vital Signs Temperature: 97.1 F Pulse Rate: 61 Blood Pressure: 117/63 Respiratory Rate: 16 Pulse Ox: 97 Oxygen Delivery Method: Room Air Assessment Airway patent: Yes Spontaneous unlabored respirations: Yes Mental status: Asleep nausea: No Vomiting: No Anesthesia Complication: Yes Anesthesia Complication Comment:: vagal sensitive, tx with glyco, then ephedrine Fluid Hydration Crystalloid volume administer (ml): 40 Total IV fluid infused: 40 Progress Note Anesthesia document: Postop Eval 1 completed: Yes 02/25/25 0831 <Electronically signed by Mick Hicks > Date _ Mick Rosasigner Signature: Date CC: ~ Signed [facility] Work Phone: Evaluation note* Diagnosis [facility] current use of non-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-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 (NSAID) Encounter for long-term (current) use of non-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-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 Osteoarthritis of both feet, unspecified osteoarthritis type History of osteoarthritis Personal history of arthritis Long-term use of Plaquenil Long-term use of high-risk medication Spinal stenosis of lumbar region with neurogenic claudication Spinal stenosis, lumbar region, with neurogenic claudication History of psoriatic arthritis Personal history of arthritis Dorsalgia Pain in thoracic spine Paresthesias in left hand Disturbance of skin sensation Carpal tunnel syndrome of left wrist Carpal tunnel syndrome Paresthesia of right foot Disturbance of skin sensation Disorder of bone and cartilage Disorder of bone and cartilage, unspecified Abnormal reflexes of lower extremity Osteoarthritis of right sacroiliac joint Bilateral wrist pain Bilateral hand pain Pain in limb Weakness of both hands Osteoarthritis of both hands, unspecified osteoarthritis type Fatigue, unspecified type [facility] Diagnosis Dorsalgia Pain in thoracic spine Paresthesias in left hand Disturbance of skin sensation Carpal tunnel syndrome of left wrist Carpal tunnel syndrome Paresthesia of right foot Disturbance of skin sensation Disorder of bone and cartilage Disorder of bone and cartilage, unspecified Abnormal reflexes of lower extremity Osteoarthritis of right sacroiliac joint Lumbar degenerative disc disease Degeneration of lumbar or lumbosacral intervertebral disc Osteoarthritis of lumbar spine, unspecified spinal osteoarthritis complication status Bilateral wrist pain Bilateral hand pain Pain in limb Osteoarthritis of both hands, unspecified osteoarthritis type Weakness of both hands Osteoarthritis of both feet, unspecified osteoarthritis type Psoriasis Other psoriasis Fatigue, unspecified type 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 (NSAID) Encounter for long-term (current) use of non-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-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 History of osteoarthritis Personal history of arthritis History of psoriatic arthritis Personal history of arthritis History of psoriasis Personal history of diseases of skin and subcutaneous tissue Long-term use of high-risk medication Long-term use of Plaquenil History of fibromyalgia Personal history of other musculoskeletal disorders Chronic bilateral low back pain with left-sided sciatica Disc disorder Other and unspecified disc disorder of unspecified region Spinal stenosis of lumbar region with neurogenic claudication Spinal stenosis, lumbar region, with neurogenic claudication Lumbar radiculopathy Thoracic or lumbosacral neuritis or radiculitis, unspecified Spondylolisthesis of lumbar region Acquired spondylolisthesis Psoriatic arthritis Psoriatic arthropathy Chronic midline low back pain with left-sided sciatica Chronic bilateral low back pain with right-sided sciatica Ankylosing spondylitis, unspecified site of spine Chronic bilateral low back pain without sciatica [facility] Dorsalgia Pain in thoracic spine Paresthesias in left hand Disturbance of skin sensation Carpal tunnel syndrome of left wrist Carpal tunnel syndrome Paresthesia of right foot Disturbance of skin sensation Disorder of bone and cartilage Disorder of bone and cartilage, unspecified Abnormal reflexes of lower extremity Osteoarthritis of right sacroiliac joint Lumbar degenerative disc disease Degeneration of lumbar or lumbosacral intervertebral disc Osteoarthritis of lumbar spine, unspecified spinal osteoarthritis complication status Bilateral wrist pain Bilateral hand pain Pain in limb Osteoarthritis of both hands, unspecified osteoarthritis type Weakness of both hands Osteoarthritis of both feet, unspecified osteoarthritis type Psoriasis Other psoriasis Fatigue, unspecified type 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 (NSAID) Encounter for long-term (current) use of non-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-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 History of osteoarthritis Personal history of arthritis History of psoriatic arthritis Personal history of arthritis History of psoriasis Personal history of diseases of skin and subcutaneous tissue Long-term use of high-risk medication Long-term use of Plaquenil History of fibromyalgia Personal history of other musculoskeletal disorders Chronic bilateral low back pain with left-sided sciatica Disc disorder Other and unspecified disc disorder of unspecified region Spinal stenosis of lumbar region with neurogenic claudication Spinal stenosis, lumbar region, with neurogenic claudication Lumbar radiculopathy Thoracic or lumbosacral neuritis or radiculitis, unspecified Spondylolisthesis of lumbar region Acquired spondylolisthesis Psoriatic arthritis Psoriatic arthropathy Chronic midline low back pain with left-sided sciatica Chronic bilateral low back pain with right-sided sciatica Ankylosing spondylitis, unspecified site of spine Chronic bilateral low back pain without sciatica [facility] Diagnosis Dorsalgia Pain in thoracic spine Paresthesias in left hand Disturbance of skin sensation Carpal tunnel syndrome of left wrist Carpal tunnel syndrome Paresthesia of right foot Disturbance of skin sensation Disorder of bone and cartilage Disorder of bone and cartilage, unspecified Abnormal reflexes of lower extremity Osteoarthritis of right sacroiliac joint Lumbar degenerative disc disease Degeneration of lumbar or lumbosacral intervertebral disc Osteoarthritis of lumbar spine, unspecified spinal osteoarthritis complication status Bilateral wrist pain Bilateral hand pain Pain in limb Osteoarthritis of both hands, unspecified osteoarthritis type Weakness of both hands Osteoarthritis of both feet, unspecified osteoarthritis type Psoriasis Other psoriasis Fatigue, unspecified type 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 (NSAID) Encounter for long-term (current) use of non-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-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 History of osteoarthritis Personal history of arthritis History of psoriatic arthritis Personal history of arthritis History of psoriasis Personal history of diseases of skin and subcutaneous tissue Long-term use of high-risk medication Long-term use of Plaquenil History of fibromyalgia Personal history of other musculoskeletal disorders Chronic bilateral low back pain with left-sided sciatica Disc disorder Other and unspecified disc disorder of unspecified region Spinal stenosis of lumbar region with neurogenic claudication Spinal stenosis, lumbar region, with neurogenic claudication Lumbar radiculopathy Thoracic or lumbosacral neuritis or radiculitis, unspecified Spondylolisthesis of lumbar region Acquired spondylolisthesis Psoriatic arthritis Psoriatic arthropathy Chronic midline low back pain with left-sided sciatica Chronic bilateral low back pain with right-sided sciatica Ankylosing spondylitis, unspecified site of spine Chronic bilateral low back pain without sciatica [facility] Diagnosis Low back pain, unspecified back pain laterality, unspecified chronicity, unspecified whether sciatica present [facility] Diagnosis Psoriatic arthritis- Primary Psoriatic arthropathy 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 (NSAID) Encounter for long-term (current) use of non-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-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 History of osteoarthritis Personal history of arthritis History of psoriatic arthritis Personal history of arthritis History of psoriasis Personal history of diseases of skin and subcutaneous tissue Long-term use of high-risk medication Long-term use of Plaquenil History of fibromyalgia Personal history of other musculoskeletal disorders Carpal tunnel syndrome of left wrist Carpal tunnel syndrome Lumbosacral radiculopathy at S1 Thoracic or lumbosacral neuritis or radiculitis, unspecified Osteoarthritis of right sacroiliac joint Lumbar degenerative disc disease Degeneration of lumbar or lumbosacral intervertebral disc Osteoarthritis of lumbar spine, unspecified spinal osteoarthritis complication status Osteoarthritis of both hands, unspecified osteoarthritis type Osteoarthritis of both feet, unspecified osteoarthritis type HNP (herniated nucleus pulposus), lumbar Displacement of lumbar intervertebral disc without myelopathy Spinal stenosis of lumbar region with neurogenic claudication Spinal stenosis, lumbar region, with neurogenic claudication Psoriasis Other psoriasis [facility] Psoriatic arthritis- Primary Psoriatic arthropathy Psoriasis Other psoriasis Long-term use of Plaquenil Long-term use of high-risk medication [facility] current use of non-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-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 (NSAID) Encounter for long-term (current) use of non-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-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 History of psoriatic arthritis Personal history of arthritis History of psoriasis Personal history of diseases of skin and subcutaneous tissue History of osteoarthritis Personal history of arthritis History of fibromyalgia Personal history of other musculoskeletal disorders CRP elevated Elevated C-reactive protein (CRP) Lumbosacral radiculopathy at S1 Thoracic or lumbosacral neuritis or radiculitis, unspecified Carpal tunnel syndrome of left wrist Carpal tunnel syndrome Osteoarthritis of right sacroiliac joint Osteoarthritis of lumbar spine, unspecified spinal osteoarthritis complication status Osteoarthritis of both hands, unspecified osteoarthritis type Osteoarthritis of both feet, unspecified osteoarthritis type Spinal stenosis of lumbar region with neurogenic claudication Spinal stenosis, lumbar region, with neurogenic claudication Lumbar degenerative disc disease Degeneration of lumbar or lumbosacral intervertebral disc HNP (herniated nucleus pulposus), lumbar Displacement of lumbar intervertebral disc without myelopathy [facility] Diagnosis Psoriatic arthritis- Primary Psoriatic arthropathy History of fibromyalgia Personal history of other musculoskeletal disorders History of osteoarthritis Personal history of arthritis History of psoriasis Personal history of diseases of skin and subcutaneous tissue History of psoriatic arthritis Personal history of arthritis [facility] current use of non-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-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 (NSAID) Encounter for long-term (current) use of non-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-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 Long-term use of high-risk medication Long-term use of Plaquenil Carpal tunnel syndrome of left wrist Carpal tunnel syndrome Lumbosacral radiculopathy at S1 Thoracic or lumbosacral neuritis or radiculitis, unspecified HNP (herniated nucleus pulposus), lumbar Displacement of lumbar intervertebral disc without myelopathy Lumbar degenerative disc disease Degeneration of lumbar or lumbosacral intervertebral disc Spinal stenosis of lumbar region with neurogenic claudication Spinal stenosis, lumbar region, with neurogenic claudication Osteoarthritis of both feet, unspecified osteoarthritis type Osteoarthritis of both hands, unspecified osteoarthritis type Osteoarthritis of lumbar spine, unspecified spinal osteoarthritis complication status Osteoarthritis of right sacroiliac joint Psoriasis Other psoriasis [facility] Diagnosis Psoriatic arthritis- Primary Psoriatic arthropathy Psoriasis Other psoriasis History of fibromyalgia Personal history of other musculoskeletal disorders History of osteoarthritis Personal history of arthritis History of psoriasis Personal history of diseases of skin and subcutaneous tissue History of psoriatic arthritis Personal history of 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 (NSAID) Encounter for long-term (current) use of non-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-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 Long-term use of high-risk medication Long-term use of Plaquenil Carpal tunnel syndrome of left wrist Carpal tunnel syndrome Lumbosacral radiculopathy at S1 Thoracic or lumbosacral neuritis or radiculitis, unspecified HNP (herniated nucleus pulposus), lumbar Displacement of lumbar intervertebral disc without myelopathy Lumbar degenerative disc disease Degeneration of lumbar or lumbosacral intervertebral disc Spinal stenosis of lumbar region with neurogenic claudication Spinal stenosis, lumbar region, with neurogenic claudication Osteoarthritis of both feet, unspecified osteoarthritis type Osteoarthritis of both hands, unspecified osteoarthritis type Osteoarthritis of lumbar spine, unspecified spinal osteoarthritis complication status Osteoarthritis of right sacroiliac joint [facility] Diagnosis Psoriatic arthritis- Primary Psoriatic arthropathy Psoriasis Other psoriasis History of fibromyalgia Personal history of other musculoskeletal disorders History of osteoarthritis Personal history of arthritis History of psoriasis Personal history of diseases of skin and subcutaneous tissue History of psoriatic arthritis Personal history of arthritis LFT elevation Other abnormal blood chemistry [facility] current use of non-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-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 (NSAID) Encounter for long-term (current) use of non-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-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 Long-term use of high-risk medication Long-term use of Plaquenil Carpal tunnel syndrome of left wrist Carpal tunnel syndrome Lumbosacral radiculopathy at S1 Thoracic or lumbosacral neuritis or radiculitis, unspecified HNP (herniated nucleus pulposus), lumbar Displacement of lumbar intervertebral disc without myelopathy Lumbar degenerative disc disease Degeneration of lumbar or lumbosacral intervertebral disc Spinal stenosis of lumbar region with neurogenic claudication Spinal stenosis, lumbar region, with neurogenic claudication Osteoarthritis of both feet, unspecified osteoarthritis type Osteoarthritis of both hands, unspecified osteoarthritis type Osteoarthritis of lumbar spine, unspecified spinal osteoarthritis complication status [facility] Diagnosis Psoriatic arthritis- Primary Psoriatic arthropathy Psoriasis Other psoriasis History of fibromyalgia Personal history of other musculoskeletal disorders History of osteoarthritis Personal history of arthritis History of psoriasis Personal history of diseases of skin and subcutaneous tissue History of psoriatic arthritis Personal history of arthritis [facility] current use of non-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-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 (NSAID) Encounter for long-term (current) use of non-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-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 Long-term use of high-risk medication Long-term use of Plaquenil Hypercarbia Other dyspnea and respiratory abnormality Carpal tunnel syndrome of left wrist Carpal tunnel syndrome Lumbosacral radiculopathy at S1 Thoracic or lumbosacral neuritis or radiculitis, unspecified HNP (herniated nucleus pulposus), lumbar Displacement of lumbar intervertebral disc without myelopathy Lumbar degenerative disc disease Degeneration of lumbar or lumbosacral intervertebral disc Spinal stenosis of lumbar region with neurogenic claudication Spinal stenosis, lumbar region, with neurogenic claudication Osteoarthritis of both feet, unspecified osteoarthritis type Osteoarthritis of both hands, unspecified osteoarthritis type Osteoarthritis of lumbar spine, unspecified spinal osteoarthritis complication status Osteoarthritis of right sacroiliac joint [facility] Long-term use of Plaquenil- Primary Encounter for long-term (current) use of other medications Combined form of senile cataract of both eyes Vitreous floaters of both eyes Hyperopia of both eyes Regular astigmatism of both eyes Regular astigmatism Presbyopia [facility] Diagnosis Arthritis of midtarsal joint of right foot- Primary Right foot pain Pain in soft tissues of limb [facility] Onychomycosis- Primary Dermatophytosis of nail Arthritis of midtarsal joint of right foot Right foot pain Pain in soft tissues of limb Pain due to onychomycosis of toenail of left foot Pain due to onychomycosis of toenail of right foot [facility] Diagnosis Onychomycosis- Primary Dermatophytosis of nail Pain due to onychomycosis of toenail of left foot Pain due to onychomycosis of toenail of right foot [facility] Diagnosis Psoriatic arthritis- Primary Psoriatic arthropathy Osteoarthritis of right sacroiliac joint Osteoarthritis of lumbar spine, unspecified spinal osteoarthritis complication status Osteoarthritis of both hands, unspecified osteoarthritis type Osteoarthritis of both feet, unspecified osteoarthritis type Spinal stenosis of lumbar region with neurogenic claudication Spinal stenosis, lumbar region, with neurogenic claudication Lumbar degenerative disc disease Degeneration of lumbar or lumbosacral intervertebral disc HNP (herniated nucleus pulposus), lumbar Displacement of lumbar intervertebral disc without myelopathy Disorder of bone and cartilage Disorder of bone and cartilage, unspecified Psoriasis Other psoriasis Long-term use of Plaquenil Long-term use of high-risk medication [facility] current use of non-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-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 (NSAID) Encounter for long-term (current) use of non-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-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 LFT elevation Other abnormal blood chemistry History of psoriatic arthritis Personal history of arthritis History of psoriasis Personal history of diseases of skin and subcutaneous tissue History of osteoarthritis Personal history of arthritis History of fibromyalgia Personal history of other musculoskeletal disorders BHATIA (nonalcoholic steatohepatitis) Other chronic nonalcoholic liver disease Fatty liver Other chronic nonalcoholic liver disease Hypercarbia Other dyspnea and respiratory abnormality Lumbosacral radiculopathy at S1 Thoracic or lumbosacral neuritis or radiculitis, unspecified Carpal tunnel syndrome of left wrist Carpal tunnel syndrome [facility] noteNo assessment information availableWEast [facility] Work Phone: [facility] note* Diagnosis History of psoriatic arthritis- Primary Personal history of arthritis LFT elevation Other abnormal blood chemistry 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 (NSAID) Encounter for long-term (current) use of non-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-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 Fatty liver Other chronic nonalcoholic liver disease BHATIA (nonalcoholic steatohepatitis) Other chronic nonalcoholic liver disease Hypercarbia Other dyspnea and respiratory abnormality Carpal tunnel syndrome of left wrist Carpal tunnel syndrome Lumbosacral radiculopathy at S1 Thoracic or lumbosacral neuritis or radiculitis, unspecified HNP (herniated nucleus pulposus), lumbar Displacement of lumbar intervertebral disc without myelopathy Lumbar degenerative disc disease Degeneration of lumbar or lumbosacral intervertebral disc Spinal stenosis of lumbar region with neurogenic claudication Spinal stenosis, lumbar region, with neurogenic claudication Osteoarthritis of both feet, unspecified osteoarthritis type Osteoarthritis of both hands, unspecified osteoarthritis type Osteoarthritis of lumbar spine, unspecified spinal osteoarthritis complication status Osteoarthritis of right sacroiliac joint History of fibromyalgia Personal history of other musculoskeletal disorders History of osteoarthritis Personal history of arthritis History of psoriasis Personal history of diseases of skin and subcutaneous tissue [facility] Diagnosis Contusion of right heel, initial encounter- Primary Intractable right heel pain Onychomycosis Dermatophytosis of nail Pain due to onychomycosis of toenail of left foot Pain due to onychomycosis of toenail of right foot [facility] Diagnosis Plantar fasciitis of right foot- Primary Equinus contracture of ankle Contusion of right heel, initial encounter Intractable right heel pain [facility] Diagnosis Plantar fasciitis of right foot- Primary Equinus contracture of ankle [facility] Diagnosis Combined form of senile cataract of both eyes- Primary Long-term use of Plaquenil Encounter for long-term (current) use of other medications Vitreous floaters of both eyes [facility] Diagnosis Fatty liver- Primary Other chronic nonalcoholic liver disease Hypercarbia Other dyspnea and respiratory abnormality Lumbosacral radiculopathy at S1 Thoracic or lumbosacral neuritis or radiculitis, unspecified Carpal tunnel syndrome of left wrist Carpal tunnel syndrome Osteoarthritis of right sacroiliac joint Osteoarthritis of lumbar spine, unspecified spinal osteoarthritis complication status Osteoarthritis of both hands, unspecified osteoarthritis type Osteoarthritis of both feet, unspecified osteoarthritis type Spinal stenosis of lumbar region with neurogenic claudication Spinal stenosis, lumbar region, with neurogenic claudication HNP (herniated nucleus pulposus), lumbar Displacement of lumbar intervertebral disc without myelopathy 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 (NSAID) Encounter for long-term (current) use of non-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-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 History of psoriatic arthritis Personal history of arthritis History of psoriasis Personal history of diseases of skin and subcutaneous tissue History of osteoarthritis Personal history of arthritis History of fibromyalgia Personal history of other musculoskeletal disorders [facility] Diagnosis Acute bronchitis, unspecified organism- Primary documented in this encounter [facility] Work Phone: Evaluation note* Diagnosis Dry eyes, bilateral- Primary Tear film insufficiency, unspecified [facility] Diagnosis Fatty liver- Primary Other chronic nonalcoholic liver disease Lumbosacral radiculopathy at S1 Thoracic or lumbosacral neuritis or radiculitis, unspecified Carpal tunnel syndrome of left wrist Carpal tunnel syndrome Osteoarthritis of right sacroiliac joint Osteoarthritis of lumbar spine, unspecified spinal osteoarthritis complication status Osteoarthritis of both hands, unspecified osteoarthritis type Osteoarthritis of both feet, unspecified osteoarthritis type Spinal stenosis of lumbar region with neurogenic claudication Spinal stenosis, lumbar region, with neurogenic claudication HNP (herniated nucleus pulposus), lumbar Displacement of lumbar intervertebral disc without myelopathy 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 Note Date/Time February 25, 2025 7:5 1am [facility] Medical Records Department [address] [place] [address] History & Physical Exam 02/25/25 0751 MR#: [id number] Acct: [id number] Name: BOONE ESPINOZA Rep #:[id number] : [id number] 69 From: Eris gama MD PCP: Dr. 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: No Is patient in pain?: No Allergies Sulfa (Sulfonamide Antibiotics) Adverse Reaction (Mild, Verified 02/14/25 08:27) Hives Medications ?Medication ?Instructions ?Recorded ?Confirmed ?Type cholecalciferol (vitamin D3) 50 50 mcg PO DAILY 10/22/23 02/14/25 Histor y mcg (2,000 unit) capsule vitamin B complex (B 1 tab PO DAILY 10/22/23 02/14/25 History Complex-Vitamin B12 tablet) Turmeric Curcumin PO 02/26/24 02/14/25 History atorvastatin 10 mg tablet (Lipitor) 10 mg PO QHS #90 tabs 11/17/24 02/14/25 Rx duloxetine 20 mg capsule,delayed 20 mg PO DAILY #90 caps 12/09/24 5 Rx release meloxicam 15 mg tablet 15 mg PO QDAY PRN joint pain #90 5 02/14/25 Rx tabs calcium carbonate 500 mg PO QDAY 01/06/25 02/14/25 History gabapentin 100 mg capsule 100 mg PO DAILY #30 caps 02/06/25 Rx ferrous sulfate 325 mg (65 mg 325 mg PO QDAY 02/14/25 02/14/25 History iron) tablet (FeroSul) Have you fallen in the past year?: No PFSH Medical History High cholesterol Osteopenia Osteoarthritis Arthritis Surgical History Status post ablation of incompetent vein using laser H/O section Family History Father Heart disease, Onset Age: 70 Cancer lungMother Arthritis Hypertension Cancer liposarcomaBrother AICD (automatic cardioverter/defibrillator) presentUncle Sudden cardiac arrest, Onset Age: 70 Social History household members: spouse current occupational status: employed 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 She reports she had a Cologuard a few years ago and it was negative. She has never had a colonoscopy. She denies any abdominal pain or blood in stool. She does not have family history of colon cancer. ROS General General: No weight change, appetite, fatigue, colon cancer, breast cancer or weakness HEENT HEENT: No difficulty swallowing, eye injury, eye surgery, swollen glands or hoarseness Endo Endocrine: No thyroid disease, diabetes mellitus, thyroid cancer, Hair loss, heat intolerance or cold intolerance Skin Skin: No rash or changing moles Breast Breast: No left breast lump, right breast lump, nipple discharge, breast pain, abnormal mammogram, abnormal US or breast enlargement Musc Musculoskeletal: Yes arthritis; No back problems, rheumatoid arthritis, gout or joint pain Cardio Cardiovascular: No murmur, pacemaker, heart disease, atrial fibrillation, high blood pressure, heart attack, heart stent, palpitations, shortness of breath with exertion or chest pain Psych Psychiatric: No depression, anxiety or hearing voices Resp Respiratory: No shortness of breath, No sleep apnea, No cough, No COPD, No asthma, No emphysema and No wheezing Gastro Gastrointestinal: No abdominal pain, No nausea or vomiting, No diarrhea, No constipation, No blood in stool, No acid reflux, No hemorrhoids, No ulcers, No gallbladder problem and No black,tarry stools Estuardo Hematologic: No blood thinners, No blood disorders, No bleeding, No anemia and No blood clots Neuro Neurologic: No system reviewed and no additional complaints, except as documented, No as per HPI, No abnormal gait, No abnormal hearing, No abnormal movements, No abnormal speech, No behavioral changes, No burning sensations, No confusion, No convulsions, No disequilibrium, No dizziness, No localized weakness, No frequent falls, No headache(s), No lack of coordination, No loss ofvision, No memory loss, No numbness, No other visual disturbances, No radicular pain, No restless legs, No sensory deficit, No syncope, No tingling, No tremor(s), No weakness and No other Exam Const General: cooperative Orientation: alert and oriented x3 HENMT Head: normal to inspection Neck Neck: normal visual inspection and full ROM Chest Chest palpation & inspection: normal inspection of the chest Resp Effort & Inspection: normal respiratory effort Auscultation: clear to auscultation bilaterally Cardio Rate: regular rate Rhythm: regular rhythm GI Inspection: non-distended Palpation: soft and nontender Skin General: no rashes or lesions noted Neuro General: patient alert and patient oriented x3 Extrem General: full ROM Psych Appearance: grossly normal Mental Status: mental status grossly normal Assessment and Plan Assessment and Plan (1) Positive colorectal cancer screening using Cologuard test: Status: Acute Plan: I explained endoscopy in detail to the patient. I explained the risks includingbut not limited to stroke or heart attack with anesthesia, perforation of the GItract, bleeding, infection. I explained that any of these could necessitate further emergency surgery. The patient understands and all questions were answered sufficiently. The patient wishes to proceed with procedure. Patient will hold her turmeric for 5 days Eris Oakley MD Pager: [facility] [address] [place] [address], [address] [place] [address] Office: I have examined the patient and the H&P has been reviewed. There are no clinicalchanges since date of exam. 02/25/25 0751 <Electronically signed by Eris Oakley MD> Cosigner Signature (if applicable): CC: Dr. Flavio Johnson MD; Dr. Eris Oakley MD~ Signed [facility] Work Phone: History of Present illness Narrative* Patient completed most activities today with ease, states she felt really flexible after PROM in paraffin. During fiber picker sticks game patient dropped sticks several times d/t decreased FMC. * Patient was able to complete today's treatment with some difficulty. [facility] Work Phone: History of Present illness Narrative* Patient completed most activities today with ease, states she felt really flexible after PROM in paraffin. During fiber picker sticks game patient dropped sticks several times d/t decreased FMC. * Patient was able to complete today's treatment with some difficulty. [facility] Work Phone: History of Present illness NarrativePatient identified by name and date of . Patient was presented with palpable tensin in IT bandadded cupping this date, she demonstrated good tolerance. SHe was able to progress with core strengthening with verbal cues to maintain TrA.[facility] [place] Work Phone: History of Present illness NarrativeDid not use cups this date for cupping d/t bruises. Did complete gentle STW along lumbar/ITB/and piriformis regions. Tenderness along B piriformis.[facility] [place] Work Phone: History of Present illness NarrativeCompleted cupping this date avoiding bruises. Tightness with hip flexor stretches. Guards with transfers.[facility] [place] Work Phone: History of Present illness NarrativePatient was able to complete all PRE's/DLS this date with no increased pain. Cues for correct technique with with standing donkey kicks and fire hydrants. Improved ability to complete transfers with decreased overall guarding.[facility] [place] Work Phone: History of Present illness Narrative* Pt confirmed via and Full Name. * Pt reassessed this date by supervising PT with improvements noted in Lumbar AROM as well as improved MMT in BLE's. Pt tolerated all manual therapy well this date with only minor myofascial restriction this date. Pt reported good understanding of all edu and updates to HEP made this date and is appropriate to attempt independence with HEP and symptom management at this time. [facility] Work Phone: Hospital Discharge instructionsAmbulatory Orders* Pulmonary Medicine Location: None Selected [facility] Work Phone: Reason for referral (narrative)No reason for referral information availableWEast [facility] Work Phone: Summary Purpose Family History No Family History Records Found Relationship Condition Age at Onset Recorded Date/T ad father Cardiac disease 70 mother Arthritis Unknown Hypertension Unknown Malignant neoplasm Unknown brother Presence of implanta ble cardioverter-defibrillator (ICD) Unknown uncle Sudden cardiac arrest 70 Relationship Condition Age at Onset Recorded Date/T ad father Cardiac disease 70 Malignant neoplasm Unknown mother Arthritis Unknown Hypertension Unknown brother Presence of implanta ble cardioverter-defibrillator (ICD) Unknown uncle Sudden cardiac arrest 70 Relationship Condition Age at Onset Recorded Date/T ad father Cardiac disease 70 Malignant neoplasm Unknown mother Arthritis Unknown Hypertension Unknown brother Presence of implanta ble cardioverter-defibrillator (ICD) Unknown uncle Sudden cardiac arrest 70 sister Pulmonary hypertension Unknown Advance Directives No Advanced Directives Records Found Advance Directive Response Recorded Date/ Time Living Will Yes February 21, 2025 12:17pm Do you have a Healthcare Power of Loss Prevention And Safety Manager? Yes February 21, 2025 12:17pm Name of Medical Power of Loss Prevention And Safety Manager NICHO ESPINOZA February 21, 2025 12:17pm Reason for Referral Status Reason Specialty Diagnoses / Procedures Re ferred By Contact Referred To Contact New Request Neurology Diagnoses Dorsalgia Paresthesias in left hand Carpal tunnel syndrome of left wrist Paresthesia of right foot Disorder of bone and cartilage Abnormal reflexes of lower extremity Osteoarthritis of right sacroiliac joint Lumbar degenerative disc disease Osteoarthritis of lumbar spine, unspecified spinal osteoarthritis complication status Bilateral wrist pain Bilateral hand pain Osteoarthritis of both hands, unspecified osteoarthritis type Weakness of both hands Osteoarthritis of both feet, unspecified osteoarthritis type Psoriasis Fatigue, unspecified type MCFP current use of non-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-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 (NSAID) History of osteoarthritis History of psoriatic arthritis History of psoriasis Long-term use of high-risk medication Long-term use of Plaquenil History of fibromyalgia Chronic bilateral low back pain with left-sided sciatica Disc disorder Spinal stenosis of lumbar region with neurogenic claudication Lumbar radiculopathy Spondylolisthesis of lumbar region Psoriatic arthritis Chronic midline low back pain with left-sided sciatica Chronic bilateral low back pain with right-sided sciatica Ankylosing spondylitis, unspecified site of spine Chronic bilateral low back pain without sciatica Shelley Roger, Alfa Zuniga, DO [address] [place] [address] Nicho Maria MD [address] [place] [address] Status Reason Specialty Diagnoses / Procedures Re ferred By Contact Referred To Contact New Request Diagnoses Dorsalgia Paresthesias in left hand Carpal tunnel syndrome of left wrist Paresthesia of right foot Disorder of bone and cartilage Abnormal reflexes of lower extremity Osteoarthritis of right sacroiliac joint Lumbar degenerative disc disease Osteoarthritis of lumbar spine, unspecified spinal osteoarthritis complication status Bilateral wrist pain Bilateral hand pain Osteoarthritis of both hands, unspecified osteoarthritis type Weakness of both hands Osteoarthritis of both feet, unspecified osteoarthritis type Psoriasis Fatigue, unspecified type 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 (NSAID) History of osteoarthritis History of psoriatic arthritis History of psoriasis Long-term use of high-risk medication Long-term use of Plaquenil History of fibromyalgia Chronic bilateral low back pain with left-sided sciatica Disc disorder Spinal stenosis of lumbar region with neurogenic claudication Lumbar radiculopathy Spondylolisthesis of lumbar region Psoriatic arthritis Chronic midline low back pain with left-sided sciatica Chronic bilateral low back pain with right-sided sciatica Ankylosing spondylitis, unspecified site of spine Chronic bilateral low back pain without sciatica Procedures EMG & NERVE CONDUCTION Alfa Holden Jr., DO [address] [place] [address] Status Reason Specialty Diagnoses / Procedures Re ferred By Contact Referred To Contact New Request Diagnoses Dorsalgia Paresthesias in left hand Carpal tunnel syndrome of left wrist Paresthesia of right foot Disorder of bone and cartilage Abnormal reflexes of lower extremity Osteoarthritis of right sacroiliac joint Lumbar degenerative disc disease Osteoarthritis of lumbar spine, unspecified spinal osteoarthritis complication status Bilateral wrist pain Bilateral hand pain Osteoarthritis of both hands, unspecified osteoarthritis type Weakness of both hands Osteoarthritis of both feet, unspecified osteoarthritis type Psoriasis Fatigue, unspecified type 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 (NSAID) History of osteoarthritis History of psoriatic arthritis History of psoriasis Long-term use of high-risk medication Long-term use of Plaquenil History of fibromyalgia Chronic bilateral low back pain with left-sided sciatica Disc disorder Spinal stenosis of lumbar region with neurogenic claudication Lumbar radiculopathy Spondylolisthesis of lumbar region Psoriatic arthritis Chronic midline low back pain with left-sided sciatica Chronic bilateral low back pain with right-sided sciatica Ankylosing spondylitis, unspecified site of spine Chronic bilateral low back pain without sciatica Procedures MRI SPINE LUMBAR WITH AND WITHOUT CONTRAST RI MRI, LUMBAR SPINE COMBO Alfa Holden Jr., DO [address] [place] [address] Status Reason Specialty Diagnoses / Procedures Referred By Contact Referred To Contact New Request Occupational Therapy Diagnoses Dorsalgia Paresthesias in left hand Carpal tunnel syndrome of left wrist Paresthesia of right foot Disorder of bone and cartilage Abnormal reflexes of lower extremity Osteoarthritis of right sacroiliac joint Lumbar degenerative disc disease Osteoarthritis of lumbar spine, unspecified spinal osteoarthritis complication status Bilateral wrist pain Bilateral hand pain Osteoarthritis of both hands, unspecified osteoarthritis type Weakness of both hands Osteoarthritis of both feet, unspecified osteoarthritis type Psoriasis Fatigue, unspecified type MCFP current use of non-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-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 (NSAID) History of osteoarthritis History of psoriatic arthritis History of psoriasis Long-term use of high-risk medication Long-term use of Plaquenil History of fibromyalgia Chronic bilateral low back pain with left-sided sciatica Disc disorder Spinal stenosis of lumbar region with neurogenic claudication Lumbar radiculopathy Spondylolisthesis of lumbar region Psoriatic arthritis Chronic midline low back pain with left-sided sciatica Chronic bilateral low back pain with right-sided sciatica Ankylosing spondylitis, unspecified site of spine Chronic bilateral low back pain without sciatica Alfa Holden Jr., DO [address] [place] [address] Scheduling Instructions . Status Reason Specialty Diagnoses / Procedures Re ferred By Contact Referred To Contact Closed Magnetic Resonance Imaging Diagnoses Dorsalgia Paresthesias in left hand Carpal tunnel syndrome of left wrist Paresthesia of right foot Disorder of bone and cartilage Abnormal reflexes of lower extremity Osteoarthritis of right sacroiliac joint Lumbar degenerative disc disease Osteoarthritis of lumbar spine, unspecified spinal osteoarthritis complication status Bilateral wrist pain Bilateral hand pain Osteoarthritis of both hands, unspecified osteoarthritis type Weakness of both hands Osteoarthritis of both feet, unspecified osteoarthritis type Psoriasis Fatigue, unspecified type 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 (NSAID) History of osteoarthritis History of psoriatic arthritis History of psoriasis Long-term use of high-risk medication Long-term use of Plaquenil History of fibromyalgia Chronic bilateral low back pain with left-sided sciatica Disc disorder Spinal stenosis of lumbar region with neurogenic claudication Lumbar radiculopathy Spondylolisthesis of lumbar region Psoriatic arthritis Chronic midline low back pain with left-sided sciatica Chronic bilateral low back pain with right-sided sciatica Ankylosing spondylitis, unspecified site of spine Chronic bilateral low back pain without sciatica Procedures MRI SPINE LUMBAR WITH AND WITHOUT CONTRAST RI MRI, LUMBAR SPINE COMBO Alfa Holden Jr. DO [address] [place] [address] [facility] [address] [place] [address] Specialty Diagnoses / Procedures Referred By Brunilda villatoro Referred To Contact Rehabilitation Diagnoses Plantar fasciitis of right foot Jose Luis Hayden, DPM [address] [place] [address] [facility] [address] [address] Referral ID Status Reason Start Date Expiration Date V isits Requested Visits Authorized [id number] Authorized 06/15/2024 06/15/2025 1 1 History of Present Illness * Alfa Holden Jr., DO - 02/23/2021 7:15 AM EDT History of Present Illness Presence of Pain: denies pain/discomfort. Total time spent in this encounter was much greater than 70 minutes (due to Epic FAIL) minutes. Patient is being evaluated for an unstable chronic illness that increase morbidity and mortality. Due to patient's coexisting health problems and co-morbidities treatment is and will be very difficult. New patient. Patient is here for knee pain. Patient was referred by Ramin Sommer CNP. Patient states she was seeing Dr. Rosales in [place]. Patient has hxof osteoarthritis and psoriatic arthritis. Patient states that she tried taking otezla and it did not work for her. Patient states that Dr. Rosales has been trying to get her on MTX for years. Patient states she was told plaquenil would no longer be used for arthritis. Patient states that she wants a second opinion. Patient states that she has been doing better the last 6 Months. Patient states that she is not interested in taking the methotrexate if she does not have to. Patient states that she has an eye doctor Dr. Stanton in [place] every year. Patient states that she is unsure of what exacty she was diagnosed with. I have been told that Tramadol is a high risk medication. Dx with PsA 2017. Plaquenil started 2012 for OA. Plaquenil is 1 1/2 pills a day. Never higher. Eye exam every year. Review of Systems Constitutional: Positive for fatigue. HENT: Negative. Eyes: Negative. Respiratory: Negative. Cardiovascular: Negative. Gastrointestinal: Negative. Endocrine: Negative. Genitourinary: Negative. Musculoskeletal: Positive for arthralgias and back pain. Skin: Positive for rash. psoriasis Onychodystrophy toes. Allergic/Immunologic: Negative. Neurological: Positive for weakness and numbness. Hematological: Negative. Psychiatric/Behavioral: Negative. Vitals: There were no vitals taken for this visit. Physical Exam Vitals and nursing note reviewed. Constitutional: Appearance: Normal appearance. HENT: Head: Normocephalic and atraumatic. Right Ear: External ear normal. Left Ear: External ear normal. Nose: Nose normal. Mouth/Throat: Comments: mask Eyes: Extraocular Movements: Extraocular movements intact. Conjunctiva/sclera: Conjunctivae normal. Pupils: Pupils are equal, round, and reactive to light. Comments: glasses Cardiovascular: Rate and Rhythm: Normal rate and regular rhythm. Pulses: Carotid pulses are 2+ on the right side and 2+ on the left side. Radial pulses are 2+ on the right side and 2+ on the left side. Dorsalis pedis pulses are 2+ on the right side and 2+ on the left side. Posterior tibial pulses are 2+ on the right side and 2+ on the left side. Heart sounds: Normal heart sounds. Comments: No subclavian or carotid bruits. Pulmonary: Effort: Pulmonary effort is normal. Breath sounds: Normal breath sounds. Abdominal: General: Bowel sounds are normal. Palpations: Abdomen is soft. Musculoskeletal: Right shoulder: Normal. Left shoulder: Normal. Right upper arm: Normal. Left upper arm: Normal. Right elbow: Normal. Left elbow: Normal. Right forearm: Normal. Left forearm: Normal. Right wrist: Tenderness present. Decreased range of motion. Left wrist: Tenderness present. Decreased range of motion. Right hand: Deformity and tenderness present. Decreased range of motion. Left hand: Deformity and tenderness present. Decreased range of motion. Arms: Cervical back: Neck supple. Thoracic back: Normal. Lumbar back: Normal. Right hip: Normal. Left hip: Normal. Right upper leg: Normal. Left upper leg: Normal. Right knee: Normal. Left knee: Normal. Right lower leg: Normal. Left lower leg: Normal. Right ankle: Normal. Left ankle: Normal. Right foot: Normal. Left foot: Normal. Comments: 07/04 fibro tender points Skin: General: Skin is warm and dry. Comments: Onychodystrophy toes Neurological: Mental Status: She is alert and oriented to person, place, and time. Cranial Nerves: Cranial nerves are intact. Sensory: Sensory deficit present. Motor: Weakness present. Gait: Gait is intact. Deep Tendon Reflexes: Reflex Scores: Tricep reflexes are 2+ on the right side and 2+ on the left side. Bicep reflexes are 2+ on the right side and 2+ on the left side. Brachioradialis reflexes are 2+ on the right side and 2+ on the left side. Patellar reflexes are 2+ on the right side and 2+ on the left side. Achilles reflexes are 0 on the right side and 2+ on the left side. Comments: Paresthesias R foot. Positive Tinel's L wrist. 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 Behavior: Behavior normal. Thought Content: Thought content normal. Judgment: Judgment normal. Neurologic Exam Mental Status Oriented to person, place, and time. Cranial Nerves CN III, IV, Pupils are equal, round, and reactive to light. Gait, Coordination, and Reflexes Gait Gait: normal Reflexes Right brachioradialis: 2+ Left brachioradialis: 2+ Right biceps: 2+ Left biceps: 2+ Right triceps: 2+ Left triceps: 2+ Right patellar: 2+ Left patellar: 2+ Right achilles: 0 Left achilles: 2+ Assessment and Plan Encounter Diagnoses Name Primary? 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 Time was spent with the patient today in education in re: to all their medical conditions. A complete H&P&ROS was obtained and is either in this note or in the EHR. Please do not hesitate to contact me with any questions or concerns re: this patient. Past History Past medical, surgical, family, and social histories have been reviewed and updated with the patient today and are located elsewhere in the medical record. 2. Thank you for allowing me to participate in the care of your patient. With your permission I would like to F/U with your patient. 3. Differenetial Diagnosis includes but is not limited to Autoimmune Disease, Connective Tissue Disease, Collagen Vascular Disorder, Infection, and Neoplasm. 4. Lab and x-ray and F/U with me in 3 weeks after EMG/NCV and MRI. Patient would like to wait untilMay first to get all this done. 5. Rx given for PT/OT 6. If wrist and hand problems continue rec: ortho eval 7. Monitor CBC/LFT/Renal func every 6-12 months as long as patient is on daily NSAID 8. Patient given educational material on OA in the from of a pamphlet from the arthritis foundation. Patient told that PT and keeping ideal body wt would be the cornerstone of treatment 9. Patient given educational material on Psoriatic Arthritis in the form of a pamphlet from the arthritis foundation 10. Derm F/U per [facility] 11. Optho F/U per Dr. gaitan 12. Patient given educational material on fibromyalgia syndrome in the form of a pamphlet from the arthritis foundation. Patient told that generalized stretching and aerobic exercise would be the cornerstone of treatment. Patient would benefit from psych eval and treatment of any underlying depression and/or anxiety disorder. Patient would benefit from eval and F/U treatment by PMR and/or ChronicPain Management 13. Otezla upset stomach 14. Normal CMP, CBC, 15., Degenerative changes pubic symphysis 16. If patient continues to have trouble with back pain would rec: eval by spinal surgery and/or chronic pain management 17. Educational material was given to the patient on CTS in the form of a pamphlet from the arthritis foundation 18. EMG/NCV LUE and RLE L hand And R foot pain and paresthesias and weakness R/O CTS and/or radiculopathy 19. Rx given for L wrist splint for L CTS 20. If CTS problems continue rec: surgical eval 21. MRI L spine 22. Rx given for Gabapentin 100 mg 1 pill a day 23. Max dose of Gabapentin is 2400 mg a day and can be increased as indicated or tolerated. 24. Rx given For Plaquenil 200 mg 1 1/2 pills a day 25. Patient should have an eye exam prior to starting Plaquenil and every 6-12 months as long as taking Plaquenil documented in this encounter Assessments Diagnosis Dorsalgia- Primary Pain in thoracic spine Paresthesias in left hand Disturbance of skin sensation Carpal tunnel syndrome of left wrist Carpal tunnel syndrome Paresthesia of right foot Disturbance of skin sensation Disorder of bone and cartilage Disorder of bone and cartilage, unspecified Abnormal reflexes of lower extremity Osteoarthritis of right sacroiliac joint Lumbar degenerative disc disease Degeneration of lumbar or lumbosacral intervertebral disc Osteoarthritis of lumbar spine, unspecified spinal osteoarthritis complication status Bilateral wrist pain Bilateral hand pain Pain in limb Osteoarthritis of both hands, unspecified osteoarthritis type Weakness of both hands Osteoarthritis of both feet, unspecified osteoarthritis type Psoriasis Other psoriasis Fatigue, unspecified type MCFP current use of non-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-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 (NSAID) Encounter for long-term (current) use of non-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-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 History of osteoarthritis Personal history of arthritis History of psoriatic arthritis Personal history of arthritis History of psoriasis Personal history of diseases of skin and subcutaneous tissue Long-term use of high-risk medication Long-term use of Plaquenil History of fibromyalgia Personal history of other musculoskeletal disorders Chronic bilateral low back pain with left-sided sciatica Disc disorder Other and unspecified disc disorder of unspecified region Spinal stenosis of lumbar region with neurogenic claudication Spinal stenosis, lumbar region, with neurogenic claudication Lumbar radiculopathy Thoracic or lumbosacral neuritis or radiculitis, unspecified Spondylolisthesis of lumbar region Acquired spondylolisthesis Psoriatic arthritis Psoriatic arthropathy Chronic midline low back pain with left-sided sciatica Chronic bilateral low back pain with right-sided sciatica Ankylosing spondylitis, unspecified site of spine Chronic bilateral low back pain without sciatica Chief Complaint and Reason for Visit Chief Complaint DISCUSS LABS ELEVATED LIVER ENZYMES Chief Complaint Admit Date medicare wellness January 06, 2025 8:15am POSITIVE COLOGUARD February 14, 2025 8:1 2am Reason for Visit Admit Date Arthritis pain January 06, 2025 8:15am Medicare annual wellness visit, subseque nt January 06, 2025 8:15am Screening for colon cancer December 8:15am Mixed hyperlipidemia January 06, 2025 8:15am Obesity (BMI 30.0-34.9) January 06 8:15am Osteopenia January 06, 2025 8:15am Stress incontinence January 06, 2025 8:15am Screening for breast cancer December 8:15am Positive colorectal cancer screening usi ng Cologuard test February 14, 2025 8:12am Chief Complaint Admit Date POSITIVE COLOGUARD February 14, 2025 8:1 2am HOSP FU-PT BRINGING RECORDS-PULMONOLOGY REFERRAL May 11, 2025 7:49am Reason for Visit Admit Date Positive colorectal cancer screening usi ng Cologuard test February 14, 2025 8:12am Lung mass May 11, 2025 7:49 am Hospital discharge follow-up May 11, 2025 7:49am Chief Complaint Admit Date POSITIVE COLOGUARD February 14, 2025 8:1 2am HOSP FU-PT BRINGING RECORDS-PULMONOLOGY REFERRAL May 11, 2025 7:49am Lung Mass May 25, 2025 10:57 am Reason for Visit Admit Date Positive colorectal cancer screening usi ng Cologuard test February 14, 2025 8:12am Pill dysphagia May 11, 2025 7:49 am Lung mass May 11, 2025 7:49 am Hospital discharge follow-up May 11, 2025 7:49am Endobronchial mass May 25, 2025 10:57 am Additional Source Comments INFORMATION SOURCE (unrecogn ized section and content) DATE CREATED AUTHOR 01/05/2019 [facility] DATE CREATED AUTHOR AUTHOR'S ORGANIZ ATION 07/06/2019 [facility] DATE CREATED AUTHOR AUTHOR'S ORGANIZ ATION 07/16/2021 [employer] DATE CREATED AUTHOR AUTHOR'S ORGANIZ ATION 07/26/2021 [facility] DATE CREATED AUTHOR AUTHOR'S ORGANIZ ATION 09/20/2024 [facility] DATE CREATED AUTHOR AUTHOR'S ORGANIZ ATION 02/20/2025 [facility] DATE CREATED AUTHOR AUTHOR'S ORGANIZ ATION 03/01/2025 [facility] DATE CREATED AUTHOR AUTHOR'S ORGANIZ ATION 06/07/2025 [facility] DATE CREATED AUTHOR AUTHOR'S ORGANIZ ATION 07/10/2025 [facility] Reason for Visit (unrecogniz ed section and content) Reason Comments Joint Pain New patient. Patient is here for knee pain. Patient was referred by Ramin Sommer CNP. Patient states she was seeing Dr. Rosales in [place]. Patient has hx of osteoarthritis and psoriatic arthritis. Patient states that she tried taking otezla and it did not work for her. Patient states that Dr. Rosales has been trying to get her on MTX for years. Patient states she was told plaquenil would no longer be used for arthritis. Patient states that she wants a second opinion. Other Patient states that she has been doing better the last 6 Months. Patient states that she is not interested in taking the methotrexate if she does not have to. Patient states that she has an eye doctor Dr. Stanton in [place] every year. Patient states that she is unsure of what exacty she was diagnosed with. Status Reason Specialty Diagnoses / Procedures Re ferred By Contact Referred To Contact Closed Diagnoses Dorsalgia Paresthesias in left hand Carpal tunnel syndrome of left wrist Paresthesia of right foot Disorder of bone and cartilage Abnormal reflexes of lower extremity Osteoarthritis of right sacroiliac joint Lumbar degenerative disc disease Osteoarthritis of lumbar spine, unspecified spinal osteoarthritis complication status Bilateral wrist pain Bilateral hand pain Osteoarthritis of both hands, unspecified osteoarthritis type Weakness of both hands Osteoarthritis of both feet, unspecified osteoarthritis type Psoriasis Fatigue, unspecified type 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 (NSAID) History of osteoarthritis History of psoriatic arthritis History of psoriasis Long-term use of high-risk medication Long-term use of Plaquenil History of fibromyalgia Chronic bilateral low back pain with left-sided sciatica Disc disorder Spinal stenosis of lumbar region with neurogenic claudication Lumbar radiculopathy Spondylolisthesis of lumbar region Psoriatic arthritis Chronic midline low back pain with left-sided sciatica Chronic bilateral low back pain with right-sided sciatica Ankylosing spondylitis, unspecified site of spine Chronic bilateral low back pain without sciatica Procedures EMG & NERVE CONDUCTION Alfa Holden Jr., [address] [place] [address] Nicho Maria MD [address] [place] [address] Status Reason Specialty Diagnoses / Procedures Re ferred By Contact Referred To Contact Closed Magnetic Resonance Imaging Diagnoses Dorsalgia Paresthesias in left hand Carpal tunnel syndrome of left wrist Paresthesia of right foot Disorder of bone and cartilage Abnormal reflexes of lower extremity Osteoarthritis of right sacroiliac joint Lumbar degenerative disc disease Osteoarthritis of lumbar spine, unspecified spinal osteoarthritis complication status Bilateral wrist pain Bilateral hand pain Osteoarthritis of both hands, unspecified osteoarthritis type Weakness of both hands Osteoarthritis of both feet, unspecified osteoarthritis type Psoriasis Fatigue, unspecified type 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 (NSAID) History of osteoarthritis History of psoriatic arthritis History of psoriasis Long-term use of high-risk medication Long-term use of Plaquenil History of fibromyalgia Chronic bilateral low back pain with left-sided sciatica Disc disorder Spinal stenosis of lumbar region with neurogenic claudication Lumbar radiculopathy Spondylolisthesis of lumbar region Psoriatic arthritis Chronic midline low back pain with left-sided sciatica Chronic bilateral low back pain with right-sided sciatica Ankylosing spondylitis, unspecified site of spine Chronic bilateral low back pain without sciatica Procedures MRI SPINE LUMBAR WITH AND WITHOUT CONTRAST RI MRI, LUMBAR SPINE COMBO Alfa Holden Jr., DO [address] [place] [address] [facility] [address] [place] [address] Reason Comments Joint Pain Patient is here toda y for a follow up after MRI. Patient states she is feeling better since her last appointment. Patient states she is not having joint pain today. Reason Comments Joint Pain Patient is here toda y for her 4 Month F/U. Patient states she has been doing good since her last appointment. Patient states Physical Therapy and Chiropractor has helped a lot with her joint pain. Patient states she decreased the Meloxicam to 1 tab QD and she has been doing good. Reason Comments Joint Pain Patient is here toda y for her 4 Month F/U. Patient states she has been feeling pretty good since her last appointment. Patient states she has been going to the Chiropractor seems to help Reason Comments Joint Pain Patient is here toda y for her 4 MOnth F/U. Patient states she is doing good and she is not having joint pain. Reason Comments Follow-up Patient is here for 4 month F/U. Patient states she has not been feeling too bad. Is having issues with left wrist complaining of not having the strength in it. States she still notices tingling in feet. States she seems to be feeing really tired lately. States fingers feel a little stiffer. Reason Comments Follow-up Patient is here for 4 month F/U. Patient states that she feels pretty good. Reason Comments Plaquenil Check Reason Comments Foot Pain R foot pain x 2 yrs - pt states that the pain is on the top of the foot on the lateral side - no trauma or injury - Reason Comments Follow-up Follow up right foot injection. Only taking meloxicam as needed. Nail Care Patient is here for nail care. Reason Comments Nail Care Reason Comments Follow-up Patient is here toda y for her 6 Month Follow-up. Patient states she is doing good since her last appointment. Patient states she is doing okay if the decrease of Plaquenil. Reason Comments Follow-up Patient is here for 3 month follow up. Reports she is doing well since last appointment. Has stopped the hydroxychlorquine and reports no issues since stopping medicine Reason Comments Nail Care Patient presents for nail care. Patient states that a month ago, she missed a step descending stairs, injured back of right heel. Patient states she's still having pain Reason Comments Follow-up Follow up right achi lles tendinitis. Feeling a lot better. She has been icing and stretching. Only really notices it when she gets up in the morning. Reason Comments Follow-up Patient presents for four week follow up PT. Patient reports overall improvement Reason Comments Cataract Follow Up Reason Comments Follow-up Patient is here for 6 month Follow-up. Patient states is doing good overall. States has been having pain in thumbs that is not constant. Reason Comments URI Cough, chest congest ion x 5 days Reason Comments Dry Eye(s) Both Eyes Reason Comments Follow-up Patient is here for 6 month Follow-up. Patient states is doing pretty good overall. Has noticed soreness on the outside of left knee. Addendum Note - Alyson Giordano LPN - 02/23/2021 7:15 AM EDTAddendum Note - Alyson Giordano LPN - 02/23/2021 7:15 AM EDTAddendum Note - Alyson Giordano LPN - 02/23/2021 7:15 AM EDT Miscellaneous Notes (unrecog nized section and content) Addended by: ALYSON GIORDANO on: 02/23/2021 12:50 PM Modules accepted: Orders Addended by: ALYSON GIORDANO on: 02/23/2021 12:46 PM Modules accepted: Orders Addended by: ALYSON GIORDANO on: 02/23/2021 11:49 AM Modules accepted: Orders documented in this encounter Care Teams (unrecognized sec tion and content) Manager Of Merchandising Relationship Specialty Start Date End Date Ramin Sommer APRN-CNP [address] [place] [address] PCP - General Certified Nurse Practitioner 02/23/21 Manager Of Merchandising Relationship Specialty Start Date End Date Hellinger, Ramin L, ENAMEL CRACKER-SECURITY REPRESENTATIVE [address] [place] [phone] PCP - General Certified Nurse Practitioner 02/23/21 Manager Of Merchandising Relationship Specialty Start Date End Date Ramin Sommer, ENAMEL CRACKER-SECURITY REPRESENTATIVE [address] [facility] [phone] PCP - General Certified Nurse Practitioner 02/23/21 Manager Of Merchandising Relationship Specialty Start Date End Date Ramin Sommer, ENAMEL CRACKER-SECURITY REPRESENTATIVE [address] [place] [phone] PCP - General Certified Nurse Practitioner 02/23/21 Manager Of Merchandising Relationship Specialty Start Date End Date Flavio Johnson MD [address] [place] [address] PCP - General Internal Medicine 09/25/23 [facility] [address] [place] [address] Rheumatology 09/06/22 Manager Of Merchandising Relationship Specialty Start Date End Date Flavio Johnson MD [address] [place] [address] PCP - General Internal Medicine 10/20/23 Manager Of Merchandising Relationship Specialty Start Date End Date Flavio Johnson MD [address] [place] [address] PCP - General Internal Medicine 10/20/23 Manager Of Merchandising Relationship Specialty Start Date End Date Flavio Johnson MD [address] [place] [address] PCP - General Internal Medicine 10/20/23 Manager Of Merchandising Relationship Specialty Start Date End Date Flavio Johnson MD [address] [place] [phone] PCP - General Internal Medicine 02/25/24 Team Status: Active Member Role Status Dates Dr. Flavio Johnson MD Primary Care Provider Active Team Status: Inactive Member Role Status Dates Dr. Flavio Johnson MD Primary Care Pro vider, Attending Provider, Referring Provider Active Manager Of Merchandising Relationship Specialty Start Date End Date Flavio Johnson MD [address] [place] [phone] PCP - General Internal Medicine 02/25/24 Manager Of Merchandising Relationship Specialty Start Date End Date Flavio Johnson MD [address] [place] [address] PCP - General Internal Medicine 10/20/23 Manager Of Merchandising Relationship Specialty Start Date End Date Flavio Johnson MD [address] [place] [address] PCP - General Internal Medicine 10/20/23 Manager Of Merchandising Relationship Specialty Start Date End Date Flavio Johnson MD [address] [place] [address] PCP - General Internal Medicine 10/20/23 Manager Of Merchandising Relationship Specialty Start Date End Date Flavio Johnson MD [address] [place], [place] [address] PCP - General Internal Medicine 09/25/23 [facility] [address] [facility] [place] [address] Rheumatology 09/06/22 Manager Of Merchandising Relationship Specialty Start Date End Date Flavio Johnson MD [address] [place] [address] PCP - General Internal Medicine 02/25/24 Manager Of Merchandising Relationship Specialty Start Date End [place] Flavio Johnson MD [address] [place] [phone] PCP - General Internal Medicine 02/18/25 Team Status: Inactive Member Role Status Dates Dr. Flavio Johnson MD Primary Care Provider Active Start: January 06, 2025 End: January 06, 2025 Dr. Flavio Johnson MD Attending Provider Active Start: January 06, 2025 End: January 06, 2025 Dr. Flavio Johnson MD Referring Provider Active Start: January 06, 2025 End: January 06, 2025 Team Status: Inactive Member Role Status Dates Dr. Flavio Johnson MD Primary Care Provider Active Start: February 14, 2025 End: February 14, 2025 Dr. Flavio Johnson MD Referring Provider Active Start: February 14, 2025 End: February 14, 2025 Dr. Eris Oalkey MD Attending Provider Active Start: February 14, 2025 End: February 14, 2025 Team Status: Inactive Member Role Status Dates Dr. Flavio Johnson MD Primary Care Provider Active Start: February 25, 2025 End: February 25, 2025 Dr. Flavio Johnson MD Referring Provider Active Start: February 25, 2025 End: February 25, 2025 Dr. Eris Oakley MD Attending Provider Active Start: February 25, 2025 End: February 25, 2025 Team Status: Active Member Role Status Dates Dr. Flavio Johnson MD Primary Care Provider Active Start: February 25, 2025 Dr. Flavio Johnson MD Referring Provider Active Start: February 25, 2025 Dr. Eris Oakley MD Attending Provider Active Start: February 25, 2025 Dr. Eris Oakley MD Other Provider Active Start: February 25, 2025 Manager Of Merchandising Relationship Specialty Start Date End Date Flavio Johnson MD [address] [place] [address] PCP - General Internal Medicine 09/25/23 [facility] [address] [place] [address] Rheumatology 09/06/22 Team Status: Inactive Member Role Status Dates Dr. Flavio Johnson MD Primary Care Provider Active Start: May 11, 2025 End: May 11, 2025 Dr. Flavio Johnson MD Attending Provider Active Start: May 11, 2025 End: May 11, 2025 Dr. Flavio Johnson MD Referring Provider Active Start: May 11, 2025 End: May 11, 2025 Team Status: Active Member Role/Relationship Status Dates Dr. Flavio Johnson MD Primary Care Provider Active Team Status: Inactive Member Role/Relationship Status Dates Dr. Flavio Johnson MD Primary Care Provider Active Start: February 14, 2025 End: February 14, 2025 Dr. Flavio Johnson MD Referring Provider Active Start: February 14, 2025 End: February 14, 2025 Dr. Eris Oakley MD Attending Provider Active Start: February 14, 2025 End: February 14, 2025 Team Status: Inactive Member Role/Relationship Status Dates Dr. Flavio Johnson MD Primary Care Provider Active Start: February 25, 2025 End: February 25, 2025 Dr. Flavio Johnson MD Referring Provider Active Start: February 25, 2025 End: February 25, 2025 Dr. Eris Oakley MD Attending Provider Active Start: February 25, 2025 End: February 25, 2025 Team Status: Active Member Role/Relationship Status Dates Dr. Flavio Johnson MD Primary Care Provider Active Start: February 25, 2025 Dr. Flavio Johnson MD Referring Provider Active Start: February 25, 2025 Dr. Eris Oakley MD Attending Provider Active Start: February 25, 2025 Dr. Eris Oakley MD Other Provider Active Start: February 25, 2025 Team Status: Inactive Member Role/Relationship Status Dates Dr. Flavio Johnson MD Primary Care Provider Active Start: May 11, 2025 End: May 11, 2025 Dr. Flavio Johnson MD Attending Provider Active Start: May 11, 2025 End: May 11, 2025 Dr. Flavio Johnson MD Referring Provider Active Start: May 11, 2025 End: May 11, 2025 Team Status: Active Member Role/Relationship Status Dates Dr. Flavio Johnson MD Primary Care Provider Active Start: May 24, 2025 Dr. Alfa Holden Jr., MD Attending Provider Acti ve Start: May 24, 2025 Dr. Alfa Holden Jr., MD Referring Provider Acti ve Start: May 24, 2025 Team Status: Inactive Member Role/Relationship Status Dates Dr. Flavio Johnson MD Primary Care Provider Active Start: May 25, 2025 End: May 25, 2025 Dr. Flavio Johnson MD Referring Provider Active Start: May 25, 2025 End: May 25, 2025 Dr. Schuyler Butler DO Attending Provider Active S tart: May 25, 2025 End: May 25, 2025 Team Status: Inactive Member Role/Relationship Status Dates Dr. Flavio Johnson MD Primary Care Provider Active Start: May 25, 2025 End: May 25, 2025 Dr. Flavio Johnson MD Referring Provider Active Start: May 25, 2025 End: May 25, 2025 Dr. Schuyler Brown , DO Attending Provider Active S tart: May 25, 2025 End: May 25, 2025 Team Status: Inactive Member Role/Relationship Status Dates Dr. Flavio Johnson MD Primary Care Provider Active Start: May 25, 2025 End: May 25, 2025 Dr. Alfa Holden Jr., MD Attending Provider Acti ve Start: May 25, 2025 End: May 25, 2025 Dr. Alfa Holden Jr., MD Referring Provider Acti ve Start: May 25, 2025 End: May 25, 2025 Manager Of Merchandising Relationship Specialty Start Date End Date Flavio Johnson MD [address] [place] [address] PCP - General Internal Medicine 02/25/24 Team Status: Inactive Member Role/Relationship Status Dates Dr. Flavio Johnson MD Primary Care Provider Active Start: February 25, 2025 End: February 25, 2025 Dr. Flavio Johnson MD Referring Provider Active Start: February 25, 2025 End: February 25, 2025 Dr. Eris Oakley MD Attending Provider Active Start: February 25, 2025 End: February 25, 2025 Team Status: Active Member Role/Relationship Status Dates Dr. Flavio Johnson MD Primary Care Provider Active Start: February 25, 2025 Dr. Flavio Johnson MD Referring Provider Active Start: February 25, 2025 Dr. Eris Oakley MD Attending Provider Active Start: February 25, 2025 Dr. Eris Oakley MD Other Provider Active Start: February 25, 2025 Team Status: Inactive Member Role/Relationship Status Dates Dr. Flavio Johnson MD Primary Care Provider Active Start: May 11, 2025 End: May 11, 2025 Dr. Flavio Johnson MD Attending Provider Active Start: May 11, 2025 End: May 11, 2025 Dr. Flavio Johnson MD Referring Provider Active Start: May 11, 2025 End: May 11, 2025 Team Status: Inactive Member Role/Relationship Status Dates Dr. Flavio Johnson MD Primary Care Provider Active Start: May 25, 2025 End: May 25, 2025 Dr. Flavio Johnson MD Referring Provider Active Start: May 25, 2025 End: May 25, 2025 Dr. Schuyler Butler , Attending Provider Active S tart: May 25, 2025 End: May 25, 2025 Team Status: Inactive Member Role/Relationship Status Dates Dr. Flavio Johnson MD Primary Care Provider Active Start: May 25, 2025 End: May 25, 2025 Dr. Alfa Holden Jr., MD Attending Provider Acti ve Start: May 25, 2025 End: May 25, 2025 Dr. Alfa Holden Jr., MD Referring Provider Acti ve Start: May 25, 2025 End: May 25, 2025 Team Status: Active Member Role/Relationship Status Dates Dr. Flavio Johnson MD Primary Care Provider Active Start: June 13, 2025 Dr. Schuyler Butler DO Attending Provider Active S tart: June 13, 2025 Dr. Schuyler Butler DO Referring Provider Active S tart: June 13, 2025 Team Status: Inactive Member Role/Relationship Status Dates Dr. Flavio Johnson MD Primary Care Provider Active Start: June 22, 2025 End: June 22, 2025 Dr. Flavio Johnson MD Attending Provider Active Start: June 22, 2025 End: June 22, 2025 Dr. Flavio Johnson MD Referring Provider Active Start: June 22, 2025 End: June 22, 2025 Team Status: Active Member Role/Relationship Status Dates Dr. Flavio Johnson MD Primary Care Provider Active Start: June 22, 2025 Dr. Flavio Johnson MD Attending Provider Active Start: June 22, 2025 Team Status: Inactive Member Role/Relationship Status Dates Dr. Flavio Johnson MD Primary Care Provider Active Start: June 13, 2025 End: June 13, 2025 Dr. Schuyler Butler DO Attending Provider Active S tart: June 13, 2025 End: June 13, 2025 Dr. Schuyler Butler DO Referring Provider Active S tart: June 13, 2025 End: June 13, 2025 Team Status: Inactive Member Role/Relationship Status Dates Dr. Flavio Johnson MD Primary Care Provider Active Start: June 22, 2025 End: June 22, 2025 Dr. Flavio Johnson MD Referring Provider Active Start: June 22, 2025 End: June 22, 2025 Dr. Schuyler Butler DO Attending Provider Active S tart: June 22, 2025 End: June 22, 2025 Team Status: Inactive Member Role/Relationship Status Dates Dr. Flavio Johnson MD Primary Care Provider Active Start: May 11, 2025 End: May 11, 2025 Dr. Flavio Johnson MD Attending Provider Active Start: May 11, 2025 End: May 11, 2025 Dr. Flavio Johnson MD Referring Provider Active Start: May 11, 2025 End: May 11, 2025 Team Status: Inactive Member Role/Relationship Status Dates Dr. Flavio Johnson MD Primary Care Provider Active Start: May 25, 2025 End: May 25, 2025 Dr. Flavio Johnson MD Referring Provider Active Start: May 25, 2025 End: May 25, 2025 Dr. Schuyler Butler DO Attending Provider Active S tart: May 25, 2025 End: May 25, 2025 Team Status: Inactive Member Role/Relationship Status Dates Dr. Flavio Johnson MD Primary Care Provider Active Start: May 25, 2025 End: May 25, 2025 Dr. Alfa Holden Jr., MD Attending Provider Acti ve Start: May 25, 2025 End: May 25, 2025 Dr. Alfa Holden Jr., MD Referring Provider Acti ve Start: May 25, 2025 End: May 25, 2025 Team Status: Inactive Member Role/Relationship Status Dates Dr. Flavio Johnson MD Primary Care Provider Active Start: June 13, 2025 End: June 13, 2025 Dr. Schuyler Butler DO Attending Provider Active S tart: June 13, 2025 End: June 13, 2025 Dr. Schuyler Butler DO Referring Provider Active S tart: June 13, 2025 End: June 13, 2025 Team Status: Inactive Member Role/Relationship Status Dates Dr. Flavio Johnson MD Primary Care Provider Active Start: June 22, 2025 End: June 22, 2025 Dr. Flavio Johnson MD Attending Provider Active Start: June 22, 2025 End: June 22, 2025 Dr. Flavio Johnson MD Referring Provider Active Start: June 22, 2025 End: June 22, 2025 Team Status: Inactive Member Role/Relationship Status Dates Dr. Flavio Johnson MD Primary Care Provider Active Start: June 22, 2025 End: June 22, 2025 Dr. Flavio Johnson MD Attending Provider Active Start: June 22, 2025 End: June 22, 2025 Team Status: Inactive Member Role/Relationship Status Dates Dr. Flavio Johnson MD Primary Care Provider Active Start: June 22, 2025 End: June 22, 2025 Dr. Flavio Johnson MD Referring Provider Active Start: June 22, 2025 End: June 22, 2025 Dr. Schuyler Butler DO Attending Provider Active S tart: June 22, 2025 End: June 22, 2025 Team Status: Active Member Role/Relationship Status Dates Dr. Flavio Johnson MD Primary Care Provider Active Start: June 27, 2025 Dr. Flavio Johnson MD Attending Provider Active Start: June 27, 2025 Dr. Flavio Johnson MD Referring Provider Active Start: June 27, 2025 Team Status: Inactive Member Role/Relationship Status Dates Dr. Flavio Johnson MD Primary Care Provider Active Start: June 27, 2025 End: June 27, 2025 Dr. Flavio Johnson MD Attending Provider Active Start: June 27, 2025 End: June 27, 2025 Dr. Flavio Johnson MD Referring Provider Active Start: June 27, 2025 End: June 27, 2025 Source Comments (unrecognize d section and content) In the event this informatio n is protected by the Federal Confidentiality of Alcohol and Drug Abuse Patient Records regulations: The Federal rules restrict any use of the information to criminally investigate or prosecute any alcohol or drug abuse patient.[facility] the event this information is protected by the Federal Confidentiality of Alcohol and Drug Abuse Patient Records regulations: The Federal rules restrict any use of the information to criminally investigate or prosecute any alcohol or drug abuse patient.[facility] the event this information is protected by the Federal Confidentiality of Alcohol and Drug Abuse Patient Records regulations: The Federal rules restrict any use of the information to criminally investigate or prosecute any alcohol or drug abuse patient.[facility] Goals (unrecognized section and content) Goals may be documented in a n alternate sectionGoals may be documented in an alternate sectionGoals may be documented in an alternate section FOR RECORDS PERTAINING TO PATIENTS WHO ARE OR HAVE BEEN ENROLLED IN A CHEMICAL DEPENDENCY/SUBSTANCEABUSE PROGRAM, SOME INFORMATION MAY BE OMITTED. This clinical summary was aggregated from multiple sources. Caution should be exercised in using it in the provision of clinical care. This summary normalizes information from multiple sources, and as a consequence, information in this document may materially change the coding, format and clinical context of patient data. In addition, data may be omitted in some cases. CLINICAL DECISIONS SHOULD BE BASED ON THE PRIMARY CLINICAL RECORDS. [facility] [employer] [facility]. provides no warranty or guarantee of the accuracy or completeness of information in this document.
== END | disposition home or self-care (01) ==
LOC: PSN 10:23
PROVIDERS: PCP Internal Medicine; Referring Provider Internal Medicine Critical Care Medicine; Visit Provider Internal Medicine Critical Care Medicine
DX: R06.2 Wheezing (principal)
CPT/HCPCS: 94060; 94726; 94729

== ENCOUNTER → 2025-07-22 | Outpatient (CLI) | payer MEDICARE, SELFPAY ==
--- NOTE | 2025-07-22 08:00 | CYSPIN_PTH ---
PATIENT: BONOE ESPINOZA LOC: LAB U#:[id number] AGE/SX: 70/F ROOM: RE07/22/[address]: Dr. Oli Lezama MD : 1955 BED: DIS: 07/22/2025 SPEC #: [id number] RECD: 07/22/25 10:21 STATUS: SILVIO GLADISEvangelina #: [id number] HARSHAD: 07/22/25 08:[address]: Oli Lezama DEPT: CYTOLOGY RECD BY: Javed Wiseman ENTERED: 07/22/25 11:28 SP TYPE: CYSPIN FL OTHR DR: Dr. Paula Johnson MD Tissues: A - Thyroid gland, NOS Procedures: Pap Stain (control) Special Stain Group II Diff Quik Stain (control) Cytospin Fluid Cytology Other HEADER OPERATION: Fine needle aspiration of left thyroid nodule PRE-OP DIAGNOSIS: Left thyroid nodule TISSUE SUBMITTED: A- Left thyroid nodule DIAGNOSIS CYTOLOGY A. Left thyroid nodule, FNA (cytospin, smear x4): * Atypical cells of undetermined significance (TBS III). * Afirma testing will be submitted. CYTOLOGY STUDY Slides are reviewed. CYTOLOGY GROSS A. Received is 30 ml of pink-cloudy cytolyt with particles and 4 smears labeled with the patient's name and and designated per the requisition as Left thyroid nodule. Submitted for cytology and cytospin. 07/22/2025 CPT:28510 ADDENDUM ADDENDUM ADDENDUM ADDENDUM ADDENDUM ADDENDUM ADDENDUM ADDENDUM 08/15/2025 15:26 ADDENDUM 08/15/2025 15:26 ADDENDUM 08/15/2025 15:26 ADDENDUM 08/15/2025 15:26 ADDENDUM 08/15/2025 15:26 AFIRMA RESULTS REPORT RESULTS INTERPRETATION: No result for Afirma GSC due to inadequate RNA yield. Inadequate RNA yields typically result from low nodule cellularity or insufficient FNA material. [employer] recommends resubmitting another FNA sample. Please see complete report in e-chart or EMR
[2025-07-22 10:37] LABS: Free T3 3.1 pg/mL (2.18-3.98)
== END | disposition home or self-care (01) ==
PROVIDERS: PCP Internal Medicine; Referring Provider Surgery; Visit Provider Surgery
DX: E04.1 Nontoxic single thyroid nodule (principal)
CPT/HCPCS: 36415; 84439; 84443; 84481; 88108; 88161; 88313

== ENCOUNTER → 2025-08-31 | Outpatient (CLI) | payer MEDICARE, SELFPAY ==
--- NOTE | 2025-08-31 09:10 | ASPIG_PTH ---
PATIENT: BOONE ESPINOZA LOC: [place] U#:[id number] AGE/SX: 70/F ROOM: RE08/31/[address]: Dr. Oli Lezama MD : 1955 BED: DIS: 08/31/2025 SPEC #: [id number] RECD: 08/31/25 09:30 STATUS: SILVIO REEvangelina #: [id number] HARSHAD: 08/31/25 09:[address]: Oli Lezama DEPT: CYTOLOGY RECD BY: Javed Wiseman ENTERED: 08/31/25 10:31 SP TYPE: ASP OUT OTHR DR: Dr. Paula Johnson MD Tissues: A - Thyroid gland, NOS Procedures: FNA Specimen Adequacy Special Stain Group II Diff Quik Stain (control) Cytospin Fluid Cytology Other HEADER OPERATION: Fine needle aspiration of left thyroid nodule PRE-OP DIAGNOSIS: Left thyroid nodule TISSUE SUBMITTED: A- Left thyroid nodule for cytology DIAGNOSIS CYTOLOGY A. Left thyroid nodule, FNA (cytospin, smear x4): Atypical cells of undetermined significance (TBS III). Specimen submitted for Afirma testing. COMMENT The specimen is evaluated at the time of biopsy by Dr. Hutchinson. Immediate Evaluation = 1. Few follicular cells noted. 2. Adequate. CYTOLOGY STUDY Slides are reviewed. CYTOLOGY GROSS A. Received is 30 ml of light-pink cytolyt with particles and 4 smears labeled with the patient's name and and designated per the requisition as Left thyroid nodule. Submitted for cytology and cytospin. Mr 08/31/2025 CPT: 75257,47896 ADDENDUM ADDENDUM ADDENDUM ADDENDUM ADDENDUM ADDENDUM ADDENDUM ADDENDUM ADDENDUM ADDENDUM 09/26/2025 10:16 ADDENDUM 09/26/2025 10:16 ADDENDUM 09/26/2025 10:16 ADDENDUM 09/26/2025 10:16 ADDENDUM 09/26/2025 10:16 AFIRMA RESULTS REPORT RESULTS INTERPRETATION: The result of this 2.2 cm [place] III nodule A is Afirma [facility] benign, which suggests a low risk of cancer of approximately 4%. Treatment like a cytologically benign nodule may be appropriate, including clinical correlation. Afirma XA is not performed on [facility] Benign nodules. TERT promoter region analysis is not performed on [facility] Benign nodules. Please see complete report in e-chart or EMR
--- NOTE | 2025-08-31 09:10 | ASPIG_PTH ---
PATIENT: BOONE ESPINOZA LOC: [place] U#:[id number] AGE/SX: 70/F ROOM: RE08/31/[address]: Dr. Oli Lezama MD : 1955 BED: DIS: 08/31/2025 SPEC #: [id number] RECD: 08/31/25 09:30 STATUS: SILVIO REEvangelina #: [id number] HARSHAD: 08/31/25 09:[address]: Oli Lezama DEPT: CYTOLOGY RECD BY: Javed Wiseman ENTERED: 08/31/25 10:31 SP TYPE: ASP OUT OTHR DR: Dr. Paula Johnson MD Tissues: A - Thyroid gland, NOS Procedures: FNA Specimen Adequacy Special Stain Group II Diff Quik Stain (control) Cytospin Fluid Cytology Other HEADER OPERATION: Fine needle aspiration of left thyroid nodule PRE-OP DIAGNOSIS: Left thyroid nodule TISSUE SUBMITTED: A- Left thyroid nodule for cytology DIAGNOSIS CYTOLOGY A. Left thyroid nodule, FNA (cytospin, smear x4): Atypical cells of undetermined significance (TBS III). Specimen submitted for Afirma testing. COMMENT The specimen is evaluated at the time of biopsy by Dr. Hutchinson. Immediate Evaluation = 1. Few follicular cells noted. 2. Adequate. CYTOLOGY STUDY Slides are reviewed. CYTOLOGY GROSS A. Received is 30 ml of light-pink cytolyt with particles and 4 smears labeled with the patient's name and and designated per the requisition as Left thyroid nodule. Submitted for cytology and cytospin. Mr 08/31/2025 CPT: [id number] ADDENDUM ADDENDUM ADDENDUM ADDENDUM ADDENDUM ADDENDUM ADDENDUM ADDENDUM ADDENDUM ADDENDUM 09/26/2025 10:16 ADDENDUM 09/26/2025 10:16 ADDENDUM 09/26/2025 10:16 ADDENDUM 09/26/2025 10:16 ADDENDUM 09/26/2025 10:16 AFIRMA RESULTS REPORT RESULTS INTERPRETATION: The result of this 2.2 cm [place] III nodule A is Afirma [facility] benign, which suggests a low risk of cancer of approximately 4%. Treatment like a cytologically benign nodule may be appropriate, including clinical correlation. Afirma XA is not performed on [facility] [place] Benign nodules. TERT promoter region analysis is not performed on [facility] [place] Benign nodules. Please see complete report in e-chart or EMR
== END | disposition home or self-care (01) ==
PROVIDERS: PCP Internal Medicine; Referring Provider Surgery; Visit Provider Surgery
DX: E04.1 Nontoxic single thyroid nodule (principal)
CPT/HCPCS: 88108; 88161; 88172; 88305; 88313